=== PATIENT | male | born 1940 | race Caucasian/White ===

== ENCOUNTER 2017-07-16 15:06 | Emergency (ER) | payer MEDICARE, OTHER ==
[2017-07-16 15:23] VITALS: BP 153/72
[2017-07-16] MEDS ORDERED: Sodium Chloride 0.9% 10 ML Syringe FLUSH PRN (15:26)
--- NOTE | 2017-07-16 15:27 | EDM.PDOC ---
ED HPI GENERAL MEDICAL PROBLEM - General Chief Complaint: Cardiovascular Problem Stated Complaint: CONCERNS ABOUT POSS HEART ATTACK Time Seen by Provider: 07/16/17 15:20 Source of Information: Reports: Patient History Limitations: Reports: No Limitations - History of Present Illness INITIAL COMMENTS - FREE TEXT/NARRATIVE: The patient presents with a possible heart attack. He was out pushing snow and he had some epigastric pain and shortness or breath. He had some nausea. He stopped and it got better. He has a history of PA with stents. He has 2-3 stents. He has a history of low sodium. He has no chest pain. He has no fever , chills, cough, congestion, abdominal pain nausea or vomiting. He also had some tingling in his hands. Onset: Sudden Duration: Minutes: Location: Reports: Abdomen Quality: Reports: Other (Discomfort) Severity: Mild Improves with: Reports: None Worsens with: Reports: None Associated Symptoms: Reports: Shortness of Breath. 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 325 mg this morning - Related Data Allergies Allergy/AdvReac Type Severity Reaction Status Date / Time amoxicillin [From Augmentin] Allergy Diarrhea Verified 07/16/17 15:24 clavulanic acid Allergy Diarrhea Verified 07/16/17 15:24 [From Augmentin] hydrochlorothiazide Allergy Other Verified 10/03/16 18:30 tamsulosin [From Flomax] Allergy Difficulty Verified 10/03/16 18:30 Breathing droperidol AdvReac Anxiety Verified 10/04/16 10:36 Home Meds: Home Meds Aspirin [Aspirin EC] 325 mg PO DAILY 01/21/15 [History] Carvedilol [Coreg] 12.5 mg PO BID 01/21/15 [History] FA/Lycopene/Lut/MV,Ca,Iron,Min [Centrum] 1 tab PO DAILY 01/21/15 [History] Furosemide [Lasix] 20 mg PO DAILY 01/21/15 [History] Simvastatin [Zocor] 40 mg PO BEDTIME 01/21/15 [History] Ubidecarenone [COQ-10] 200 mg PO DAILY 01/21/15 [History] amLODIPine/Benazepril [Lotrel 10-20 MG] 10 - 20 mg PO DAILY 01/21/15 [History] Cimetidine [Tagamet Hb] 200 mg PO DAILY 10/03/16 [History] Doxazosin [Cardura] 8 mg PO DAILY 07/16/17 [History] Past Medical History HEENT History: Reports: Other (See Below) Other HEENT History: wears glasses Cardiovascular History: Reports: Hypertension, PA - Infectious Disease History Infectious Disease History: Reports: None - Past Surgical History Cardiovascular Surgical History: Reports: Coronary Artery Stent GI Surgical History: Reports: Hernia Repair/Other, Other (See Below) Musculoskeletal Surgical History: Reports: Hip Replacement, Knee Replacement Social & Family History - Tobacco Use Smoking Status *Q: Never Smoker Years of Tobacco use: 25 Used Tobacco, but Quit: Yes Month Tobacco Last Used: QUIT 34 YRS AGO - Caffeine Use Caffeine Use: Reports: None - Alcohol Use Days Per Week of Alcohol Use: 0 - Recreational Drug Use Recreational Drug Use: No ED ROS GENERAL - Review of Systems Review Of Systems: See Below Constitutional: Reports: No Symptoms HEENT: Reports: No Symptoms Respiratory: Reports: Shortness of Breath Cardiovascular: Reports: No Symptoms Endocrine: Reports: No Symptoms GI/Abdominal: Reports: Abdominal Pain (upset stomach), Nausea : Reports: No Symptoms Musculoskeletal: Reports: No Symptoms ED EXAM, GENERAL - Physical Exam Exam: See Below Exam Limited By: No Limitations General Appearance: Alert, No Apparent Distress Ears: Normal External Exam Nose: Normal Inspection Head: Atraumatic, Normocephalic Neck: Normal Inspection Respiratory/Chest: No Respiratory Distress, Lungs Clear, Normal Breath Sounds Cardiovascular: Regular Rate, Rhythm, No Edema, No Murmur GI/Abdominal: Soft, Non-Tender, No Organomegaly, No Mass Back Exam: Normal Inspection Extremities: Normal Inspection EKG INTERPRETATION EKG Date: 07/16/17 Time: 15:17 Rhythm: NSR Rate (Beats/Min): 60 [place]: Normal P-Wave: Present QRS: Other (Nonspecific interaventricular conduction delay) ST-T: Normal QT: Normal EKG Interpretation Comments: PVC Course - Vital Signs Last Recorded V/S: Last Vital Signs Temp 97.9 F 07/16/17 15:20 Pulse 62 07/16/17 15:20 Resp 11 L 07/16/17 15:20 BP 153/72 H 07/16/17 15:20 Pulse Ox 99 07/16/17 15:20 - Orders/Labs/Meds Orders: Active Orders 24 hr Category Date Time Status Cardiac Monitoring [RC] . DIRECTED Care 07/16/17 15:26 Active EKG Documentation Completion [RC] ASDIRECTED Care 07/16/17 17:29 Active EKG Documentation Completion [RC] STAT Care 07/16/17 15:27 Active Oxygen Therapy [RC] PRN Care 07/16/17 15:26 Active Peripheral IV Care [RC] . DIRECTED Care 07/16/17 15:27 Active Chest 1V Frontal [CR] Stat Exams 07/16/17 15:27 Taken Sodium Chloride 0.9% [Saline Flush] Med 07/16/17 15:26 Active 10 ml FLUSH ASDIRECTED PRN Peripheral IV Insertion Adult [OM.PC] Stat Oth 07/16/17 15:26 Ordered EKG 12 Lead [EK] Stat Ther 07/16/17 17:29 Ordered Medication Orders Sodium Chloride (Saline Flush) 10 ml FLUSH ASDIRECTED PRN PRN Reason: Keep Vein Open Last Admin: 07/16/17 16:24 Dose: 10 ml Labs: Laboratory Tests 07/16/17 07/16/17 07/16/17 Range/Units 15:25 15:25 17:54 WBC 5.17 (4.23-9.07) K/mm3 RBC 4.05 L (4.63-6.08) M/mm3 Hgb 12.9 L (13.7-17.5) gm/L Hct 37.0 L (40.1-51.0) % MCV 91.4 (79.0-92.2) fl MCH 31.9 (25.7-32.2) pg MCHC 34.9 (32.2-35.5) g/dl RDW Std Deviation 38.5 (35.1-43.9) fL Plt Count 255 (163-337) K/mm3 MPV 8.7 L (9.4-12.3) fl Neut % (Auto) 52.6 (34.0-67.9) % Lymph % (Auto) 23.6 (21.8-53.1) % [place] % (Auto) 18.4 H (5.3-12.2) % Eos % (Auto) 3.5 (0.8-7.0) Baso % (Auto) 1.7 H (0.1-1.2) % Neut # (Auto) 2.72 (1.78-5.38) K/mm3 Lymph # (Auto) 1.22 L (1.32-3.57) K/mm3 [place] # (Auto) 0.95 H (0.30-0.82) K/mm3 Eos # (Auto) 0.18 (0.04-0.54) K/mm3 Baso # (Auto) 0.09 H (0.01-0.08) K/mm3 Manual Slide Review Normal smear Sodium 131 L (136-145) mEq/L Potassium 3.8 (3.5-5.1) mEq/L Chloride 98 (98-107) mEq/L Carbon Dioxide 26 (21-32) mEq/L Anion Gap 10.8 (5-15) BUN 15 (7-18) mg/dL Creatinine 1.3 (0.7-1.3) mg/dL Est Cr Clr Drug Dosing 48.35 mL/min Estimated GFR (MDRD) 53 (>60) mL/min BUN/Creatinine Ratio 11.5 L (14-18) Glucose 87 (83-115) mg/dL Calcium 8.7 (8.5-10.1) mg/dL Total Bilirubin 0.5 (0.2-1.0) mg/dL AST 24 (15-37) U/L ALT 24 (16-63) U/L Alkaline Phosphatase 51 (46-116) U/L Troponin I < 0.017 < 0.017 (0.00-0.056) ng/mL Total Protein 6.5 (6.4-8.2) g/dl Albumin 3.6 (3.4-5.0) g/dl Globulin 2.9 gm/dL Albumin/Globulin Ratio 1.2 (1-2) Meds: Medications Generic Name Dose Route Start Last Admin Trade Name Freq PRN Reason Stop Dose Admin Sodium Chloride 10 ml 07/16/17 15:26 07/16/17 16:24 Saline Flush FLUSH 10 ml ASDIRECTED PRN Administration Keep Vein Open - Re-Assessments/Exams Free Text/Narrative Re-Assessment/Exam: 07/16/17 18:44 I ordered an IV saline lock, labs, EKG, CXR. He took aspirin today. His EKG shows a NSR with no acute changes. His CBC is negative. His Na was a little low at 131. His troponin was negative. I did a repeat troponin and it was negative. It does not appear he has a PA. Departure - Departure Time of Disposition: 18:45 Disposition: Home, Self-Care 01 Condition: Good Clinical Impression: Nausea, Shortness of breath Referrals: Heath Rodriguez MD [Primary Care Provider] - 1 Week Forms: ED Department Discharge Additional Instructions: Take your medication as prescribed. Follow up with Dr Rodriguez within 1 week. Please return if you are worse. - My Orders Last 24 Hours: My Active Orders 07/16/17 15:26 Cardiac Monitoring [RC] . DIRECTED Oxygen Therapy [RC] PRN Sodium Chloride 0.9% [Saline Flush] 10 ml FLUSH ASDIRECTED PRN Peripheral IV Insertion Adult [OM.PC] Stat 07/16/17 15:27 EKG Documentation Completion [RC] STAT Peripheral IV Care [RC] . DIRECTED Chest 1V Frontal [CR] Stat 07/16/17 17:29 EKG Documentation Completion [RC] ASDIRECTED EKG 12 Lead [EK] Stat - Assessment/Plan Last 24 Hours: My Active Orders 07/16/17 15:26 Cardiac Monitoring [RC] . DIRECTED Oxygen Therapy [RC] PRN Sodium Chloride 0.9% [Saline Flush] 10 ml FLUSH ASDIRECTED PRN Peripheral IV Insertion Adult [OM.PC] Stat 07/16/17 15:27 EKG Documentation Completion [RC] STAT Peripheral IV Care [RC] . DIRECTED Chest 1V Frontal [CR] Stat 07/16/17 17:29 EKG Documentation Completion [RC] ASDIRECTED EKG 12 Lead [EK] Stat
--- NOTE | 2017-07-17 07:07 | CR ---
Chest: Portable view of the chest is obtained. Comparison: Prior chest x-ray of 10/03/16. Mild areas of linear scarring are seen within the left base. Lungs otherwise are clear but slightly hyperinflated. Heart size and mediastinum are normal. Bony structures are grossly intact. Impression: 1. Slight emphysematous change. 2. Stable scarring within the left lung base. 3. Nothing acute is appreciated on portable chest x-ray. Diagnostic code #2
== END 2017-07-16 19:00 | disposition home or self-care (01) ==
LOC: JD.ED 15:06 → SUPCPDRO 15:06 → JD.ED 19:00
DX: R06.02 Shortness of breath (principal); R11.0 Nausea; R10.13 Epigastric pain; I10 Essential (primary) hypertension; Z79.82 Long term (current) use of aspirin; Z79.899 Other long term (current) drug therapy; Z87.891 Personal history of nicotine dependence; Z88.8 Allergy status to other drugs, medicaments and biological substances; Z88.1 Allergy status to other antibiotic agents
CPT/HCPCS: 36415; 71010; 80053; 84484; 85025; 93005; 99285; J7050; 93010

== ENCOUNTER 2018-08-15 10:55 | Inpatient (IN) | payer MEDICARE, OTHER ==
[2018-08-15] MEDS ORDERED: Sodium Chloride 0.9% 10 ML Syringe FLUSH PRN (11:39)
[2018-08-15] MEDS ORDERED: Sodium Chloride 0.9% 250 ML IV ONE (11:42)
[2018-08-15] MEDS ORDERED: Sodium Chloride 0.9% 1,000 ML IV ONE (13:56)
[2018-08-15] MEDS ORDERED: Iopamidol 755 MG/ML 50 ML Bottle IVPUSH ONE (14:08)
[2018-08-15] MEDS ORDERED: Iopamidol 755 Mg/ML 100 ML Bottle IVPUSH ONE (14:08)
[2018-08-15] MEDS ORDERED: Sodium Chloride 0.9% 10 ML Syringe FLUSH ONE (14:08)
--- NOTE | 2018-08-15 14:09 | EDM.PDOC ---
ED HPI GENERAL MEDICAL PROBLEM - General Chief Complaint: General Stated Complaint: ALL OVER PAIN Time Seen by Provider: 08/15/18 11:20 Source of Information: Reports: Patient History Limitations: Reports: No Limitations - History of Present Illness INITIAL COMMENTS - FREE TEXT/NARRATIVE: 78-year-old male presents for evaluation and treatment of fatigue, malaise, decreased energy and dyspnea on exertion. Patient was seen the end of May. Transfer to [place] for ventricular tachycardia. He had a pacemaker placed on June 26. He has been seeing slag wheeler Dr. Aiken, Dr. Wilson and Dr. Soriano, EP, for his cardiac issues. He has followed up with these providers and has an appointment with EP, Dr. Soriano, on Friday. Patient reports the last 2-3 days he is having issues with abdominal pain, pain in between his shoulder blades, dyspnea on exertion, lightheadedness, decreased energy and malaise. He denies any chest pain, nausea, vomiting or syncope. He is reporting pain generalized throughout his entire abdomen. Primary care provider is Dr. Rodriguez. Patient has a past medical history of hypertension, previous ND, coronary artery stent placements and a pacemaker placed. Generalized Pain Score (Numeric/FACES): 4 - Related Data Allergies Allergy/AdvReac Type Severity Reaction Status Date / Time atorvastatin Allergy Other Verified 08/15/18 20:35 hydrochlorothiazide Allergy Other Verified 08/15/18 20:35 rosuvastatin [From Crestor] Allergy Other Verified 08/15/18 20:35 tamsulosin [From Flomax] Allergy Difficulty Verified 08/15/18 20:35 Breathing amoxicillin [From Augmentin] AdvReac Diarrhea Verified 08/15/18 20:35 clavulanic acid AdvReac Diarrhea Verified 08/15/18 20:35 [From Augmentin] droperidol AdvReac Anxiety Verified 08/15/18 20:35 Home Meds: Home Meds Albuterol [Proventil HFA] 2 puff INH Q6H PRN 06/07/18 [History] Aspirin 325 mg PO DAILY 06/07/18 [History] Brimonidine [Alphagan P 0.15% Ophth Soln] 1 drop OP BID 06/07/18 [History] Carvedilol [Coreg] 6.25 mg PO BID 06/07/18 [History] Doxazosin [Cardura] 2 mg PO DAILY 06/07/18 [History] L Acidophil/B Lactis/B Longum [Florajen3] 1 cap PO ASDIRECTED 06/07/18 [History] Omeprazole 20 mg PO DAILY 06/07/18 [History] Simvastatin [Zocor] 40 mg PO BEDTIME 06/07/18 [History] Ubidecarenone [Coq-10] 200 mg PO DAILY 06/07/18 [History] Umeclidinium Brm/Vilanterol Tr [Anoro Ellipta 62.5-25 MCG] 1 puff IH DAILY 06/07 [History] Vit C/E/Zn/Coppr/Lutein/Zeaxan [Preservision Areds 2 Softgel] 1 cap PO BID 06/07 [History] amLODIPine [Norvasc] 2.5 mg PO DAILY 06/07/18 [History] Amiodarone [Cordarone] 400 mg PO DAILY 08/15/18 [History] Candesartan Cilexetil [Atacand] 8 mg PO DAILY 08/15/18 [History] Furosemide [Lasix] 20 mg PO ASDIRECTED 08/15/18 [History] Furosemide [Lasix] 20 mg PO DAILY 08/15/18 [History] Metoprolol Succinate 75 mg PO BID 08/15/18 [History] Mexiletine [Mexitil] 150 mg PO DAILY 08/15/18 [History] Nitroglycerin [Nitrostat] 0.4 mg SL ASDIRECTED 08/15/18 [History] Umeclidinium [place] [Incruse Ellipta*] 1 puff INH DAILY 08/15/18 [History] Vit C/E/Zn/Coppr/Lutein/Zeaxan [Preservision Areds 2 Softgel] 1 cap PO BID 08/15 [History] Past Medical History HEENT History: Reports: Other (See Below) Other HEENT History: wears glasses Cardiovascular History: Reports: Hypertension, ND, Pacemaker - Infectious Disease History Infectious Disease History: Reports: None - Past Surgical History Cardiovascular Surgical History: Reports: Coronary Artery Stent GI Surgical History: Reports: Hernia Repair/Other, Other (See Below) Musculoskeletal Surgical History: Reports: Hip Replacement, Knee Replacement Social & Family History - Family History Family Medical History: Noncontributory - Tobacco Use Smoking Status *Q: Former Smoker Used Tobacco, but Quit: Yes Month/Year Tobacco Last Used: 1981 - Caffeine Use Caffeine Use: Reports: Coffee, Soda, Tea - Recreational Drug Use Recreational Drug Use: No ED ROS GENERAL - Review of Systems Review Of Systems: See Below Constitutional: Reports: Malaise, Fatigue, Decreased Appetite. Denies: Fever, Chills Respiratory: Denies: Shortness of Breath Cardiovascular: Reports: Dyspnea on Exertion, Lightheadedness. Denies: Chest Pain GI/Abdominal: Reports: Abdominal Pain. Denies: Diarrhea, Nausea, Vomiting Musculoskeletal: Reports: Back Pain (in between shoulder blades) ED EXAM, GENERAL - Physical Exam Exam: See Below Exam Limited By: No Limitations General Appearance: Alert, WD/WN, No Apparent Distress Ears: Normal External Exam Nose: Normal Inspection Throat/Mouth: Normal Inspection, Normal Lips, Normal Voice, No Airway Compromise Respiratory/Chest: No Respiratory Distress, Lungs Clear, Normal Breath Sounds Cardiovascular: Normal Peripheral Pulses, Regular Rate, Rhythm, No Murmur GI/Abdominal: Normal Bowel Sounds, Soft, No Distention, Tender (mild, generalized) Neurological: Alert, Oriented, Normal Cognition Psychiatric: Normal Affect, Normal Mood Skin Exam: Warm, Dry, Normal Color EKG INTERPRETATION EKG Date: 08/15/18 Time: 11:05 Rhythm: Other (paced) Rate (Beats/Min): 66 EKG Interpretation Comments: Paced rhythm at 66 bpm. Prolonged QT interval. with a QTc of 580. Reviewed by myself and Dr. Chavez. Course - Vital Signs Last Recorded V/S: Last Vital Signs Temp 97.2 F 08/15/18 20:28 Pulse 76 08/15/18 21:37 Resp 18 08/15/18 20:28 BP 111/75 08/15/18 21:37 Pulse Ox 96 08/15/18 20:28 - Orders/Labs/Meds Orders: Active Orders 24 hr Category Date Time Status Cardiac Monitoring [RC] . DIRECTED Care 08/15/18 11:39 Active EKG Documentation Completion [RC] ASDIRECTED Care 08/15/18 11:39 Active Sodium Chloride 0.9% [Saline Flush] Med 08/15/18 11:39 Active 10 ml FLUSH ASDIRECTED PRN Peripheral IV Insertion Adult [OM.PC] Routine Oth 08/15/18 11:38 Ordered EKG 12 Lead [EK] Stat Ther 08/15/18 11:39 Ordered Medication Orders Albuterol (Proventil Hfa) 0 gm INH Q6H PRN PRN Reason: Shortness of Breath Amiodarone HCl (Cordarone) 400 mg PO DAILY [facility] Aspirin (Ecotrin) 325 mg PO DAILY [facility] Brimonidine Tartrate (Alphagan 0.2% Ophth Soln) 0 ml EYEBOTH BID [facility] Last Admin: 08/15/18 21:40 Dose: 1 drop Carvedilol (Coreg) 6.25 mg PO BID [facility] Last Admin: 08/15/18 21:37 Dose: 6.25 mg Doxazosin Mesylate (Cardura) 2 mg PO DAILY [facility] Nitroglycerin (Nitrostat) 0.4 mg SL ASDIRECTED PRN PRN Reason: Chest Pain Non-Formulary Medication (Umeclidinium Brm/Vilanterol Tr) 1 puff IH DAILY [facility] Simvastatin (Zocor) 40 mg PO BEDTIME [facility] Last Admin: 08/15/18 21:40 Dose: 40 mg Sodium Chloride (Saline Flush) 10 ml FLUSH ASDIRECTED PRN PRN Reason: Keep Vein Open Last Admin: 08/15/18 12:25 Dose: 10 ml Labs: Laboratory Tests 08/15/18 08/15/18 08/15/18 Range/Units 11:00 11:00 11:00 WBC 4.25 (4.23-9.07) K/mm3 RBC 4.41 L (4.63-6.08) M/mm3 Hgb 13.4 L (13.7-17.5) gm/L Hct 37.2 L (40.1-51.0) % MCV 84.4 (79.0-92.2) fl MCH 30.4 (25.7-32.2) pg MCHC 36.0 H (32.2-35.5) g/dl RDW Std Deviation 37.7 (35.1-43.9) fL Plt Count 256 (163-337) K/mm3 MPV 9.3 L (9.4-12.3) fl Neutrophils % (Manual) 60 (40-60) % Band Neutrophils % 1 (0-10) % Lymphocytes % (Manual) 26 (20-40) % Atypical Lymphs % 0 % Monocytes % (Manual) 9 (2-10) % Eosinophils % (Manual) 4 (0.8-7.0) % Basophils % (Manual) 0 L (0.2-1.2) Platelet Estimate Adequate RBC Morph Comment Normal PT 10.6 (9.5-12.1) SECONDS INR 0.97 APTT 31 (24-31) SECONDS D-Dimer, Quantitative 1.49 H (0.19-0.50) mg/L Sodium 117 L* (136-145) mEq/L Potassium 4.1 (3.5-5.1) mEq/L Chloride 82 L (98-107) mEq/L Carbon Dioxide 28 (21-32) mEq/L Anion Gap 11.1 (5-15) BUN 9 (7-18) mg/dL Creatinine 1.0 (0.7-1.3) mg/dL Est Cr Clr Drug Dosing 61.85 mL/min Estimated GFR (MDRD) > 60 (>60) mL/min BUN/Creatinine Ratio 9.0 L (14-18) Glucose 116 H (83-115) mg/dL Calcium 8.5 (8.5-10.1) mg/dL Magnesium (1.8-2.4) mg/dl Total Bilirubin 0.6 (0.2-1.0) mg/dL AST 78 H (15-37) U/L ALT 79 H (16-63) U/L Alkaline Phosphatase 92 (46-116) U/L CK-MB (CK-2) 1.8 (0-3.6) ng/ml Troponin I < 0.017 (0.00-0.056) ng/mL NT-Pro-B Natriuret Pep (0-450) pg/mL Total Protein 7.0 (6.4-8.2) g/dl Albumin 3.5 (3.4-5.0) g/dl Globulin 3.5 gm/dL Albumin/Globulin Ratio 1.0 (1-2) Lipase 238 (73-393) U/L Urine Color (Yellow) Urine Appearance (Clear) Urine pH (5.0-8.0) Ur Specific [place] (1.005-1.030) Urine Protein (Negative) Urine Glucose (UA) (Negative) Urine Ketones (Negative) Urine Occult Blood (Negative) Urine Nitrite (Negative) Urine Bilirubin (Negative) Urine Urobilinogen (0.2-1.0) Ur Leukocyte Esterase (Negative) Urine RBC (0-5) /hpf Urine WBC (0-5) /hpf Ur Epithelial Cells (0-5) /hpf Urine Bacteria (FEW) /hpf Urine Mucus (FEW) /hpf Mycoplasma pneumon IgM (NEGATIVE) 08/15/18 08/15/18 08/15/18 Range/Units 11:00 11:00 11:00 WBC (4.23-9.07) K/mm3 RBC (4.63-6.08) M/mm3 Hgb (13.7-17.5) gm/L Hct (40.1-51.0) % MCV (79.0-92.2) fl MCH (25.7-32.2) pg MCHC (32.2-35.5) g/dl RDW Std Deviation (35.1-43.9) fL Plt Count (163-337) K/mm3 MPV (9.4-12.3) fl Neutrophils % (Manual) (40-60) % Band Neutrophils % (0-10) % Lymphocytes % (Manual) (20-40) % Atypical Lymphs % % Monocytes % (Manual) (2-10) % Eosinophils % (Manual) (0.8-7.0) % Basophils % (Manual) (0.2-1.2) Platelet Estimate RBC Morph Comment PT (9.5-12.1) SECONDS INR APTT (24-31) SECONDS D-Dimer, Quantitative (0.19-0.50) mg/L Sodium (136-145) mEq/L Potassium (3.5-5.1) mEq/L Chloride (98-107) mEq/L Carbon Dioxide (21-32) mEq/L Anion Gap (5-15) BUN (7-18) mg/dL Creatinine (0.7-1.3) mg/dL Est Cr Clr Drug Dosing mL/min Estimated GFR (MDRD) (>60) mL/min BUN/Creatinine Ratio (14-18) Glucose (83-115) mg/dL Calcium (8.5-10.1) mg/dL Magnesium 2.0 (1.8-2.4) mg/dl Total Bilirubin (0.2-1.0) mg/dL AST (15-37) U/L ALT (16-63) U/L Alkaline Phosphatase (46-116) U/L CK-MB (CK-2) (0-3.6) ng/ml Troponin I (0.00-0.056) ng/mL NT-Pro-B Natriuret Pep 1411 H (0-450) pg/mL Total Protein (6.4-8.2) g/dl Albumin (3.4-5.0) g/dl Globulin gm/dL Albumin/Globulin Ratio (1-2) Lipase (73-393) U/L Urine Color (Yellow) Urine Appearance (Clear) Urine pH (5.0-8.0) Ur Specific [place] (1.005-1.030) Urine Protein (Negative) Urine Glucose (UA) (Negative) Urine Ketones (Negative) Urine Occult Blood (Negative) Urine Nitrite (Negative) Urine Bilirubin (Negative) Urine Urobilinogen (0.2-1.0) Ur Leukocyte Esterase (Negative) Urine RBC (0-5) /hpf Urine WBC (0-5) /hpf Ur Epithelial Cells (0-5) /hpf Urine Bacteria (FEW) /hpf Urine Mucus (FEW) /hpf Mycoplasma pneumon IgM Negative (NEGATIVE) 08/15/18 Range/Units 12:00 WBC (4.23-9.07) K/mm3 RBC (4.63-6.08) M/mm3 Hgb (13.7-17.5) gm/L Hct (40.1-51.0) % MCV (79.0-92.2) fl MCH (25.7-32.2) pg MCHC (32.2-35.5) g/dl RDW Std Deviation (35.1-43.9) fL Plt Count (163-337) K/mm3 MPV (9.4-12.3) fl Neutrophils % (Manual) (40-60) % Band Neutrophils % (0-10) % Lymphocytes % (Manual) (20-40) % Atypical Lymphs % % Monocytes % (Manual) (2-10) % Eosinophils % (Manual) (0.8-7.0) % Basophils % (Manual) (0.2-1.2) Platelet Estimate RBC Morph Comment PT (9.5-12.1) SECONDS INR APTT (24-31) SECONDS D-Dimer, Quantitative (0.19-0.50) mg/L Sodium (136-145) mEq/L Potassium (3.5-5.1) mEq/L Chloride (98-107) mEq/L Carbon Dioxide (21-32) mEq/L Anion Gap (5-15) BUN (7-18) mg/dL Creatinine (0.7-1.3) mg/dL Est Cr Clr Drug Dosing mL/min Estimated GFR (MDRD) (>60) mL/min BUN/Creatinine Ratio (14-18) Glucose (83-115) mg/dL Calcium (8.5-10.1) mg/dL Magnesium (1.8-2.4) mg/dl Total Bilirubin (0.2-1.0) mg/dL AST (15-37) U/L ALT (16-63) U/L Alkaline Phosphatase (46-116) U/L CK-MB (CK-2) (0-3.6) ng/ml Troponin I (0.00-0.056) ng/mL NT-Pro-B Natriuret Pep (0-450) pg/mL Total Protein (6.4-8.2) g/dl Albumin (3.4-5.0) g/dl Globulin gm/dL Albumin/Globulin Ratio (1-2) Lipase (73-393) U/L Urine Color Yellow (Yellow) Urine Appearance Clear (Clear) Urine pH 7.5 (5.0-8.0) Ur Specific [place] 1.020 (1.005-1.030) Urine Protein Negative (Negative) Urine Glucose (UA) Negative (Negative) Urine Ketones Negative (Negative) Urine Occult Blood Negative (Negative) Urine Nitrite Negative (Negative) Urine Bilirubin Negative (Negative) Urine Urobilinogen 0.2 (0.2-1.0) Ur Leukocyte Esterase Negative (Negative) Urine RBC Not seen (0-5) /hpf Urine WBC 0-5 (0-5) /hpf Ur Epithelial Cells Not seen (0-5) /hpf Urine Bacteria Rare (FEW) /hpf Urine Mucus Not seen (FEW) /hpf Mycoplasma pneumon IgM (NEGATIVE) Meds: Medications Generic Name Dose Route Start Last Admin Trade Name Freq PRN Reason Stop Dose Admin Albuterol 0 gm 08/15/18 19:23 Proventil Hfa INH Q6H PRN Shortness of Breath Amiodarone HCl 400 mg 08/16/18 09:00 Cordarone PO DAILY [facility] Aspirin 325 mg 08/16/18 09:00 Ecotrin PO DAILY [facility] Brimonidine Tartrate 0 ml 08/15/18 21:00 08/15/18 21:40 Alphagan 0.2% Ophth Soln EYEBOTH 1 drop BID [facility] Administration Carvedilol 6.25 mg 08/15/18 21:00 08/15/18 21:37 Coreg PO 6.25 mg BID [facility] Administration Doxazosin Mesylate 2 mg 08/16/18 09:00 Cardura PO DAILY [facility] Nitroglycerin 0.4 mg 08/15/18 19:15 Nitrostat SL ASDIRECTED PRN Chest Pain Non-Formulary Medication 1 puff 08/16/18 09:00 Umeclidinium Brm/Vilanterol Tr IH DAILY [facility] Simvastatin 40 mg 08/15/18 21:00 08/15/18 21:40 Zocor PO 40 mg BEDTIME [facility] Administration Sodium Chloride 10 ml 08/15/18 11:39 08/15/18 12:25 Saline Flush FLUSH 10 ml ASDIRECTED PRN Administration Keep Vein Open Discontinued Medications Generic Name Dose Route Start Last Admin Trade Name Freq PRN Reason Stop Dose Admin Sodium Chloride 250 mls @ 999 mls/hr 08/15/18 11:42 08/15/18 12:25 Normal Saline IV 08/15/18 11:57 999 mls/hr ONETIME ONE Administration Sodium Chloride 1,000 mls @ 100 mls/hr 08/15/18 13:56 08/15/18 20:23 Normal Saline IV 08/15/18 23:55 Not Given ONETIME ONE Sodium Chloride 100 mls @ 60 mls/hr 08/15/18 14:15 08/15/18 14:23 Normal Saline IV 60 mls/hr ASDIRECTED ARTHUR Administration Sodium Chloride 500 mls @ 999 mls/hr 08/15/18 15:47 08/15/18 20:23 Normal Saline IV 08/15/18 16:17 Not Given ONETIME ONE Sodium Chloride 1,000 mls @ 125 mls/hr 08/15/18 19:15 Normal Saline IV ASDIRECTED ARTHUR Iopamidol 50 ml 08/15/18 14:08 08/15/18 14:23 Isovue-370 (76%) IVPUSH 08/15/18 14:09 50 ml ONETIME ONE Administration Iopamidol 100 ml 08/15/18 14:08 08/15/18 14:23 Isovue-370 (76%) IVPUSH 08/15/18 14:09 100 ml ONETIME ONE Administration Ondansetron HCl 4 mg 08/15/18 15:18 08/15/18 15:26 Zofran IVPUSH 08/15/18 15:19 4 mg ONETIME ONE Administration Sodium Chloride 10 ml 08/15/18 14:08 08/15/18 14:23 Saline Flush FLUSH 08/15/18 14:09 10 ml ONETIME ONE Administration - Radiology Interpretation Free Text/Narrative:: CT chest Technique: Multiple axial sections were obtained through the chest. Intravenous contrast was utilized. Comparison: Prior chest CT study of 10/16/12 is available. Findings: Pulmonary arteries are well-opacified. No filling defects are seen to indicate pulmonary embolism. Atherosclerotic change is noted within the aorta. Ascending aorta is slightly ectatic at 3.5 cm. No thoracic aortic aneurysm or dissection is seen. No mediastinal mass or adenopathy is seen. No hilar abnormalities are seen. Emphysematous change is noted within both lungs. Lungs show no acute parenchymal change. No pleural effusions are seen. No pneumothorax is seen. Bone window settings were reviewed which shows mild scattered degenerative change within the spine. Previous sternotomy is noted presumably for CABG. Impression: 1. No findings of pulmonary embolism. Ascending aorta is slightly ectatic but no aneurysm is seen. No aortic dissection is seen. 2. Emphysematous change is noted with no acute parenchymal change being seen. 3. Other incidental findings as noted above. CT abdomen and pelvis Technique: Multiple axial sections were obtained from above the dome of the diaphragm inferiorly to the pubic symphysis. Intravenous contrast was utilized. Study initially returned during the arterial phase. Additional axial images were obtained during the venous phase of contrast enhancement. Findings: Aorta shows atherosclerotic change. No aneurysm is seen. Atherosclerotic change is noted at the origin of both renal arteries. No definite hemodynamically significant stenosis is seen within the renal arteries. Symmetric contrast enhancement of both kidneys is noted. Atherosclerotic change is noted at the origin of the superior mesenteric artery. No findings of hemodynamic significant stenosis is seen. Celiac axis also shows atherosclerotic change at its origin. Celiac axis shows no hemodynamic significant stenosis. Inferior mesenteric artery shows atherosclerotic change at its origin. No hemodynamic significant stenosis is seen within the inferior mesenteric artery. Liver contains no focal abnormality. Spleen appears within normal limits. Adrenal glands show no nodule. Kidneys show no hydronephrosis or mass. Pancreas is within normal limits. Previous cholecystectomy is noted. No retroperitoneal adenopathy is seen. No mesenteric abnormalities are seen. Very small sac containing hernia noted within the right anterior abdominal wall slightly above the umbilicus. No pelvic mass or adenopathy is seen. Artifact is noted within the pelvis from bilateral hip prosthesis. Scattered degenerative change is noted within the lumbar spine with minimal scoliosis. No bowel dilatation or bowel wall thickening is seen. Appendix is not definitely visualized. Impression: 1. Atherosclerotic change at the origin of all branch vessels from the aorta. No definite hemodynamic significant stenosis within the branch vessels is seen as described above. Aorta shows no dissection or aneurysm. 2. Other incidental findings as noted above. - Re-Assessments/Exams Free Text/Narrative Re-Assessment/Exam: 08/15/18 15:46 I reviewed the labs, EKG and imaging with the patient and his . He is declining pain medication since being in the ER. He is quite hyponatremic with a sodium of 117. I am recommending admission. reports he has had hyponatremia in the past. I did see him in September 2016 for hyponatremia. Reportedly the cause of his hyponatremia is unknown. When he was seen in May his sodium was 136. Case discussed with Dr. Carrion, hospitalist [employer] wire[employer]. Agrees to the admission and is come to the ED and seen the patient. Asked that we check for influenza and mycoplasm as well. Patient will be admitted observation under Dr. Carrion. Departure - Departure Time of Disposition: 15:50 Disposition: Refer to Observation Condition: Serious Clinical Impression: Hyponatremia - Discharge Information *PRESCRIPTION DRUG MONITORING PROGRAM REVIEWED*: No *COPY OF PRESCRIPTION DRUG MONITORING REPORT IN PATIENT PAN: No - My Orders Last 24 Hours: My Active Orders 08/15/18 11:38 Peripheral IV Insertion Adult [OM.PC] Routine 08/15/18 11:39 Cardiac Monitoring [RC] . DIRECTED EKG Documentation Completion [RC] ASDIRECTED Sodium Chloride 0.9% [Saline Flush] 10 ml FLUSH ASDIRECTED PRN EKG 12 Lead [EK] Stat - Assessment/Plan Last 24 Hours: My Active Orders 08/15/18 11:38 Peripheral IV Insertion Adult [OM.PC] Routine 08/15/18 11:39 Cardiac Monitoring [RC] . DIRECTED EKG Documentation Completion [RC] ASDIRECTED Sodium Chloride 0.9% [Saline Flush] 10 ml FLUSH ASDIRECTED PRN EKG 12 Lead [EK] Stat
[2018-08-15] MEDS ORDERED: Sodium Chloride 0.9% 100 ML IV SCH (14:15)
[2018-08-15] MEDS ORDERED: Ondansetron 4 MG/2 ML SDV IVPUSH ONE (15:18)
--- NOTE | 2018-08-15 15:42 | CT ---
CT chest Technique: Multiple axial sections were obtained through the chest. Intravenous contrast was utilized. Comparison: Prior chest CT study of 10/16/12 is available. Findings: Pulmonary arteries are well-opacified. No filling defects are seen to indicate pulmonary embolism. Atherosclerotic change is noted within the aorta. Ascending aorta is slightly ectatic at 3.5 cm. No thoracic aortic aneurysm or dissection is seen. No mediastinal mass or adenopathy is seen. No hilar abnormalities are seen. Emphysematous change is noted within both lungs. Lungs show no acute parenchymal change. No pleural effusions are seen. No pneumothorax is seen. Bone window settings were reviewed which shows mild scattered degenerative change within the spine. Previous sternotomy is noted presumably for CABG. Impression: 1. No findings of pulmonary embolism. Ascending aorta is slightly ectatic but no aneurysm is seen. No aortic dissection is seen. 2. Emphysematous change is noted with no acute parenchymal change being seen. 3. Other incidental findings as noted above. Diagnostic code #2 CT abdomen and pelvis Technique: Multiple axial sections were obtained from above the dome of the diaphragm inferiorly to the pubic symphysis. Intravenous contrast was utilized. Study initially returned during the arterial phase. Additional axial images were obtained during the venous phase of contrast enhancement. Findings: Aorta shows atherosclerotic change. No aneurysm is seen. Atherosclerotic change is noted at the origin of both renal arteries. No definite hemodynamically significant stenosis is seen within the renal arteries. Symmetric contrast enhancement of both kidneys is noted. Atherosclerotic change is noted at the origin of the superior mesenteric artery. No findings of hemodynamic significant stenosis is seen. Celiac axis also shows atherosclerotic change at its origin. Celiac axis shows no hemodynamic significant stenosis. Inferior mesenteric artery shows atherosclerotic change at its origin. No hemodynamic significant stenosis is seen within the inferior mesenteric artery. Liver contains no focal abnormality. Spleen appears within normal limits. Adrenal glands show no nodule. Kidneys show no hydronephrosis or mass. Pancreas is within normal limits. Previous cholecystectomy is noted. No retroperitoneal adenopathy is seen. No mesenteric abnormalities are seen. Very small sac containing hernia noted within the right anterior abdominal wall slightly above the umbilicus. No pelvic mass or adenopathy is seen. Artifact is noted within the pelvis from bilateral hip prosthesis. Scattered degenerative change is noted within the lumbar spine with minimal scoliosis. No bowel dilatation or bowel wall thickening is seen. Appendix is not definitely visualized. Impression: 1. Atherosclerotic change at the origin of all branch vessels from the aorta. No definite hemodynamic significant stenosis within the branch vessels is seen as described above. Aorta shows no dissection or aneurysm. 2. Other incidental findings as noted above. Diagnostic code #2
[2018-08-15] MEDS ORDERED: Sodium Chloride 0.9% 500 ML IV ONE (15:47)
--- NOTE | 2018-08-15 19:08 | PCM.HP ---
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 He has had malaise, SOB, decreased activity level which began after but before . He denies any recent change in medication, however the medication list multiple duplications in several drug classes. This will be clarified during the hospitalization. He mentioned nausea without vomiting, denies any triggers. 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 Electrolyte correction, abnd hydration for dehydration has been initiated in the ED. The patient will be admitted to [facility]; he is a full code. Onset of Symptoms: Reports: Unknown/Unsure Symptom Onset Date: 08/06/18 Duration of Symptoms: Reports: Day(s):, Getting Worse Location: Reports: Generalized Quality: Reports: Same as Previous Episode Severity: Moderate Improves with: Reports: Medication Worsens with: Reports: None Context: Reports: Sick Contact (unknown) Associated Symptoms: Reports: Loss of Appetite, Malaise, Nausea/Vomiting, Weakness Generalized Pain Score (Numeric/FACES): 4 - Related Data Allergies/Adverse Reactions: Allergies Allergy/AdvReac Type Severity Reaction Status Date / Time atorvastatin Allergy Other Verified 08/15/18 20:35 hydrochlorothiazide Allergy Other Verified 08/15/18 20:35 rosuvastatin [From Crestor] Allergy Other Verified 08/15/18 20:35 tamsulosin [From Flomax] Allergy Difficulty Verified 08/15/18 20:35 Breathing amoxicillin [From Augmentin] AdvReac Diarrhea Verified 08/15/18 20:35 clavulanic acid AdvReac Diarrhea Verified 08/15/18 20:35 [From Augmentin] droperidol AdvReac Anxiety Verified 08/15/18 20:35 Home Medications: Home Meds Albuterol [Proventil HFA] 2 puff INH Q6H PRN 06/07/18 [History] Aspirin 325 mg PO DAILY 06/07/18 [History] Brimonidine [Alphagan P 0.15% Ophth Soln] 1 drop OP BID 06/07/18 [History] Doxazosin [Cardura] 2 mg PO DAILY 06/07/18 [History] L Acidophil/B Lactis/B Longum [Florajen3] 1 cap PO ASDIRECTED 06/07/18 [History] Omeprazole 20 mg PO DAILY 06/07/18 [History] Simvastatin [Zocor] 20 mg PO BEDTIME 06/07/18 [History] Ubidecarenone [Coq-10] 200 mg PO DAILY 06/07/18 [History] Vit C/E/Zn/Coppr/Lutein/Zeaxan [Preservision Areds 2 Softgel] 1 cap PO BID 06/07 [History] Amiodarone [Cordarone] 400 mg PO DAILY 08/15/18 [History] Candesartan Cilexetil [Atacand] 8 mg PO DAILY 08/15/18 [History] Furosemide [Lasix] 20 mg PO ASDIRECTED 08/15/18 [History] Furosemide [Lasix] 20 mg PO DAILY 08/15/18 [History] Metoprolol Succinate 75 mg PO BID 08/15/18 [History] Mexiletine [Mexitil] 150 mg PO TID 08/15/18 [History] Nitroglycerin [Nitrostat] 0.4 mg SL ASDIRECTED 08/15/18 [History] Umeclidinium [place] [Incruse Ellipta*] 1 puff INH DAILY 08/15/18 [History] Vit C/E/Zn/Coppr/Lutein/Zeaxan [Preservision Areds 2 Softgel] 1 cap PO BID 08/15 [History] Past Medical History HEENT History: Reports: Other (See Below) Other HEENT History: wears glasses Cardiovascular History: Reports: Hypertension, [place], Pacemaker - Infectious Disease History Infectious Disease History: Reports: None - Past Surgical History Cardiovascular Surgical History: Reports: Coronary Artery Stent GI Surgical History: Reports: Hernia Repair/Other, Other (See Below) Musculoskeletal Surgical History: Reports: Hip Replacement, Knee Replacement Social & Family History - Family History Family Medical History: Noncontributory - Tobacco Use Smoking Status *Q: Former Smoker Used Tobacco, but Quit: Yes Month/Year Tobacco Last Used: 1981 - Caffeine Use Caffeine Use: Reports: Coffee, Soda, Tea - Recreational Drug Use Recreational Drug Use: No H&P Review of Systems - Review of Systems: Review Of Systems: See Below () General: Reports: Malaise, Weakness, Fatigue HEENT: Reports: No Symptoms Pulmonary: Reports: No Symptoms Cardiovascular: Reports: Lightheadedness Gastrointestinal: Reports: Decreased Appetite Genitourinary: Reports: No Symptoms Musculoskeletal: Reports: No Symptoms Skin: Reports: No Symptoms Psychiatric: Reports: No Symptoms Neurological: Reports: Dizziness Hematologic/Lymphatic: Reports: No Symptoms Immunologic: Reports: No Symptoms Exam - Exam Exam: See Below - Vital Signs Vital Signs: Last Vital Signs Temp 36.8 C 08/15/18 13:00 Pulse 60 08/15/18 18:15 Resp 20 08/15/18 18:15 BP 167/83 H 08/15/18 18:15 Pulse Ox 94 L 08/15/18 18:15 Weight: 81.647 kg - Exam Quality Assessment: Supplemental Oxygen General: Alert, Oriented, Cooperative HEENT: Conjunctiva Clear, EACs Clear, EOMI, Nares Patent, Normal Nasal Septum, Pupils Equal, Pupils Reactive, PERRLA Neck: Trachea Midline Lungs: Normal Respiratory Effort GI/Abdominal Exam: Normal Bowel Sounds, Soft, Non-Tender, No Organomegaly, No Distention (Male) Exam: Deferred Rectal (Males) Exam: Deferred Back Exam: Normal Inspection Extremities: Normal Inspection, Non-Tender, Normal Capillary Refill Skin: Warm Neurological: Cranial Nerves Intact, Normal Speech Neuro Extensive - Mental Status: Alert, Oriented x3, Normal Mood/Affect, Normal Cognition, Memory Intact Neuro Extensive - Motor, Sensory, Reflexes: CN II-XII Intact Psychiatric: Alert, Normal Affect, Normal Mood - Patient Data Lab Results Last 24 hrs: Laboratory Results - last 24 hr 08/15/18 08/15/18 08/15/18 Range/Units 11:00 11:00 11:00 WBC 4.25 (4.23-9.07) K/mm3 RBC 4.41 L (4.63-6.08) M/mm3 Hgb 13.4 L (13.7-17.5) gm/L Hct 37.2 L (40.1-51.0) % MCV 84.4 (79.0-92.2) fl MCH 30.4 (25.7-32.2) pg MCHC 36.0 H (32.2-35.5) g/dl RDW Std Deviation 37.7 (35.1-43.9) fL Plt Count 256 (163-337) K/mm3 MPV 9.3 L (9.4-12.3) fl Neutrophils % (Manual) 60 (40-60) % Band Neutrophils % 1 (0-10) % Lymphocytes % (Manual) 26 (20-40) % Atypical Lymphs % 0 % Monocytes % (Manual) 9 (2-10) % Eosinophils % (Manual) 4 (0.8-7.0) % Basophils % (Manual) 0 L (0.2-1.2) Platelet Estimate Adequate RBC Morph Comment Normal PT 10.6 (9.5-12.1) SECONDS INR 0.97 APTT 31 (24-31) SECONDS D-Dimer, Quantitative 1.49 H (0.19-0.50) mg/L Sodium 117 L* (136-145) mEq/L Potassium 4.1 (3.5-5.1) mEq/L Chloride 82 L (98-107) mEq/L Carbon Dioxide 28 (21-32) mEq/L Anion Gap 11.1 (5-15) BUN 9 (7-18) mg/dL Creatinine 1.0 (0.7-1.3) mg/dL Est Cr Clr Drug Dosing 61.85 mL/min Estimated GFR (MDRD) > 60 (>60) mL/min BUN/Creatinine Ratio 9.0 L (14-18) Glucose 116 H (83-115) mg/dL Calcium 8.5 (8.5-10.1) mg/dL Magnesium (1.8-2.4) mg/dl Total Bilirubin 0.6 (0.2-1.0) mg/dL AST 78 H (15-37) U/L ALT 79 H (16-63) U/L Alkaline Phosphatase 92 (46-116) U/L CK-MB (CK-2) 1.8 (0-3.6) ng/ml Troponin I < 0.017 (0.00-0.056) ng/mL NT-Pro-B Natriuret Pep (0-450) pg/mL Total Protein 7.0 (6.4-8.2) g/dl Albumin 3.5 (3.4-5.0) g/dl Globulin 3.5 gm/dL Albumin/Globulin Ratio 1.0 (1-2) Lipase 238 (73-393) U/L Urine Color (Yellow) Urine Appearance (Clear) Urine pH (5.0-8.0) Ur Specific [place] (1.005-1.030) Urine Protein (Negative) Urine Glucose (UA) (Negative) Urine Ketones (Negative) Urine Occult Blood (Negative) Urine Nitrite (Negative) Urine Bilirubin (Negative) Urine Urobilinogen (0.2-1.0) Ur Leukocyte Esterase (Negative) Urine RBC (0-5) /hpf Urine WBC (0-5) /hpf Ur Epithelial Cells (0-5) /hpf Urine Bacteria (FEW) /hpf Urine Mucus (FEW) /hpf Mycoplasma pneumon IgM (NEGATIVE) 08/15/18 08/15/18 08/15/18 Range/Units 11:00 11:00 11:00 WBC (4.23-9.07) K/mm3 RBC (4.63-6.08) M/mm3 Hgb (13.7-17.5) gm/L Hct (40.1-51.0) % MCV (79.0-92.2) fl MCH (25.7-32.2) pg MCHC (32.2-35.5) g/dl RDW Std Deviation (35.1-43.9) fL Plt Count (163-337) K/mm3 MPV (9.4-12.3) fl Neutrophils % (Manual) (40-60) % Band Neutrophils % (0-10) % Lymphocytes % (Manual) (20-40) % Atypical Lymphs % % Monocytes % (Manual) (2-10) % Eosinophils % (Manual) (0.8-7.0) % Basophils % (Manual) (0.2-1.2) Platelet Estimate RBC Morph Comment PT (9.5-12.1) SECONDS INR APTT (24-31) SECONDS D-Dimer, Quantitative (0.19-0.50) mg/L Sodium (136-145) mEq/L Potassium (3.5-5.1) mEq/L Chloride (98-107) mEq/L Carbon Dioxide (21-32) mEq/L Anion Gap (5-15) BUN (7-18) mg/dL Creatinine (0.7-1.3) mg/dL Est Cr Clr Drug Dosing mL/min Estimated GFR (MDRD) (>60) mL/min BUN/Creatinine Ratio (14-18) Glucose (83-115) mg/dL Calcium (8.5-10.1) mg/dL Magnesium 2.0 (1.8-2.4) mg/dl Total Bilirubin (0.2-1.0) mg/dL AST (15-37) U/L ALT (16-63) U/L Alkaline Phosphatase (46-116) U/L CK-MB (CK-2) (0-3.6) ng/ml Troponin I (0.00-0.056) ng/mL NT-Pro-B Natriuret Pep 1411 H (0-450) pg/mL Total Protein (6.4-8.2) g/dl Albumin (3.4-5.0) g/dl Globulin gm/dL Albumin/Globulin Ratio (1-2) Lipase (73-393) U/L Urine Color (Yellow) Urine Appearance (Clear) Urine pH (5.0-8.0) Ur Specific [place] (1.005-1.030) Urine Protein (Negative) Urine Glucose (UA) (Negative) Urine Ketones (Negative) Urine Occult Blood (Negative) Urine Nitrite (Negative) Urine Bilirubin (Negative) Urine Urobilinogen (0.2-1.0) Ur Leukocyte Esterase (Negative) Urine RBC (0-5) /hpf Urine WBC (0-5) /hpf Ur Epithelial Cells (0-5) /hpf Urine Bacteria (FEW) /hpf Urine Mucus (FEW) /hpf Mycoplasma pneumon IgM Negative (NEGATIVE) 08/15/18 Range/Units 12:00 WBC (4.23-9.07) K/mm3 RBC (4.63-6.08) M/mm3 Hgb (13.7-17.5) gm/L Hct (40.1-51.0) % MCV (79.0-92.2) fl MCH (25.7-32.2) pg MCHC (32.2-35.5) g/dl RDW Std Deviation (35.1-43.9) fL Plt Count (163-337) K/mm3 MPV (9.4-12.3) fl Neutrophils % (Manual) (40-60) % Band Neutrophils % (0-10) % Lymphocytes % (Manual) (20-40) % Atypical Lymphs % % Monocytes % (Manual) (2-10) % Eosinophils % (Manual) (0.8-7.0) % Basophils % (Manual) (0.2-1.2) Platelet Estimate RBC Morph Comment PT (9.5-12.1) SECONDS INR APTT (24-31) SECONDS D-Dimer, Quantitative (0.19-0.50) mg/L Sodium (136-145) mEq/L Potassium (3.5-5.1) mEq/L Chloride (98-107) mEq/L Carbon Dioxide (21-32) mEq/L Anion Gap (5-15) BUN (7-18) mg/dL Creatinine (0.7-1.3) mg/dL Est Cr Clr Drug Dosing mL/min Estimated GFR (MDRD) (>60) mL/min BUN/Creatinine Ratio (14-18) Glucose (83-115) mg/dL Calcium (8.5-10.1) mg/dL Magnesium (1.8-2.4) mg/dl Total Bilirubin (0.2-1.0) mg/dL AST (15-37) U/L ALT (16-63) U/L Alkaline Phosphatase (46-116) U/L CK-MB (CK-2) (0-3.6) ng/ml Troponin I (0.00-0.056) ng/mL NT-Pro-B Natriuret Pep (0-450) pg/mL Total Protein (6.4-8.2) g/dl Albumin (3.4-5.0) g/dl Globulin gm/dL Albumin/Globulin Ratio (1-2) Lipase (73-393) U/L Urine Color Yellow (Yellow) Urine Appearance Clear (Clear) Urine pH 7.5 (5.0-8.0) Ur Specific [place] 1.020 (1.005-1.030) Urine Protein Negative (Negative) Urine Glucose (UA) Negative (Negative) Urine Ketones Negative (Negative) Urine Occult Blood Negative (Negative) Urine Nitrite Negative (Negative) Urine Bilirubin Negative (Negative) Urine Urobilinogen 0.2 (0.2-1.0) Ur Leukocyte Esterase Negative (Negative) Urine RBC Not seen (0-5) /hpf Urine WBC 0-5 (0-5) /hpf Ur Epithelial Cells Not seen (0-5) /hpf Urine Bacteria Rare (FEW) /hpf Urine Mucus Not seen (FEW) /hpf Mycoplasma pneumon IgM (NEGATIVE) Result Diagrams: 08/16/18 04:55 08/16/18 04:55 Bhanu Results Last 24 hrs: Microbiology 08/15/18 16:00 Influenza Type A Antigen Screen - Final Nasopharyngeal Swab NEGATIVE INFLUENZA A VIRUS AG Influenza Type B Antigen Screen - Final NEGATIVE INFLUENZA B VIRUS AG - Problem List (1) Hyponatremia SNOMED Code(s): 07704300 ICD Code: E87.1 - HYPO-OSMOLALITY AND HYPONATREMIA Status: Chronic Current Visit: Yes (2) Nausea SNOMED Code(s): 773296769 ICD Code: R11.0 - NAUSEA Status: Acute Current Visit: No Problem List Initiated/Reviewed/Updated: Yes Orders Last 24hrs: Active Orders 24 hr Category Date Time Status Patient Status [ADT] Routine ADT 08/15/18 17:55 Active Cardiac Monitoring [RC] . DIRECTED Care 08/15/18 11:39 Active EKG Documentation Completion [RC] ASDIRECTED Care 08/15/18 11:39 Active Peripheral IV Care [RC] . DIRECTED Care 08/15/18 11:39 Active Sodium Chloride 0.9% [Normal Saline] 1,000 ml Med 08/15/18 13:56 Active IV ONETIME Sodium Chloride 0.9% [Normal Saline] 100 ml Med 08/15/18 14:15 Active IV ASDIRECTED Sodium Chloride 0.9% [Saline Flush] Med 08/15/18 11:39 Active 10 ml FLUSH ASDIRECTED PRN Peripheral IV Insertion Adult [OM.PC] Routine Oth 08/15/18 11:38 Ordered EKG 12 Lead [EK] Stat Ther 08/15/18 11:39 Ordered Medication Orders Sodium Chloride (Normal Saline) 1,000 mls @ 100 mls/hr IV ONETIME ONE Stop: 08/15/18 23:55 Sodium Chloride (Normal Saline) 100 mls @ 60 mls/hr IV ASDIRECTED ARTHUR Last Admin: 08/15/18 14:23 Dose: 60 mls/hr Sodium Chloride (Saline Flush) 10 ml FLUSH ASDIRECTED PRN PRN Reason: Keep Vein Open Last Admin: 08/15/18 12:25 Dose: 10 ml Assessment/Plan Comment:: Impression: Hyponatremia Query iatrogenic Dehydration Query poly-pharmacy with several BB, etc. Chronic HTN HLD CAD/CABG S/P PPM/AICD Plan: Clarify cardiac meds IVF Correct electrolytes Home meds Daily Labs EMR Consult PT/OT/CM
[2018-08-15] MEDS ORDERED: Nitroglycerin 0.4 MG Tab.SL SL PRN (19:15)
[2018-08-15] MEDS: Carvedilol 6.25 MG Tab PO SCH (21:37)
[2018-08-15] MEDS: Simvastatin 40 MG Tab PO SCH (21:40)
[2018-08-15] MEDS: Brimonidine 0.2% Ophth Soln 5 ML Bottle EYEBOTH SCH (21:40)
[2018-08-15] MEDS: Sodium Chloride 0.9% 1,000 ML IV SCH (22:00)
[2018-08-15] MEDS ORDERED: Metoprolol Succinate 50 MG Tab.ER PO ONE (23:28)
[2018-08-16] MEDS ORDERED: Metoprolol Succinate 50 MG Tab.ER PO ONE (07:00)
[2018-08-16] MEDS: Sodium Chloride 0.9% 1,000 ML IV SCH ×3 (07:09→18:50)
[2018-08-16] MEDS ORDERED: Umeclidinium Brm/Vilanterol Tr 1 PUFF INH SCH (09:00)
[2018-08-16] MEDS ORDERED: Doxazosin 4 MG Tab PO SCH ×2 (09:00→21:00)
[2018-08-16] MEDS: Albuterol 6.7 GM Inhaler INH PRN (09:42)
[2018-08-16] MEDS: Umeclidinium Bromide 1 PUFF INH SCH (09:42)
[2018-08-16] MEDS ORDERED: Metoprolol Succinate 50 MG Tab.ER PO SCH (10:15)
[2018-08-16] MEDS: Amiodarone 200 MG Tab PO SCH (10:16)
[2018-08-16] MEDS: Aspirin 325 MG Tab.EC PO SCH (10:16)
[2018-08-16] MEDS: Sodium Chloride/Potassium Chloride Tab PO SCH ×2 (10:17→20:16)
[2018-08-16] MEDS: Brimonidine 0.2% Ophth Soln 5 ML Bottle EYEBOTH SCH ×2 (10:17→20:14)
[2018-08-16] MEDS: Carvedilol 6.25 MG Tab PO SCH (10:35)
[2018-08-16] MEDS: Metoprolol Succinate 50 MG Tab.ER PO SCH (17:54)
--- NOTE | 2018-08-16 18:15 | PCM.PN ---
- General Info Date of Service: 08/16/18 Functional Status: Reports: Pain Controlled, Tolerating Diet, Ambulating, Urinating - Review of Systems General: Reports: Weakness HEENT: Reports: No Symptoms Pulmonary: Reports: No Symptoms Cardiovascular: Reports: No Symptoms Gastrointestinal: Reports: No Symptoms Genitourinary: Reports: No Symptoms Musculoskeletal: Reports: No Symptoms Skin: Reports: No Symptoms Neurological: Reports: No Symptoms Psychiatric: Reports: No Symptoms - Patient Data Vitals - Most Recent: Last Vital Signs Temp 36.3 C 08/16/18 15:38 Pulse 60 08/16/18 17:54 Resp 18 08/16/18 15:38 BP 126/71 08/16/18 17:54 Pulse Ox 94 L 08/16/18 15:38 Weight - Most Recent: 81.647 kg I&O - Last 24 Hours: Intake & Output 08/16/18 08/16/18 08/16/18 06:59 14:59 22:59 Intake Total 1141 1702 Output Total 800 1100 Balance 341 602 Lab Results Last 24 Hours: Laboratory Results - last 24 hr 08/16/18 08/16/18 08/16/18 Range/Units 04:55 04:55 04:55 WBC 3.26 L (4.23-9.07) K/mm3 RBC 3.85 L (4.63-6.08) M/mm3 Hgb 11.6 L (13.7-17.5) gm/L Hct 33.0 L (40.1-51.0) % MCV 85.7 (79.0-92.2) fl MCH 30.1 (25.7-32.2) pg MCHC 35.2 (32.2-35.5) g/dl RDW Std Deviation 38.1 (35.1-43.9) fL Plt Count 199 (163-337) K/mm3 MPV 8.6 L (9.4-12.3) fl Neut % (Auto) 46.0 (34.0-67.9) % Lymph % (Auto) 27.3 (21.8-53.1) % [place] % (Auto) 21.2 H (5.3-12.2) % Eos % (Auto) 3.1 (0.8-7.0) Baso % (Auto) 1.5 H (0.1-1.2) % Neut # (Auto) 1.50 L (1.78-5.38) K/mm3 Lymph # (Auto) 0.89 L (1.32-3.57) K/mm3 [place] # (Auto) 0.69 (0.30-0.82) K/mm3 Eos # (Auto) 0.10 (0.04-0.54) K/mm3 Baso # (Auto) 0.05 (0.01-0.08) K/mm3 Manual Slide Review Normal smear Sodium 122 L (136-145) mEq/L Potassium 3.8 (3.5-5.1) mEq/L Chloride 89 L (98-107) mEq/L Carbon Dioxide 24 (21-32) mEq/L Anion Gap 12.8 (5-15) BUN 9 (7-18) mg/dL Creatinine 0.9 (0.7-1.3) mg/dL Est Cr Clr Drug Dosing 68.72 mL/min Estimated GFR (MDRD) > 60 (>60) mL/min BUN/Creatinine Ratio 10.0 L (14-18) Glucose 92 (83-115) mg/dL Lactic Acid 0.6 (0.4-2.0) mmol/L Calcium 8.0 L (8.5-10.1) mg/dL Magnesium 2.1 (1.8-2.4) mg/dl C-Reactive Protein 0.3 (<1.0) mg/dL Bhanu Results Last 24 Hours: Microbiology 08/15/18 16:00 Influenza Type A Antigen Screen - Final Nasopharyngeal Swab NEGATIVE INFLUENZA A VIRUS AG Influenza Type B Antigen Screen - Final NEGATIVE INFLUENZA B VIRUS AG Med Orders - Current: Current Medications Albuterol (Proventil Hfa) 0 gm INH Q6H PRN PRN Reason: Shortness of Breath Last Admin: 08/16/18 09:42 Dose: 2 puff Amiodarone HCl (Cordarone) 400 mg PO DAILY [facility] Last Admin: 08/16/18 10:16 Dose: 400 mg Aspirin (Ecotrin) 325 mg PO DAILY [facility] Last Admin: 08/16/18 10:16 Dose: 325 mg Brimonidine Tartrate (Alphagan 0.2% Ophth Soln) 0 ml EYEBOTH BID [facility] Last Admin: 08/16/18 10:17 Dose: 1 drop Doxazosin Mesylate (Cardura) 2 mg PO BEDTIME [facility] Sodium Chloride (Normal Saline) 1,000 mls @ 75 mls/hr IV ASDIRECTED [facility] Metoprolol Succinate (Toprol Xl) 75 mg PO BID@0900,1800 [facility] Last Admin: 08/16/18 17:54 Dose: 75 mg Nitroglycerin (Nitrostat) 0.4 mg SL ASDIRECTED PRN PRN Reason: Chest Pain Oral Electrolytes (Thermotabs) 2 each PO BID [facility] Last Admin: 08/16/18 10:17 Dose: 2 each Umeclidinium [place] (1 Puff) 0 each INH DAILY [facility] Last Admin: 08/16/18 09:42 Dose: 1 each Simvastatin (Zocor) 40 mg PO BEDTIME [facility] Last Admin: 08/15/18 21:40 Dose: 40 mg Sodium Chloride (Saline Flush) 10 ml FLUSH ASDIRECTED PRN PRN Reason: Keep Vein Open Last Admin: 08/15/18 12:25 Dose: 10 ml Discontinued Medications Carvedilol (Coreg) 6.25 mg PO BID [facility] Last Admin: 08/16/18 10:35 Dose: Not Given Doxazosin Mesylate (Cardura) 2 mg PO DAILY [facility] Last Admin: 08/16/18 10:23 Dose: Not Given Sodium Chloride (Normal Saline) 250 mls @ 999 mls/hr IV ONETIME ONE Stop: 08/15/18 11:57 Last Admin: 08/15/18 12:25 Dose: 999 mls/hr Sodium Chloride (Normal Saline) 1,000 mls @ 100 mls/hr IV ONETIME ONE Stop: 08/15/18 23:55 Last Admin: 08/15/18 20:23 Dose: Not Given Sodium Chloride (Normal Saline) 100 mls @ 60 mls/hr IV ASDIRECTED [facility] Last Admin: 08/15/18 14:23 Dose: 60 mls/hr Sodium Chloride (Normal Saline) 500 mls @ 999 mls/hr IV ONETIME ONE Stop: 08/15/18 16:17 Last Admin: 08/15/18 20:23 Dose: Not Given Sodium Chloride (Normal Saline) 1,000 mls @ 125 mls/hr IV ASDIRECTED [facility] Last Admin: 08/16/18 07:09 Dose: 75 mls/hr Iopamidol (Isovue-370 (76%)) 50 ml IVPUSH ONETIME ONE Stop: 08/15/18 14:09 Last Admin: 08/15/18 14:23 Dose: 50 ml Iopamidol (Isovue-370 (76%)) 100 ml IVPUSH ONETIME ONE Stop: 08/15/18 14:09 Last Admin: 08/15/18 14:23 Dose: 100 ml Metoprolol Succinate (Toprol Xl) 75 mg PO ONETIME ONE Stop: 08/15/18 23:29 Last Admin: 08/16/18 06:56 Dose: Not Given Metoprolol Succinate (Toprol Xl) 75 mg PO ONETIME ONE Stop: 08/16/18 07:01 Last Admin: 08/16/18 06:58 Dose: 75 mg Metoprolol Succinate (Toprol Xl) 75 mg PO BID@0900,1800 [facility] Stop: 08/16/18 18:01 Last Admin: 08/16/18 10:36 Dose: Not Given Ondansetron HCl (Zofran) 4 mg IVPUSH ONETIME ONE Stop: 08/15/18 15:19 Last Admin: 08/15/18 15:26 Dose: 4 mg Umeclidinium B[place]/ (Vilanterol Tr 1 Puff) 0 each INH DAILY [facility] Last Admin: 08/16/18 10:35 Dose: Not Given Sodium Chloride (Saline Flush) 10 ml FLUSH ONETIME ONE Stop: 08/15/18 14:09 Last Admin: 08/15/18 14:23 Dose: 10 ml - Exam Quality Assessment: DVT Prophylaxis General: Alert, Oriented, Cooperative, No Acute Distress HEENT: Pupils Equal, Pupils Reactive, EOMI Neck: Trachea Midline, No JVD Lungs: Normal Respiratory Effort Cardiovascular: Regular Rate GI/Abdominal Exam: Normal Bowel Sounds, Soft, Non-Tender, No Organomegaly, No Distention (Male) Exam: Deferred Back Exam: Normal Inspection Extremities: Normal Inspection, Non-Tender, Normal Capillary Refill Skin: Warm, Dry, Intact Neurological: No New Focal Deficit, Normal Speech Psy/Mental Status: Alert, Normal Affect, Normal Mood - Problem List & Annotations (1) Hyponatremia SNOMED Code(s): 46419807 Code(s): E87.1 - HYPO-OSMOLALITY AND HYPONATREMIA Status: Chronic Current Visit: Yes (2) Nausea SNOMED Code(s): 719483384 Code(s): R11.0 - NAUSEA Status: Acute Current Visit: No - Problem List Review Problem List Initiated/Reviewed/Updated: Yes - My Orders Last 24 Hours: My Active Orders 08/15/18 19:15 Nitroglycerin [Nitrostat] 0.4 mg SL ASDIRECTED PRN 08/15/18 19:23 Albuterol [Proventil HFA] 0 gm INH Q6H PRN 08/15/18 21:00 Brimonidine [Alphagan 0.2% Ophth Soln] 0 ml EYEBOTH BID Simvastatin [Zocor] 40 mg PO BEDTIME 08/16/18 06:42 EKG 12 Lead [EK] Stat 08/16/18 07:55 Resuscitation Status Routine 08/16/18 09:00 Amiodarone [Cordarone] 400 mg PO DAILY Aspirin [Ecotrin] 325 mg PO DAILY Sodium Chloride 0.9% [Normal Saline] 1,000 ml IV ASDIRECTED 08/16/18 09:30 Patient's Own Medication [Ptom] 0 each INH DAILY Sodium Chloride/KCl [Thermotabs] 2 each PO BID 08/16/18 18:00 Metoprolol Succinate [Toprol XL] 75 mg PO BID@0900,1800 08/16/18 21:00 Doxazosin [Cardura] 2 mg PO BEDTIME 08/16/18 Lunch Heart Healthy Diet [DIET] 08/17/18 05:00 BMP [BASIC METABOLIC PANEL,BMP] [CHEM] DAILY CBC WITH AUTO DIFF [HEME] DAILY CRP [C-REACTIVE PROTEIN] [CHEM] DAILY LACTIC ACID [CHEM] DAILY MAGNESIUM [CHEM] DAILY 08/17/18 08:00 Consult to Case Management/Plumbing Service Technician [CONS] Routine CXR [Chest 2V] [CR] Routine 08/17/18 09:00 Consult to Occupational Therapy [OT Evaluation and Treatment] [CONS] Routine 08/18/18 05:00 BMP [BASIC METABOLIC PANEL,BMP] [CHEM] DAILY CBC WITH AUTO DIFF [HEME] DAILY CRP [C-REACTIVE PROTEIN] [CHEM] DAILY MAGNESIUM [CHEM] DAILY 08/18/18 09:00 Consult to Physical Therapy [PT Evaluation and Treatment] [CONS] Routine 08/19/18 05:00 BMP [BASIC METABOLIC PANEL,BMP] [CHEM] DAILY CBC WITH AUTO DIFF [HEME] DAILY CRP [C-REACTIVE PROTEIN] [CHEM] DAILY MAGNESIUM [CHEM] DAILY - Plan Plan:: Impression: Hyponatremia--improving Query iatrogenic Dehydration--resolved Query poly-pharmacy with several BB, etc. Chronic HTN HLD CAD/CABG S/P PPM/AICD Plan: Clarify cardiac meds--call card/EP on 08/17/18 regarding Mexitil IVF Correct electrolytes Home meds Daily Labs EMR Consult PT/OT/CM
[2018-08-16] MEDS: Simvastatin 40 MG Tab PO SCH (20:17)
[2018-08-17] MEDS: Sodium Chloride 0.9% 1,000 ML IV SCH ×2 (06:49→20:55)
[2018-08-17] MEDS: Albuterol 6.7 GM Inhaler INH PRN (08:21)
[2018-08-17] MEDS: Umeclidinium Bromide 1 PUFF INH SCH (08:22)
[2018-08-17] MEDS: Metoprolol Succinate 50 MG Tab.ER PO SCH ×2 (08:34→18:58)
[2018-08-17] MEDS: Brimonidine 0.2% Ophth Soln 5 ML Bottle EYEBOTH SCH ×2 (08:35→20:51)
[2018-08-17] MEDS: Aspirin 325 MG Tab.EC PO SCH (08:35)
[2018-08-17] MEDS: Amiodarone 200 MG Tab PO SCH (08:35)
[2018-08-17] MEDS: Sodium Chloride/Potassium Chloride Tab PO SCH ×2 (08:36→20:52)
--- NOTE | 2018-08-17 10:39 | CR ---
Chest: Two views of the chest were obtained. Comparison: Prior CT chest study of 08/15/18 and chest x-ray of 06/07/18. Heart size and mediastinum are normal. Previous sternotomy is noted. AICD is present. Slight scarring is noted within the left base as well as minimal left basilar atelectasis. No acute parenchymal change is seen. Diaphragms are flattened on the lateral view compatible with emphysematous change. Minimal degenerative change is noted within the spine. Previous CABG is noted. Impression: 1. Emphysematous change. Other incidental findings. Nothing acute is appreciated. Diagnostic code #2
[2018-08-17] MEDS: Enoxaparin 40 MG/0.4 ML Syringe SUBCUT SCH (12:33)
[2018-08-17] MEDS: Simvastatin 40 MG Tab PO SCH (20:51)
[2018-08-17] MEDS: Doxazosin 2 MG Tab PO SCH (20:51)
[2018-08-17] MEDS ORDERED: Sodium Chloride 3% 500 ML IV SCH (21:30)
[2018-08-18] MEDS: Aspirin 325 MG Tab.EC PO SCH (08:39)
[2018-08-18] MEDS: Sodium Chloride/Potassium Chloride Tab PO SCH (08:39)
[2018-08-18] MEDS: Enoxaparin 40 MG/0.4 ML Syringe SUBCUT SCH (08:39)
[2018-08-18] MEDS: Brimonidine 0.2% Ophth Soln 5 ML Bottle EYEBOTH SCH ×2 (08:39→21:21)
[2018-08-18] MEDS: Metoprolol Succinate 50 MG Tab.ER PO SCH ×2 (08:40→18:35)
[2018-08-18] MEDS: Amiodarone 200 MG Tab PO SCH (08:40)
[2018-08-18] MEDS: Albuterol 6.7 GM Inhaler INH PRN (08:53)
[2018-08-18] MEDS: Umeclidinium Bromide 1 PUFF INH SCH (08:54)
--- NOTE | 2018-08-18 11:11 | PCM.PN ---
- General Info Date of Service: 08/17/18 Functional Status: Reports: Pain Controlled, Tolerating Diet, Ambulating, Urinating - Review of Systems General: Reports: Weakness HEENT: Reports: No Symptoms Pulmonary: Reports: No Symptoms Cardiovascular: Reports: No Symptoms Gastrointestinal: Reports: No Symptoms Genitourinary: Reports: No Symptoms Musculoskeletal: Reports: No Symptoms Skin: Reports: No Symptoms Neurological: Reports: No Symptoms Psychiatric: Reports: No Symptoms - Patient Data Vitals - Most Recent: Last Vital Signs Temp 36.5 C 08/18/18 08:35 Pulse 66 08/18/18 08:40 Resp 16 08/18/18 08:35 BP 114/80 08/18/18 08:40 Pulse Ox 99 08/18/18 08:54 Weight - Most Recent: 85.593 kg I&O - Last 24 Hours: Intake & Output 08/17/18 08/18/18 08/18/18 22:59 06:59 14:59 Intake Total 1793 1045 300 Output Total 1000 2200 Balance 793 -1155 300 Lab Results Last 24 Hours: Laboratory Results - last 24 hr 08/18/18 08/18/18 08/18/18 Range/Units 05:45 05:45 10:30 WBC 3.65 L (4.23-9.07) K/mm3 RBC 3.62 L (4.63-6.08) M/mm3 Hgb 11.0 L (13.7-17.5) gm/L Hct 31.4 L (40.1-51.0) % MCV 86.7 (79.0-92.2) fl MCH 30.4 (25.7-32.2) pg MCHC 35.0 (32.2-35.5) g/dl RDW Std Deviation 40.5 (35.1-43.9) fL Plt Count 217 (163-337) K/mm3 MPV 8.5 L (9.4-12.3) fl Neut % (Auto) 48.8 (34.0-67.9) % Lymph % (Auto) 21.9 (21.8-53.1) % [place] % (Auto) 21.9 H (5.3-12.2) % Eos % (Auto) 4.9 (0.8-7.0) Baso % (Auto) 1.4 H (0.1-1.2) % Neut # (Auto) 1.78 (1.78-5.38) K/mm3 Lymph # (Auto) 0.80 L (1.32-3.57) K/mm3 [place] # (Auto) 0.80 (0.30-0.82) K/mm3 Eos # (Auto) 0.18 (0.04-0.54) K/mm3 Baso # (Auto) 0.05 (0.01-0.08) K/mm3 Manual Slide Review Abnormal smear Sodium 125 L 126 L (136-145) mEq/L Potassium 4.3 (3.5-5.1) mEq/L Chloride 94 L (98-107) mEq/L Carbon Dioxide 25 (21-32) mEq/L Anion Gap 10.3 (5-15) BUN 9 (7-18) mg/dL Creatinine 0.9 (0.7-1.3) mg/dL Est Cr Clr Drug Dosing 68.72 mL/min Estimated GFR (MDRD) > 60 (>60) mL/min BUN/Creatinine Ratio 10.0 L (14-18) Glucose 86 (83-115) mg/dL Calcium 7.7 L (8.5-10.1) mg/dL Magnesium 2.0 (1.8-2.4) mg/dl C-Reactive Protein < 0.2 (<1.0) mg/dL Med Orders - Current: Current Medications Albuterol (Proventil Hfa) 0 gm INH Q6H PRN PRN Reason: Shortness of Breath Last Admin: 08/18/18 08:53 Dose: 2 puff Amiodarone HCl (Cordarone) 400 mg PO DAILY [facility] Last Admin: 08/18/18 08:40 Dose: 400 mg Aspirin (Ecotrin) 325 mg PO DAILY [facility] Last Admin: 08/18/18 08:39 Dose: 325 mg Brimonidine Tartrate (Alphagan 0.2% Ophth Soln) 0 ml EYEBOTH BID [facility] Last Admin: 08/18/18 08:39 Dose: 1 drop Doxazosin Mesylate (Cardura) 2 mg PO BEDTIME [facility] Last Admin: 08/17/18 20:51 Dose: 2 mg Enoxaparin Sodium (Lovenox) 40 mg SUBCUT DAILY [facility] Last Admin: 08/18/18 08:39 Dose: 40 mg Sodium Chloride (Sodium Chloride 3%) 500 mls @ 18 mls/hr IV ASDIRECTED [facility] Metoprolol Succinate (Toprol Xl) 100 mg PO BID@0900,1800 [facility] Last Admin: 08/18/18 08:40 Dose: 100 mg Nitroglycerin (Nitrostat) 0.4 mg SL ASDIRECTED PRN PRN Reason: Chest Pain Umeclidinium [place] (1 Puff) 0 each INH DAILY [facility] Last Admin: 08/18/18 08:54 Dose: 1 each Simvastatin (Zocor) 40 mg PO BEDTIME [facility] Last Admin: 08/17/18 20:51 Dose: 40 mg Sodium Chloride (Saline Flush) 10 ml FLUSH ASDIRECTED PRN PRN Reason: Keep Vein Open Last Admin: 08/15/18 12:25 Dose: 10 ml Discontinued Medications Carvedilol (Coreg) 6.25 mg PO BID [facility] Last Admin: 08/16/18 10:35 Dose: Not Given Doxazosin Mesylate (Cardura) 2 mg PO DAILY [facility] Last Admin: 08/16/18 10:23 Dose: Not Given Doxazosin Mesylate (Cardura) 2 mg PO BEDTIME [facility] Last Admin: 08/16/18 20:15 Dose: Not Given Sodium Chloride (Normal Saline) 250 mls @ 999 mls/hr IV ONETIME ONE Stop: 08/15/18 11:57 Last Admin: 08/15/18 12:25 Dose: 999 mls/hr Sodium Chloride (Normal Saline) 1,000 mls @ 100 mls/hr IV ONETIME ONE Stop: 08/15/18 23:55 Last Admin: 08/15/18 20:23 Dose: Not Given Sodium Chloride (Normal Saline) 100 mls @ 60 mls/hr IV ASDIRECTED [facility] Last Admin: 08/15/18 14:23 Dose: 60 mls/hr Sodium Chloride (Normal Saline) 500 mls @ 999 mls/hr IV ONETIME ONE Stop: 08/15/18 16:17 Last Admin: 08/15/18 20:23 Dose: Not Given Sodium Chloride (Normal Saline) 1,000 mls @ 125 mls/hr IV ASDIRECTED [facility] Last Admin: 08/16/18 07:09 Dose: 75 mls/hr Sodium Chloride (Normal Saline) 1,000 mls @ 75 mls/hr IV ASDIRECTED [facility] Last Admin: 08/17/18 20:55 Dose: 75 mls/hr Sodium Chloride (Sodium Chloride 3%) 500 mls @ 15 mls/hr IV ASDIRECTED [facility] Stop: 08/18/18 05:30 Last Admin: 08/17/18 22:12 Dose: 15 mls/hr Iopamidol (Isovue-370 (76%)) 50 ml IVPUSH ONETIME ONE Stop: 08/15/18 14:09 Last Admin: 08/15/18 14:23 Dose: 50 ml Iopamidol (Isovue-370 (76%)) 100 ml IVPUSH ONETIME ONE Stop: 08/15/18 14:09 Last Admin: 08/15/18 14:23 Dose: 100 ml Metoprolol Succinate (Toprol Xl) 75 mg PO ONETIME ONE Stop: 08/15/18 23:29 Last Admin: 08/16/18 06:56 Dose: Not Given Metoprolol Succinate (Toprol Xl) 75 mg PO ONETIME ONE Stop: 08/16/18 07:01 Last Admin: 08/16/18 06:58 Dose: 75 mg Metoprolol Succinate (Toprol Xl) 75 mg PO BID@0900,1800 [facility] Stop: 08/16/18 18:01 Last Admin: 08/16/18 10:36 Dose: Not Given Metoprolol Succinate (Toprol Xl) 75 mg PO BID@0900,1800 [facility] Last Admin: 08/17/18 08:34 Dose: 75 mg Ondansetron HCl (Zofran) 4 mg IVPUSH ONETIME ONE Stop: 08/15/18 15:19 Last Admin: 08/15/18 15:26 Dose: 4 mg Oral Electrolytes (Thermotabs) 2 each PO BID [facility] Last Admin: 08/18/18 08:39 Dose: 2 each Umeclidinium Brm/ (Vilanterol Tr 1 Puff) 0 each INH DAILY [facility] Last Admin: 08/16/18 10:35 Dose: Not Given Sodium Chloride (Saline Flush) 10 ml FLUSH ONETIME ONE Stop: 08/15/18 14:09 Last Admin: 08/15/18 14:23 Dose: 10 ml - Exam Quality Assessment: DVT Prophylaxis General: Alert, Oriented, Cooperative, No Acute Distress HEENT: Pupils Equal, Pupils Reactive, EOMI Neck: Trachea Midline, No JVD Lungs: Clear to Auscultation, Normal Respiratory Effort Cardiovascular: Regular Rate, Regular Rhythm GI/Abdominal Exam: Normal Bowel Sounds, Soft, Non-Tender, No Organomegaly, No Distention (Male) Exam: Deferred Back Exam: Normal Inspection Extremities: Normal Inspection, Non-Tender, Normal Capillary Refill Skin: Warm Neurological: No New Focal Deficit Psy/Mental Status: Alert, Normal Affect, Normal Mood - Problem List & Annotations (1) Hyponatremia SNOMED Code(s): 46711105 Code(s): E87.1 - HYPO-OSMOLALITY AND HYPONATREMIA Status: Chronic Current Visit: Yes (2) Nausea SNOMED Code(s): 946402325 Code(s): R11.0 - NAUSEA Status: Acute Current Visit: No (3) Pacemaker ECG pattern SNOMED Code(s): 806354657 Code(s): Z95.0 - PRESENCE OF CARDIAC PACEMAKER Status: Acute Current Visit: Yes (4) Ventricular tachyarrhythmia SNOMED Code(s): 09733633, 10980003 Code(s): I47.2 - VENTRICULAR TACHYCARDIA Status: Acute Current Visit: No - Problem List Review Problem List Initiated/Reviewed/Updated: Yes - My Orders Last 24 Hours: My Active Orders 08/17/18 14:09 Activity as Tolerated [RC] .Routine 08/17/18 18:00 Metoprolol Succinate [Toprol XL] 100 mg PO BID@0900,1800 08/17/18 21:00 Doxazosin [Cardura] 2 mg PO BEDTIME 08/18/18 09:00 Consult to Physical Therapy [PT Evaluation and Treatment] [CONS] Routine 08/18/18 10:10 EKG Documentation Completion [RC] ASDIRECTED EKG 12 Lead [EK] Routine 08/18/18 11:15 Sodium Chloride 3% 500 ml IV ASDIRECTED 08/18/18 18:00 BASIC METABOLIC PANEL,BMP [CHEM] Routine 08/19/18 05:00 BMP [BASIC METABOLIC PANEL,BMP] [CHEM] DAILY CBC WITH AUTO DIFF [HEME] DAILY CRP [C-REACTIVE PROTEIN] [CHEM] DAILY MAGNESIUM [CHEM] DAILY - Plan Plan:: Impression: Hyponatremia--improving Iatrogenic secondary to Lasix has had previous episodes with HCTZ Dehydration--resolved Query poly-pharmacy with several BB, etc. Chronic HTN HLD CAD/CABG S/P PPM/AICD Plan: Clarify cardiac meds--call card/EP Mexitil IVF Correct electrolytes, start 3% NaCl Home meds Daily Labs EMR Consult PT/OT/CM
[2018-08-18] MEDS ORDERED: Sodium Chloride 3% 500 ML IV SCH (11:15)
--- NOTE | 2018-08-18 16:01 | PCM.PN ---
- General Info Date of Service: 08/18/18 Functional Status: Reports: Pain Controlled, Tolerating Diet, Ambulating, Urinating - Review of Systems General: Reports: No Symptoms HEENT: Reports: No Symptoms Pulmonary: Reports: No Symptoms Cardiovascular: Reports: No Symptoms Gastrointestinal: Reports: No Symptoms Genitourinary: Reports: No Symptoms Musculoskeletal: Reports: No Symptoms Skin: Reports: No Symptoms Neurological: Reports: No Symptoms Psychiatric: Reports: No Symptoms - Patient Data Vitals - Most Recent: Last Vital Signs Temp 36.3 C 08/18/18 13:38 Pulse 74 08/18/18 13:38 Resp 15 08/18/18 13:38 BP 113/68 08/18/18 13:38 Pulse Ox 97 08/18/18 13:38 Weight - Most Recent: 85.593 kg I&O - Last 24 Hours: Intake & Output 08/18/18 08/18/18 08/18/18 06:59 14:59 22:59 Intake Total 1045 540 Output Total 2200 Balance -1155 540 Lab Results Last 24 Hours: Laboratory Results - last 24 hr 08/18/18 08/18/18 08/18/18 Range/Units 05:45 05:45 10:30 WBC 3.65 L (4.23-9.07) K/mm3 RBC 3.62 L (4.63-6.08) M/mm3 Hgb 11.0 L (13.7-17.5) gm/L Hct 31.4 L (40.1-51.0) % MCV 86.7 (79.0-92.2) fl MCH 30.4 (25.7-32.2) pg MCHC 35.0 (32.2-35.5) g/dl RDW Std Deviation 40.5 (35.1-43.9) fL Plt Count 217 (163-337) K/mm3 MPV 8.5 L (9.4-12.3) fl Neut % (Auto) 48.8 (34.0-67.9) % Lymph % (Auto) 21.9 (21.8-53.1) % [place] % (Auto) 21.9 H (5.3-12.2) % Eos % (Auto) 4.9 (0.8-7.0) Baso % (Auto) 1.4 H (0.1-1.2) % Neut # (Auto) 1.78 (1.78-5.38) K/mm3 Lymph # (Auto) 0.80 L (1.32-3.57) K/mm3 [place] # (Auto) 0.80 (0.30-0.82) K/mm3 Eos # (Auto) 0.18 (0.04-0.54) K/mm3 Baso # (Auto) 0.05 (0.01-0.08) K/mm3 Manual Slide Review Abnormal smear Sodium 125 L 126 L (136-145) mEq/L Potassium 4.3 (3.5-5.1) mEq/L Chloride 94 L (98-107) mEq/L Carbon Dioxide 25 (21-32) mEq/L Anion Gap 10.3 (5-15) BUN 9 (7-18) mg/dL Creatinine 0.9 (0.7-1.3) mg/dL Est Cr Clr Drug Dosing 68.72 mL/min Estimated GFR (MDRD) > 60 (>60) mL/min BUN/Creatinine Ratio 10.0 L (14-18) Glucose 86 (83-115) mg/dL Calcium 7.7 L (8.5-10.1) mg/dL Magnesium 2.0 (1.8-2.4) mg/dl C-Reactive Protein < 0.2 (<1.0) mg/dL Med Orders - Current: Current Medications Albuterol (Proventil Hfa) 0 gm INH Q6H PRN PRN Reason: Shortness of Breath Last Admin: 08/18/18 08:53 Dose: 2 puff Amiodarone HCl (Cordarone) 400 mg PO DAILY [facility] Last Admin: 08/18/18 08:40 Dose: 400 mg Aspirin (Ecotrin) 325 mg PO DAILY [facility] Last Admin: 08/18/18 08:39 Dose: 325 mg Brimonidine Tartrate (Alphagan 0.2% Ophth Soln) 0 ml EYEBOTH BID [facility] Last Admin: 08/18/18 08:39 Dose: 1 drop Doxazosin Mesylate (Cardura) 2 mg PO BEDTIME [facility] Last Admin: 08/17/18 20:51 Dose: 2 mg Enoxaparin Sodium (Lovenox) 40 mg SUBCUT DAILY [facility] Last Admin: 08/18/18 08:39 Dose: 40 mg Sodium Chloride (Sodium Chloride 3%) 500 mls @ 18 mls/hr IV ASDIRECTED [facility] Stop: 08/18/18 21:15 Last Admin: 08/18/18 11:32 Dose: 18 mls/hr Metoprolol Succinate (Toprol Xl) 100 mg PO BID@0900,1800 [facility] Last Admin: 08/18/18 08:40 Dose: 100 mg Nitroglycerin (Nitrostat) 0.4 mg SL ASDIRECTED PRN PRN Reason: Chest Pain Umeclidinium [place] (1 Puff) 0 each INH DAILY [facility] Last Admin: 08/18/18 08:54 Dose: 1 each Simvastatin (Zocor) 40 mg PO BEDTIME [facility] Last Admin: 08/17/18 20:51 Dose: 40 mg Sodium Chloride (Saline Flush) 10 ml FLUSH ASDIRECTED PRN PRN Reason: Keep Vein Open Last Admin: 08/15/18 12:25 Dose: 10 ml Discontinued Medications Carvedilol (Coreg) 6.25 mg PO BID [facility] Last Admin: 08/16/18 10:35 Dose: Not Given Doxazosin Mesylate (Cardura) 2 mg PO DAILY [facility] Last Admin: 08/16/18 10:23 Dose: Not Given Doxazosin Mesylate (Cardura) 2 mg PO BEDTIME [facility] Last Admin: 08/16/18 20:15 Dose: Not Given Sodium Chloride (Normal Saline) 250 mls @ 999 mls/hr IV ONETIME ONE Stop: 08/15/18 11:57 Last Admin: 08/15/18 12:25 Dose: 999 mls/hr Sodium Chloride (Normal Saline) 1,000 mls @ 100 mls/hr IV ONETIME ONE Stop: 08/15/18 23:55 Last Admin: 08/15/18 20:23 Dose: Not Given Sodium Chloride (Normal Saline) 100 mls @ 60 mls/hr IV ASDIRECTED [facility] Last Admin: 08/15/18 14:23 Dose: 60 mls/hr Sodium Chloride (Normal Saline) 500 mls @ 999 mls/hr IV ONETIME ONE Stop: 08/15/18 16:17 Last Admin: 08/15/18 20:23 Dose: Not Given Sodium Chloride (Normal Saline) 1,000 mls @ 125 mls/hr IV ASDIRECTED [facility] Last Admin: 08/16/18 07:09 Dose: 75 mls/hr Sodium Chloride (Normal Saline) 1,000 mls @ 75 mls/hr IV ASDIRECTED [facility] Last Admin: 08/17/18 20:55 Dose: 75 mls/hr Sodium Chloride (Sodium Chloride 3%) 500 mls @ 15 mls/hr IV ASDIRECTED [facility] Stop: 08/18/18 05:30 Last Admin: 08/17/18 22:12 Dose: 15 mls/hr Iopamidol (Isovue-370 (76%)) 50 ml IVPUSH ONETIME ONE Stop: 08/15/18 14:09 Last Admin: 08/15/18 14:23 Dose: 50 ml Iopamidol (Isovue-370 (76%)) 100 ml IVPUSH ONETIME ONE Stop: 08/15/18 14:09 Last Admin: 08/15/18 14:23 Dose: 100 ml Metoprolol Succinate (Toprol Xl) 75 mg PO ONETIME ONE Stop: 08/15/18 23:29 Last Admin: 08/16/18 06:56 Dose: Not Given Metoprolol Succinate (Toprol Xl) 75 mg PO ONETIME ONE Stop: 08/16/18 07:01 Last Admin: 08/16/18 06:58 Dose: 75 mg Metoprolol Succinate (Toprol Xl) 75 mg PO BID@0900,1800 [facility] Stop: 08/16/18 18:01 Last Admin: 08/16/18 10:36 Dose: Not Given Metoprolol Succinate (Toprol Xl) 75 mg PO BID@0900,1800 [facility] Last Admin: 08/17/18 08:34 Dose: 75 mg Ondansetron HCl (Zofran) 4 mg IVPUSH ONETIME ONE Stop: 08/15/18 15:19 Last Admin: 08/15/18 15:26 Dose: 4 mg Oral Electrolytes (Thermotabs) 2 each PO BID [facility] Last Admin: 08/18/18 08:39 Dose: 2 each Umeclidinium Brm/ (Vilanterol Tr 1 Puff) 0 each INH DAILY [facility] Last Admin: 08/16/18 10:35 Dose: Not Given Sodium Chloride (Saline Flush) 10 ml FLUSH ONETIME ONE Stop: 08/15/18 14:09 Last Admin: 08/15/18 14:23 Dose: 10 ml - Exam Quality Assessment: DVT Prophylaxis General: Alert, Oriented, Cooperative, No Acute Distress HEENT: Pupils Equal, Pupils Reactive, EOMI Neck: Trachea Midline, No JVD Lungs: Normal Respiratory Effort Cardiovascular: Regular Rate, Regular Rhythm GI/Abdominal Exam: Normal Bowel Sounds, Soft, Non-Tender, No Organomegaly, No Distention (Male) Exam: Deferred Back Exam: Normal Inspection Extremities: Normal Inspection, Non-Tender, Normal Capillary Refill Skin: Warm Neurological: No New Focal Deficit, Normal Gait, Normal Speech Psy/Mental Status: Alert, Normal Affect, Normal Mood - Problem List & Annotations (1) Hyponatremia SNOMED Code(s): 93919001 Code(s): E87.1 - HYPO-OSMOLALITY AND HYPONATREMIA Status: Chronic Current Visit: Yes (2) Nausea SNOMED Code(s): 221831992 Code(s): R11.0 - NAUSEA Status: Acute Current Visit: No (3) Pacemaker ECG pattern SNOMED Code(s): 467186759 Code(s): Z95.0 - PRESENCE OF CARDIAC PACEMAKER Status: Chronic Current Visit: Yes (4) Ventricular tachyarrhythmia SNOMED Code(s): 44391091, 36475494 Code(s): I47.2 - VENTRICULAR TACHYCARDIA Status: Chronic Current Visit: No - Problem List Review Problem List Initiated/Reviewed/Updated: Yes - My Orders Last 24 Hours: My Active Orders 08/17/18 18:00 Metoprolol Succinate [Toprol XL] 100 mg PO BID@0900,1800 08/17/18 21:00 Doxazosin [Cardura] 2 mg PO BEDTIME 08/18/18 09:00 Consult to Physical Therapy [PT Evaluation and Treatment] [CONS] Routine 08/18/18 10:10 EKG Documentation Completion [RC] ASDIRECTED EKG 12 Lead [EK] Routine 08/18/18 11:15 Sodium Chloride 3% 500 ml IV ASDIRECTED 08/18/18 18:00 BASIC METABOLIC PANEL,BMP [CHEM] Routine 08/19/18 05:00 BMP [BASIC METABOLIC PANEL,BMP] [CHEM] DAILY CBC WITH AUTO DIFF [HEME] DAILY CRP [C-REACTIVE PROTEIN] [CHEM] DAILY MAGNESIUM [CHEM] DAILY - Plan Plan:: Impression: Hyponatremia--improving very slowly, started 3% NaCl Iatrogenic secondary to Lasix has had previous episodes with HCTZ Dehydration--resolved Resp infection--N/A 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 Clinic will call to reschedule device check Slow VT--PPM/AICD adjusted, interrogation to check settings to be rescheduled. Mexitil reattempt trial after electrolytes corrected. Chronic HTN HLD CAD/CABG S/P PPM/AICD Plan: Cardiac meds have been clarified Mexitil 150 mg TIS, hold for now. Toprol XL 100 mg BID Norvasc 2.5 mg daily [place] 8 mg daily. Lasix 20 mg daily--likely culprit, has a history of HCTZ sensitivity. Correct electrolytes, start 3% NaCl Home meds Daily Labs EMR Consult PT/OT/CM
[2018-08-18] MEDS ORDERED: Simethicone 80 MG Tab.Chew PO ONE (21:14)
[2018-08-18] MEDS: Doxazosin 2 MG Tab PO SCH (21:22)
[2018-08-18] MEDS: Simvastatin 40 MG Tab PO SCH (21:22)
[2018-08-18] MEDS ORDERED: Sodium Chloride 0.9% 1,000 ML IV SCH (23:00)
--- NOTE | 2018-08-19 07:45 | PCM.DCSUM1 ---
Discharge Summary - Hospital Course Free Text/Narrative:: 78 year old male with hx of CAD/CABG, VT recently seen by Cardiology. Has required frequent cardiac medication adjustment for slow VT. Patient has profound loss of sodium with Lasix regimen. An infectious work up was negative. He was treated with sodium chloride (0.9 as well as 3%), the level increased from Na 117 to 128 at DC. He also received Thermotabs cautiously to avoid hyperkalemia. Discussion with his PRINCIPAL WEB DEVELOPER in the Card office occurred to confirm cardiac meds. He has not been able to tolerate Mexilitine, this has been placed on hold by Dr Dominguez/Renetta Samuel, ISABEL. It will be reassessed at a later. His device check was cancelled, it was scheduled for 08/18/18. The patient was still an inpatient at [facility] on 08/18/18. The patient has had ECG which appears to be A paced without ventricle sensing; this will be determined by the card office on follow up. All cardiac meds have been resumed on DC except Mexilitine and Lasix. A BMP has been ordered for 08/20/18, he has a follow up appt with his PCP, Dr Rodriguez. Primary Dx Hyponatremia, severe Lasix sensitivity with marked drop in sodium ECG A paced, query lack of Ventricular sensing, 08/18/18 (ECG faxed to office on 08/18/18) Meds See list Thermotabs 2 tabs BID, #6 Hold Mexilitine Hold Lasix Appt PCP Cardiology--reschedule device check, TBA per office Lab BMP, 08/20/18 HPI Initial Comments: 78 year old male with cardiac history including VT in the setting of CAD/CABG is s/p PPM/AICD. He has had malaise, SOB, decreased activity level which began after Romina but before Years Day. He denies any recent change in medication, however the medication list multiple duplications in several drug classes. This will be clarified during the hospitalization. He mentioned nausea without vomiting, denies any triggers. 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 Electrolyte correction, abnd hydration for dehydration has been initiated in the ED. The patient will be admitted to [facility]; he is a full code. Diagnosis: Stroke: No - Discharge Data Discharge Date: 08/19/18 Discharge Disposition: Home, Self-Care 01 Condition: Good - Discharge Diagnosis/Problem(s) (1) Hyponatremia SNOMED Code(s): 02713874 ICD Code: E87.1 - HYPO-OSMOLALITY AND HYPONATREMIA Status: Chronic Current Visit: Yes (2) Nausea SNOMED Code(s): 770341833 ICD Code: R11.0 - NAUSEA Status: Acute Current Visit: No (3) Pacemaker ECG pattern SNOMED Code(s): 284242431 ICD Code: Z95.0 - PRESENCE OF CARDIAC PACEMAKER Status: Chronic Current Visit: Yes (4) Ventricular tachyarrhythmia SNOMED Code(s): 75376948, 23597239 ICD Code: I47.2 - VENTRICULAR TACHYCARDIA Status: Chronic Current Visit: No - Patient Summary/Data Consults: Consultations 08/17/18 08:00 Consult to Case Management/Wad [employer]ator [CONS] Routine 08/17/18 09:00 Consult to Occupational Therapy [OT Evaluation and Treatment] [CONS] Routine 08/18/18 09:00 Consult to Physical Therapy [PT Evaluation and Treatment] [CONS] Routine - Patient Instructions Diet: Heart Healthy Diet (add salt) Activity: As Tolerated Driving: Do Not Drive Showering/Bathing: May Shower Notify Provider of: Fever, Increased Pain, Nausea and/or Vomiting - Discharge Plan *PRESCRIPTION DRUG MONITORING PROGRAM REVIEWED*: No *COPY OF PRESCRIPTION DRUG MONITORING REPORT IN PATIENT PAN: No Prescriptions/Med Rec: Metoprolol Succinate [Toprol XL 50mg] 100 mg PO BID@0900,1800 #60 tab.er Home Medications: Home Meds Albuterol [Proventil HFA] 2 puff INH Q6H PRN 06/07/18 [History] Aspirin 325 mg PO DAILY 06/07/18 [History] Brimonidine [Alphagan P 0.15% Ophth Soln] 1 drop OP BID 06/07/18 [History] Doxazosin [Cardura] 2 mg PO DAILY 06/07/18 [History] L Acidophil/B Lactis/B Longum [Florajen3] 1 cap PO ASDIRECTED 06/07/18 [History] Omeprazole 20 mg PO DAILY 06/07/18 [History] Simvastatin [Zocor] 20 mg PO BEDTIME 06/07/18 [History] Ubidecarenone [Coq-10] 200 mg PO DAILY 06/07/18 [History] Vit C/E/Zn/Coppr/Lutein/Zeaxan [Preservision Areds 2 Softgel] 1 cap PO BID 06/07 [History] Amiodarone [Cordarone] 400 mg PO DAILY 08/15/18 [History] Candesartan Cilexetil [Atacand] 8 mg PO DAILY 08/15/18 [History] Nitroglycerin [Nitrostat] 0.4 mg SL ASDIRECTED 08/15/18 [History] Umeclidinium Osgood [Incruse Ellipta*] 1 puff INH DAILY 08/15/18 [History] Vit C/E/Zn/Coppr/Lutein/Zeaxan [Preservision Areds 2 Softgel] 1 cap PO BID 08/15 [History] Metoprolol Succinate [Toprol XL 50mg] 100 mg PO BID@0900,1800 #60 tab.er [Rx] Mexiletine [Mexitil] 150 mg PO TID #0 08/19/18 [Rx] Other Amb Orders: BASIC METABOLIC PANEL,BMP [CHEM] Time Frame: 08/20/18, Facility: [facility], Location: [employer] [facility] Patient Handouts: Hyponatremia, [id number] Referrals: Heath Rodriguez MD [Primary Care Provider] - - Discharge Summary/Plan Comment DC Time >30 min.: No Discharge Summary/Plan Comment: Impression: Hyponatremia--improving very slowly, started 3% NaCl Iatrogenic secondary to Lasix has had previous episodes with HCTZ Dehydration--resolved Resp infection--N/A Card meds clarified with EMBEDDED LINUX ENGINEER, Mexitil on hold until electrolytes are restarted, resumption per Cardiology. Clinic will call to reschedule device check Slow VT--PPM/AICD adjusted, interrogation to check settings to be rescheduled. Mexitil reattempt trial after electrolytes corrected. Chronic HTN HLD CAD/CABG S/P PPM/AICD Plan: Cardiac meds have been clarified Mexitil 150 mg TIS, hold for now. Toprol XL 100 mg BID Norvasc 2.5 mg daily Atacand 8 mg daily. Lasix 20 mg daily--likely culprit, has a history of HCTZ sensitivity. Correct electrolytes, start 3% NaCl Home meds Daily Labs EMR Consult PT/OT/CM - General Info Date of Service: 08/15/18 Functional Status: Reports: Pain Controlled, Tolerating Diet, Ambulating, Urinating - Review of Systems General: Reports: No Symptoms HEENT: Reports: No Symptoms Pulmonary: Reports: No Symptoms Cardiovascular: Reports: No Symptoms Gastrointestinal: Reports: No Symptoms Genitourinary: Reports: No Symptoms Musculoskeletal: Reports: No Symptoms Skin: Reports: No Symptoms Neurological: Reports: No Symptoms Psychiatric: Reports: No Symptoms - Patient Data Vitals - Most Recent: Last Vital Signs Temp 36.6 C 08/18/18 23:30 Pulse 62 08/18/18 23:30 Resp 18 08/19/18 02:42 BP 143/77 H 08/19/18 02:42 Pulse Ox 97 08/19/18 02:42 Weight - Most Recent: 85.774 kg I&O - Last 24 hours: Intake & Output 08/18/18 08/19/18 08/19/18 22:59 06:59 14:59 Intake Total 1169 1285 Output Total 1150 1800 Balance 19 -515 Lab Results - Last 24 hrs: Laboratory Results - last 24 hr 08/18/18 08/18/18 08/19/18 Range/Units 10:30 18:19 06:15 WBC 4.18 L (4.23-9.07) K/mm3 RBC 3.62 L (4.63-6.08) M/mm3 Hgb 10.9 L (13.7-17.5) gm/L Hct 31.4 L (40.1-51.0) % MCV 86.7 (79.0-92.2) fl MCH 30.1 (25.7-32.2) pg MCHC 34.7 (32.2-35.5) g/dl RDW Std Deviation 40.8 (35.1-43.9) fL Plt Count 213 (163-337) K/mm3 MPV 8.4 L (9.4-12.3) fl Neut % (Auto) 57.2 (34.0-67.9) % Lymph % (Auto) 17.9 L (21.8-53.1) % [place] % (Auto) 18.2 H (5.3-12.2) % Eos % (Auto) 4.8 (0.8-7.0) Baso % (Auto) 0.7 (0.1-1.2) % Neut # (Auto) 2.39 (1.78-5.38) K/mm3 Lymph # (Auto) 0.75 L (1.32-3.57) K/mm3 [place] # (Auto) 0.76 (0.30-0.82) K/mm3 Eos # (Auto) 0.20 (0.04-0.54) K/mm3 Baso # (Auto) 0.03 (0.01-0.08) K/mm3 Manual Slide Review Normal smear Sodium 126 L 127 L (136-145) mEq/L Potassium 4.3 (3.5-5.1) mEq/L Chloride 95 L (98-107) mEq/L Carbon Dioxide 22 (21-32) mEq/L Anion Gap 14.3 (5-15) BUN 13 (7-18) mg/dL Creatinine 1.1 (0.7-1.3) mg/dL Est Cr Clr Drug Dosing 56.22 mL/min Estimated GFR (MDRD) > 60 (>60) mL/min BUN/Creatinine Ratio 11.8 L (14-18) Glucose 189 H (83-115) mg/dL Calcium 8.1 L (8.5-10.1) mg/dL Magnesium (1.8-2.4) mg/dl C-Reactive Protein (<1.0) mg/dL 08/19/18 Range/Units 06:15 WBC (4.23-9.07) K/mm3 RBC (4.63-6.08) M/mm3 Hgb (13.7-17.5) gm/L Hct (40.1-51.0) % MCV (79.0-92.2) fl MCH (25.7-32.2) pg MCHC (32.2-35.5) g/dl RDW Std Deviation (35.1-43.9) fL Plt Count (163-337) K/mm3 MPV (9.4-12.3) fl Neut % (Auto) (34.0-67.9) % Lymph % (Auto) (21.8-53.1) % [place] % (Auto) (5.3-12.2) % Eos % (Auto) (0.8-7.0) Baso % (Auto) (0.1-1.2) % Neut # (Auto) (1.78-5.38) K/mm3 Lymph # (Auto) (1.32-3.57) K/mm3 [place] # (Auto) (0.30-0.82) K/mm3 Eos # (Auto) (0.04-0.54) K/mm3 Baso # (Auto) (0.01-0.08) K/mm3 Manual Slide Review Sodium 128 L (136-145) mEq/L Potassium 4.1 (3.5-5.1) mEq/L Chloride 96 L (98-107) mEq/L Carbon Dioxide 25 (21-32) mEq/L Anion Gap 11.1 (5-15) BUN 9 (7-18) mg/dL Creatinine 0.9 (0.7-1.3) mg/dL Est Cr Clr Drug Dosing 68.72 mL/min Estimated GFR (MDRD) > 60 (>60) mL/min BUN/Creatinine Ratio 10.0 L (14-18) Glucose 88 (83-115) mg/dL Calcium 7.9 L (8.5-10.1) mg/dL Magnesium 1.8 (1.8-2.4) mg/dl C-Reactive Protein 0.6 (<1.0) mg/dL Med Orders - Current: Current Medications Albuterol (Proventil Hfa) 0 gm INH Q6H PRN PRN Reason: Shortness of Breath Last Admin: 08/18/18 08:53 Dose: 2 puff Amiodarone HCl (Cordarone) 400 mg PO DAILY [facility] Last Admin: 08/18/18 08:40 Dose: 400 mg Aspirin (Ecotrin) 325 mg PO DAILY [facility] Last Admin: 08/18/18 08:39 Dose: 325 mg Brimonidine Tartrate (Alphagan 0.2% Ophth Soln) 0 ml EYEBOTH BID [facility] Last Admin: 08/18/18 21:21 Dose: 1 drop Doxazosin Mesylate (Cardura) 2 mg PO BEDTIME [facility] Last Admin: 08/18/18 21:22 Dose: 2 mg Enoxaparin Sodium (Lovenox) 40 mg SUBCUT DAILY [facility] Last Admin: 08/18/18 08:39 Dose: 40 mg Metoprolol Succinate (Toprol Xl) 100 mg PO BID@0900,1800 [facility] Last Admin: 08/18/18 18:35 Dose: 100 mg Nitroglycerin (Nitrostat) 0.4 mg SL ASDIRECTED PRN PRN Reason: Chest Pain Umeclidinium Osgood (1 Puff) 0 each INH DAILY [facility] Last Admin: 08/18/18 08:54 Dose: 1 each Simvastatin (Zocor) 40 mg PO BEDTIME [facility] Last Admin: 08/18/18 21:22 Dose: 40 mg Sodium Chloride (Saline Flush) 10 ml FLUSH ASDIRECTED PRN PRN Reason: Keep Vein Open Last Admin: 08/15/18 12:25 Dose: 10 ml Discontinued Medications Carvedilol (Coreg) 6.25 mg PO BID [facility] Last Admin: 08/16/18 10:35 Dose: Not Given Doxazosin Mesylate (Cardura) 2 mg PO DAILY [facility] Last Admin: 08/16/18 10:23 Dose: Not Given Doxazosin Mesylate (Cardura) 2 mg PO BEDTIME [facility] Last Admin: 08/16/18 20:15 Dose: Not Given Sodium Chloride (Normal Saline) 250 mls @ 999 mls/hr IV ONETIME ONE Stop: 08/15/18 11:57 Last Admin: 08/15/18 12:25 Dose: 999 mls/hr Sodium Chloride (Normal Saline) 1,000 mls @ 100 mls/hr IV ONETIME ONE Stop: 08/15/18 23:55 Last Admin: 08/15/18 20:23 Dose: Not Given Sodium Chloride (Normal Saline) 100 mls @ 60 mls/hr IV ASDIRECTED [facility] Last Admin: 08/15/18 14:23 Dose: 60 mls/hr Sodium Chloride (Normal Saline) 500 mls @ 999 mls/hr IV ONETIME ONE Stop: 08/15/18 16:17 Last Admin: 08/15/18 20:23 Dose: Not Given Sodium Chloride (Normal Saline) 1,000 mls @ 125 mls/hr IV ASDIRECTED [facility] Last Admin: 08/16/18 07:09 Dose: 75 mls/hr Sodium Chloride (Normal Saline) 1,000 mls @ 75 mls/hr IV ASDIRECTED [facility] Last Admin: 08/17/18 20:55 Dose: 75 mls/hr Sodium Chloride (Sodium Chloride 3%) 500 mls @ 15 mls/hr IV ASDIRECTED [facility] Stop: 08/18/18 05:30 Last Admin: 08/17/18 22:12 Dose: 15 mls/hr Sodium Chloride (Sodium Chloride 3%) 500 mls @ 18 mls/hr IV ASDIRECTED [facility] Stop: 08/18/18 21:15 Last Admin: 08/18/18 11:32 Dose: 18 mls/hr Sodium Chloride (Normal Saline) 1,000 mls @ 100 mls/hr IV ASDIRECTED [facility] Stop: 08/19/18 05:00 Last Admin: 08/18/18 23:28 Dose: 100 mls/hr Iopamidol (Isovue-370 (76%)) 50 ml IVPUSH ONETIME ONE Stop: 08/15/18 14:09 Last Admin: 08/15/18 14:23 Dose: 50 ml Iopamidol (Isovue-370 (76%)) 100 ml IVPUSH ONETIME ONE Stop: 08/15/18 14:09 Last Admin: 08/15/18 14:23 Dose: 100 ml Metoprolol Succinate (Toprol Xl) 75 mg PO ONETIME ONE Stop: 08/15/18 23:29 Last Admin: 08/16/18 06:56 Dose: Not Given Metoprolol Succinate (Toprol Xl) 75 mg PO ONETIME ONE Stop: 08/16/18 07:01 Last Admin: 08/16/18 06:58 Dose: 75 mg Metoprolol Succinate (Toprol Xl) 75 mg PO BID@0900,1800 [facility] Stop: 08/16/18 18:01 Last Admin: 08/16/18 10:36 Dose: Not Given Metoprolol Succinate (Toprol Xl) 75 mg PO BID@0900,1800 [facility] Last Admin: 08/17/18 08:34 Dose: 75 mg Ondansetron HCl (Zofran) 4 mg IVPUSH ONETIME ONE Stop: 08/15/18 15:19 Last Admin: 08/15/18 15:26 Dose: 4 mg Oral Electrolytes (Thermotabs) 2 each PO BID [facility] Last Admin: 08/18/18 08:39 Dose: 2 each Umeclidinium Brm/ (Vilanterol Tr 1 Puff) 0 each INH DAILY [facility] Last Admin: 08/16/18 10:35 Dose: Not Given Simethicone (Simethicone) 80 mg PO ONETIME ONE Stop: 08/18/18 21:15 Last Admin: 08/18/18 21:21 Dose: 80 mg Sodium Chloride (Saline Flush) 10 ml FLUSH ONETIME ONE Stop: 08/15/18 14:09 Last Admin: 08/15/18 14:23 Dose: 10 ml - Exam Quality Assessment: Reports: DVT Prophylaxis General: Reports: Alert, Oriented, Cooperative, Other HEENT: Reports: Pupils Reactive, EOMI Neck: Reports: Trachea Midline, No JVD Lungs: Reports: Clear to Auscultation, Normal Respiratory Effort Cardiovascular: Reports: Regular Rate, Regular Rhythm GI/Abdominal Exam: Normal Bowel Sounds, Soft, Non-Tender, No Organomegaly, No Distention (Male) Exam: Deferred Rectal (Males) Exam: Deferred Back Exam: Reports: Normal Inspection Extremities: Normal Inspection, Non-Tender, Normal Capillary Refill Skin: Reports: Warm, Dry, Intact Neurological: Reports: No New Focal Deficit, Normal Gait, Normal Speech Psy/Mental Status: Reports: Alert, Normal Affect, Normal Mood
[2018-08-19] MEDS: Umeclidinium Bromide 1 PUFF INH SCH (08:11)
[2018-08-19] MEDS: Albuterol 6.7 GM Inhaler INH PRN (08:11)
[2018-08-19] MEDS: Amiodarone 200 MG Tab PO SCH (08:23)
[2018-08-19] MEDS: Aspirin 325 MG Tab.EC PO SCH (08:23)
[2018-08-19] MEDS: Metoprolol Succinate 50 MG Tab.ER PO SCH (08:23)
[2018-08-19] MEDS: Enoxaparin 40 MG/0.4 ML Syringe SUBCUT SCH (08:24)
[2018-08-19] MEDS: Brimonidine 0.2% Ophth Soln 5 ML Bottle EYEBOTH SCH (08:24)
[2018-08-19 09:24] VITALS: BP 114/55
== END 2018-08-19 10:35 | disposition home or self-care (01) | DRG 641 ==
LOC: JD.ED 10:55 → JD.MS 17:49
PROVIDERS: ADMIT Internal Medicine Cardiovascular Disease; ATTEND Internal Medicine Cardiovascular Disease
DX: E87.1 Hypo-osmolality and hyponatremia (principal); I10 Essential (primary) hypertension; I25.2 Old myocardial infarction; E86.0 Dehydration; E78.5 Hyperlipidemia, unspecified; I25.10 Atherosclerotic heart disease of native coronary artery without angina pectoris; T50.1X5A Adverse effect of loop [high-ceiling] diuretics, initial encounter; Z95.5 Presence of coronary angioplasty implant and graft; Z88.8 Allergy status to other drugs, medicaments and biological substances; Z88.1 Allergy status to other antibiotic agents; Z95.0 Presence of cardiac pacemaker; Z79.899 Other long term (current) drug therapy; R53.83 Other fatigue; R53.81 Other malaise; R10.9 Unspecified abdominal pain; R42 Dizziness and giddiness; M54.9 Dorsalgia, unspecified; R06.00 Dyspnea, unspecified; Z79.82 Long term (current) use of aspirin; Z96.649 Presence of unspecified artificial hip joint; Z96.659 Presence of unspecified artificial knee joint; Z87.891 Personal history of nicotine dependence; Z95.1 Presence of aortocoronary bypass graft; I47.2 Ventricular tachycardia; Z95.810 Presence of automatic (implantable) cardiac defibrillator
CPT/HCPCS: 36415; 71260; 74177; 80053; 81001; 82553; 83690; 83735; 83880; 84484; 85007; 85027; 85379; 85610; 85730; 86738; 87804 ×2; 93005; 96361; 96374; 99285; J2405; J7030; J7040; Q9967 ×2; 71046; 71046-26; 80048; 83605; 84295; 85025; 86140; 93010; 94640; 94760; 97161-GP; 97165-GO; 99284; A9270-GY; J1650

== ENCOUNTER 2018-08-29 10:12 | Emergency (ER) | payer MEDICARE, OTHER ==
[2018-08-29 10:25] VITALS: BP 110/77
--- NOTE | 2018-08-29 11:08 | EDM.PDOC ---
ED HPI GENERAL MEDICAL PROBLEM - General Chief Complaint: Gastrointestinal Problem Stated Complaint: CHEST PAIN Time Seen by Provider: 08/29/18 11:00 Source of Information: Reports: Patient History Limitations: Reports: No Limitations - History of Present Illness INITIAL COMMENTS - FREE TEXT/NARRATIVE: Patient is a 78-year-old male with a history of CAD/CABG and pacemaker/AICD in place. He presents to the ED complaining of generalized abdominal discomfort described as an ache with nausea and intermittent dry heaving. He believes it is all related to taking his medications. He states recently he was admitted to the hospital for hyponatremia. Discharge summary was reviewed and his sodium was 117 and upon discharge it was 128. Recent follow-up with PCP 3 days ago indicated sodium was 134. He states with taking the mexiletine he develops this generalized discomfort and nausea. This medication was discontinued at one point and recently restarted. He believes his abdominal discomfort and n/v is related to this medication. There has been no increase in acid reflux. There's been no epigastric discomfort. He's had no dark tarry stools or bloody stools noted. He has no history of peptic ulcer disease. In addition he has also noticed some increased frequency of urination which is abnormal for him. He is on no diuretic at this point. He does have some lower abdomen discomfort with palpation with the sensation he needs to urinate. He does carry a history of BPH and is on doxazosin. He has no history of urinary retention. In addition he does carry a history of COPD and CHF. States he is chronically short of breath and notes no increase as of recent. States with exertion he is extremely short of breath and has to sit down and rest immediately or he will fall. There's been no changes to the other cardiac medications. There has been no increase in weight, no PND, no orthopnea, no increased edema to his lower extremities. He is on no diuretic. Denies any fever, dysuria, chills, recent sick exposure, diarrhea, or any additional complaints. States he does have a history constipation. Last bowel movement was yesterday that did not require any straining. He does not take his medications on empty stomach. He did take Zofran this morning prior to taking the amoxicillin. Yesterday he took mexiletine and states a half hour later became nauseated with generalized abdominal discomfort. He did speak with his primary care provider and was provided prescription for the Zofran which relieved his symptoms yesterday but not today. Upon admission to the ED he really has no complaints at this time. The nausea has subsided. He has some mild discomfort to his lower abdomen with the sensation he needs to urinate. Lower Abdomen Pain Score (Numeric/FACES): 9 - Related Data Allergies Allergy/AdvReac Type Severity Reaction Status Date / Time atorvastatin Allergy Other Verified 08/29/18 10:17 hydrochlorothiazide Allergy Other Verified 08/29/18 10:17 rosuvastatin [From Crestor] Allergy Other Verified 08/29/18 10:17 tamsulosin [From Flomax] Allergy Difficulty Verified 08/29/18 10:17 Breathing amoxicillin [From Augmentin] AdvReac Diarrhea Verified 08/29/18 10:17 clavulanic acid AdvReac Diarrhea Verified 08/29/18 10:17 [From Augmentin] droperidol AdvReac Anxiety Verified 08/29/18 10:17 Home Meds: Home Meds Albuterol [Proventil HFA] 2 puff INH Q6H PRN 06/07/18 [History] Aspirin 325 mg PO DAILY 06/07/18 [History] Brimonidine [Alphagan P 0.15% Ophth Soln] 1 drop OP BID 06/07/18 [History] Doxazosin [Cardura] 2 mg PO DAILY 06/07/18 [History] L Acidophil/B Lactis/B Longum [Florajen3] 1 cap PO ASDIRECTED 06/07/18 [History] Omeprazole 20 mg PO DAILY 06/07/18 [History] Ubidecarenone [Coq-10] 200 mg PO DAILY 06/07/18 [History] Amiodarone [Cordarone] 400 mg PO DAILY 08/15/18 [History] Candesartan Cilexetil [Atacand] 8 mg PO DAILY 08/15/18 [History] Nitroglycerin [Nitrostat] 0.4 mg SL ASDIRECTED 08/15/18 [History] Umeclidinium [place] [Incruse Ellipta*] 1 puff INH DAILY 08/15/18 [History] Vit C/E/Zn/Coppr/Lutein/Zeaxan [Preservision Areds 2 Softgel] 1 cap PO BID 08/15 [History] Mexiletine [Mexitil] 150 mg PO TID #0 08/19/18 [Rx] Sodium Chloride/KCl [Thermotabs] 2 each PO BID #6 tab 08/19/18 [Rx] amLODIPine [Norvasc] 2.5 mg PO DAILY 08/19/18 [History] L Acidophil/B Lactis/B Longum [Florajen3] 460 mg PO DAILY 08/29/18 [History] Metoprolol Succinate [Toprol XL 50mg] 75 mg PO BID@0900,1800 08/29/18 [History] Past Medical History HEENT History: Reports: Other (See Below) Other HEENT History: wears glasses Cardiovascular History: Reports: Hypertension, [place], Pacemaker - Infectious Disease History Infectious Disease History: Reports: None - Past Surgical History Cardiovascular Surgical History: Reports: Coronary Artery Stent GI Surgical History: Reports: Hernia Repair/Other, Other (See Below) Musculoskeletal Surgical History: Reports: Hip Replacement, Knee Replacement Social & Family History - Family History Family Medical History: Noncontributory - Tobacco Use Smoking Status *Q: Never Smoker Second Hand Smoke Exposure: No - Caffeine Use Caffeine Use: Reports: Coffee, Soda, Tea - Recreational Drug Use Recreational Drug Use: No ED ROS GENERAL - Review of Systems Review Of Systems: ROS reveals no pertinent complaints other than HPI. ED EXAM, GI/ABD - Physical Exam Exam: See Below Exam Limited By: No Limitations General Appearance: Alert, WD/WN, No Apparent Distress Ears: Hearing Grossly Normal Nose: Normal Inspection Throat/Mouth: Normal Voice, No Airway Compromise Head: Atraumatic, Normocephalic Neck: Normal Inspection, Supple Respiratory/Chest: No Respiratory Distress, Lungs Clear, Normal Breath Sounds, No Accessory Muscle Use, Chest Non-Tender Cardiovascular: Normal Peripheral Pulses, Regular Rate, Rhythm, No Murmur GI/Abdominal Exam: Normal Bowel Sounds, Soft, No Organomegaly, No Distention, Tender (suprapubic region) Back Exam: Normal Inspection. No: CVA Tenderness (L), CVA Tenderness (R) Extremities: Normal Inspection, Normal Range of Motion, Non-Tender, No Pedal Edema, Normal Capillary Refill Neurological: Alert, Oriented, CN II-XII Intact, Normal Cognition, No Motor/ Sensory Deficits Psychiatric: Normal Affect, Normal Mood Skin Exam: Warm, Dry, Intact, Normal Color, No Rash Course - Vital Signs Last Recorded V/S: Last Vital Signs Temp 95.3 F L 08/29/18 10:18 Pulse 74 08/29/18 10:18 Resp 15 08/29/18 10:18 BP 110/77 08/29/18 10:18 Pulse Ox 97 08/29/18 10:18 - Orders/Labs/Meds Orders: Active Orders 24 hr Category Date Time Status Bladder Scan [RC] ASDIRECTED Care 08/29/18 11:37 Active EKG Documentation Completion [RC] STAT Care 08/29/18 11:16 Active Nash Catheter Insertion [Insert Urinary Catheter] [OM. Care 08/29/18 12:30 Ordered PC] Q24H Peripheral IV Care [RC] . DIRECTED Care 08/29/18 11:42 Active Urinary Catheter Assessment [RC] ASDIRECTED Care 08/29/18 12:26 Active Abdomen Series w Chest 1V [CR] Stat Exams 08/29/18 11:36 Taken Peripheral IV Insertion Adult [OM.PC] Routine Oth 08/29/18 11:41 Ordered Labs: Laboratory Tests 08/29/18 08/29/18 08/29/18 Range/Units 10:39 10:39 10:39 WBC 4.73 (4.23-9.07) K/mm3 RBC 4.29 L (4.63-6.08) M/mm3 Hgb 12.8 L (13.7-17.5) gm/L Hct 37.0 L (40.1-51.0) % MCV 86.2 (79.0-92.2) fl MCH 29.8 (25.7-32.2) pg MCHC 34.6 (32.2-35.5) g/dl RDW Std Deviation 41.0 (35.1-43.9) fL Plt Count 304 (163-337) K/mm3 MPV 8.8 L (9.4-12.3) fl Neutrophils % (Manual) 64 H (40-60) % Band Neutrophils % 0 (0-10) % Lymphocytes % (Manual) 13 L (20-40) % Atypical Lymphs % 0 % Monocytes % (Manual) 20 H (2-10) % Eosinophils % (Manual) 2 (0.8-7.0) % Basophils % (Manual) 1 (0.2-1.2) Platelet Estimate Adequate Plt Morphology Comment Normal RBC Morph Comment Normal Sodium 122 L (136-145) mEq/L Potassium 4.3 (3.5-5.1) mEq/L Chloride 86 L (98-107) mEq/L Carbon Dioxide 29 (21-32) mEq/L Anion Gap 11.3 (5-15) BUN 9 (7-18) mg/dL Creatinine 1.1 (0.7-1.3) mg/dL Est Cr Clr Drug Dosing 54.45 mL/min Estimated GFR (MDRD) > 60 (>60) mL/min BUN/Creatinine Ratio 8.2 L (14-18) Glucose 103 (83-115) mg/dL Lactic Acid (0.4-2.0) mmol/L Calcium 8.7 (8.5-10.1) mg/dL Total Bilirubin 0.7 (0.2-1.0) mg/dL AST 54 H (15-37) U/L ALT 71 H (16-63) U/L Alkaline Phosphatase 85 (46-116) U/L Troponin I < 0.017 (0.00-0.056) ng/mL C-Reactive Protein < 0.2 (<1.0) mg/dL NT-Pro-B Natriuret Pep 1156 H (0-450) pg/mL Total Protein 6.8 (6.4-8.2) g/dl Albumin 3.6 (3.4-5.0) g/dl Globulin 3.2 gm/dL Albumin/Globulin Ratio 1.1 (1-2) Lipase 276 (73-393) U/L Urine Color (Yellow) Urine Appearance (Clear) Urine pH (5.0-8.0) Ur Specific [place] (1.005-1.030) Urine Protein (Negative) Urine Glucose (UA) (Negative) Urine Ketones (Negative) Urine Occult Blood (Negative) Urine Nitrite (Negative) Urine Bilirubin (Negative) Urine Urobilinogen (0.2-1.0) Ur Leukocyte Esterase (Negative) Urine RBC (0-5) /hpf Urine WBC (0-5) /hpf Ur Epithelial Cells Ur Squamous Epith Cells (0-5) /hpf Amorphous Sediment (NOT SEEN) /hpf Urine Bacteria (FEW) /hpf Fine Granular Casts (0-5) /lpf Urine Mucus (FEW) /hpf 08/29/18 08/29/18 Range/Units 11:47 11:55 WBC (4.23-9.07) K/mm3 RBC (4.63-6.08) M/mm3 Hgb (13.7-17.5) gm/L Hct (40.1-51.0) % MCV (79.0-92.2) fl MCH (25.7-32.2) pg MCHC (32.2-35.5) g/dl RDW Std Deviation (35.1-43.9) fL Plt Count (163-337) K/mm3 MPV (9.4-12.3) fl Neutrophils % (Manual) (40-60) % Band Neutrophils % (0-10) % Lymphocytes % (Manual) (20-40) % Atypical Lymphs % % Monocytes % (Manual) (2-10) % Eosinophils % (Manual) (0.8-7.0) % Basophils % (Manual) (0.2-1.2) Platelet Estimate Plt Morphology Comment RBC Morph Comment Sodium (136-145) mEq/L Potassium (3.5-5.1) mEq/L Chloride (98-107) mEq/L Carbon Dioxide (21-32) mEq/L Anion Gap (5-15) BUN (7-18) mg/dL Creatinine (0.7-1.3) mg/dL Est Cr Clr Drug Dosing mL/min Estimated GFR (MDRD) (>60) mL/min BUN/Creatinine Ratio (14-18) Glucose (83-115) mg/dL Lactic Acid 0.8 (0.4-2.0) mmol/L Calcium (8.5-10.1) mg/dL Total Bilirubin (0.2-1.0) mg/dL AST (15-37) U/L ALT (16-63) U/L Alkaline Phosphatase (46-116) U/L Troponin I (0.00-0.056) ng/mL C-Reactive Protein (<1.0) mg/dL NT-Pro-B Natriuret Pep (0-450) pg/mL Total Protein (6.4-8.2) g/dl Albumin (3.4-5.0) g/dl Globulin gm/dL Albumin/Globulin Ratio (1-2) Lipase (73-393) U/L Urine Color Yellow (Yellow) Urine Appearance Clear (Clear) Urine pH 8.0 (5.0-8.0) Ur Specific [place] 1.015 (1.005-1.030) Urine Protein Negative (Negative) Urine Glucose (UA) Negative (Negative) Urine Ketones Negative (Negative) Urine Occult Blood Negative (Negative) Urine Nitrite Negative (Negative) Urine Bilirubin Negative (Negative) Urine Urobilinogen 0.2 (0.2-1.0) Ur Leukocyte Esterase Negative (Negative) Urine RBC 0-5 (0-5) /hpf Urine WBC Not seen (0-5) /hpf Ur Epithelial Cells Not Reportable Ur Squamous Epith Cells Not seen (0-5) /hpf Amorphous Sediment Moderate H (NOT SEEN) /hpf Urine Bacteria Rare (FEW) /hpf Fine Granular Casts 0-5 (0-5) /lpf Urine Mucus Few (FEW) /hpf Meds: Medications Discontinued Medications Generic Name Dose Route Start Last Admin Trade Name Freq PRN Reason Stop Dose Admin Al Hydroxide/Mg Hydroxide 30 0 ml 08/29/18 13:38 08/29/18 13:43 ml/ Lidocaine HCl 15 ml PO 08/29/18 13:39 45 ml ONETIME ONE Administration Sodium Chloride 1,000 mls @ 125 mls/hr 08/29/18 11:45 08/29/18 12:10 Normal Saline IV 125 mls/hr ASDIRECTED ARTHUR Administration Sodium Chloride 10 ml 08/29/18 11:41 08/29/18 12:10 Saline Flush FLUSH 10 ml ASDIRECTED PRN Administration Keep Vein Open - Re-Assessments/Exams Free Text/Narrative Re-Assessment/Exam: Differential diagnosis: Peptic ulcer disease, urinary retention, UTI, adverse side effects of medications, dehydration, constipation, and IBS. IV will be established with ns 125 mL/h. Initial labs and studies will include: CBC, chem 14, lactic acid, lipase, proBNP , troponin, UA, CRP, abdominal series with chest x-ray, EKG, and bladder scan. EKG atrial paced rhythm. Patient per nursing staff urinated 100mls. Bladder scan indicated 460ml residual urine. Nash catheter has been ordered for urinary retention. Patient is on cardura for BPH. Suspect patient hasn't been urinary retention which contributes to some of his abdominal discomfort. In addition with review of his x-rays additional copious amounts of stool within his hemicolon which may be as result of the urinary retention and causing early resect antinausea with taking his medications and eating. With review of the adverse reactions with taking the mexiletine. A reactions included dyspepsia, depression, dyspnea, fatigue to name a few. Chest x-ray impression: Reviewed with Dr. Orta did not reveal any cute findings. AICD in place. Final interpretation is pending Abdominal x-ray impression: few air fluid levels with increased stool pattern throughout the hemicolon. Reviewed with Dr. Orta. Final interpretation is pending. Labs reviewed: Hemoglobin 12.8 increased from previous blood work. Platelet count 304. Sodium 122 decreased 134 over this week. Potassium normal. Chloride low 86, AG 11.3, creatinine 1.1, LFTs slightly elevated AST 54 and ALT of 71, troponin normal, CRP normal, proBNP 1156 decreased from 1411 to 08/15/18, and lipase normal. UA negative. Dx: Hyponatremia, dyspepsia, CHF, elevated LFTs, and urinary retention. [address] Carrion business travel consultant hospitalist. She recommends patient be transferred to [place] for further investigation for hyponatremia, modification of cardiac medications, pacemaker interrogation, evaluation by cardiology, and evaluation by nephrology with history of urinary retention. Patient agrees to be transferred to [place] but will go by POV. [address] Acosta business travel consultant hospitalists at [facility]. He has accepted the patient. Patient will be gone by POV. Patient will have to be admitted through the ER without being evaluated. Room will be provided at that time. Departure - Departure Time of Disposition: 14:16 Disposition: DC/Tfer to Acute Hospital 02 Condition: Good Clinical Impression: Hyponatremia, Urinary retention due to benign prostatic hyperplasia, Dyspepsia Chronic congestive heart failure Qualifiers: Heart failure type: unspecified Qualified Code(s): I50.9 - Heart failure, unspecified CAD (coronary artery disease) Qualifiers: Coronary Disease-Associated Artery/Lesion type: unspecified vessel or lesion type [place] vs. transplanted heart: [place] heart Associated angina: without angina Qualified Code(s): I25.10 - Atherosclerotic heart disease of [place] coronary artery without angina pectoris - Discharge Information Instructions: Indigestion, [id number], Hyponatremia, [id number] Referrals: Heath Rodriguez MD [Primary Care Provider] - Forms: ED Department Discharge Additional Instructions: Go straight to the [facility] ER admission desk to be admitted. Room # will be available at that time. Dr. Acosta is the accepting Hospitalists. - My Orders Last 24 Hours: My Active Orders 08/29/18 11:16 EKG Documentation Completion [RC] STAT 08/29/18 11:36 Abdomen Series w Chest 1V [CR] Stat 08/29/18 11:37 Bladder Scan [RC] ASDIRECTED 08/29/18 11:41 Peripheral IV Insertion Adult [OM.PC] Routine 08/29/18 11:42 Peripheral IV Care [RC] . DIRECTED 08/29/18 12:26 Urinary Catheter Assessment [RC] ASDIRECTED 08/29/18 12:30 Nash Catheter Insertion [Insert Urinary Catheter] [OM.PC] Q24H - Assessment/Plan Last 24 Hours: My Active Orders 08/29/18 11:16 EKG Documentation Completion [RC] STAT 08/29/18 11:36 Abdomen Series w Chest 1V [CR] Stat 08/29/18 11:37 Bladder Scan [RC] ASDIRECTED 08/29/18 11:41 Peripheral IV Insertion Adult [OM.PC] Routine 08/29/18 11:42 Peripheral IV Care [RC] . DIRECTED 08/29/18 12:26 Urinary Catheter Assessment [RC] ASDIRECTED 08/29/18 12:30 Nash Catheter Insertion [Insert Urinary Catheter] [OM.PC] Q24H
[2018-08-29] MEDS ORDERED: Sodium Chloride 0.9% 10 ML Syringe FLUSH PRN (11:41)
[2018-08-29] MEDS ORDERED: Sodium Chloride 0.9% 1,000 ML IV SCH (11:45)
[2018-08-29] MEDS ORDERED: Alum Hydrox/Mag Hydrox/Simeth 30 ML, Lidocaine 2% 15 ML PO ONE ×2 (13:38)
--- NOTE | 2018-08-30 08:24 | CR ---
Abdominal series: Supine and upright views of the abdomen were obtained as well as frontal view of the chest. Comparison: Prior chest x-ray of 08/17/[address] chest, abdomen and pelvis exam of 08/15/18. Heart is slightly enlarged. Upper mediastinum is normal. AICD is noted. Sternotomy wires are seen. Lungs are clear with no acute parenchymal change. Scattered gas within small bowel and colon is seen which appears within normal limits. Bilateral hip prosthesis are seen. Scoliosis is noted within the spine with diffuse degenerative change. Surgical clips are seen from prior cholecystectomy. Impression: 1. Incidental findings as noted above. Nothing acute is definitely appreciated. Diagnostic code #2
== END 2018-08-29 14:37 ==
LOC: JD.ED 10:12
DX: N40.1 Benign prostatic hyperplasia with lower urinary tract symptoms (principal); R33.8 Other retention of urine; E87.1 Hypo-osmolality and hyponatremia; I11.0 Hypertensive heart disease with heart failure; I50.9 Heart failure, unspecified; I25.10 Atherosclerotic heart disease of native coronary artery without angina pectoris; Z79.2 Long term (current) use of antibiotics; Z79.891 Long term (current) use of opiate analgesic; Z79.899 Other long term (current) drug therapy; Z79.82 Long term (current) use of aspirin; Z88.1 Allergy status to other antibiotic agents; Z88.8 Allergy status to other drugs, medicaments and biological substances; Z98.61 Coronary angioplasty status; Z98.890 Other specified postprocedural states
CPT/HCPCS: 36415; 51702; 74022; 80053; 81001; 83605; 83690; 83880; 84484; 85007; 85027; 86140; 93005; 96360; 96361; 99284; A9270; J7040

== ENCOUNTER 2018-10-11 15:35 | Emergency (ER) | payer MEDICARE, OTHER ==
--- NOTE | 2018-10-11 16:07 | EDM.PDOC ---
ED HPI GENERAL MEDICAL PROBLEM - General Chief Complaint: General Stated Complaint: WANT SODIUM CHECKED Time Seen by Provider: 10/11/18 16:07 Source of Information: Reports: Patient History Limitations: Reports: No Limitations - History of Present Illness INITIAL COMMENTS - FREE TEXT/NARRATIVE: 78-year-old male attends the ED with his . Patient states he simply is not feeling well. He states this often occurs when his serum sodium level dips too low which has been a problem for him. He had his pacemaker -defibrillator replaced 10 days ago in the same site --left upper anterior chest. He feels little more short of breath than normal but is able to lie flat to sleep for most of the night. Has diffuse abdominal pain and states he doesn't think he's had a bowel movement since last Friday. He believes this may be pushing up on his diaphragm making him more short of breath. He doesn't feel like he has any appetite or any room for food. No fever or chills. Patient does self catheterize intermittently .States the last time he self catheterized was last night after voiding and there was no urine in his bladder. Has some swelling chronically in his lower extremities and he doesn't believe it is any worse than normal. his gave him a glycerin suppository and prune juice today with no bowel movement ensuing. Patient states she's not taking any pain medication at present. Onset: Gradual (Has not felt well for the last 3-4 days.) Duration: Day(s):, Intermittent, Waxing/Waning Location: Reports: Chest (Feels like his abdomen is bloated with no room for food. No bowel movement for 5 days. Is to sore left upper anterior chest where he had a new defibrillator pacemaker placed 10 days ago.), Abdomen, Other ( Feels a little more short of breath than normal. Wonders if he is retaining fluid.) Quality: Reports: Other (Generalized weakness. Wonders if his sodium is slipped to low again.) Severity: Moderate Improves with: Reports: None Worsens with: Reports: None Context: Reports: Other (Recent surgery with replacement of his defibrillator pacemaker left upper anterior chest 10 days ago). Denies: Activity, Exercise, Lifting, Sick Contact, Trauma - Related Data Allergies Allergy/AdvReac Type Severity Reaction Status Date / Time atorvastatin Allergy Other Verified 10/11/18 15:42 hydrochlorothiazide Allergy Other Verified 10/11/18 15:42 rosuvastatin [From Crestor] Allergy Other Verified 10/11/18 15:42 tamsulosin [From Flomax] Allergy Difficulty Verified 10/11/18 15:42 Breathing amoxicillin [From Augmentin] AdvReac Diarrhea Verified 10/11/18 15:42 clavulanic acid AdvReac Diarrhea Verified 10/11/18 15:42 [From Augmentin] droperidol AdvReac Anxiety Verified 10/11/18 15:42 Home Meds: Home Meds Albuterol [Proventil HFA] 2 puff INH Q6H PRN 06/07/18 [History] Aspirin 325 mg PO DAILY 06/07/18 [History] Brimonidine [Alphagan P 0.15% Ophth Soln] 1 drop OP BID 06/07/18 [History] Doxazosin [Cardura] 2 mg PO DAILY 06/07/18 [History] L Acidophil/B Lactis/B Longum [Florajen3] 1 cap PO ASDIRECTED 06/07/18 [History] Omeprazole 20 mg PO DAILY 06/07/18 [History] Ubidecarenone [Coq-10] 200 mg PO DAILY 06/07/18 [History] Amiodarone [Cordarone] 400 mg PO DAILY 08/15/18 [History] Candesartan Cilexetil [Atacand] 8 mg PO DAILY 08/15/18 [History] Nitroglycerin [Nitrostat] 0.4 mg SL ASDIRECTED 08/15/18 [History] Umeclidinium Nice [Incruse Ellipta*] 1 puff INH DAILY 08/15/18 [History] Vit C/E/Zn/Coppr/Lutein/Zeaxan [Preservision Areds 2 Softgel] 1 cap PO BID 08/15 [History] Mexiletine [Mexitil] 150 mg PO TID #0 08/19/18 [Rx] Sodium Chloride/KCl [Thermotabs] 2 each PO BID #6 tab 08/19/18 [Rx] amLODIPine [Norvasc] 2.5 mg PO DAILY 08/19/18 [History] L Acidophil/B Lactis/B Longum [Florajen3] 460 mg PO DAILY 08/29/18 [History] Metoprolol Succinate [Toprol XL 50mg] 75 mg PO BID@0900,1800 08/29/18 [History] Nitrofurantoin Monohyd/M-Cryst [Macrobid 100 mg Capsule] 100 mg PO BID #14 capsule 10/11/18 [Rx] Past Medical History HEENT History: Reports: Other (See Below) Other HEENT History: wears glasses Cardiovascular History: Reports: Hypertension, [place], Pacemaker - Infectious Disease History Infectious Disease History: Reports: None - Past Surgical History Cardiovascular Surgical History: Reports: Coronary Artery Stent GI Surgical History: Reports: Hernia Repair/Other, Other (See Below) Musculoskeletal Surgical History: Reports: Hip Replacement, Knee Replacement Social & Family History - Family History Family Medical History: Noncontributory - Tobacco Use Smoking Status *Q: Former Smoker Used Tobacco, but Quit: Yes Month/Year Tobacco Last Used: 1982 - Caffeine Use Caffeine Use: Reports: Coffee, Soda, Tea - Recreational Drug Use Recreational Drug Use: No - Living Situation & Occupation Living situation: Reports: Occupation: Retired ED ROS GENERAL - Review of Systems Review Of Systems: See Below Constitutional: Reports: Malaise, Weakness, Fatigue, Decreased Appetite. Denies : Fever, Chills, Weight Loss HEENT: Reports: Glasses, Hearing Loss Respiratory: Reports: Shortness of Breath (Mild hearing loss), Cough, Other ( Occasional PND.). Denies: Wheezing, Pleuritic Chest Pain, Sputum, Hemoptysis ( Occasional nonproductive cough) Cardiovascular: Reports: Chest Pain (Left upper anterior chest is tender where the recently replaced his defibrillator pacemaker.), Blood Pressure Problem, Dyspnea on Exertion (Always has a little edema in his lower extremities. On a clear.), Edema. Denies: Claudication, Orthopnea Endocrine: Reports: Fatigue GI/Abdominal: Reports: Abdominal Pain, Distension (Feels abdominal bloating and pressure discomfort. Hasn't had a bowel movement for 5 days.). Denies: Nausea, Stool Incontinence : Reports: Frequency, Urinary Retention, Other (Has a problem with neurogenic bladder and a big prostate and self catheters himself intermittently to make sure that he empties all the way. States last night when he saw voiding there was no urine at all. Usually there is 50-75 mils.) Musculoskeletal: Reports: Back Pain, Joint Pain Skin: Reports: Bruising (Knees hips and neck at times shoulders as well. Bruising left upper anterior chest.) Neurological: Reports: No Symptoms Psychiatric: Reports: No Symptoms Hematologic/Lymphatic: Reports: No Symptoms Immunologic: Reports: No Symptoms ED EXAM, GENERAL - Physical Exam Exam: See Below Exam Limited By: No Limitations General Appearance: Alert, WD/WN, No Apparent Distress, Other (Vital signs show afebrile. Pulse of 67. Respiratory rate 18.) Throat/Mouth: Normal Inspection, Normal Lips, Normal Oropharynx Head: Atraumatic, Normocephalic Neck: Normal Inspection, Supple, Full Range of Motion, Limited Range of Motion. No: Lymphadenopathy (L), Lymphadenopathy (R) Respiratory/Chest: No Respiratory Distress, Lungs Clear, Normal Breath Sounds, No Accessory Muscle Use, Chest Non-Tender, Other (The site left upper anterior chest at recent placement of defibrillator pacemaker appears to be healing very well. There is the expected amount of subcutaneous ecchymoses.) Cardiovascular: Normal Peripheral Pulses, Regular Rate, Rhythm, No Gallop, No Murmur, No Rub. No: No Edema Peripheral Pulses: 1+: Posterior Tibial (L), Posterior Tibial (R), Dorsalis Pedis (L), Dorsalis Pedis (R) GI/Abdominal: Normal Bowel Sounds, Soft, Non-Tender, No Organomegaly, Distended. No: Guarding (Diffusely distended and tympanitic to percussion upper abdomen. Dull to percussion lower abdomen.), Rigid, Rebound, Tender, Abnormal Bowel Sounds Back Exam: Normal Inspection, Full Range of Motion. No: CVA Tenderness (L), CVA Tenderness (R) Extremities: Pedal Edema Neurological: Alert, Oriented, CN II-XII Intact, Normal Cognition Psychiatric: Normal Affect, Normal Mood Skin Exam: Warm, Dry, Intact, Normal Color, No Rash Course - Vital Signs Last Recorded V/S: Last Vital Signs Temp 37.0 C 10/11/18 15:39 Pulse 67 10/11/18 15:39 Resp 18 10/11/18 15:39 BP Pulse Ox - Orders/Labs/Meds Orders: Active Orders 24 hr Category Date Time Status Enema [RC] ASDIRECTED Care 10/11/18 17:22 Active Abdomen 1V Flat [CR] Stat Exams 10/11/18 16:31 Taken CULTURE URINE [RM] Stat Lab 10/11/18 17:25 Ordered PRO B-TYPE NATRIUR PEPT,BNPPRO [CHEM] Stat Lab 10/11/18 16:35 Received Sodium Chloride 3% 500 ml Med 10/11/18 17:54 Active IV ONETIME cefTRIAXone [Rocephin] 2 gm Med 10/11/18 17:30 Active Sodium Chloride 0.9% [Normal Saline] 100 ml IV Q24H Medication Orders Ceftriaxone Sodium 2 gm/ (Sodium Chloride) 100 mls @ 200 mls/hr IV Q24H ARTHUR Last Admin: 10/11/18 17:42 Dose: 200 mls/hr Sodium Chloride (Sodium Chloride 3%) 500 mls @ 150 mls/hr IV ONETIME ONE Stop: 10/11/18 21:13 Labs: Laboratory Tests 10/11/18 10/11/18 10/11/18 Range/Units 16:30 16:35 16:35 WBC 10.76 H (4.23-9.07) K/mm3 RBC 3.73 L (4.63-6.08) M/mm3 Hgb 11.5 L (13.7-17.5) gm/L Hct 34.3 L (40.1-51.0) % MCV 92.0 (79.0-92.2) fl MCH 30.8 (25.7-32.2) pg MCHC 33.5 (32.2-35.5) g/dl RDW Std Deviation 50.0 H (35.1-43.9) fL Plt Count 230 (163-337) K/mm3 MPV 8.7 L (9.4-12.3) fl Neutrophils % (Manual) 88 H (40-60) % Band Neutrophils % 0 (0-10) % Lymphocytes % (Manual) 2 L (20-40) % Atypical Lymphs % 0 % Monocytes % (Manual) 9 (2-10) % Eosinophils % (Manual) 1 (0.8-7.0) % Basophils % (Manual) 0 L (0.2-1.2) Platelet Estimate Adequate Plt Morphology Comment Normal Anisocytosis 1+ slight RBC Morph Comment Not Reportable Sodium 128 L (136-145) mEq/L Potassium 4.7 (3.5-5.1) mEq/L Chloride 95 L (98-107) mEq/L Carbon Dioxide 25 (21-32) mEq/L Anion Gap 12.7 (5-15) BUN 14 (7-18) mg/dL Creatinine 1.0 (0.7-1.3) mg/dL Est Cr Clr Drug Dosing 71.09 mL/min Estimated GFR (MDRD) > 60 (>60) mL/min BUN/Creatinine Ratio 14.0 (14-18) Glucose 112 (83-115) mg/dL Serum Osmolality (280-300) mosm/kg Calcium 8.5 (8.5-10.1) mg/dL Magnesium 1.7 L (1.8-2.4) mg/dl Total Bilirubin 0.6 (0.2-1.0) mg/dL AST 31 (15-37) U/L ALT 49 (16-63) U/L Alkaline Phosphatase 65 (46-116) U/L C-Reactive Protein 1.3 H* (<1.0) mg/dL Total Protein 6.6 (6.4-8.2) g/dl Albumin 3.3 L (3.4-5.0) g/dl Globulin 3.3 gm/dL Albumin/Globulin Ratio 1.0 (1-2) Urine Color Yellow (Yellow) Urine Appearance Slt cloudy H (Clear) Urine pH 6.5 (5.0-8.0) Ur Specific [place] > or = 1.030 (1.005-1.030) Urine Protein 1+ H (Negative) Urine Glucose (UA) Negative (Negative) Urine Ketones Negative (Negative) Urine Occult Blood 1+ H (Negative) Urine Nitrite Positive H (Negative) Urine Bilirubin Negative (Negative) Urine Urobilinogen 0.2 (0.2-1.0) Ur Leukocyte Esterase 2+ H (Negative) Urine RBC 0-5 (0-5) /hpf Urine WBC 40-50 H (0-5) /hpf Ur Epithelial Cells 0-5 (0-5) /hpf Urine Bacteria Many H (FEW) /hpf Urine Mucus Not seen (FEW) /hpf 10/11/18 Range/Units 16:35 WBC (4.23-9.07) K/mm3 RBC (4.63-6.08) M/mm3 Hgb (13.7-17.5) gm/L Hct (40.1-51.0) % MCV (79.0-92.2) fl MCH (25.7-32.2) pg MCHC (32.2-35.5) g/dl RDW Std Deviation (35.1-43.9) fL Plt Count (163-337) K/mm3 MPV (9.4-12.3) fl Neutrophils % (Manual) (40-60) % Band Neutrophils % (0-10) % Lymphocytes % (Manual) (20-40) % Atypical Lymphs % % Monocytes % (Manual) (2-10) % Eosinophils % (Manual) (0.8-7.0) % Basophils % (Manual) (0.2-1.2) Platelet Estimate Plt Morphology Comment Anisocytosis RBC Morph Comment Sodium (136-145) mEq/L Potassium (3.5-5.1) mEq/L Chloride (98-107) mEq/L Carbon Dioxide (21-32) mEq/L Anion Gap (5-15) BUN (7-18) mg/dL Creatinine (0.7-1.3) mg/dL Est Cr Clr Drug Dosing mL/min Estimated GFR (MDRD) (>60) mL/min BUN/Creatinine Ratio (14-18) Glucose (83-115) mg/dL Serum Osmolality 266 L (280-300) mosm/kg Calcium (8.5-10.1) mg/dL Magnesium (1.8-2.4) mg/dl Total Bilirubin (0.2-1.0) mg/dL AST (15-37) U/L ALT (16-63) U/L Alkaline Phosphatase (46-116) U/L C-Reactive Protein (<1.0) mg/dL Total Protein (6.4-8.2) g/dl Albumin (3.4-5.0) g/dl Globulin gm/dL Albumin/Globulin Ratio (1-2) Urine Color (Yellow) Urine Appearance (Clear) Urine pH (5.0-8.0) Ur Specific [place] (1.005-1.030) Urine Protein (Negative) Urine Glucose (UA) (Negative) Urine Ketones (Negative) Urine Occult Blood (Negative) Urine Nitrite (Negative) Urine Bilirubin (Negative) Urine Urobilinogen (0.2-1.0) Ur Leukocyte Esterase (Negative) Urine RBC (0-5) /hpf Urine WBC (0-5) /hpf Ur Epithelial Cells (0-5) /hpf Urine Bacteria (FEW) /hpf Urine Mucus (FEW) /hpf Meds: Medications Generic Name Dose Route Start Last Admin Trade Name Shelby PRN Reason Stop Dose Admin Ceftriaxone Sodium 2 gm/ 100 mls @ 200 mls/hr 10/11/18 17:30 10/11/18 17:42 Sodium Chloride IV 200 mls/hr Q24H ARTHUR Administration Sodium Chloride 500 mls @ 150 mls/hr 10/11/18 17:54 Sodium Chloride 3% IV 10/11/18 21:13 ONETIME ONE Discontinued Medications Generic Name Dose Route Start Last Admin Trade Name Freq PRN Reason Stop Dose Admin Sodium Chloride 500 mls @ 300 mls/hr 10/11/18 17:30 10/11/18 17:41 Sodium Chloride 3% IV 300 mls/hr ASDIRECTED ARTHUR Administration - Radiology Interpretation Free Text/Narrative:: 78-year-old male presents to the ED for evaluation of generalized weakness and just simply not feeling well. He has a history of recurrent hyponatremia and is wondering if this is not occurring once again. He is 10 days post replacement of his defibrillator pacemaker left upper anterior chest. He feels like he may be retaining some fluid and easily little orthopneic. Feels abdominally bloated and has not had a good bowel movement for at least 5 days. He is currently on no pain medications. Feels at this time he has no appetite and no room for food. On examination his vital signs are for the most part stable. Lungs are completely clear to stage percussion. His surgical wound site looks great with no signs of infection. His abdomen is distended and diffusely tympanitic to percussion upper abdomen dull to percussion lower abdomen. The patient does self catheterize himself intermittently last catheterization was last night with no urine obtained. He has a history of intermittent urinary retention due to partial neurogenic bladder and partially due to enlarged prostate. Therefore he is prone to urinary tract infection. Plan routine labs CBC CMP and serum magnesium and BNP and a urinalysis and one view of the abdomen will be obtained. - Re-Assessments/Exams Free Text/Narrative Re-Assessment/Exam: 10/11/18 17:15 KUB reveals stool in the rectal vault only. The rest of the colon is filled with air as are portions of the small bowel with there is no sign of bowel obstruction. Will be treated with a Fleet enema with mineral oil. 10/11/18 17:25 Lab reveals a slightly elevated white count at 10.76 differential pending. Hemoglobin is slightly low 11.5 with a hematocrit of 34.3. MCV is 92.0. Platelet count is 230,000. Ms. low at 128. Potassium is 4.7. Chloride 95 with a bicarbonate 25. Anion gap is 12.7. BUNs 14 with a running of 1.0. GFR is greater than 60. BUN is 14 with a glucose of 112. Calcium is 8.5 magnesium slightly low at 1.7. Total bilirubin is 0.6 with normal liver function otherwise. C-reactive protein 1.3. Urine shows cloudy appearance 1+ protein 1+ occult blood positive nitrate 2+ leukocyte esterase the micro-is pending. Plan I'm going to give him Rocephin 2 g IV. I will also give him 50 mils of hypertonic 3% saline. 10/11/18 17:56 Differential l is back on the white count is 88% neutrophils and 0% bands suggesting that he does have a developing systemic infection. The micro-shows 0-5 RBCs per power field and 40-50 WBCs per field with many bacteria appreciated. The BNP is not yet back. Urine culture has been ordered. 10/11/18 18:49 patient had pretty good results from the Fleet enema with mineral oil. He is feeling better. He will be finishing up his IV antibiotic and then he will be discharged to home. He'll be placed on Macrobid 100 mg twice daily for the next 7 days to clear up urinary tract infection. Also suggested MiraLAX powder 17 g every day to prevent constipation from occurring. He has follow-up appointment with cardiology on Friday in [place]. 10/11/18 18:54 serum osmolality is low at 266 indicating that his hyponatremia is indeed dilutional. BNP is still pending. Departure - Departure Time of Disposition: 19:10 Disposition: Home, Self-Care 01 Condition: Fair Clinical Impression: Hyponatremia with decreased serum osmolality, Constipation by delayed colonic transit Urinary tract infection associated with catheterization of urinary tract Qualifiers: Indwelling urinary catheter type: cystostomy catheter Encounter type: initial encounter Qualified Code(s): T83.510A - Infection and inflammatory reaction due to cystostomy catheter, initial encounter - Discharge Information *PRESCRIPTION DRUG MONITORING PROGRAM REVIEWED*: Not Applicable *COPY OF PRESCRIPTION DRUG MONITORING REPORT IN PATIENT PAN: Not Applicable Prescriptions: Nitrofurantoin Monohyd/M-Cryst [Macrobid 100 mg Capsule] 100 mg PO BID #14 capsule Instructions: Hyponatremia, [id number], Constipation, Adult, [id number] Referrals: Heath Rodriguez MD [Primary Care Provider] - Forms: ED Department Discharge Additional Instructions: Evaluation the emergency room today in regards to just generally not feeling well. Chief complaint concern was whether or not your sodium was low again. Note to be 128. Given a bit of hypertonic saline or 3% saline with your antibiotic Rocephin. The Rocephin was used for urinary tract infection identified on urinalysis with positive nitrites and many pus cells evident. This is from self-catheterization. The third problem was constipation confined primarily to the rectal vault. This was treated with a Fleet enema with mineral oil to soften the stool plug. Suggest using MiraLAX powder 17 g once daily to prevent constipation reoccurrence. He will have to take antibiotic Macrobid 100 mg twice daily for the next 7 days to clear up urinary tract infection. The sodium should be corrected for at least the next 5 days with medication provided in the ED. Of course watching how much water intake you have versus juice intake is important it should always be a juice alternating with water to try and maintain your serum sodium level above 130. Labs revealed a mildly elevated white blood cell count suggesting that you might be developing some upper urinary tract infection making you feel ill at this time. SY the first dose of antibiotic was given intravenously. Expect marked improvement over the next 36-48 hours. Follow-up with entry level mechanical engineer as planned in 2 days time. - My Orders Last 24 Hours: My Active Orders 10/11/18 16:31 Abdomen 1V Flat [CR] Stat 10/11/18 16:35 PRO B-TYPE NATRIUR PEPT,BNPPRO [CHEM] Stat 10/11/18 17:22 Enema [RC] ASDIRECTED 10/11/18 17:25 CULTURE URINE [RM] Stat 10/11/18 17:30 cefTRIAXone [Rocephin] 2 gm Sodium Chloride 0.9% [Normal Saline] 100 ml IV Q24H 10/11/18 17:54 Sodium Chloride 3% 500 ml IV ONETIME - Assessment/Plan Last 24 Hours: My Active Orders 10/11/18 16:31 Abdomen 1V Flat [CR] Stat 10/11/18 16:35 PRO B-TYPE NATRIUR PEPT,BNPPRO [CHEM] Stat 10/11/18 17:22 Enema [RC] ASDIRECTED 10/11/18 17:25 CULTURE URINE [RM] Stat 10/11/18 17:30 cefTRIAXone [Rocephin] 2 gm Sodium Chloride 0.9% [Normal Saline] 100 ml IV Q24H 10/11/18 17:54 Sodium Chloride 3% 500 ml IV ONETIME
[2018-10-11] MEDS ORDERED: Sodium Chloride 3% 500 ML IV SCH (17:30)
[2018-10-11] MEDS ORDERED: cefTRIAXone 2 GM in Sodium Chloride 0.9% 100 ML IV SCH (17:30)
[2018-10-11] MEDS ORDERED: Sodium Chloride 3% 500 ML IV ONE (17:54)
--- NOTE | 2018-10-11 20:38 | CR ---
Abdomen: Supine view of the abdomen was obtained. Scattered gas within colon is seen which appears unremarkable. Bilateral hip prosthesis are noted. Degenerative change and scoliosis are noted within the spine. Opacities are seen within the right abdomen most likely representing ingested tablets. AICD is present. Slight atelectasis or scarring is seen within the left lung base. Mild arterial calcification is seen as well as phleboliths within the pelvis. No abnormal amounts of stool are seen. Impression: 1. Incidental findings as noted above. Diagnostic code #2
== END 2018-10-11 20:00 | disposition home or self-care (01) ==
LOC: JD.ED 15:35
DX: T83.510A Infection and inflammatory reaction due to cystostomy catheter, initial encounter (principal); E87.1 Hypo-osmolality and hyponatremia; K59.01 Slow transit constipation; I10 Essential (primary) hypertension; I25.2 Old myocardial infarction; Z95.0 Presence of cardiac pacemaker; Z87.891 Personal history of nicotine dependence; Z79.82 Long term (current) use of aspirin; Z79.899 Other long term (current) drug therapy; Z88.8 Allergy status to other drugs, medicaments and biological substances
CPT/HCPCS: 36415; 74018; 80053; 81001; 83735; 83880; 83930; 85007; 85027; 86140; 87086; 87088; 87186; 96365; 96366; 99283; J0696; J7030; J7040; 99284

== ENCOUNTER 2018-10-27 21:08 | Emergency (ER) | payer MEDICARE, OTHER ==
[2018-10-27] MEDS ORDERED: Furosemide 40 MG/4 ML VIAL IVPUSH ONE (21:38)
[2018-10-27] MEDS ORDERED: Sodium Chloride 0.9% 10 ML Syringe FLUSH PRN (21:38)
--- NOTE | 2018-10-27 22:14 | EDM.PDOC ---
ED HPI GENERAL MEDICAL PROBLEM - General Chief Complaint: Respiratory Problem Stated Complaint: SHORT OF BREATH Time Seen by Provider: 10/27/18 21:16 Source of Information: Reports: Patient, Family, RN Notes Reviewed () - History of Present Illness INITIAL COMMENTS - FREE TEXT/NARRATIVE: 78-year-old male comes in with symptoms of shortness of breath, especially with exertion. Does have history of coronary artery disease, chronic CHF. He states he did take his furosemide to in 3 days ago but not this morning and night don' t believe he took it yesterday either according to his account. He states he takes it "as needed when his weight is more than 3 pounds above baseline" when asked what his weight was this morning he states it was 3 or 4 pounds above baseline. He has no current chest pain. He did have a mild upper respiratory infection last week but states the cough is gone and symptoms at the time were relatively mild. He does have peripheral leg and ankle edema that is somewhat worse than usual. - Related Data Allergies Allergy/AdvReac Type Severity Reaction Status Date / Time atorvastatin Allergy Other Verified 10/27/18 21:23 hydrochlorothiazide Allergy Other Verified 10/27/18 21:23 rosuvastatin [From Crestor] Allergy Other Verified 10/27/18 21:23 tamsulosin [From Flomax] Allergy Difficulty Verified 10/27/18 21:23 Breathing amoxicillin [From Augmentin] AdvReac Diarrhea Verified 10/27/18 21:23 clavulanic acid AdvReac Diarrhea Verified 10/27/18 21:23 [From Augmentin] droperidol AdvReac Anxiety Verified 10/27/18 21:23 Home Meds: Home Meds Albuterol [Proventil HFA] 2 puff INH Q6H PRN 06/07/18 [History] Brimonidine [Alphagan P 0.15% Ophth Soln] 1 drop OP BID 06/07/18 [History] Doxazosin [Cardura] 2 mg PO DAILY 06/07/18 [History] Ubidecarenone [Coq-10] 200 mg PO DAILY 06/07/18 [History] Amiodarone [Cordarone] 400 mg PO DAILY 08/15/18 [History] Candesartan Cilexetil [Atacand] 8 mg PO DAILY 08/15/18 [History] Nitroglycerin [Nitrostat] 0.4 mg SL ASDIRECTED 08/15/18 [History] Umeclidinium [place] [Incruse Ellipta*] 1 puff INH DAILY 08/15/18 [History] Vit C/E/Zn/Coppr/Lutein/Zeaxan [Preservision Areds 2 Softgel] 1 cap PO BID 08/15 [History] Sodium Chloride/KCl [Thermotabs] 2 each PO BID #6 tab 08/19/18 [Rx] L Acidophil/B Lactis/B Longum [Florajen3] 460 mg PO DAILY 08/29/18 [History] Metoprolol Succinate [Toprol XL 50mg] 75 mg PO BID@0900,1800 08/29/18 [History] Acetaminophen 650 mg PO Q6H PRN 10/27/18 [History] Aspirin [Halfprin] 81 mg PO DAILY 10/27/18 [History] Finasteride [Proscar] 5 mg PO DAILY 10/27/18 [History] Ranolazine [Ranexa] 500 mg PO BID 10/27/18 [History] Past Medical History HEENT History: Reports: Other (See Below) Other HEENT History: wears glasses Cardiovascular History: Reports: Hypertension, [place], Pacemaker - Infectious Disease History Infectious Disease History: Reports: None - Past Surgical History Cardiovascular Surgical History: Reports: Coronary Artery Stent GI Surgical History: Reports: Hernia Repair/Other, Other (See Below) Musculoskeletal Surgical History: Reports: Hip Replacement, Knee Replacement Social & Family History - Family History Family Medical History: Noncontributory - Tobacco Use Smoking Status *Q: Former Smoker Used Tobacco, but Quit: Yes Month/Year Tobacco Last Used: years - Caffeine Use Caffeine Use: Reports: Coffee, Soda, Tea - Living Situation & Occupation Living situation: Reports: Occupation: Retired ED ROS GENERAL - Review of Systems Review Of Systems: See Below Constitutional: Denies: Fever, Chills, Diaphoresis HEENT: Denies: Rhinitis, Sinus Problem, Throat Pain Respiratory: Reports: Shortness of Breath, Cough (Gone). Denies: Pleuritic Chest Pain Cardiovascular: Reports: Edema. Denies: Chest Pain Endocrine: Reports: Fatigue GI/Abdominal: Denies: Abdominal Pain, Vomiting Musculoskeletal: Reports: Back Pain (Chronic). Denies: Shoulder Pain, Arm Pain , Leg Pain Skin: Denies: Rash Neurological: Reports: Weakness. Denies: Numbness, Tingling, Trouble Speaking ( Generalized) ED EXAM, GENERAL - Physical Exam Exam: See Below General Appearance: Alert, No Apparent Distress Eye Exam: Bilateral Eye: PERRL Throat/Mouth: Normal Inspection, Normal Oropharynx Head: No: Facial Swelling Neck: Supple, Full Range of Motion, Other Respiratory/Chest: No Respiratory Distress (No JVD), Lungs Clear. No: Rales, Rhonchi, Wheezing Cardiovascular: Regular Rate, Rhythm GI/Abdominal: Soft, Non-Tender Back Exam: No: CVA Tenderness (L), CVA Tenderness (R) Extremities: Pedal Edema. No: Leg Pain (Moderate bilateral), Increased Warmth, Redness Neurological: Alert, Oriented, No Motor/Sensory Deficits Skin Exam: Warm, Dry EKG INTERPRETATION EKG Date: 10/27/18 Rhythm: Other (Paced rhythm) Rate (Beats/Min): 60 QRS: Other (Paced rhythm with wide QRS all leads) Course - Vital Signs Last Recorded V/S: Last Vital Signs Temp 97.0 F 10/27/18 21:20 Pulse 60 10/27/18 23:18 Resp 16 10/27/18 23:18 BP 123/74 10/27/18 23:18 Pulse Ox 95 10/27/18 23:18 - Orders/Labs/Meds Orders: Active Orders 24 hr Category Date Time Status EKG 12 Lead [EKG Documentation Completion] [RC] STAT Care 10/27/18 21:37 Active Peripheral IV Care [RC] . DIRECTED Care 10/27/18 21:38 Active RT Aerosol Therapy [RC] ASDIRECTED Care 10/27/18 22:55 Active Chest 1V Frontal [CR] Stat Exams 10/27/18 21:37 Taken Peripheral IV Insertion Adult [OM.PC] Stat Oth 10/27/18 21:38 Ordered Labs: Laboratory Tests 10/27/18 10/27/18 10/27/18 Range/Units 22:00 22:00 22:00 WBC 2.93 L (4.23-9.07) K/mm3 RBC 3.23 L (4.63-6.08) M/mm3 Hgb 10.2 L (13.7-17.5) gm/L Hct 29.7 L (40.1-51.0) % MCV 92.0 (79.0-92.2) fl MCH 31.6 (25.7-32.2) pg MCHC 34.3 (32.2-35.5) g/dl RDW Std Deviation 50.4 H (35.1-43.9) fL Plt Count 247 (163-337) K/mm3 MPV 8.6 L (9.4-12.3) fl Neut % (Auto) 53.6 (34.0-67.9) % Lymph % (Auto) 23.2 (21.8-53.1) % [place] % (Auto) 20.5 H (5.3-12.2) % Eos % (Auto) 1.0 (0.8-7.0) Baso % (Auto) 1.0 (0.1-1.2) % Neut # (Auto) 1.57 L (1.78-5.38) K/mm3 Lymph # (Auto) 0.68 L (1.32-3.57) K/mm3 [place] # (Auto) 0.60 (0.30-0.82) K/mm3 Eos # (Auto) 0.03 L (0.04-0.54) K/mm3 Baso # (Auto) 0.03 (0.01-0.08) K/mm3 Manual Slide Review Abnormal smear Sodium 124 L (136-145) mEq/L Potassium 4.5 (3.5-5.1) mEq/L Chloride 91 L (98-107) mEq/L Carbon Dioxide 28 (21-32) mEq/L Anion Gap 9.5 (5-15) BUN 14 (7-18) mg/dL Creatinine 1.0 (0.7-1.3) mg/dL Est Cr Clr Drug Dosing 59.90 mL/min Estimated GFR (MDRD) > 60 (>60) mL/min BUN/Creatinine Ratio 14.0 (14-18) Glucose 102 (83-115) mg/dL Calcium 8.2 L (8.5-10.1) mg/dL Total Bilirubin 0.4 (0.2-1.0) mg/dL AST 90 H (15-37) U/L ALT 126 H (16-63) U/L Alkaline Phosphatase 74 (46-116) U/L Troponin I < 0.017 (0.00-0.056) ng/mL NT-Pro-B Natriuret Pep 5501 H (0-450) pg/mL Total Protein 5.9 L (6.4-8.2) g/dl Albumin 2.8 L (3.4-5.0) g/dl Globulin 3.1 gm/dL Albumin/Globulin Ratio 0.9 L (1-2) Meds: Medications Discontinued Medications Generic Name Dose Route Start Last Admin Trade Name Freq PRN Reason Stop Dose Admin Albuterol/Ipratropium 3 ml 10/27/18 22:55 10/27/18 23:01 Duoneb 3.0-0.5 Mg/3 Ml NEB 10/27/18 22:56 3 ml ONETIME ONE Administration Furosemide 40 mg 10/27/18 21:38 10/27/18 21:57 Lasix IVPUSH 10/27/18 21:39 40 mg NOW ONE Administration Sodium Chloride 10 ml 10/27/18 21:38 10/27/18 21:57 Saline Flush FLUSH 10 ml ASDIRECTED PRN Administration Keep Vein Open Departure - Departure Time of Disposition: 23:20 Disposition: Home, Self-Care 01 Condition: Fair Clinical Impression: Hyponatremia, Hypoalbuminemia due to protein-calorie malnutrition Dyspnea Qualifiers: Dyspnea type: shortness of breath Qualified Code(s): R06.02 - Shortness of breath Congestive heart failure (CHF) Qualifiers: Heart failure type: combined systolic and diastolic Heart failure chronicity: acute on chronic Qualified Code(s): I50.43 - Acute on chronic combined systolic (congestive) and diastolic (congestive) heart failure - Discharge Information Instructions: Shortness of Breath, Adult, [id number], Hyponatremia, Easy-to- Read, Heart Failure, [id number] Referrals: Heath Rodriguez MD [Primary Care Provider] - Forms: ED Department Discharge Additional Instructions: Your sodium today was moderately low, 124. There are multiple factors affecting your leg edema, fluid retention but part of that is low serum albumin and protein. Consider drinking 1/2-1 can of protein supplement daily such as ensure. Discuss that with Dr. Rodriguez at your clinic visit tomorrow. Continue current medications as prescribed, return to ED as needed if symptoms worsening in any way. - My Orders Last 24 Hours: My Active Orders 03/19/19 21:37 EKG 12 Lead [EKG Documentation Completion] [RC] STAT Chest 1V Frontal [CR] Stat 10/27/18 21:38 Peripheral IV Care [RC] . DIRECTED Peripheral IV Insertion Adult [OM.PC] Stat 10/27/18 22:55 RT Aerosol Therapy [RC] ASDIRECTED - Assessment/Plan Last 24 Hours: My Active Orders 10/27/18 21:37 EKG 12 Lead [EKG Documentation Completion] [RC] STAT Chest 1V Frontal [CR] Stat 10/27/18 21:38 Peripheral IV Care [RC] . DIRECTED Peripheral IV Insertion Adult [OM.PC] Stat 10/27/18 22:55 RT Aerosol Therapy [RC] ASDIRECTED
[2018-10-27] MEDS ORDERED: Albuterol/Ipratropium 3.0-0.5 MG/3 ML Neb Soln NEB ONE (22:55)
[2018-10-27 23:28] VITALS: BP 123/74
--- NOTE | 2018-10-28 07:54 | CR ---
Chest: Portable view of the chest was obtained. Comparison: Prior chest x-ray of 08/17/18 is available. Heart is enlarged. Previous sternotomy is noted. AICD is present. Lungs are clear with no acute parenchymal change. Bony structures are grossly intact. Impression: 1. Cardiomegaly with AICD. 2. Nothing acute is seen on portable chest x-ray. Diagnostic code #1
== END 2018-10-27 23:18 | disposition home or self-care (01) ==
LOC: JD.ED 21:08
DX: I11.0 Hypertensive heart disease with heart failure (principal); I50.43 Acute on chronic combined systolic (congestive) and diastolic (congestive) heart failure; E87.1 Hypo-osmolality and hyponatremia; E88.09 Other disorders of plasma-protein metabolism, not elsewhere classified; I25.2 Old myocardial infarction; Z87.891 Personal history of nicotine dependence; Z79.899 Other long term (current) drug therapy; Z88.8 Allergy status to other drugs, medicaments and biological substances; Z88.1 Allergy status to other antibiotic agents
CPT/HCPCS: 36415; 71045; 80053; 83880; 84484; 85025; 93005; 94640; 96374; 99285; J1940; 93010; 99284; J7620-GY

== ENCOUNTER 2018-10-31 06:55 | Emergency (ER) | payer MEDICARE, OTHER ==
[2018-10-31] MEDS ORDERED: Sodium Chloride 0.9% 10 ML Syringe FLUSH PRN (07:12)
[2018-10-31 07:18] VITALS: BP 139/76
--- NOTE | 2018-10-31 07:35 | EDM.PDOC ---
ED HPI GENERAL MEDICAL PROBLEM - General Chief Complaint: Respiratory Problem Stated Complaint: [facility] Time Seen by Provider: 10/31/18 06:57 Source of Information: Reports: Patient, EMS, Family History Limitations: Reports: No Limitations - History of Present Illness INITIAL COMMENTS - FREE TEXT/NARRATIVE: The patient presents by [facility] for abdominal pain, shortness of breath and not feeling right. He says he got up at 4am to use the bathroom. He sat at the side of the bed and then went to the bathroom. He went back to bed and then he had the mid to lower abdominal pain and he did not feel well. He says he felt like he was not going to make it. He was short of breath. He has a slight cough. He is much better now. He says he just had a pacemaker put in a month ago. He says these episodes have happened a few times. He was told that it could be related to his heart and the pacemaker is doing its job to help pace him out of it. He also has CHF and about 4 days ago he was in for shortness of breath and leg edema. He was told to take his laxis daily and the edema in his legs is better but he does have shortness of breath. He denies fever or chills. He has no abdominal pain now. He has no nausea or vomiting now. He says he never gets chest pain when he has trouble with his heart. He will get pain in his abdomen. Onset: Sudden Duration: Hour(s): (4am) Location: Reports: Abdomen Quality: Reports: Sharp Severity: Moderate Improves with: Reports: None Worsens with: Reports: None Context: Reports: Activity (He got up to go to the bathroom when this started) Associated Symptoms: Reports: Cough, Nausea/Vomiting, Shortness of Breath. Denies: Chest Pain, Fever/Chills, Headaches - Related Data Allergies Allergy/AdvReac Type Severity Reaction Status Date / Time atorvastatin Allergy Other Verified 10/31/18 07:18 hydrochlorothiazide Allergy Other Verified 10/31/18 07:18 rosuvastatin [From Crestor] Allergy Other Verified 10/31/18 07:18 tamsulosin [From Flomax] Allergy Difficulty Verified 10/31/18 07:18 Breathing amoxicillin [From Augmentin] AdvReac Diarrhea Verified 10/31/18 07:18 clavulanic acid AdvReac Diarrhea Verified 10/31/18 07:18 [From Augmentin] droperidol AdvReac Anxiety Verified 10/31/18 07:18 Home Meds: Home Meds Albuterol [Proventil HFA] 2 puff INH Q6H PRN 06/07/18 [History] Brimonidine [Alphagan P 0.15% Ophth Soln] 1 drop OP BID 06/07/18 [History] Doxazosin [Cardura] 2 mg PO DAILY 06/07/18 [History] Ubidecarenone [Coq-10] 200 mg PO DAILY 06/07/18 [History] Amiodarone [Cordarone] 400 mg PO DAILY 08/15/18 [History] Candesartan Cilexetil [Atacand] 8 mg PO DAILY 08/15/18 [History] Nitroglycerin [Nitrostat] 0.4 mg SL ASDIRECTED 08/15/18 [History] Umeclidinium [place] [Incruse Ellipta*] 1 puff INH DAILY 08/15/18 [History] Vit C/E/Zn/Coppr/Lutein/Zeaxan [Preservision Areds 2 Softgel] 1 cap PO BID 08/15 [History] Sodium Chloride/KCl [Thermotabs] 2 each PO BID #6 tab 08/19/18 [Rx] L Acidophil/B Lactis/B Longum [Florajen3] 460 mg PO DAILY 08/29/18 [History] Metoprolol Succinate [Toprol XL 50mg] 75 mg PO BID@0900,1800 08/29/18 [History] Acetaminophen 650 mg PO Q6H PRN 10/27/18 [History] Aspirin [Halfprin] 81 mg PO DAILY 10/27/18 [History] Finasteride [Proscar] 5 mg PO DAILY 10/27/18 [History] Ranolazine [Ranexa] 500 mg PO BID 10/27/18 [History] predniSONE [Prednisone] 40 mg PO DAILY #10 tablet 10/31/18 [Rx] Past Medical History HEENT History: Reports: Other (See Below) Other HEENT History: wears glasses Cardiovascular History: Reports: Hypertension, [place], Pacemaker - Infectious Disease History Infectious Disease History: Reports: None - Past Surgical History Cardiovascular Surgical History: Reports: Coronary Artery Stent GI Surgical History: Reports: Hernia Repair/Other, Other (See Below) Musculoskeletal Surgical History: Reports: Hip Replacement, Knee Replacement Social & Family History - Family History Family Medical History: Noncontributory - Tobacco Use Smoking Status *Q: Never Smoker - Caffeine Use Caffeine Use: Reports: Coffee, Soda, Tea - Recreational Drug Use Recreational Drug Use: No - Living Situation & Occupation Living situation: Reports: Occupation: Retired ED ROS GENERAL - Review of Systems Review Of Systems: See Below Constitutional: Reports: No Symptoms HEENT: Reports: No Symptoms Respiratory: Reports: Shortness of Breath, Cough Cardiovascular: Reports: No Symptoms Endocrine: Reports: No Symptoms GI/Abdominal: Reports: Abdominal Pain, Nausea. Denies: Diarrhea, Vomiting : Reports: No Symptoms ED EXAM, GENERAL - Physical Exam Exam: See Below Exam Limited By: No Limitations General Appearance: Alert, No Apparent Distress Ears: Normal External Exam Nose: Normal Inspection Head: Atraumatic, Normocephalic Neck: Normal Inspection Respiratory/Chest: No Respiratory Distress, Lungs Clear, Normal Breath Sounds Cardiovascular: Regular Rate, Rhythm, No Edema, No Murmur GI/Abdominal: Soft, Non-Tender, No Organomegaly, No Mass Extremities: Normal Inspection EKG INTERPRETATION EKG Date: 10/31/18 Time: 07:16 Rhythm: Other (AV dual-paced rhythm) Rate (Beats/Min): 60 Course - Vital Signs Last Recorded V/S: Last Vital Signs Temp 98.7 F 10/31/18 07:00 Pulse 63 10/31/18 07:00 Resp 35 H 10/31/18 07:00 BP 139/76 10/31/18 07:00 Pulse Ox 93 L 10/31/18 08:33 - Orders/Labs/Meds Orders: Active Orders 24 hr Category Date Time Status Cardiac Monitoring [RC] . DIRECTED Care 10/31/18 07:12 Active EKG Documentation Completion [RC] STAT Care 10/31/18 07:12 Active Oxygen Therapy [RC] PRN Care 10/31/18 07:12 Active Peripheral IV Care [RC] . DIRECTED Care 10/31/18 07:13 Active RT Aerosol Therapy [RC] ASDIRECTED Care 10/31/18 08:33 Active RT Aerosol Therapy [RC] ASDIRECTED Care 10/31/18 10:44 Ordered Chest 1V Frontal [CR] Stat Exams 10/31/18 07:13 Taken Albuterol/Ipratropium [DuoNeb 3.0-0.5 MG/3 ML] Med 10/31/18 10:44 Once 3 ml NEB ONETIME ONE Sodium Chloride 0.9% [Saline Flush] Med 10/31/18 07:12 Active 10 ml FLUSH ASDIRECTED PRN Peripheral IV Insertion Adult [OM.PC] Stat Oth 10/31/18 07:12 Ordered Medication Orders Sodium Chloride (Saline Flush) 10 ml FLUSH ASDIRECTED PRN PRN Reason: Keep Vein Open Last Admin: 10/31/18 08:19 Dose: 10 ml Labs: Laboratory Tests 10/31/18 10/31/18 10/31/18 Range/Units 07:23 07:23 07:23 WBC 3.26 L (4.23-9.07) K/mm3 RBC 3.32 L (4.63-6.08) M/mm3 Hgb 10.5 L (13.7-17.5) gm/L Hct 30.0 L (40.1-51.0) % MCV 90.4 (79.0-92.2) fl MCH 31.6 (25.7-32.2) pg MCHC 35.0 (32.2-35.5) g/dl RDW Std Deviation 48.6 H (35.1-43.9) fL Plt Count 223 (163-337) K/mm3 MPV 8.6 L (9.4-12.3) fl Neut % (Auto) 64.1 (34.0-67.9) % Lymph % (Auto) 16.0 L (21.8-53.1) % [place] % (Auto) 17.8 H (5.3-12.2) % Eos % (Auto) 1.2 (0.8-7.0) Baso % (Auto) 0.3 (0.1-1.2) % Neut # (Auto) 2.09 (1.78-5.38) K/mm3 Lymph # (Auto) 0.52 L (1.32-3.57) K/mm3 [place] # (Auto) 0.58 (0.30-0.82) K/mm3 Eos # (Auto) 0.04 (0.04-0.54) K/mm3 Baso # (Auto) 0.01 (0.01-0.08) K/mm3 Manual Slide Review Normal smear Sodium 125 L (136-145) mEq/L Potassium 3.9 (3.5-5.1) mEq/L Chloride 92 L (98-107) mEq/L Carbon Dioxide 28 (21-32) mEq/L Anion Gap 8.9 (5-15) BUN 15 (7-18) mg/dL Creatinine 1.1 (0.7-1.3) mg/dL Est Cr Clr Drug Dosing TNP Estimated GFR (MDRD) > 60 (>60) mL/min BUN/Creatinine Ratio 13.6 L (14-18) Glucose 103 (83-115) mg/dL Calcium 8.3 L (8.5-10.1) mg/dL Total Bilirubin 0.5 (0.2-1.0) mg/dL AST 111 H (15-37) U/L ALT 162 H (16-63) U/L Alkaline Phosphatase 79 (46-116) U/L Troponin I 0.022 (0.00-0.056) ng/mL NT-Pro-B Natriuret Pep 3506 H (0-450) pg/mL Total Protein 5.7 L (6.4-8.2) g/dl Albumin 2.8 L (3.4-5.0) g/dl Globulin 2.9 gm/dL Albumin/Globulin Ratio 1.0 (1-2) 10/31/18 Range/Units 09:54 WBC (4.23-9.07) K/mm3 RBC (4.63-6.08) M/mm3 Hgb (13.7-17.5) gm/L Hct (40.1-51.0) % MCV (79.0-92.2) fl MCH (25.7-32.2) pg MCHC (32.2-35.5) g/dl RDW Std Deviation (35.1-43.9) fL Plt Count (163-337) K/mm3 MPV (9.4-12.3) fl Neut % (Auto) (34.0-67.9) % Lymph % (Auto) (21.8-53.1) % [place] % (Auto) (5.3-12.2) % Eos % (Auto) (0.8-7.0) Baso % (Auto) (0.1-1.2) % Neut # (Auto) (1.78-5.38) K/mm3 Lymph # (Auto) (1.32-3.57) K/mm3 [place] # (Auto) (0.30-0.82) K/mm3 Eos # (Auto) (0.04-0.54) K/mm3 Baso # (Auto) (0.01-0.08) K/mm3 Manual Slide Review Sodium (136-145) mEq/L Potassium (3.5-5.1) mEq/L Chloride (98-107) mEq/L Carbon Dioxide (21-32) mEq/L Anion Gap (5-15) BUN (7-18) mg/dL Creatinine (0.7-1.3) mg/dL Est Cr Clr Drug Dosing Estimated GFR (MDRD) (>60) mL/min BUN/Creatinine Ratio (14-18) Glucose (83-115) mg/dL Calcium (8.5-10.1) mg/dL Total Bilirubin (0.2-1.0) mg/dL AST (15-37) U/L ALT (16-63) U/L Alkaline Phosphatase (46-116) U/L Troponin I < 0.017 (0.00-0.056) ng/mL NT-Pro-B Natriuret Pep (0-450) pg/mL Total Protein (6.4-8.2) g/dl Albumin (3.4-5.0) g/dl Globulin gm/dL Albumin/Globulin Ratio (1-2) Meds: Medications Generic Name Dose Route Start Last Admin Trade Name Freq PRN Reason Stop Dose Admin Sodium Chloride 10 ml 10/31/18 07:12 10/31/18 08:19 Saline Flush FLUSH 10 ml ASDIRECTED PRN Administration Keep Vein Open Discontinued Medications Generic Name Dose Route Start Last Admin Trade Name Freq PRN Reason Stop Dose Admin Albuterol/Ipratropium 3 ml 10/31/18 08:33 10/31/18 08:44 Duoneb 3.0-0.5 Mg/3 Ml NEB 10/31/18 08:34 3 ml ONETIME ONE Administration Methylprednisolone Sodium Succinate 125 mg 10/31/18 08:34 10/31/18 08:38 Solu-Medrol IVPUSH 10/31/18 08:35 125 mg ONETIME ONE Administration - Re-Assessments/Exams Free Text/Narrative Re-Assessment/Exam: 10/31/18 07:45 I ordered an IV saline lock, O2 PRN, EKG, CXR and labs. 10/31/18 08:17 His EKG shows A-V dual-paced rhythm. His CXR shows cardiomegaly with no acute changes. His WBC is a little low at 3.26. His Hgb is low at 10.5. His Na is low at 125. Four days ago it was 124. His AST is elevated at 111. His ALT was elevated at 162. His troponin was in the normal range. His BNP was elevated at 3,506. That is improved from 4 days ago. 10/31/18 10:29 He has some wheezing now so I ordered solu-medrol 125mg IV and duoneb. I also ordered a repeat troponin. The repeat troponin is negative. He says his breathing is better. He says with exertion he is very winded and he is worried the recent med changes. His ranexa was increased to 1,000 2 times per day and his amiodarone was decreased to once per day. He says after that he started feeling worse. He has COPD and he is wheezing now. The treatment and steroids did help. 10/31/18 10:44 I called BHARTI Davis and his static balancer Dr Dominguez was not on. The patient is starting to wheeze again so I ordered another duoneb. I will get him on some prednisone for 5 days. His is seeing his workgroup leader on Friday Dr Prince. Departure - Departure Time of Disposition: 10:45 Disposition: Home, Self-Care 01 Condition: Good Clinical Impression: COPD exacerbation, Hyponatremia, Exertional dyspnea, Shortness of breath CAD (coronary artery disease) Qualifiers: Coronary Disease-Associated Artery/Lesion type: unspecified vessel or lesion type [place] vs. transplanted heart: platinum heart Associated angina: without angina Qualified Code(s): I25.10 - Atherosclerotic heart disease of platinum coronary artery without angina pectoris - Discharge Information *PRESCRIPTION DRUG MONITORING PROGRAM REVIEWED*: Not Applicable *COPY OF PRESCRIPTION DRUG MONITORING REPORT IN PATIENT PAN: Not Applicable Prescriptions: predniSONE [Prednisone] 40 mg PO DAILY #10 tablet Referrals: Heath Rodriguez MD [Primary Care Provider] - Forms: ED Department Discharge Additional Instructions: Take your medication as prescribed until you talk to your static balancer next week. Take the prednisone 40mg daily for 5 days. Continue using your inhalers. Please return if you are worse. - My Orders Last 24 Hours: My Active Orders 10/31/18 07:12 Cardiac Monitoring [RC] . DIRECTED EKG Documentation Completion [RC] STAT Oxygen Therapy [RC] PRN Sodium Chloride 0.9% [Saline Flush] 10 ml FLUSH ASDIRECTED PRN Peripheral IV Insertion Adult [OM.PC] Stat 10/31/18 07:13 Peripheral IV Care [RC] . DIRECTED Chest 1V Frontal [CR] Stat 10/31/18 08:33 RT Aerosol Therapy [RC] ASDIRECTED 10/31/18 10:44 RT Aerosol Therapy [RC] ASDIRECTED Albuterol/Ipratropium [DuoNeb 3.0-0.5 MG/3 ML] 3 ml NEB ONETIME ONE - Assessment/Plan Last 24 Hours: My Active Orders 10/31/18 07:12 Cardiac Monitoring [RC] . DIRECTED EKG Documentation Completion [RC] STAT Oxygen Therapy [RC] PRN Sodium Chloride 0.9% [Saline Flush] 10 ml FLUSH ASDIRECTED PRN Peripheral IV Insertion Adult [OM.PC] Stat 10/31/18 07:13 Peripheral IV Care [RC] . DIRECTED Chest 1V Frontal [CR] Stat 10/31/18 08:33 RT Aerosol Therapy [RC] ASDIRECTED 10/31/18 10:44 RT Aerosol Therapy [RC] ASDIRECTED Albuterol/Ipratropium [DuoNeb 3.0-0.5 MG/3 ML] 3 ml NEB ONETIME ONE
[2018-10-31] MEDS ORDERED: Albuterol/Ipratropium 3.0-0.5 MG/3 ML Neb Soln NEB ONE ×2 (08:33→10:44)
[2018-10-31] MEDS ORDERED: methylPREDNISolone Sodium Succinate 125 MG/2 ML SDV IVPUSH ONE (08:34)
--- NOTE | 2018-10-31 16:26 | CR ---
Chest: Frontal view of the chest was obtained. Study obtained utilizing portable technique. Comparison: Prior chest x-ray of 10/27/18. Heart is slightly enlarged. 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 AICD is present. Lungs are clear with no acute parenchymal change. Bony structures are grossly intact. Impression: 1. Stable findings as noted above. Nothing acute is seen. Diagnostic code #2
== END 2018-10-31 11:10 | disposition home or self-care (01) ==
LOC: JD.ED 06:55
DX: J44.1 Chronic obstructive pulmonary disease with (acute) exacerbation (principal); I25.10 Atherosclerotic heart disease of native coronary artery without angina pectoris; E87.1 Hypo-osmolality and hyponatremia; I25.2 Old myocardial infarction; I10 Essential (primary) hypertension; Z88.8 Allergy status to other drugs, medicaments and biological substances; Z79.899 Other long term (current) drug therapy; Z79.82 Long term (current) use of aspirin
CPT/HCPCS: 36415; 71045; 80053; 83880; 84484; 85025; 93005; 94640; 96374; 99285; J2930; 93010; 99284; J7620-GY

== ENCOUNTER 2018-11-06 14:11 | Emergency (ER) | payer MEDICARE, OTHER ==
[2018-11-06 14:25] VITALS: BP 115/82
[2018-11-06] MEDS ORDERED: Ondansetron 4 MG Tab.DIS PO ONE (14:37)
[2018-11-06] MEDS ORDERED: Sodium Chloride/Potassium Chloride Tab PO STA (15:39)
[2018-11-06] MEDS ORDERED: Sodium Chloride 0.9% 1,000 ML IV SCH (15:45)
--- NOTE | 2018-11-06 16:51 | EDM.PDOC ---
ED HPI GENERAL MEDICAL PROBLEM - General Chief Complaint: General Stated Complaint: SOB Time Seen by Provider: 11/06/18 14:24 Source of Information: Reports: Patient, Significant Other History Limitations: Reports: No Limitations - History of Present Illness INITIAL COMMENTS - FREE TEXT/NARRATIVE: Pt is 78 yo M comes in today because "felt horrible" this AM and had nausea, dizziness, difficulty walking. He states he sometimes feels this way after taking his medications in the morning. He realized today that he has forgotten to take his Lasix the past 2 days. He states he has not been drinking too much water. Has difficulty urinating and has to cath himself at home, was able to cath himself this morning around 9am with urine looking "dark". Currently on antibiotic for UTI. He also has h/o Bypass with pacemaker, which was just checked on per . Last saw medical lab technologist on 10/13/18 and will be following up on 11/26/18. He is also going to [facility] in [place] to see Dr. Pickett for "multiple tests" next week. He denies F/C, N/V/D, chest pain, abdominal pain, other GI/ complaints. He does c/o of chronic SOB and cough (h/ o COPD), decreased appetite. No other concerns at this time. PCP is Dr. Rodriguez. Mica Machine Operator is Dr. Sousa at [facility]. CT surgeon was Dr. Dominguez at [facility]. - Related Data Allergies Allergy/AdvReac Type Severity Reaction Status Date / Time atorvastatin Allergy Other Verified 11/06/18 14:24 hydrochlorothiazide Allergy Other Verified 11/06/18 14:24 rosuvastatin [From Crestor] Allergy Other Verified 11/06/18 14:24 tamsulosin [From Flomax] Allergy Difficulty Verified 11/06/18 14:24 Breathing amoxicillin [From Augmentin] AdvReac Diarrhea Verified 11/06/18 14:24 clavulanic acid AdvReac Diarrhea Verified 11/06/18 14:24 [From Augmentin] droperidol AdvReac Anxiety Verified 11/06/18 14:24 Home Meds: Home Meds Albuterol [Proventil HFA] 2 puff INH Q6H PRN 06/07/18 [History] Brimonidine [Alphagan P 0.15% Ophth Soln] 1 drop OP BID 06/07/18 [History] Doxazosin [Cardura] 2 mg PO DAILY 06/07/18 [History] Ubidecarenone [Coq-10] 200 mg PO DAILY 06/07/18 [History] Amiodarone [Cordarone] 400 mg PO DAILY 08/15/18 [History] Candesartan Cilexetil [Atacand] 8 mg PO DAILY 08/15/18 [History] Nitroglycerin [Nitrostat] 0.4 mg SL ASDIRECTED 08/15/18 [History] Umeclidinium [place] [Incruse Ellipta*] 1 puff INH DAILY 08/15/18 [History] Vit C/E/Zn/Coppr/Lutein/Zeaxan [Preservision Areds 2 Softgel] 1 cap PO BID 08/15 [History] Sodium Chloride/KCl [Thermotabs] 2 each PO BID #6 tab 08/19/18 [Rx] L Acidophil/B Lactis/B Longum [Florajen3] 460 mg PO DAILY 08/29/18 [History] Metoprolol Succinate [Toprol XL 50mg] 75 mg PO BID@0900,1800 08/29/18 [History] Acetaminophen 650 mg PO Q6H PRN 10/27/18 [History] Aspirin [Halfprin] 81 mg PO DAILY 10/27/18 [History] Finasteride [Proscar] 5 mg PO DAILY 10/27/18 [History] Ranolazine [Ranexa] 500 mg PO BID 10/27/18 [History] predniSONE [Prednisone] 40 mg PO DAILY #10 tablet 10/31/18 [Rx] predniSONE [Prednisone] 40 mg PO DAILY #10 tablet 10/31/18 [Rx] Past Medical History HEENT History: Reports: Other (See Below) Other HEENT History: wears glasses Cardiovascular History: Reports: Hypertension, [place], Pacemaker - Infectious Disease History Infectious Disease History: Reports: None - Past Surgical History Cardiovascular Surgical History: Reports: Coronary Artery Stent GI Surgical History: Reports: Hernia Repair/Other, Other (See Below) Musculoskeletal Surgical History: Reports: Hip Replacement, Knee Replacement Social & Family History - Family History Family Medical History: Noncontributory - Tobacco Use Smoking Status *Q: Former Smoker Used Tobacco, but Quit: Yes Month/Year Tobacco Last Used: 1981 - Caffeine Use Caffeine Use: Reports: Coffee - Recreational Drug Use Recreational Drug Use: No - Living Situation & Occupation Living situation: Reports: Occupation: Retired ED ROS GENERAL - Review of Systems Review Of Systems: See Below Constitutional: Reports: Decreased Appetite. Denies: Fever, Chills HEENT: Reports: Glasses Respiratory: Reports: Shortness of Breath (chronic), Cough (chronic) Cardiovascular: Reports: No Symptoms. Denies: Chest Pain Endocrine: Reports: No Symptoms GI/Abdominal: Reports: Decreased Appetite. Denies: Abdominal Pain, Diarrhea, Nausea, Vomiting : Reports: Urinary Retention (chronic; uses cath at home) Musculoskeletal: Reports: No Symptoms Skin: Reports: No Symptoms Neurological: Reports: Dizziness, Difficulty Walking. Denies: Headache, Numbness, Pre-Existing Deficit, Tingling, Weakness, Change in Speech Psychiatric: Reports: No Symptoms Hematologic/Lymphatic: Reports: No Symptoms Immunologic: Reports: No Symptoms ED EXAM, GENERAL - Physical Exam Exam: See Below Exam Limited By: No Limitations General Appearance: Alert, WD/WN, No Apparent Distress Eye Exam: Bilateral Eye: EOMI, Normal Inspection, PERRL Ears: Normal External Exam, Hearing Grossly Normal Nose: Normal Inspection Throat/Mouth: Normal Inspection, Normal Lips, Normal Teeth, Normal Gums, Normal Oropharynx, Normal Voice, No Airway Compromise Neck: Normal Inspection, Supple, Non-Tender, Full Range of Motion Respiratory/Chest: No Respiratory Distress, Lungs Clear, Normal Breath Sounds, No Accessory Muscle Use, Chest Non-Tender Cardiovascular: Normal Peripheral Pulses, Regular Rate, Rhythm, No Edema, No Gallop, No JVD, No Murmur, No Rub Peripheral Pulses: 2+: Posterior Tibial (L), Posterior Tibial (R), Dorsalis Pedis (L), Dorsalis Pedis (R) GI/Abdominal: Normal Bowel Sounds, Soft, Non-Tender, No Organomegaly, No Distention, No Abnormal Bruit, No Mass Back Exam: Normal Inspection Extremities: Normal Inspection, Normal Range of Motion, Non-Tender, Normal Capillary Refill, Pedal Edema (2+ pitting edema bilaterally) Psychiatric: Normal Affect, Normal Mood Skin Exam: Warm, Dry, Intact, Normal Color, No Rash Course - Vital Signs Last Recorded V/S: Last Vital Signs Temp 97.3 F 11/06/18 14:22 Pulse 61 11/06/18 14:22 Resp 16 11/06/18 14:22 BP 115/82 11/06/18 14:22 Pulse Ox 98 11/06/18 14:22 - Orders/Labs/Meds Orders: Active Orders 24 hr Category Date Time Status EKG Documentation Completion [RC] ASDIRECTED Care 11/06/18 15:07 Active Sodium Chloride 0.9% [Normal Saline] 1,000 ml Med 11/06/18 15:45 Active IV ASDIRECTED EKG 12 Lead [EK] Stat Ther 11/06/18 15:07 Ordered Medication Orders Sodium Chloride (Normal Saline) 1,000 mls @ 999 mls/hr IV ASDIRECTED ARTHUR Last Admin: 11/06/18 16:28 Dose: 999 mls/hr Labs: Laboratory Tests 11/06/18 11/06/18 11/06/18 Range/Units 14:50 14:50 14:50 WBC 6.50 (4.23-9.07) K/mm3 RBC 3.42 L (4.63-6.08) M/mm3 Hgb 10.5 L (13.7-17.5) gm/L Hct 30.7 L (40.1-51.0) % MCV 89.8 (79.0-92.2) fl MCH 30.7 (25.7-32.2) pg MCHC 34.2 (32.2-35.5) g/dl RDW Std Deviation 47.8 H (35.1-43.9) fL Plt Count 306 (163-337) K/mm3 MPV 8.5 L (9.4-12.3) fl Neut % (Auto) 73.2 H (34.0-67.9) % Lymph % (Auto) 12.0 L (21.8-53.1) % [place] % (Auto) 12.5 H (5.3-12.2) % Eos % (Auto) 0.5 L (0.8-7.0) Baso % (Auto) 0.0 L (0.1-1.2) % Neut # (Auto) 4.76 (1.78-5.38) K/mm3 Lymph # (Auto) 0.78 L (1.32-3.57) K/mm3 [place] # (Auto) 0.81 (0.30-0.82) K/mm3 Eos # (Auto) 0.03 L (0.04-0.54) K/mm3 Baso # (Auto) 0.00 L (0.01-0.08) K/mm3 Manual Slide Review Abnormal smear Sodium 122 L (136-145) mEq/L Potassium 3.9 (3.5-5.1) mEq/L Chloride 88 L (98-107) mEq/L Carbon Dioxide 26 (21-32) mEq/L Anion Gap 11.9 (5-15) BUN 19 H (7-18) mg/dL Creatinine 1.1 (0.7-1.3) mg/dL Est Cr Clr Drug Dosing 54.45 mL/min Estimated GFR (MDRD) > 60 (>60) mL/min BUN/Creatinine Ratio 17.3 (14-18) Glucose 109 (83-115) mg/dL Serum Osmolality 253 L (280-300) mosm/kg Calcium 7.7 L (8.5-10.1) mg/dL Total Bilirubin 0.6 (0.2-1.0) mg/dL AST 30 (15-37) U/L ALT 102 H (16-63) U/L Alkaline Phosphatase 62 (46-116) U/L C-Reactive Protein 0.2 (<1.0) mg/dL Total Protein 5.6 L (6.4-8.2) g/dl Albumin 2.8 L (3.4-5.0) g/dl Globulin 2.8 gm/dL Albumin/Globulin Ratio 1.0 (1-2) Meds: Medications Generic Name Dose Route Start Last Admin Trade Name Freq PRN Reason Stop Dose Admin Sodium Chloride 1,000 mls @ 999 mls/hr 11/06/18 15:45 11/06/18 16:28 Normal Saline IV 999 mls/hr ASDIRECTED ARTHUR Administration Discontinued Medications Generic Name Dose Route Start Last Admin Trade Name Freq PRN Reason Stop Dose Admin Ondansetron HCl 4 mg 11/06/18 14:37 11/06/18 16:33 Zofran Odt PO 11/06/18 14:38 Not Given ONETIME ONE Oral Electrolytes 2 each 11/06/18 15:39 11/06/18 16:34 Thermotabs PO 11/06/18 15:40 2 each NOW STA Administration - Re-Assessments/Exams Free Text/Narrative Re-Assessment/Exam: 11/06/18 14:37 Ordered Zofran, CBC, CMP, CRP, Serum Osmolality, EKG 11/06/[address] Orta and myself- shows paced rhythm, nothing acute. 11/06/18 16:54 CBC Hgb 10.5; similar to last 2 visits so likely chronic CMP shows Na low at 122, Cl 88, ALT 102 Serum osmolality 253; suggests that he has diluted the sodium 11/06/18 17:06 1L Bolus IV NS and 2 thermotabs ordered; pt states he did take 1 thermotab this AM Departure - Departure Time of Disposition: 17:16 Disposition: Home, Self-Care 01 Condition: Fair Clinical Impression: Hyponatremia - Discharge Information *PRESCRIPTION DRUG MONITORING PROGRAM REVIEWED*: Not Applicable *COPY OF PRESCRIPTION DRUG MONITORING REPORT IN PATIENT PAN: Not Applicable Instructions: Hyponatremia, [id number] Referrals: Heath Rodriguez MD [Primary Care Provider] - Forms: ED Department Discharge Additional Instructions: You were seen in the ED today for "feeling horrible" this morning with nausea and dizziness. Your workup here was not impressive for infection or cardiac cause, but it was found that you have low sodium. You had sodium replacement here today and it is recommended you do not drink water for the next 2 days and instead use Gatorade, Juice, Pedialyte when thirsty. Continue taking your thermotabs at home. Continue previously prescribed antibiotic for UTI. Recommend close follow up with your primary care provider within the next couple of days to recheck your electrolytes. Recommend follow up with cardiology. Please return to ED if new or worsening symptoms. - My Orders Last 24 Hours: My Active Orders 11/06/18 15:07 EKG Documentation Completion [RC] ASDIRECTED EKG 12 Lead [EK] Stat 11/06/18 15:45 Sodium Chloride 0.9% [Normal Saline] 1,000 ml IV ASDIRECTED - Assessment/Plan Last 24 Hours: My Active Orders 11/06/18 15:07 EKG Documentation Completion [RC] ASDIRECTED EKG 12 Lead [EK] Stat 11/06/18 15:45 Sodium Chloride 0.9% [Normal Saline] 1,000 ml IV ASDIRECTED
== END 2018-11-06 17:36 | disposition home or self-care (01) ==
LOC: JD.ED 14:11
DX: E87.1 Hypo-osmolality and hyponatremia (principal); I10 Essential (primary) hypertension; I25.2 Old myocardial infarction; Z79.899 Other long term (current) drug therapy; Z88.1 Allergy status to other antibiotic agents; Z87.891 Personal history of nicotine dependence; Z88.8 Allergy status to other drugs, medicaments and biological substances
CPT/HCPCS: 36415; 80053; 83930; 85025; 86140; 93005; 96360; 99284; A9270; J7040

== ENCOUNTER 2018-11-07 22:29 | Emergency (ER) | payer MEDICARE, OTHER ==
[2018-11-07 22:44] VITALS: BP 117/86
--- NOTE | 2018-11-08 00:32 | EDM.PDOC ---
ED HPI GENERAL MEDICAL PROBLEM - General Chief Complaint: General Stated Complaint: [facility] Time Seen by Provider: 11/07/18 23:57 Source of Information: Reports: Patient, Family (), RN Notes Reviewed History Limitations: Reports: No Limitations - History of Present Illness INITIAL COMMENTS - FREE TEXT/NARRATIVE: The patient states that he felt weak around 20:00 tonight. He states that he was able to stand, but could then not initiate movement to walk. He states that he has had multiple similar episodes, ever since he suffered a [place] in May 2018. The typical duration is only seconds, and it usually involves some shortness of breath, although he did not have dyspnea tonight. His episodes do not typically involve chest pain or palpitations, and he did not have those symptoms tonight, either. The patient has an appointment to see the [employer] Interleafer Dr. Pickett at [facility] in [place], [place] on 11/18/2018, to see if the etiology can be figured out. 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 He also has congestive heart failure and a history of ventricular tachycardia, status post an AICD in June 2018, which apparently failed, and was replaced about 5 weeks ago. The patient states that he weighs himself daily, and has instructions to take Lasix for any weight gain above 3 pounds. He states that his weight was up by 5 pounds this morning, therefore he took Lasix this morning. He is instructed to limit his fluid intake to 3 pints per day, which his says he does "for the most part". The patient also has a history of hyponatremia, etiology unclear, but thought likely related to his use of Lasix. Reviewing prior medical records, the patient 's sodium has been as low as 117 on 2 prior occasions, and as high as 128. The patient takes OTC Thermotabs = NaCl + KCl supplement. The patient also has a history of urinary retention secondary to BPH, requiring self-catheterization. The patient is currently finishing a prescription for an antibiotic for a UTI - he states that he has one day left. Medical records indicate that the patient was seen in this ED for symptoms of nausea, dizziness, and difficulty walking, just yesterday, 11/06/2018. Workup included a CBC, CMP, serum osmolality, CRP, and ECG. His CMP found his sodium to be 122, with a serum osmolality of 253. His ECG showed a ventricularly paced rhythm. The patient was given 1 L of NS and 2 Thermotabs before being discharged home. The patient's PCP is Dr. Heath Rodriguez. His [employer] Paper Interleafer is Dr. Aung Sousa. His EP [employer] Paper Interleafer is Dr. Inocente Dominguez. His Bed Rubber is Dr. Nilam Nam. - Related Data Allergies Allergy/AdvReac Type Severity Reaction Status Date / Time atorvastatin Allergy Other Verified 11/06/18 14:24 hydrochlorothiazide Allergy Other Verified 11/06/18 14:24 rosuvastatin [From Crestor] Allergy Other Verified 11/06/18 14:24 tamsulosin [From Flomax] Allergy Difficulty Verified 11/06/18 14:24 Breathing amoxicillin [From Augmentin] AdvReac Diarrhea Verified 11/06/18 14:24 clavulanic acid AdvReac Diarrhea Verified 11/06/18 14:24 [From Augmentin] droperidol AdvReac Anxiety Verified 11/06/18 14:24 Home Meds: Home Meds Albuterol [Proventil HFA] 2 puff INH Q6H PRN 06/07/18 [History] Brimonidine [Alphagan P 0.15% Ophth Soln] 1 drop OP BID 06/07/18 [History] Doxazosin [Cardura] 2 mg PO DAILY 06/07/18 [History] Ubidecarenone [Coq-10] 200 mg PO DAILY 06/07/18 [History] Amiodarone [Cordarone] 400 mg PO DAILY 08/15/18 [History] Candesartan Cilexetil [Atacand] 8 mg PO DAILY 08/15/18 [History] Nitroglycerin [Nitrostat] 0.4 mg SL ASDIRECTED 08/15/18 [History] Umeclidinium [place] [Incruse Ellipta*] 1 puff INH DAILY 08/15/18 [History] Vit C/E/Zn/Coppr/Lutein/Zeaxan [Preservision Areds 2 Softgel] 1 cap PO BID 08/15 [History] Sodium Chloride/KCl [Thermotabs] 2 each PO BID #6 tab 08/19/18 [Rx] L Acidophil/B Lactis/B Longum [Florajen3] 460 mg PO DAILY 08/29/18 [History] Metoprolol Succinate [Toprol XL 50mg] 75 mg PO BID@0900,1800 08/29/18 [History] Acetaminophen 650 mg PO Q6H PRN 10/27/18 [History] Aspirin [Halfprin] 81 mg PO DAILY 10/27/18 [History] Finasteride [Proscar] 5 mg PO DAILY 10/27/18 [History] Ranolazine [Ranexa] 500 mg PO BID 10/27/18 [History] predniSONE [Prednisone] 40 mg PO DAILY #10 tablet 10/31/18 [Rx] predniSONE [Prednisone] 40 mg PO DAILY #10 tablet 10/31/18 [Rx] Past Medical History HEENT History: Reports: Other (See Below) Other HEENT History: wears glasses Cardiovascular History: Reports: Arrhythmia (VT), Heart Failure, High Cholesterol, Hypertension, [place] (1981, May 2018) Respiratory History: Reports: COPD Genitourinary History: Reports: BPH, Retention, Urinary (self-catheterizes) Musculoskeletal History: Reports: Arthritis - Infectious Disease History Infectious Disease History: Reports: Chicken Pox, Measles, Mumps - Past Surgical History Cardiovascular Surgical History: Reports: AICD (Jun 2018, replaced early October 2018), Coronary Artery Bypass (x 4 vessel, October 2017), Coronary Artery Stent ( x 1) GI Surgical History: Reports: Cholecystectomy (2016), Hernia, Abdominal ( incisional), Other (See Below) (to relieve gastric outlet obstruction) Musculoskeletal Surgical History: Reports: Hip Replacement (bilateral), Knee Replacement (bilateral) Social & Family History - Family History Family Medical History: Noncontributory - Tobacco Use Smoking Status *Q: Former Smoker Years of Tobacco use: 24 Packs/Tins Daily: 1 Month/Year Tobacco Last Used: Quit 1979 - Caffeine Use Caffeine Use: Reports: Coffee - Alcohol Use Alcohol Use History: No - Recreational Drug Use Recreational Drug Use: No - Living Situation & Occupation Living situation: Reports: , with Spouse Occupation: Retired ED ROS GENERAL - Review of Systems Review Of Systems: ROS reveals no pertinent complaints other than HPI. ED EXAM, GENERAL - Physical Exam Exam: See Below Exam Limited By: No Limitations General Appearance: Alert, WD/WN, No Apparent Distress Eye Exam: Bilateral Eye: EOMI, Normal Inspection Ears: Normal External Exam, Hearing Loss Nose: Normal Inspection Throat/Mouth: Normal Inspection, Normal Lips, Normal Voice, No Airway Compromise Head: Atraumatic, Normocephalic Neck: Normal Inspection, Full Range of Motion Respiratory/Chest: No Respiratory Distress, Lungs Clear, Normal Breath Sounds, No Accessory Muscle Use. No: Decreased Breath Sounds, Crackles, Rhonchi, Wheezing, Prolonged Expiration Cardiovascular: Normal Peripheral Pulses, Regular Rate, Rhythm, No Gallop, No JVD, No Murmur, No Rub Peripheral Pulses: 4+: Radial (L), Radial (R) GI/Abdominal: Normal Bowel Sounds, Soft, Non-Tender, No Organomegaly, No Distention, No Abnormal Bruit, No Mass, Other (Obese) (Male) Exam: Deferred Rectal (Males) Exam: Deferred Extremities: Normal Inspection, Normal Range of Motion, Normal Capillary Refill , Other (2+ pitting pretibial edema bilaterally. Bilateral knee-high TEDS hose on.) Neurological: Alert, Oriented, Normal Cognition, No Motor/Sensory Deficits Psychiatric: Normal Affect Skin Exam: Warm, Dry, Intact, Normal Color, No Rash Course - Vital Signs Last Recorded V/S: Last Vital Signs Temp 35.9 C 11/07/18 22:38 Pulse 64 11/07/18 22:38 Resp 20 11/07/18 22:38 BP 117/86 11/07/18 22:38 Pulse Ox 95 11/07/18 22:38 - Orders/Labs/Meds Labs: Laboratory Tests 11/07/18 11/07/18 11/08/18 Range/Units 23:03 23:03 00:48 WBC 6.58 (4.23-9.07) K/mm3 RBC 3.56 L (4.63-6.08) M/mm3 Hgb 11.0 L (13.7-17.5) gm/L Hct 32.0 L (40.1-51.0) % MCV 89.9 (79.0-92.2) fl MCH 30.9 (25.7-32.2) pg MCHC 34.4 (32.2-35.5) g/dl RDW Std Deviation 47.7 H (35.1-43.9) fL Plt Count 327 (163-337) K/mm3 MPV 8.6 L (9.4-12.3) fl Neutrophils % (Manual) 70 H (40-60) % Band Neutrophils % 0 (0-10) % Lymphocytes % (Manual) 14 L (20-40) % Atypical Lymphs % 0 % Monocytes % (Manual) 13 H (2-10) % Eosinophils % (Manual) 1 (0.8-7.0) % Basophils % (Manual) 0 L (0.2-1.2) Myelocytes % 2 Hypersegmented Neuts Few Platelet Estimate Adequate Plt Morphology Comment Normal RBC Morph Comment Normal Sodium 125 L (136-145) mEq/L Potassium 4.1 (3.5-5.1) mEq/L Chloride 92 L (98-107) mEq/L Carbon Dioxide 28 (21-32) mEq/L Anion Gap 9.1 (5-15) BUN 17 (7-18) mg/dL Creatinine 1.2 (0.7-1.3) mg/dL Est Cr Clr Drug Dosing 49.92 mL/min Estimated GFR (MDRD) 58 (>60) mL/min BUN/Creatinine Ratio 14.2 (14-18) Glucose 108 (83-115) mg/dL Calcium 8.1 L (8.5-10.1) mg/dL Total Bilirubin 0.5 (0.2-1.0) mg/dL AST 23 (15-37) U/L ALT 82 H (16-63) U/L Alkaline Phosphatase 63 (46-116) U/L Total Protein 5.5 L (6.4-8.2) g/dl Albumin 2.7 L (3.4-5.0) g/dl Globulin 2.8 gm/dL Albumin/Globulin Ratio 1.0 (1-2) Urine Color [place] H (Yellow) Urine Appearance Clear (Clear) Urine pH 7.0 (5.0-8.0) Ur Specific [place] 1.020 (1.005-1.030) Urine Protein Trace H (Negative) Urine Glucose (UA) Negative (Negative) Urine Ketones Negative (Negative) Urine Occult Blood Negative (Negative) Urine Nitrite Negative (Negative) Urine Bilirubin Negative (Negative) Urine Urobilinogen 1.0 (0.2-1.0) Ur Leukocyte Esterase Negative (Negative) Urine RBC Not seen (0-5) /hpf Urine WBC Not seen (0-5) /hpf Ur Epithelial Cells Not seen (0-5) /hpf Amorphous Sediment Few H (NOT SEEN) /hpf Urine Bacteria Few (FEW) /hpf Hyaline Casts 0-5 (0-5) /lpf Urine Mucus Few (FEW) /hpf - Re-Assessments/Exams Free Text/Narrative Re-Assessment/Exam: 11/08/18 00:30 The patient's CBC tonight is unremarkable, and his sodium, while low at 125, is well within his baseline. The patient self-catheterizes due to urinary retention secondary to BPH. He is currently on an antibiotic for treatment of a UTI, but I want to make sure that the antibiotic was effective, therefore I have asked Ramona GARCIA to obtain a urine sample by quick catheterization. In addition, I would like her to get the patient up and see if he can ambulate. 11/08/18 01:34 The patient's urinalysis is unremarkable. 11/08/18 01:52 Informed by Ramona GARCIA that the patient was able to ambulate. 11/08/18 01:57 Test results discussed with the patient and his . I will discharge the patient home, with no new recommendations for medications. He should continue to restrict his fluid intake to 3 pints per day. Departure - Departure Time of Disposition: 01:57 Disposition: Home, Self-Care 01 Condition: Good Clinical Impression: Generalized weakness - Discharge Information *PRESCRIPTION DRUG MONITORING PROGRAM REVIEWED*: Not Applicable *COPY OF PRESCRIPTION DRUG MONITORING REPORT IN PATIENT PAN: Not Applicable Instructions: Weakness Referrals: PCP,None [Primary Care Provider] - Heath Rodriguez MD [Physician] - Aung Sousa DO [Ordering Only Provider] - Inocente Dominguez [Ordering Only Provider] - Nilam Nam Om, MD [Ordering Only Provider] - Forms: ED Department Discharge Additional Instructions: You were seen in the emergency room for an episode of being unable to move after standing up. Workup in the ER included blood work and a urinalysis. Your sodium was found to be low at 125, however, this is within your normal baseline. The remainder of your workup was unremarkable. Your urinate tract infection appears to have been adequately treated. The cause of your symptoms is unclear. We recommend that you continue to take your usual medications as prescribed, and continue to limit your fluid intake to 3 pints a day. Follow-up with the [employer] Paper Interleafer Dr. Pickett at [place] at your previously scheduled appointment on 11/18/2018. If any other problems, please do not hesitate to return to the ER.
== END 2018-11-08 02:20 | disposition home or self-care (01) ==
LOC: JD.ED 22:29
DX: R53.1 Weakness (principal); I11.0 Hypertensive heart disease with heart failure; I50.9 Heart failure, unspecified; J44.9 Chronic obstructive pulmonary disease, unspecified; Z79.899 Other long term (current) drug therapy; Z87.891 Personal history of nicotine dependence; Z88.1 Allergy status to other antibiotic agents
CPT/HCPCS: 36415; 80053; 81001; 85007; 85027; 99283; 99284

== ENCOUNTER 2018-11-09 20:55 | Inpatient (IN) | payer MEDICARE, OTHER ==
[2018-11-09] MEDS ORDERED: Sodium Chloride 0.9% 500 ML IV SCH (21:30)
[2018-11-09] MEDS ORDERED: Sodium Chloride 0.9% 10 ML Syringe FLUSH PRN (21:30)
--- NOTE | 2018-11-09 22:02 | EDM.PDOC ---
ED HPI GENERAL MEDICAL PROBLEM - General Chief Complaint: Neurological Problem Stated Complaint: NO BALANCE Time Seen by Provider: 11/09/18 21:12 Source of Information: Reports: Patient, Family History Limitations: Reports: No Limitations - History of Present Illness INITIAL COMMENTS - FREE TEXT/NARRATIVE: The patient presents with generalized weakness and dizziness. This has been an ongoing problem and it has gotten worse over the past week. He has been here 6 times since October 11. He was seen her 2 days ago and last night. His sodium is always low. It is usually at 125. There was no real reason found for the dizziness and weakness. He also has seen his doctor and his car salter a few weeks ago. He said he fell tonight and he hit his head. He said he leaned over to pick something up and he kept going. He did not hurt his hips or wrists. He has no headache, neck pain, chest pain, abdominal pain, nausea or vomiting. He is short of breath but he is always short of breath. He has COPD and CHF. He says he lost balance. He says he has had many of these episodes since having an IN in May 2018. He has an appointment to see a spring intern Dr Pickett at the [facility] on 11/18/18. 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 He had stent and he had 4 vessel by pass in October 2017. He also has a history of CHF and V-tach with an AICD that was inserted June 2018. That failed and another AICD was placed 5 weeks ago. He weighs himself daily and if his weight if up 3 pounds then he needs to take his lasix. He has a history of urinary retention secondary to BPH. He self caths at times. He was being treated for a UTI. His last dose was today. Last night his urine did not show a UTI. He is not on any blood thinners. Onset: Gradual Duration: Week(s): Severity: Moderate Improves with: Reports: Immobilization Worsens with: Reports: Movement Context: Reports: Trauma (He fell tonight because he was dizzy) Associated Symptoms: Reports: Shortness of Breath. Denies: Chest Pain, Fever/ Chills, Headaches, Nausea/Vomiting - Related Data Allergies Allergy/AdvReac Type Severity Reaction Status Date / Time atorvastatin Allergy Other Verified 11/06/18 14:24 hydrochlorothiazide Allergy Other Verified 11/06/18 14:24 rosuvastatin [From Crestor] Allergy Other Verified 11/06/18 14:24 tamsulosin [From Flomax] Allergy Difficulty Verified 11/06/18 14:24 Breathing amoxicillin [From Augmentin] AdvReac Diarrhea Verified 11/06/18 14:24 clavulanic acid AdvReac Diarrhea Verified 11/06/18 14:24 [From Augmentin] droperidol AdvReac Anxiety Verified 11/06/18 14:24 Home Meds: Home Meds Albuterol [Proventil HFA] 2 puff INH Q6H PRN 06/07/18 [History] Brimonidine [Alphagan P 0.15% Ophth Soln] 1 drop OP BID 06/07/18 [History] Doxazosin [Cardura] 2 mg PO DAILY 06/07/18 [History] Ubidecarenone [Coq-10] 200 mg PO DAILY 06/07/18 [History] Amiodarone [Cordarone] 400 mg PO DAILY 08/15/18 [History] Candesartan Cilexetil [Atacand] 8 mg PO DAILY 08/15/18 [History] Nitroglycerin [Nitrostat] 0.4 mg SL ASDIRECTED 08/15/18 [History] Umeclidinium Oley [Incruse Ellipta*] 1 puff INH DAILY 08/15/18 [History] Vit C/E/Zn/Coppr/Lutein/Zeaxan [Preservision Areds 2 Softgel] 1 cap PO BID 08/15 [History] Sodium Chloride/KCl [Thermotabs] 2 each PO BID #6 tab 08/19/18 [Rx] L Acidophil/B Lactis/B Longum [Florajen3] 460 mg PO DAILY 08/29/18 [History] Metoprolol Succinate [Toprol XL 50mg] 75 mg PO BID@0900,1800 08/29/18 [History] Acetaminophen 650 mg PO Q6H PRN 10/27/18 [History] Aspirin [Halfprin] 81 mg PO DAILY 10/27/18 [History] Finasteride [Proscar] 5 mg PO DAILY 10/27/18 [History] Ranolazine [Ranexa] 500 mg PO BID 10/27/18 [History] predniSONE [Prednisone] 40 mg PO DAILY #10 tablet 10/31/18 [Rx] predniSONE [Prednisone] 40 mg PO DAILY #10 tablet 10/31/18 [Rx] Past Medical History HEENT History: Reports: Other (See Below) Other HEENT History: wears glasses Cardiovascular History: Reports: Arrhythmia, Heart Failure, High Cholesterol, Hypertension, IN Respiratory History: Reports: COPD Other Respiratory History: emphysema Genitourinary History: Reports: BPH, Retention, Urinary Other Genitourinary History: selft caths Musculoskeletal History: Reports: Arthritis - Infectious Disease History Infectious Disease History: Reports: Chicken Pox, Measles, Mumps - Past Surgical History Cardiovascular Surgical History: Reports: AICD, Coronary Artery Bypass, Coronary Artery Stent GI Surgical History: Reports: Cholecystectomy, Hernia, Abdominal, Other (See Below) Musculoskeletal Surgical History: Reports: Hip Replacement, Knee Replacement Social & Family History - Family History Family Medical History: Noncontributory - Tobacco Use Smoking Status *Q: Unknown Ever Smoked - Caffeine Use Caffeine Use: Reports: Coffee - Living Situation & Occupation Living situation: Reports: , with Spouse Occupation: Retired ED ROS GENERAL - Review of Systems Review Of Systems: See Below Constitutional: Reports: Weakness HEENT: Reports: No Symptoms Respiratory: Reports: Shortness of Breath. Denies: Cough Cardiovascular: Reports: Lightheadedness. Denies: Chest Pain Endocrine: Reports: No Symptoms GI/Abdominal: Reports: No Symptoms : Reports: No Symptoms Musculoskeletal: Reports: No Symptoms Skin: Reports: No Symptoms Neurological: Reports: Dizziness, Weakness (Generalized). Denies: Headache, Numbness, Tingling ED EXAM, NEURO - Physical Exam Exam: See Below Exam Limited By: No Limitations General Appearance: Alert, No Apparent Distress Ears: Normal External Exam Nose: Normal Inspection Head Exam: Atraumatic, Normocephalic Neck: Normal Inspection, Supple, Non-Tender Respiratory/Chest: No Respiratory Distress, Decreased Breath Sounds. No: Rales , Rhonchi, Wheezing Cardiovascular: Regular Rate, Rhythm, No Edema, No Murmur GI/Abdominal: Soft, Non-Tender, No Organomegaly, No Mass Neurological: Alert, No Motor/Sensory Deficits, Oriented x 3 EKG INTERPRETATION EKG Date: 11/09/18 Time: 21:41 Rhythm: Other (atrial-ventricular dual-paced complexes) Rate (Beats/Min): 60 Course - Vital Signs Last Recorded V/S: Last Vital Signs Temp 96.9 F 11/09/18 21:17 Pulse 62 11/09/18 21:17 Resp 18 11/09/18 21:17 BP 116/82 11/09/18 21:17 Pulse Ox 98 11/09/18 21:17 Orthostatic Blood Pressure [ 113/74 Standing] Orthostatic Blood Pressure [ 135/79 Sitting] Orthostatic Blood Pressure [ 138/78 Supine] - Orders/Labs/Meds Orders: Active Orders 24 hr Category Date Time Status Cardiac Monitoring [RC] . DIRECTED Care 11/09/18 21:30 Active EKG Documentation Completion [RC] STAT Care 11/09/18 21:31 Active Peripheral IV Care [RC] . DIRECTED Care 11/09/18 21:31 Active Chest 1V Frontal [CR] Stat Exams 11/09/18 21:32 Ordered Head wo Cont [CT] Stat Exams 11/09/18 21:32 Ordered Sodium Chloride 0.9% [Normal Saline] 500 ml Med 11/09/18 21:30 Active IV .BOLUS Sodium Chloride 0.9% [Saline Flush] Med 11/09/18 21:30 Active 10 ml FLUSH ASDIRECTED PRN Peripheral IV Insertion Adult [OM.PC] Stat Oth 11/09/18 21:30 Ordered Medication Orders Sodium Chloride (Normal Saline) 500 mls @ 1,000 mls/hr IV .BOLUS ARTHUR Last Admin: 11/09/18 21:48 Dose: 1,000 mls/hr Sodium Chloride (Saline Flush) 10 ml FLUSH ASDIRECTED PRN PRN Reason: Keep Vein Open Last Admin: 11/09/18 21:48 Dose: 10 ml Labs: Laboratory Tests 11/09/18 11/09/18 Range/Units 21:40 21:40 WBC 6.66 (4.23-9.07) K/mm3 RBC 3.65 L (4.63-6.08) M/mm3 Hgb 11.5 L (13.7-17.5) gm/L Hct 33.3 L (40.1-51.0) % MCV 91.2 (79.0-92.2) fl MCH 31.5 (25.7-32.2) pg MCHC 34.5 (32.2-35.5) g/dl RDW Std Deviation 50.5 H (35.1-43.9) fL Plt Count 315 (163-337) K/mm3 MPV 8.6 L (9.4-12.3) fl Neut % (Auto) 71.8 H (34.0-67.9) % Lymph % (Auto) 10.5 L (21.8-53.1) % Elbert % (Auto) 15.0 H (5.3-12.2) % Eos % (Auto) 1.1 (0.8-7.0) Baso % (Auto) 0.2 (0.1-1.2) % Neut # (Auto) 4.79 (1.78-5.38) K/mm3 Lymph # (Auto) 0.70 L (1.32-3.57) K/mm3 Elbert # (Auto) 1.00 H (0.30-0.82) K/mm3 Eos # (Auto) 0.07 (0.04-0.54) K/mm3 Baso # (Auto) 0.01 (0.01-0.08) K/mm3 Sodium 126 L (136-145) mEq/L Potassium 4.0 (3.5-5.1) mEq/L Chloride 93 L (98-107) mEq/L Carbon Dioxide 28 (21-32) mEq/L Anion Gap 9.0 (5-15) BUN 16 (7-18) mg/dL Creatinine 1.2 (0.7-1.3) mg/dL Est Cr Clr Drug Dosing 49.92 mL/min Estimated GFR (MDRD) 58 (>60) mL/min BUN/Creatinine Ratio 13.3 L (14-18) Glucose 91 (83-115) mg/dL Calcium 8.4 L (8.5-10.1) mg/dL Magnesium 1.9 (1.8-2.4) mg/dl Total Bilirubin 0.7 (0.2-1.0) mg/dL AST 28 (15-37) U/L ALT 74 H (16-63) U/L Alkaline Phosphatase 63 (46-116) U/L Troponin I < 0.017 (0.00-0.056) ng/mL Total Protein 6.0 L (6.4-8.2) g/dl Albumin 3.1 L (3.4-5.0) g/dl Globulin 2.9 gm/dL Albumin/Globulin Ratio 1.1 (1-2) Meds: Medications Generic Name Dose Route Start Last Admin Trade Name Shelby PRN Reason Stop Dose Admin Sodium Chloride 500 mls @ 1,000 mls/hr 11/09/18 21:30 11/09/18 21:48 Normal Saline IV 1,000 mls/hr .BOLUS ARTHUR Administration Sodium Chloride 10 ml 11/09/18 21:30 11/09/18 21:48 Saline Flush FLUSH 10 ml ASDIRECTED PRN Administration Keep Vein Open - Re-Assessments/Exams Free Text/Narrative Re-Assessment/Exam: 11/09/18 22:15 My nurse did orthostatic BPs with him and his BP did drop over 20 systolic. I ordered an IV NS 500ml bolus, labs, EKG, CXR, and a CT of his head. His EKG shows a paced rhythm. 11/10/18 00:24 His CXR shows minimal platelike atelectasis in the left base. His Hgb is low at 11.5 but about the same as before. His Na is up 1 point to 126. His ALT is slightly elevated at 74. His troponin is negative. I do not feel it is safe to send him home like this. I called Dr Carrion and she agreed to admit him but he will be an observation admission to start with. Departure - Departure Time of Disposition: 00:30 Disposition: Refer to Observation Condition: Fair Clinical Impression: Dizziness, Lightheaded, Shortness of breath, Hyponatremia Fall Qualifiers: Encounter type: initial encounter Qualified Code(s): W19.XXXA - Unspecified fall, initial encounter - Discharge Information Referrals: Heath Rodriguez MD [Primary Care Provider] - Forms: ED Department Discharge - My Orders Last 24 Hours: My Active Orders 11/09/18 21:30 Cardiac Monitoring [RC] . DIRECTED Sodium Chloride 0.9% [Normal Saline] 500 ml IV .BOLUS Sodium Chloride 0.9% [Saline Flush] 10 ml FLUSH ASDIRECTED PRN Peripheral IV Insertion Adult [OM.PC] Stat 11/09/18 21:31 EKG Documentation Completion [RC] STAT Peripheral IV Care [RC] . DIRECTED 11/09/18 21:32 Chest 1V Frontal [CR] Stat Head wo Cont [CT] Stat - Assessment/Plan Last 24 Hours: My Active Orders 11/09/18 21:30 Cardiac Monitoring [RC] . DIRECTED Sodium Chloride 0.9% [Normal Saline] 500 ml IV .BOLUS Sodium Chloride 0.9% [Saline Flush] 10 ml FLUSH ASDIRECTED PRN Peripheral IV Insertion Adult [OM.PC] Stat 11/09/18 21:31 EKG Documentation Completion [RC] STAT Peripheral IV Care [RC] . DIRECTED 11/09/18 21:32 Chest 1V Frontal [CR] Stat Head wo Cont [CT] Stat
--- NOTE | 2018-11-10 07:02 | CR ---
Chest: Frontal view of the chest was obtained. Comparison: Prior chest x-ray of 10/31/18. Heart is enlarged. Sternotomy wires noted. AICD is seen. Lungs are clear with no acute parenchymal change. Impression: 1. Stable cardiomegaly and other stable findings. 2. Nothing acute is appreciated. Diagnostic code #2
--- NOTE | 2018-11-10 07:17 | CT ---
Head CT Technique: Multiple axial sections through the brain were obtained. Intravenous contrast was not utilized. Comparison: Prior head CT exam of 09/30/18. Findings: Ventricles along with basal cisterns and sulci over the convexities are within normal limits for the patient's age. No abnormal parenchymal densities are seen. No evidence of intracranial hemorrhage. No midline shift or mass effect is seen. Mild atherosclerotic calcifications seen within the vertebral vessels and within the carotid siphon. Visualized sinuses are clear. No acute calvarial abnormality is seen. Impression: 1. Nothing acute is appreciated on noncontrast head CT exam. No significant change from previous head CT is seen. Diagnostic code #1 I agree with preliminary report from [facility], finalized on 11/10/18, 12:04 AM Central Time
--- NOTE | 2018-11-10 07:20 | PCM.HP ---
<Harjit Linn - Last Filed: 11/10/18 15:27> H&P History of Present Illness - General Date of Service: 11/10/18 Admit Problem/Dx: Admission Diagnosis/Problem Admission Diagnosis/Problem Weakness Source of Information: Patient, Old Records, Provider, RN, RN Notes Reviewed History Limitations: Reports: No Limitations - History of Present Illness Initial Comments - Free Text/Narative: Alejandro Ni is a 78 -year-old male who is well-known to this service who presents to our ED on 11/09/18 with generalized weakness and dizziness. Reports been ongoing problems gotten worse over the past week. Old records showed his been to our ED 6 times since October 11 and had been seen at [facility] days ago and the night before arrival. He has chronic hyponatremia with a baseline of 125. Reports he saw his eye care provider and non clinical advisor a few weeks ago. Reports prior to arrival he fell and hit his head after tending to lean over to get something up. Denies any hip or wrist pain, headache, neck pain, chest pain , abdominal pain, nausea, vomiting. Has chronic shortness of breath from his COPD and CHF. Reports he's had multiple episodes of symptoms since having an ME in May 2018. Has appointment to see [facility] orth[facility]ics teacher, Dr. Pickett, on 11/18/18. 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 A stent placed and 4 vessel bypass in October 2017. Has history of CHF and V. tach with an AICD that was inserted June 2018. It is reported that one failed and another one was placed 5 weeks ago. Reports he weighs himself daily and he notes that his weight is up 3 pounds or more he will take his Lasix. Has history of urinary retention secondary to BPH and does self catheter at times. He was being treated for UTI and his last dose was 11/09/18. Urine checked in the ED the day before did not show UTI. He is not any blood thinners. In the ED temp was 96.9 Fahrenheit. Pulse 62. Respirations 18. Blood pressure 116/82. Pulse ox 98% on room air. Twelve-lead EKG was obtained showing atrioventricular dual paced complexes. He is not orthostatic. Laboratory workup shows WBC 6.66. Hemoglobin 11.5. Hematocrit 33.3. He is normocytic. Platelets are good at 315,000. Neutrophils are elevated at 71.8%. Sodium is low at 126. Potassium 4.0. Carbon Dr. 28. Anion gap 9.0. BUN is 16. Creatinine 1.2. GFR is 58. Glucose is 91. Magnesium 1.9. Bilirubin 0.7. AST is 28, ALT 74, alkaline phosphatase 63. Troponin is negative at less than 0.017. Protein is low at 6.0. Albumin is low at 3.1. He's given a 500 and fluid bolus. Head CT is obtained showing nothing acute. There is no significant change from previous head CT. Chest x-ray is obtained showing stable cardiomegaly and other incidental findings. Nothing acute. He carries a history of: Arrhythmias, CHF, HLD, hypertension, ME, COPD, emphysema, BPH, urinary retention with straight catheter, arthritis. His PCP is Dr. Rodriguez. He is a full code. - Related Data Allergies/Adverse Reactions: Allergies Allergy/AdvReac Type Severity Reaction Status Date / Time atorvastatin Allergy Other Verified 11/10/18 00:31 hydrochlorothiazide Allergy Other Verified 11/10/18 00:31 rosuvastatin [From Crestor] Allergy Other Verified 11/10/18 00:31 tamsulosin [From Flomax] Allergy Difficulty Verified 11/10/18 00:31 Breathing amoxicillin [From Augmentin] AdvReac Diarrhea Verified 11/10/18 00:31 clavulanic acid AdvReac Diarrhea Verified 11/10/18 00:31 [From Augmentin] droperidol AdvReac Anxiety Verified 11/10/18 00:31 Home Medications: Home Meds Albuterol [Proventil HFA] 2 puff INH Q6H PRN 06/07/18 [History] Doxazosin [Cardura] 2 mg PO BEDTIME 06/07/18 [History] Ubidecarenone [Coq-10] 200 mg PO 1200 06/07/18 [History] Amiodarone [Cordarone] 400 mg PO 1800 08/15/18 [History] Candesartan Cilexetil [Atacand] 8 mg PO 1200 08/15/18 [History] Nitroglycerin [Nitrostat] 0.4 mg SL ASDIRECTED 08/15/18 [History] Vit C/E/Zn/Coppr/Lutein/Zeaxan [Preservision Areds 2 Softgel] 1 cap PO 1200, 1800 08/15/18 [History] L Acidophil/B Lactis/B Longum [Florajen3] 460 mg PO Q48H 08/29/18 [History] Metoprolol Succinate [Toprol XL 50mg] 50 mg PO BID@0900,1800 08/29/18 [History] Acetaminophen 650 mg PO Q6H PRN 10/27/18 [History] Aspirin [Halfprin] 81 mg PO 1200 10/27/18 [History] Finasteride [Proscar] 5 mg PO DAILY 10/27/18 [History] Ranolazine [Ranexa] 1,000 mg PO 1200,1800 10/27/18 [History] Brimonidine [Alphagan 0.2% Ophth Soln] 1 drop EYEBOTH BID 11/10/18 [History] Fluticasone/Umeclidin/Vilanter [Trelegy Ellipta 100-62.5-25 MCG] 1 puff INH DAILY 11/10/18 [History] Furosemide 40 mg PO DAILY 11/10/18 [History] Sodium Chloride/KCl [Thermotabs] 1 gm PO 1200,1800 11/10/18 [History] predniSONE [Prednisone] 40 mg PO DAILY PRN 11/10/18 [History] Past Medical History HEENT History: Reports: Other (See Below) Other HEENT History: wears glasses Cardiovascular History: Reports: Arrhythmia, Heart Failure, High Cholesterol, Hypertension, ME Respiratory History: Reports: COPD Other Respiratory History: emphysema Genitourinary History: Reports: BPH, Retention, Urinary Other Genitourinary History: selft caths Musculoskeletal History: Reports: Arthritis - Infectious Disease History Infectious Disease History: Reports: Chicken Pox, Measles, Mumps - Past Surgical History Cardiovascular Surgical History: Reports: AICD, Coronary Artery Bypass, Coronary Artery Stent GI Surgical History: Reports: Cholecystectomy, Hernia, Abdominal, Other (See Below) Musculoskeletal Surgical History: Reports: Hip Replacement, Knee Replacement Social & Family History - Family History Family Medical History: Noncontributory - Tobacco Use Smoking Status *Q: Never Smoker Second Hand Smoke Exposure: No - Caffeine Use Caffeine Use: Reports: Coffee - Recreational Drug Use Recreational Drug Use: No - Living Situation & Occupation Living situation: Reports: , with Spouse Occupation: Retired H&P Review of Systems - Review of Systems: Review Of Systems: See Below General: Reports: Weakness. Denies: Fever, Chills, Malaise, Fatigue HEENT: Reports: No Symptoms. Denies: Headaches, Sore Throat Pulmonary: Reports: Shortness of Breath. Denies: Wheezing, Cough, Sputum Cardiovascular: Reports: Dyspnea on Exertion, Orthopnea, Edema. Denies: Chest Pain, Palpitations Gastrointestinal: Reports: No Symptoms. Denies: Abdominal Pain, Constipation, Diarrhea, Nausea, Vomiting Genitourinary: Reports: Retention Musculoskeletal: Reports: No Symptoms Skin: Reports: No Symptoms. Denies: Cyanosis Psychiatric: Reports: No Symptoms Neurological: Reports: Dizziness, Weakness. Denies: Numbness, Paresthesia, Tremors, Trouble Speaking, Difficulty Walking, Gait Disturbance Hematologic/Lymphatic: Reports: No Symptoms Immunologic: Reports: No Symptoms Exam - Exam Exam: See Below - Vital Signs Vital Signs: Last Vital Signs Temp 97.7 F 11/10/18 03:03 Pulse 61 11/10/18 03:03 Resp 20 11/10/18 03:03 BP 126/74 11/10/18 03:03 Pulse Ox 95 11/10/18 03:03 Orthostatic Blood Pressure [ 113/74 Standing] Orthostatic Blood Pressure [ 135/79 Sitting] Orthostatic Blood Pressure [ 138/78 Supine] Weight: 85.139 kg - Exam Quality Assessment: DVT Prophylaxis General: Alert, Oriented, Cooperative HEENT: Conjunctiva Clear, EACs Clear, EOMI, Hearing Intact, Mucosa Moist & [place] , Nares Patent, Normal Nasal Septum, Posterior Pharynx Clear, PERRLA Neck: Supple, Trachea Midline Lungs: Normal Respiratory Effort, Decreased Breath Sounds. No: Rhonchi, Wheezing Cardiovascular: Regular Rate, Regular Rhythm GI/Abdominal Exam: Normal Bowel Sounds, Soft, Non-Tender, No Organomegaly, No Distention (Male) Exam: Deferred Rectal (Males) Exam: Deferred Back Exam: Normal Inspection, Full Range of Motion Extremities: Normal Inspection, Normal Range of Motion, Non-Tender, Normal Capillary Refill, Pedal Edema (1+) Peripheral Pulses: 1+: Posterior Tibial (L), Posterior Tibial (R), 2+: Radial (L ), Radial (R) Skin: Warm, Dry, Intact Neurological: Cranial Nerves Intact (grossly ) Neuro Extensive - Mental Status: Alert, Oriented x3, Normal Mood/Affect, Normal Cognition - Patient Data Lab Results Last 24 hrs: Laboratory Results - last 24 hr 11/09/18 11/09/18 11/10/18 Range/Units 21:40 21:40 05:15 WBC 6.66 (4.23-9.07) K/mm3 RBC 3.65 L (4.63-6.08) M/mm3 Hgb 11.5 L (13.7-17.5) gm/L Hct 33.3 L (40.1-51.0) % MCV 91.2 (79.0-92.2) fl MCH 31.5 (25.7-32.2) pg MCHC 34.5 (32.2-35.5) g/dl RDW Std Deviation 50.5 H (35.1-43.9) fL Plt Count 315 (163-337) K/mm3 MPV 8.6 L (9.4-12.3) fl Neut % (Auto) 71.8 H (34.0-67.9) % Lymph % (Auto) 10.5 L (21.8-53.1) % [place] % (Auto) 15.0 H (5.3-12.2) % Eos % (Auto) 1.1 (0.8-7.0) Baso % (Auto) 0.2 (0.1-1.2) % Neut # (Auto) 4.79 (1.78-5.38) K/mm3 Lymph # (Auto) 0.70 L (1.32-3.57) K/mm3 [place] # (Auto) 1.00 H (0.30-0.82) K/mm3 Eos # (Auto) 0.07 (0.04-0.54) K/mm3 Baso # (Auto) 0.01 (0.01-0.08) K/mm3 Sodium 126 L 126 L (136-145) mEq/L Potassium 4.0 4.1 (3.5-5.1) mEq/L Chloride 93 L 94 L (98-107) mEq/L Carbon Dioxide 28 26 (21-32) mEq/L Anion Gap 9.0 10.1 (5-15) BUN 16 13 (7-18) mg/dL Creatinine 1.2 1.0 (0.7-1.3) mg/dL Est Cr Clr Drug Dosing 49.92 59.90 mL/min Estimated GFR (MDRD) 58 > 60 (>60) mL/min BUN/Creatinine Ratio 13.3 L 13.0 L (14-18) Glucose 91 83 (83-115) mg/dL Calcium 8.4 L 7.8 L (8.5-10.1) mg/dL Magnesium 1.9 1.7 L (1.8-2.4) mg/dl Total Bilirubin 0.7 (0.2-1.0) mg/dL AST 28 (15-37) U/L ALT 74 H (16-63) U/L Alkaline Phosphatase 63 (46-116) U/L Troponin I < 0.017 (0.00-0.056) ng/mL Total Protein 6.0 L (6.4-8.2) g/dl Albumin 3.1 L (3.4-5.0) g/dl Globulin 2.9 gm/dL Albumin/Globulin Ratio 1.1 (1-2) Result Diagrams: 11/09/18 21:40 11/10/18 05:15 - Problem List (1) Acute exacerbation of CHF (congestive heart failure) SNOMED Code(s): 72514238 ICD Code: I50.9 - HEART FAILURE, UNSPECIFIED Status: Acute Priority: High Current Visit: Yes Qualifiers: Heart failure type: unspecified Qualified Code(s): I50.9 - Heart failure, unspecified (2) Dizziness SNOMED Code(s): 787664760, 668826737 ICD Code: R42 - DIZZINESS AND GIDDINESS Status: Acute Priority: High Current Visit: Yes (3) Fall SNOMED Code(s): 6432703, 367673125 ICD Code: W19.XXXA - UNSPECIFIED FALL, INITIAL ENCOUNTER Status: Acute Priority: High Current Visit: Yes Qualifiers: Encounter type: initial encounter Qualified Code(s): W19.XXXA - Unspecified fall, initial encounter (4) Lightheaded SNOMED Code(s): 303215013 ICD Code: R42 - DIZZINESS AND GIDDINESS Status: Acute Priority: High Current Visit: Yes (5) Shortness of breath SNOMED Code(s): 489414526 ICD Code: R06.02 - SHORTNESS OF BREATH Status: Acute Priority: High Current Visit: Yes (6) Hyponatremia SNOMED Code(s): 36923189 ICD Code: E87.1 - HYPO-OSMOLALITY AND HYPONATREMIA Status: Chronic Priority: Medium Current Visit: Yes (7) CAD (coronary artery disease) SNOMED Code(s): 84837108 ICD Code: I25.10 - ATHSCL HEART DISEASE OF [place] CORONARY ARTERY W/O ANG PCTRS Status: Chronic Priority: Medium Current Visit: No Qualifiers: Coronary Disease-Associated Artery/Lesion type: unspecified vessel or lesion type [place] vs. transplanted heart: [place] heart Associated angina: without angina Qualified Code(s): I25.10 - Atherosclerotic heart disease of [place] coronary artery without angina pectoris (8) Pacemaker ECG pattern SNOMED Code(s): 675274546 ICD Code: Z95.0 - PRESENCE OF CARDIAC PACEMAKER Status: Chronic Priority : Medium Current Visit: No Problem List Initiated/Reviewed/Updated: Yes Orders Last 24hrs: Active Orders 24 hr Category Date Time Status Patient Status [ADT] Routine ADT 11/10/18 01:54 Active Consult to Case Management/Welt Rougher [CONS] Cons 11/10/18 03:19 Active Routine Consult to Physical Therapy [PT Evaluation and Cons 11/10/18 03:20 Active Treatment] [CONS] Routine OT Evaluation and Treatment [CONS] Routine Cons 11/10/18 03:20 Active Clear Liquid Diet [DIET] Diet 11/10/18 Breakfast Active PRO B-TYPE NATRIUR PEPT,BNPPRO [CHEM] Routine Lab 11/10/18 05:15 Received Enoxaparin [Lovenox] Med 11/10/18 09:00 Active 40 mg SUBCUT DAILY Sodium Chloride 0.9% [Normal Saline] 500 ml Med 11/09/18 21:30 Active IV .BOLUS Sodium Chloride 0.9% [Saline Flush] Med 11/09/18 21:30 Active 10 ml FLUSH ASDIRECTED PRN Peripheral IV Insertion Adult [OM.PC] Stat Oth 11/09/18 21:30 Ordered Medication Orders Enoxaparin Sodium (Lovenox) 40 mg SUBCUT DAILY ARTHUR Sodium Chloride (Normal Saline) 500 mls @ 1,000 mls/hr IV .BOLUS ARTHUR Last Admin: 11/09/18 21:48 Dose: 1,000 mls/hr Sodium Chloride (Saline Flush) 10 ml FLUSH ASDIRECTED PRN PRN Reason: Keep Vein Open Last Admin: 11/09/18 21:48 Dose: 10 ml Assessment/Plan Comment:: I/P: CHF exacerbation -Longstanding cardiac history ME in May 2018 -Reportedly [facility] for cardiology -Reports shortness of breath, orthopnea, edema, variable weight -Stable cardiomegaly noted on CXR -Lasix drip started -Nash catheter placed -Monitor daily weights as well as I&Os. -Fluid restriction -Security Solutions Engineer consult -Monitor renal function -Echo ordered -BNP 4619 Weakness/frequent falls -Likely 2/2 above -Reports went to lean over and kept going -6 ED visits since 10/11/18 -Droplet precautions -VRP ordered -Mycoplasma negative -Strep pneumo ordered -UA negative from day prior -CXR shows nothing acute -PT/OT -CM/SW consult Dizziness -May be 2/2 above -Consider CTA of vertebral arteries -Consider PT vestibular exam -Will monitor Chronic hyponatremia -Sodium 126 -Baseline sodium 125 -Continue home thermotabs -Monitor Chronic: Arrhythmias Heart failure Pacemaker/AICD HLD HTN ME May 2018 CABG/Stent placement COPD Emphysema BPH Urinary retention - self caths at times Arthritis Hyponatremia Plan: Admit to medical floor on telemetry Other orders as indicated above Routine AM labs PT/OT CM/SW Home medications as ordered DVT prophylaxis: Lovenox Code status: Full Code; PCP: Dr. Rodriguez <Jennifer Carrion - Last Filed: 11/10/18 17:31> H&P History of Present Illness - General Admit Problem/Dx: Admission Diagnosis/Problem Admission Diagnosis/Problem Weakness Exam - Vital Signs Vital Signs: Last Vital Signs Temp 36.4 C 11/10/18 12:15 Pulse 62 11/10/18 12:15 Resp 18 11/10/18 12:15 BP 137/74 11/10/18 12:15 Pulse Ox 97 11/10/18 12:15 Orthostatic Blood Pressure [ 113/74 Standing] Orthostatic Blood Pressure [ 135/79 Sitting] Orthostatic Blood Pressure [ 138/78 Supine] - Patient Data Lab Results Last 24 hrs: Laboratory Results - last 24 hr 11/09/18 11/09/18 11/09/18 Range/Units 21:40 21:40 21:40 WBC 6.66 (4.23-9.07) K/mm3 RBC 3.65 L (4.63-6.08) M/mm3 Hgb 11.5 L (13.7-17.5) gm/L Hct 33.3 L (40.1-51.0) % MCV 91.2 (79.0-92.2) fl MCH 31.5 (25.7-32.2) pg MCHC 34.5 (32.2-35.5) g/dl RDW Std Deviation 50.5 H (35.1-43.9) fL Plt Count 315 (163-337) K/mm3 MPV 8.6 L (9.4-12.3) fl Neut % (Auto) 71.8 H (34.0-67.9) % Lymph % (Auto) 10.5 L (21.8-53.1) % [place] % (Auto) 15.0 H (5.3-12.2) % Eos % (Auto) 1.1 (0.8-7.0) Baso % (Auto) 0.2 (0.1-1.2) % Neut # (Auto) 4.79 (1.78-5.38) K/mm3 Lymph # (Auto) 0.70 L (1.32-3.57) K/mm3 [place] # (Auto) 1.00 H (0.30-0.82) K/mm3 Eos # (Auto) 0.07 (0.04-0.54) K/mm3 Baso # (Auto) 0.01 (0.01-0.08) K/mm3 Sodium 126 L (136-145) mEq/L Potassium 4.0 (3.5-5.1) mEq/L Chloride 93 L (98-107) mEq/L Carbon Dioxide 28 (21-32) mEq/L Anion Gap 9.0 (5-15) BUN 16 (7-18) mg/dL Creatinine 1.2 (0.7-1.3) mg/dL Est Cr Clr Drug Dosing 49.92 mL/min Estimated GFR (MDRD) 58 (>60) mL/min BUN/Creatinine Ratio 13.3 L (14-18) Glucose 91 (83-115) mg/dL Calcium 8.4 L (8.5-10.1) mg/dL Magnesium 1.9 (1.8-2.4) mg/dl Total Bilirubin 0.7 (0.2-1.0) mg/dL AST 28 (15-37) U/L ALT 74 H (16-63) U/L Alkaline Phosphatase 63 (46-116) U/L Troponin I < 0.017 (0.00-0.056) ng/mL NT-Pro-B Natriuret Pep (0-450) pg/mL Total Protein 6.0 L (6.4-8.2) g/dl Albumin 3.1 L (3.4-5.0) g/dl Globulin 2.9 gm/dL Albumin/Globulin Ratio 1.1 (1-2) Mycoplasma pneumon IgM Negative (NEGATIVE) 11/10/18 11/10/18 Range/Units 05:15 05:15 WBC (4.23-9.07) K/mm3 RBC (4.63-6.08) M/mm3 Hgb (13.7-17.5) gm/L Hct (40.1-51.0) % MCV (79.0-92.2) fl MCH (25.7-32.2) pg MCHC (32.2-35.5) g/dl RDW Std Deviation (35.1-43.9) fL Plt Count (163-337) K/mm3 MPV (9.4-12.3) fl Neut % (Auto) (34.0-67.9) % Lymph % (Auto) (21.8-53.1) % [place] % (Auto) (5.3-12.2) % Eos % (Auto) (0.8-7.0) Baso % (Auto) (0.1-1.2) % Neut # (Auto) (1.78-5.38) K/mm3 Lymph # (Auto) (1.32-3.57) K/mm3 [place] # (Auto) (0.30-0.82) K/mm3 Eos # (Auto) (0.04-0.54) K/mm3 Baso # (Auto) (0.01-0.08) K/mm3 Sodium 126 L (136-145) mEq/L Potassium 4.1 (3.5-5.1) mEq/L Chloride 94 L (98-107) mEq/L Carbon Dioxide 26 (21-32) mEq/L Anion Gap 10.1 (5-15) BUN 13 (7-18) mg/dL Creatinine 1.0 (0.7-1.3) mg/dL Est Cr Clr Drug Dosing 59.90 mL/min Estimated GFR (MDRD) > 60 (>60) mL/min BUN/Creatinine Ratio 13.0 L (14-18) Glucose 83 (83-115) mg/dL Calcium 7.8 L (8.5-10.1) mg/dL Magnesium 1.7 L (1.8-2.4) mg/dl Total Bilirubin (0.2-1.0) mg/dL AST (15-37) U/L ALT (16-63) U/L Alkaline Phosphatase (46-116) U/L Troponin I (0.00-0.056) ng/mL NT-Pro-B Natriuret Pep 4619 H (0-450) pg/mL Total Protein (6.4-8.2) g/dl Albumin (3.4-5.0) g/dl Globulin gm/dL Albumin/Globulin Ratio (1-2) Mycoplasma pneumon IgM (NEGATIVE) Result Diagrams: 11/09/18 21:40 11/10/18 05:15 Orders Last 24hrs: Active Orders 24 hr Category Date Time Status Patient Status [ADT] Routine ADT 11/10/18 09:43 Active Cardiac Monitoring [RC] CONTINUOUS Care 11/10/18 09:47 Active Height and Weight [RC] DAILY Care 11/10/18 09:46 Active Insert Nash Catheter [Insert Urinary Catheter] [OM.PC] Care 11/10/18 09:45 Ordered Q24H Intake and Output [RC] QSHIFT Care 11/10/18 09:47 Active Oxygen Therapy [RC] PRN Care 11/10/18 09:46 Active Pulse Oximetry [RC] ASDIRECTED Care 11/10/18 09:47 Active RT Aerosol Therapy [RC] ASDIRECTED Care 11/10/18 09:48 Active Up With Assistance [RC] ASDIRECTED Care 11/10/18 09:46 Active Urinary Catheter Assessment [RC] ASDIRECTED Care 11/10/18 09:45 Active VTE/DVT Education [RC] DAILY Care 11/10/18 09:46 Active Vital Signs [RC] Q4H Care 11/10/18 09:46 Active Consult to Case Management/Welt Rougher [CONS] Cons 11/10/18 03:19 Active Routine Consult to Security Solutions Engineer [CONS] Routine Cons 11/10/18 09:46 Active Consult to Physical Therapy [PT Evaluation and Cons 11/10/18 03:20 Active Treatment] [CONS] Routine Consult to Spiritual Care [CONS] Routine Cons 11/10/18 09:46 Active OT Evaluation and Treatment [CONS] Routine Cons 11/10/18 03:20 Active Respiratory Care Assess and Treatment [CONS] Routine Cons 11/10/18 09:46 Active Fluid Restriction [DIET] Diet 11/10/18 Lunch Active Heart Healthy Diet [DIET] Diet 11/10/18 Breakfast Active BASIC METABOLIC PANEL,BMP [CHEM] AM Lab 11/11/18 05:11 Ordered BASIC METABOLIC PANEL,BMP [CHEM] AM Lab 11/12/18 05:11 Ordered BASIC METABOLIC PANEL,BMP [CHEM] AM Lab 11/13/18 05:11 Ordered BASIC METABOLIC PANEL,BMP [CHEM] AM Lab 11/14/18 05:11 Ordered CBC WITH AUTO DIFF [HEME] AM Lab 11/11/18 05:11 Ordered CBC WITH AUTO DIFF [HEME] AM Lab 11/12/18 05:11 Ordered CBC WITH AUTO DIFF [HEME] AM Lab 11/13/18 05:11 Ordered CBC WITH AUTO DIFF [HEME] AM Lab 11/14/18 05:11 Ordered MAGNESIUM [CHEM] AM Lab 11/11/18 05:11 Ordered MAGNESIUM [CHEM] AM Lab 11/12/18 05:11 Ordered MAGNESIUM [CHEM] AM Lab 11/13/18 05:11 Ordered MAGNESIUM [CHEM] AM Lab 11/14/18 05:11 Ordered PRO B-TYPE NATRIUR PEPT,BNPPRO [CHEM] DAILY Lab 11/11/18 05:11 Ordered PRO B-TYPE NATRIUR PEPT,BNPPRO [CHEM] DAILY Lab 11/12/18 05:11 Ordered PRO B-TYPE NATRIUR PEPT,BNPPRO [CHEM] DAILY Lab 11/13/18 05:11 Ordered PRO B-TYPE NATRIUR PEPT,BNPPRO [CHEM] DAILY Lab 11/14/18 05:11 Ordered RESPIRATORY PANEL Routine Lab 11/10/18 14:24 Received STREP PNEUMONIAE ANTIGEN [MREF] Routine Lab 11/10/18 13:40 Ordered Acetaminophen [Tylenol] Med 11/10/18 09:46 Active 650 mg PO Q4H PRN Albuterol/Ipratropium [DuoNeb 3.0-0.5 MG/3 ML] Med 11/10/18 09:46 Active 3 ml NEB Q4H PRN Amiodarone [Cordarone] Med 11/10/18 18:00 Active 400 mg PO 1800 Aspirin [Halfprin] Med 11/11/18 12:00 Active 81 mg PO 1200 Bisacodyl [Dulcolax] Med 11/10/18 09:46 Active 5 mg PO DAILY PRN Docusate Sodium [Colace] Med 11/10/18 09:46 Active 100 mg PO BID PRN Docusate Sodium/Sennosides [Senna Plus] Med 11/10/18 09:46 Active 1 tab PO BID PRN Doxazosin [Cardura] Med 11/10/18 21:00 Active 2 mg PO BEDTIME Enoxaparin [Lovenox] Med 11/10/18 09:00 Active 40 mg SUBCUT DAILY Finasteride [Proscar] Med 11/11/18 09:00 Active 5 mg PO DAILY Furosemide [Lasix] 100 mg Med 11/10/18 10:00 Active Sodium Chloride 0.9% [Normal Saline] 90 ml IV TITRATE Magnesium Hydroxide [Milk of Magnesia] Med 11/10/18 10:16 Active 30 ml PO Q6H PRN Metoprolol Succinate [Toprol XL] Med 11/10/18 18:00 Active 25 mg PO BID@0900,1800 Nitroglycerin [Nitrostat] Med 11/10/18 12:45 Active 0.4 mg SL ASDIRECTED PRN Ondansetron [Zofran] Med 11/10/18 09:46 Active 4 mg IV Q6H PRN Patient's Own Medication [Ptom] Med 11/10/18 15:02 Active 0 each INH DAILY Patient's Own Medication [Ptom] Med 11/10/18 21:00 Active 1 each EYEBOTH BID Polyethylene Glycol 3350 [MiraLAX] Med 11/10/18 09:46 Active 17 gm PO DAILY PRN Ranolazine [Ranexa] Med 11/10/18 18:00 Active 1,000 mg PO 1200,1800 Sodium Chloride 0.9% [Saline Flush] Med 11/09/18 21:30 Active 10 ml FLUSH ASDIRECTED PRN Sodium Chloride/KCl [Thermotabs] Med 11/10/18 18:00 Active 1 each PO 1200,1800 Peripheral IV Insertion Adult [OM.PC] Stat Oth 11/09/18 21:30 Ordered Resuscitation Status Routine Resus Stat 11/10/18 08:04 Ordered Medication Orders Acetaminophen (Tylenol) 650 mg PO Q4H PRN PRN Reason: Pain (Mild 1-3)/fever Albuterol/Ipratropium (Duoneb 3.0-0.5 Mg/3 Ml) 3 ml NEB Q4H PRN PRN Reason: Shortness Of Breath/wheezing Amiodarone HCl (Cordarone) 400 mg PO 1800 [facility] Aspirin (Halfprin) 81 mg PO 1200 [facility] Bisacodyl (Dulcolax) 5 mg PO DAILY PRN PRN Reason: Constipation Docusate Sodium (Colace) 100 mg PO BID PRN PRN Reason: Constipation Doxazosin Mesylate (Cardura) 2 mg PO BEDTIME [facility] Enoxaparin Sodium (Lovenox) 40 mg SUBCUT DAILY [facility] Last Admin: 11/10/18 09:30 Dose: 40 mg Finasteride (Proscar) 5 mg PO DAILY [facility] Furosemide 100 mg/ Sodium (Chloride) 100 mls @ 4 mls/hr IV TITRATE ARTHUR; Protocol Last Admin: 11/10/18 14:15 Dose: 4 mg/hr, 4 mls/hr Magnesium Hydroxide (Milk Of Magnesia) 30 ml PO Q6H PRN PRN Reason: Constipation Last Admin: 11/10/18 14:14 Dose: 30 ml Metoprolol Succinate (Toprol Xl) 25 mg PO BID@0900,1800 [facility] Nitroglycerin (Nitrostat) 0.4 mg SL ASDIRECTED PRN PRN Reason: CHEST PAIN Ondansetron HCl (Zofran) 4 mg IV Q6H PRN PRN Reason: Nausea/Vomiting Oral Electrolytes (Thermotabs) 1 each PO 1200,1800 [facility] Brimonidine 0.2% Eye (Drop Ptom) 1 each EYEBOTH BID [facility] Fluticasone/Umeclidin/Vilanter * *Ptom 0 each INH DAILY [facility] Polyethylene Glycol (Miralax) 17 gm PO DAILY PRN PRN Reason: Constipation Ranolazine (Ranexa) 1,000 mg PO 1200,1800 [facility] Senna/Docusate Sodium (Senna Plus) 1 tab PO BID PRN PRN Reason: Constipation Last Admin: 11/10/18 14:14 Dose: 1 tab Sodium Chloride (Saline Flush) 10 ml FLUSH ASDIRECTED PRN PRN Reason: Keep Vein Open Last Admin: 11/09/18 21:48 Dose: 10 ml Assessment/Plan Comment:: ICMP, CHF/HFrEF NYHA functional class III, stage C Diurese 24-48, follow electrolytes. Resume BB full dose at DC. Need Lasix scheduled dose at DC.
[2018-11-10] MEDS ORDERED: Magnesium Sulfate/Water 2 GM in Premix Bag 1 BAG IV ONE (07:21)
[2018-11-10] MEDS: Enoxaparin 40 MG/0.4 ML Syringe SUBCUT SCH (09:30)
[2018-11-10] MEDS ORDERED: Polyethylene Glycol 3350 Powder 17 GM Packet PO PRN (09:46)
[2018-11-10] MEDS ORDERED: Acetaminophen 325 MG Tab PO PRN (09:46)
[2018-11-10] MEDS ORDERED: Ondansetron 4 MG/2 ML SDV IV PRN (09:46)
[2018-11-10] MEDS ORDERED: Docusate Sodium 100 MG Cap PO PRN (09:46)
[2018-11-10] MEDS ORDERED: Albuterol/Ipratropium 3.0-0.5 MG/3 ML Neb Soln NEB PRN (09:46)
[2018-11-10] MEDS ORDERED: Bisacodyl 5 MG Tab PO PRN (09:46)
[2018-11-10] MEDS ORDERED: Furosemide 100 MG in Sodium Chloride 0.9% 90 ML IV SCH (10:00)
[2018-11-10] MEDS ORDERED: Metoprolol Succinate 25 MG Tab.ER PO ONE (12:38)
[2018-11-10] MEDS ORDERED: Nitroglycerin 0.4 MG Tab.SL SL PRN (12:45)
[2018-11-10] MEDS ORDERED: UMECLIDIN INH SCH (12:45)
[2018-11-10] MEDS ORDERED: FLUTICASONE INH SCH (12:45)
[2018-11-10] MEDS ORDERED: VILANTER INH SCH (12:45)
[2018-11-10] MEDS: Magnesium Hydroxide 400 MG/5 ML Susp 30 ML Cup PO PRN (14:14)
[2018-11-10] MEDS: Sodium Chloride/Potassium Chloride Tab PO SCH (17:31)
[2018-11-10] MEDS: Amiodarone 200 MG Tab PO SCH (17:31)
[2018-11-10] MEDS: Metoprolol Succinate 25 MG Tab.ER PO SCH (17:32)
[2018-11-10] MEDS ORDERED: Metoprolol Succinate 50 MG Tab.ER PO SCH (18:00)
[2018-11-10] MEDS: Doxazosin 2 MG Tab PO SCH (21:00)
[2018-11-10] MEDS: EYE EYEBOTH SCH (21:01)
[2018-11-10] MEDS: BRIMONIDINE 0.2% EYEBOTH SCH (21:01)
[2018-11-11] MEDS: VILANTER INH SCH (08:10)
[2018-11-11] MEDS: UMECLIDIN INH SCH (08:10)
[2018-11-11] MEDS: FLUTICASONE INH SCH (08:10)
[2018-11-11] MEDS: Enoxaparin 40 MG/0.4 ML Syringe SUBCUT SCH (08:14)
[2018-11-11] MEDS: Metoprolol Succinate 25 MG Tab.ER PO SCH ×2 (08:14→17:51)
[2018-11-11] MEDS: Finasteride 5 MG Tab PO SCH (08:15)
[2018-11-11] MEDS: BRIMONIDINE 0.2% EYEBOTH SCH ×2 (08:16→20:15)
[2018-11-11] MEDS: EYE EYEBOTH SCH ×2 (08:16→20:15)
--- NOTE | 2018-11-11 08:41 | PCM.SN ---
- Free Text/Narrative Note: Suggested additional meds at DC Aldactone 25 mg daily Lasix 20 mg daily Repeat Labs next 11/16/18 BNP BMP Mg
--- NOTE | 2018-11-11 09:05 | PCM.PN ---
- General Info Date of Service: 11/11/18 Admission Dx/Problem (Free Text): Admission Diagnosis/Problem Admission Diagnosis/Problem Weakness Subjective Update: In to see Alejandro. Nursing reported that he did have an episode of "tension today and Lasix drip was therefore stopped. He had a 10 pound weight loss at this point. He also reported some dizziness and a headache. He was moved to the bed and placed in a supine position. Blood pressure than responded well. No new complaints and he was able to ambulate fine thereafter. We will remove the Nash catheter this afternoon now that his Lasix drip was stopped. He does straight catheter at home so we may be required to straight catheter while he is here. We will start 25 mg spironolactone in the evening and 20 mg Lasix daily tomorrow. Kidney function continues to be stable. No patient or nursing concerns. Functional Status: Reports: Pain Controlled, Tolerating Diet, Ambulating, Urinating. Denies: New Symptoms - Review of Systems General: Reports: No Symptoms. Denies: Fever, Weakness, Fatigue, Malaise, Chills HEENT: Reports: No Symptoms. Denies: Headaches, Sore Throat Pulmonary: Reports: No Symptoms. Denies: Shortness of Breath, Pleuritic Chest Pain, Cough, Sputum, Wheezing Cardiovascular: Reports: No Symptoms. Denies: Chest Pain, Palpitations, Dyspnea on Exertion, Edema Gastrointestinal: Reports: No Symptoms. Denies: Abdominal Pain, Constipation, Diarrhea, Nausea, Vomiting Genitourinary: Reports: No Symptoms. Denies: Pain Musculoskeletal: Reports: No Symptoms Skin: Reports: No Symptoms. Denies: Cyanosis Neurological: Reports: No Symptoms. Denies: Confusion, Numbness, Pre-Existing Deficit, Tingling, Trouble Speaking, Difficulty Walking, Weakness, Change in Speech, Gait Disturbance Psychiatric: Reports: No Symptoms - Patient Data Vitals - Most Recent: Last Vital Signs Temp 97.0 F 11/11/18 07:18 Pulse 61 11/11/18 08:15 Resp 20 11/11/18 07:18 BP 126/76 11/11/18 08:14 Pulse Ox 96 11/11/18 08:42 Orthostatic Blood Pressure [ 113/74 Standing] Orthostatic Blood Pressure [ 135/79 Sitting] Orthostatic Blood Pressure [ 138/78 Supine] Weight - Most Recent: 177 lb 14.4 oz I&O - Last 24 Hours: Intake & Output 11/10/18 11/11/18 11/11/18 22:59 06:59 14:59 Intake Total 805 39 Output Total 3258 8318 Balance -2320 -7968 Lab Results Last 24 Hours: Laboratory Results - last 24 hr 11/09/18 11/11/18 11/11/18 Range/Units 21:40 05:57 05:57 WBC 4.81 (4.23-9.07) K/mm3 RBC 3.62 L (4.63-6.08) M/mm3 Hgb 11.0 L (13.7-17.5) gm/L Hct 32.8 L (40.1-51.0) % MCV 90.6 (79.0-92.2) fl MCH 30.4 (25.7-32.2) pg MCHC 33.5 (32.2-35.5) g/dl RDW Std Deviation 50.2 H (35.1-43.9) fL Plt Count 298 (163-337) K/mm3 MPV 9.0 L (9.4-12.3) fl Neut % (Auto) 62.3 (34.0-67.9) % Lymph % (Auto) 19.1 L (21.8-53.1) % Clay % (Auto) 14.8 H (5.3-12.2) % Eos % (Auto) 1.7 (0.8-7.0) Baso % (Auto) 0.6 (0.1-1.2) % Neut # (Auto) 3.00 (1.78-5.38) K/mm3 Lymph # (Auto) 0.92 L (1.32-3.57) K/mm3 Clay # (Auto) 0.71 (0.30-0.82) K/mm3 Eos # (Auto) 0.08 (0.04-0.54) K/mm3 Baso # (Auto) 0.03 (0.01-0.08) K/mm3 Sodium 126 L (136-145) mEq/L Potassium 4.0 (3.5-5.1) mEq/L Chloride 91 L (98-107) mEq/L Carbon Dioxide 29 (21-32) mEq/L Anion Gap 10.0 (5-15) BUN 13 (7-18) mg/dL Creatinine 1.1 (0.7-1.3) mg/dL Est Cr Clr Drug Dosing 54.27 mL/min Estimated GFR (MDRD) > 60 (>60) mL/min BUN/Creatinine Ratio 11.8 L (14-18) Glucose 95 (83-115) mg/dL Calcium 8.1 L (8.5-10.1) mg/dL Magnesium 1.9 (1.8-2.4) mg/dl NT-Pro-B Natriuret Pep (0-450) pg/mL Mycoplasma pneumon IgM Negative (NEGATIVE) 11/11/18 Range/Units 05:57 WBC (4.23-9.07) K/mm3 RBC (4.63-6.08) M/mm3 Hgb (13.7-17.5) gm/L Hct (40.1-51.0) % MCV (79.0-92.2) fl MCH (25.7-32.2) pg MCHC (32.2-35.5) g/dl RDW Std Deviation (35.1-43.9) fL Plt Count (163-337) K/mm3 MPV (9.4-12.3) fl Neut % (Auto) (34.0-67.9) % Lymph % (Auto) (21.8-53.1) % Clay % (Auto) (5.3-12.2) % Eos % (Auto) (0.8-7.0) Baso % (Auto) (0.1-1.2) % Neut # (Auto) (1.78-5.38) K/mm3 Lymph # (Auto) (1.32-3.57) K/mm3 Clay # (Auto) (0.30-0.82) K/mm3 Eos # (Auto) (0.04-0.54) K/mm3 Baso # (Auto) (0.01-0.08) K/mm3 Sodium (136-145) mEq/L Potassium (3.5-5.1) mEq/L Chloride (98-107) mEq/L Carbon Dioxide (21-32) mEq/L Anion Gap (5-15) BUN (7-18) mg/dL Creatinine (0.7-1.3) mg/dL Est Cr Clr Drug Dosing mL/min Estimated GFR (MDRD) (>60) mL/min BUN/Creatinine Ratio (14-18) Glucose (83-115) mg/dL Calcium (8.5-10.1) mg/dL Magnesium (1.8-2.4) mg/dl NT-Pro-B Natriuret Pep 5139 H (0-450) pg/mL Mycoplasma pneumon IgM (NEGATIVE) Med Orders - Current: Current Medications Acetaminophen (Tylenol) 650 mg PO Q4H PRN PRN Reason: Pain (Mild 1-3)/fever Albuterol/Ipratropium (Duoneb 3.0-0.5 Mg/3 Ml) 3 ml NEB Q4H PRN PRN Reason: Shortness Of Breath/wheezing Amiodarone HCl (Cordarone) 400 mg PO 1800 [facility] Last Admin: 11/10/18 17:31 Dose: 400 mg Aspirin (Halfprin) 81 mg PO 1200 [facility] Bisacodyl (Dulcolax) 5 mg PO DAILY PRN PRN Reason: Constipation Docusate Sodium (Colace) 100 mg PO BID PRN PRN Reason: Constipation Last Admin: 11/11/18 06:07 Dose: 100 mg Doxazosin Mesylate (Cardura) 2 mg PO BEDTIME [facility] Last Admin: 11/10/18 21:00 Dose: 2 mg Enoxaparin Sodium (Lovenox) 40 mg SUBCUT DAILY [facility] Last Admin: 11/11/18 08:14 Dose: 40 mg Finasteride (Proscar) 5 mg PO DAILY [facility] Last Admin: 11/11/18 08:15 Dose: 5 mg Furosemide 100 mg/ Sodium (Chloride) 100 mls @ 4 mls/hr IV TITRATE [facility]; Protocol Last Admin: 11/10/18 14:15 Dose: 4 mg/hr, 4 mls/hr Magnesium Hydroxide (Milk Of Magnesia) 30 ml PO Q6H PRN PRN Reason: Constipation Last Admin: 11/10/18 14:14 Dose: 30 ml Metoprolol Succinate (Toprol Xl) 25 mg PO BID@0900,1800 [facility] Last Admin: 11/11/18 08:14 Dose: 25 mg Nitroglycerin (Nitrostat) 0.4 mg SL ASDIRECTED PRN PRN Reason: CHEST PAIN Ondansetron HCl (Zofran) 4 mg IV Q6H PRN PRN Reason: Nausea/Vomiting Oral Electrolytes (Thermotabs) 1 each PO 1200,1800 [facility] Last Admin: 11/10/18 17:31 Dose: 1 each Brimonidine 0.2% Eye (Drop Ptom) 1 each EYEBOTH BID [facility] Last Admin: 11/11/18 08:16 Dose: 1 each Fluticasone/Umeclidin/Vilanter * *Ptom 0 each INH DAILY [facility] Last Admin: 11/11/18 08:10 Dose: 1 each Polyethylene Glycol (Miralax) 17 gm PO DAILY PRN PRN Reason: Constipation Ranolazine (Ranexa) 1,000 mg PO 1200,1800 [facility] Last Admin: 11/10/18 17:31 Dose: 1,000 mg Senna/Docusate Sodium (Senna Plus) 1 tab PO BID PRN PRN Reason: Constipation Last Admin: 11/11/18 06:07 Dose: 1 tab Sodium Chloride (Saline Flush) 10 ml FLUSH ASDIRECTED PRN PRN Reason: Keep Vein Open Last Admin: 11/09/18 21:48 Dose: 10 ml Discontinued Medications Sodium Chloride (Normal Saline) 500 mls @ 1,000 mls/hr IV .BOLUS [facility] Last Admin: 11/09/18 21:48 Dose: 1,000 mls/hr Magnesium Sulfate 2 gm/ Premix 50 mls @ 25 mls/hr IV ONETIME ONE Stop: 11/10/18 09:20 Last Admin: 11/10/18 09:32 Dose: 25 mls/hr Metoprolol Succinate (Toprol Xl) 50 mg PO BID@0900,1800 [facility] Metoprolol Succinate (Toprol Xl) 25 mg PO ONETIME ONE Stop: 11/10/18 12:39 Last Admin: 11/10/18 14:28 Dose: Not Given Fluticasone/Umeclidin/Vilanter * *Ptom 1 each INH DAILY [facility] Last Admin: 11/10/18 16:57 Dose: Not Given Ranolazine (Ranexa) 1,000 mg PO 1200,1800 [facility] Last Admin: 11/10/18 19:57 Dose: Not Given - Exam Quality Assessment: DVT Prophylaxis General: Alert, Oriented, Cooperative, No Acute Distress HEENT: Pupils Equal, Pupils Reactive, EOMI, Mucous Membr. Moist/[place] Neck: Supple, Trachea Midline, No JVD Lungs: Clear to Auscultation, Normal Respiratory Effort Cardiovascular: Regular Rate, Regular Rhythm GI/Abdominal Exam: Normal Bowel Sounds, Soft, Non-Tender, No Distention, No Abnormal Bruit (Male) Exam: Deferred Back Exam: Normal Inspection, Full Range of Motion Extremities: Normal Inspection, Normal Range of Motion, Non-Tender, No Pedal Edema, Normal Capillary Refill Peripheral Pulses: 2+: Radial (L), Radial (R), Dorsalis Pedis (L), Dorsalis Pedis (R) Skin: Warm, Dry, Intact Neurological: No New Focal Deficit Psy/Mental Status: Alert, Normal Affect, Normal Mood - Problem List & Annotations (1) Acute exacerbation of CHF (congestive heart failure) SNOMED Code(s): 44263525 Code(s): I50.9 - HEART FAILURE, UNSPECIFIED Status: Acute Priority: High Current Visit: Yes Qualifiers: Heart failure type: unspecified Qualified Code(s): I50.9 - Heart failure, unspecified (2) Dizziness SNOMED Code(s): 141876034, 953307703 Code(s): R42 - DIZZINESS AND GIDDINESS Status: Acute Priority: High Current Visit: Yes (3) Fall SNOMED Code(s): 2691819, 896806941 Code(s): W19.XXXA - UNSPECIFIED FALL, INITIAL ENCOUNTER Status: Acute Priority: High Current Visit: Yes Qualifiers: Encounter type: initial encounter Qualified Code(s): W19.XXXA - Unspecified fall, initial encounter (4) Lightheaded SNOMED Code(s): 986797521 Code(s): R42 - DIZZINESS AND GIDDINESS Status: Acute Priority: High Current Visit: Yes (5) Shortness of breath SNOMED Code(s): 888596197 Code(s): R06.02 - SHORTNESS OF BREATH Status: Acute Priority: High Current Visit: Yes (6) Hyponatremia SNOMED Code(s): 05004872 Code(s): E87.1 - HYPO-OSMOLALITY AND HYPONATREMIA Status: Chronic Priority: Medium Current Visit: Yes (7) CAD (coronary artery disease) SNOMED Code(s): 17948883 Code(s): I25.10 - ATHSCL HEART DISEASE OF [place] CORONARY ARTERY W/O ANG PCTRS Status: Chronic Priority: Medium Current Visit: No Qualifiers: Coronary Disease-Associated Artery/Lesion type: unspecified vessel or lesion type [place] vs. transplanted heart: [place] heart Associated angina: without angina Qualified Code(s): I25.10 - Atherosclerotic heart disease of [place] coronary artery without angina pectoris (8) Pacemaker ECG pattern SNOMED Code(s): 765252463 Code(s): Z95.0 - PRESENCE OF CARDIAC PACEMAKER Status: Chronic Priority: Medium Current Visit: No - Problem List Review Problem List Initiated/Reviewed/Updated: Yes - My Orders Last 24 Hours: My Active Orders 11/10/18 09:43 Patient Status [ADT] Routine 11/10/18 09:45 Insert Nash Catheter [Insert Urinary Catheter] [OM.PC] Q24H Urinary Catheter Assessment [RC] 11/10/18 09:46 Height and Weight [RC] 04 Oxygen Therapy [RC] PRN Up With Assistance [RC] ASDIRECTED VTE/DVT Education [RC] DAILY Vital Signs [RC] Q4H Consult to Handbag Parts Cutter [CONS] Routine Consult to Spiritual Care [CONS] Routine Respiratory Care Assess and Treatment [CONS] Routine Acetaminophen [Tylenol] 650 mg PO Q4H PRN Albuterol/Ipratropium [DuoNeb 3.0-0.5 MG/3 ML] 3 ml NEB Q4H PRN Bisacodyl [Dulcolax] 5 mg PO DAILY PRN Docusate Sodium [Colace] 100 mg PO BID PRN Docusate Sodium/Sennosides [Senna Plus] 1 tab PO BID PRN Ondansetron [Zofran] 4 mg IV Q6H PRN Polyethylene Glycol 3350 [MiraLAX] 17 gm PO DAILY PRN 11/10/18 09:47 Intake and Output [RC] Q2HR Pulse Oximetry [RC] ASDIRECTED 11/10/18 09:48 RT Aerosol Therapy [RC] ASDIRECTED 11/10/18 10:00 Furosemide [Lasix] 100 mg Sodium Chloride 0.9% [Normal Saline] 90 ml IV TITRATE 11/10/18 12:45 Nitroglycerin [Nitrostat] 0.4 mg SL ASDIRECTED PRN 11/10/18 13:40 STREP PNEUMONIAE ANTIGEN [MREF] Routine 11/10/18 14:24 RESPIRATORY PANEL Routine 11/10/18 15:02 Patient's Own Medication [Ptom] 0 each INH DAILY 11/10/18 18:00 Amiodarone [Cordarone] 400 mg PO 1800 Metoprolol Succinate [Toprol XL] 25 mg PO BID@0900,1800 Ranolazine [Ranexa] 1,000 mg PO 1200,1800 Sodium Chloride/KCl [Thermotabs] 1 each PO 1200,1800 11/10/18 21:00 Doxazosin [Cardura] 2 mg PO BEDTIME Patient's Own Medication [Ptom] 1 each EYEBOTH BID 11/10/18 Lunch Fluid Restriction [DIET] 11/11/18 09:00 Finasteride [Proscar] 5 mg PO DAILY 11/11/18 12:00 Aspirin [Halfprin] 81 mg PO 1200 11/12/18 05:11 BASIC METABOLIC PANEL,BMP [CHEM] AM CBC WITH AUTO DIFF [HEME] AM MAGNESIUM [CHEM] AM PRO B-TYPE NATRIUR PEPT,BNPPRO [CHEM] DAILY 11/13/18 05:11 BASIC METABOLIC PANEL,BMP [CHEM] AM CBC WITH AUTO DIFF [HEME] AM MAGNESIUM [CHEM] AM PRO B-TYPE NATRIUR PEPT,BNPPRO [CHEM] DAILY 11/14/18 05:11 BASIC METABOLIC PANEL,BMP [CHEM] AM CBC WITH AUTO DIFF [HEME] AM MAGNESIUM [CHEM] AM PRO B-TYPE NATRIUR PEPT,BNPPRO [CHEM] DAILY - Plan Plan:: I/P: CHF exacerbation -ICMP, CHF/HFrEF NYHA functional class III, stage C -Longstanding cardiac history with OR in May 2018 -Reportedly has appointment at [facility] next week for cardiology -Reports shortness of breath, orthopnea, edema, variable weight, Bendopnea -Stable cardiomegaly noted on CXR -Lasix drip started - discontinued this AM -Nash catheter placed - Discontinue tonight -Monitor daily weights as well as I&Os. -Fluid restriction -Handbag Parts Cutter consult -Monitor renal function -Prior Echo from -BNP 4619-->5139 -Down almost 10lbs today -Half dose BB -> resume full dosing at discharge -Start spironolactone 25 mg in the evening and 20 mg lasix daily on 11/12/18 Chronic hyponatremia, Stable -Sodium 126-->126 -Baseline sodium 125 -Continue home thermotabs -Monitor Resolved: S/P Weakness/frequent falls -Likely 2/2 above -Reports went to [facility] and kept going -6 ED visits since 10/11/18 -Droplet precautions -VRP ordered -Mycoplasma negative -Strep pneumo negative -UA negative from day prior -CXR shows nothing acute -PT/OT -CM/SW consult S/P Dizziness -May be 2/2 above -Consider CTA of vertebral arteries -Consider PT vestibular exam -Will monitor Chronic: Arrhythmias Heart failure Pacemaker/AICD HLD HTN OR May 2018 CABG/Stent placement COPD Emphysema BPH Urinary retention - self caths at times Arthritis Hyponatremia Plan: Admit to medical floor on telemetry Other orders as indicated above Routine AM labs PT/OT CM/SW Home medications as ordered DVT prophylaxis: Lovenox Code status: Full Code; PCP: Dr. Rodriguez
[2018-11-11] MEDS: Magnesium Hydroxide 400 MG/5 ML Susp 30 ML Cup PO PRN (09:20)
[2018-11-11] MEDS: Aspirin 81 MG Tab.EC PO SCH (11:39)
[2018-11-11] MEDS: Sodium Chloride/Potassium Chloride Tab PO SCH ×2 (11:39→17:51)
[2018-11-11] MEDS: Amiodarone 200 MG Tab PO SCH (17:53)
[2018-11-11] MEDS: Doxazosin 2 MG Tab PO SCH (20:15)
[2018-11-11] MEDS ORDERED: Brimonidine 0.2% Ophth Soln 5 ML Bottle EYEBOTH SCH (21:00)
[2018-11-12] MEDS: VILANTER INH SCH (08:10)
[2018-11-12] MEDS: FLUTICASONE INH SCH (08:10)
[2018-11-12] MEDS: UMECLIDIN INH SCH (08:10)
[2018-11-12] MEDS: Metoprolol Succinate 25 MG Tab.ER PO SCH (08:49)
[2018-11-12] MEDS: Finasteride 5 MG Tab PO SCH (08:49)
[2018-11-12] MEDS: EYE EYEBOTH SCH (08:50)
[2018-11-12] MEDS: Enoxaparin 40 MG/0.4 ML Syringe SUBCUT SCH (08:50)
[2018-11-12] MEDS: BRIMONIDINE 0.2% EYEBOTH SCH (08:50)
[2018-11-12] MEDS ORDERED: Furosemide 20 MG Tab PO SCH (09:00)
--- NOTE | 2018-11-12 09:36 | PCM.DCSUM1 ---
Discharge Summary - Hospital Course HPI Initial Comments: Alejandro Ni is a 78 -year-old male who is well-known to this service who presents to our ED on 11/09/18 with generalized weakness and dizziness. Reports been ongoing problems gotten worse over the past week. Old records showed his been to our ED 6 times since October 11 and had been seen at [facility] days ago and the night before arrival. He has chronic hyponatremia with a baseline of 125. Reports he saw his eye care provider and feather maker a few weeks ago. Reports prior to arrival he fell and hit his head after tending to lean over to get something up. Denies any hip or wrist pain, headache, neck pain, chest pain , abdominal pain, nausea, vomiting. Has chronic shortness of breath from his COPD and CHF. Reports he's had multiple episodes of symptoms since having an WY in May 2018. Has appointment to see a [facility] farm general manager, Dr. Pickett, on 11/18/18. Has history of [place] in 1982 in May 2018. A stent placed and 4 vessel bypass in October 2017. Has history of CHF and V. tach with an AICD that was inserted June 2018. It is reported that one failed and another one was placed 5 weeks ago. Reports he weighs himself daily and he notes that his weight is up 3 pounds or more he will take his Lasix. Has history of urinary retention secondary to BPH and does self catheter at times. He was being treated for UTI and his last dose was 11/09/18. Urine checked in the ED the day before did not show UTI. He is not any blood thinners. In the ED temp was 96.9 Fahrenheit. Pulse 62. Respirations 18. Blood pressure 116/82. Pulse ox 98% on room air. Twelve-lead EKG was obtained showing atrioventricular dual paced complexes. He is not orthostatic. Laboratory workup shows WBC 6.66. Hemoglobin 11.5. Hematocrit 33.3. He is normocytic. Platelets are good at 315,000. Neutrophils are elevated at 71.8%. Sodium is low at 126. Potassium 4.0. Carbon Dr. 28. Anion gap 9.0. BUN is 16. Creatinine 1.2. GFR is 58. Glucose is 91. Magnesium 1.9. Bilirubin 0.7. AST is 28, ALT 74, alkaline phosphatase 63. Troponin is negative at less than 0.017. Protein is low at 6.0. Albumin is low at 3.1. He's given a [address] and fluid bolus. Head CT is obtained showing nothing acute. There is no significant change from previous head CT. Chest x-ray is obtained showing stable cardiomegaly and other incidental findings. Nothing acute. He carries a history of: Arrhythmias, CHF, HLD, hypertension, W[place], COPD, emphysema, BPH, urinary retention with straight catheter, arthritis. His PCP is Dr. Rodriguez. He is a full code. Diagnosis: Stroke: No - Discharge Data Discharge Date: 11/12/18 (Admit date: 11/10/18) Discharge Disposition: Home, Self-Care 01 Condition: Good - Discharge Diagnosis/Problem(s) (1) Acute exacerbation of CHF (congestive heart failure) SNOMED Code(s): 59448997 ICD Code: I50.9 - HEART FAILURE, UNSPECIFIED Status: Acute Priority: High Current Visit: Yes Qualifiers: Heart failure type: unspecified Qualified Code(s): I50.9 - Heart failure, unspecified (2) Dizziness SNOMED Code(s): 705513111, 514112025 ICD Code: R42 - DIZZINESS AND GIDDINESS Status: Acute Priority: High Current Visit: Yes (3) Fall SNOMED Code(s): 0349620, 532440282 ICD Code: W19.XXXA - UNSPECIFIED FALL, INITIAL ENCOUNTER Status: Acute Priority: High Current Visit: Yes Qualifiers: Encounter type: initial encounter Qualified Code(s): W19.XXXA - Unspecified fall, initial encounter (4) Lightheaded SNOMED Code(s): 463582418 ICD Code: R42 - DIZZINESS AND GIDDINESS Status: Acute Priority: High Current Visit: Yes (5) Shortness of breath SNOMED Code(s): 087059124 ICD Code: R06.02 - SHORTNESS OF BREATH Status: Acute Priority: High Current Visit: Yes (6) Hyponatremia SNOMED Code(s): 38844094 ICD Code: E87.1 - HYPO-OSMOLALITY AND HYPONATREMIA Status: Chronic Priority: Medium Current Visit: Yes (7) CAD (coronary artery disease) SNOMED Code(s): 16970613 ICD Code: I25.10 - ATHSCL HEART DISEASE OF [place] CORONARY ARTERY W/O ANG PCTRS Status: Chronic Priority: Medium Current Visit: No Qualifiers: Coronary Disease-Associated Artery/Lesion type: unspecified vessel or lesion type [place] vs. transplanted heart: [place] heart Associated angina: without angina Qualified Code(s): I25.10 - Atherosclerotic heart disease of [place] coronary artery without angina pectoris (8) Pacemaker ECG pattern SNOMED Code(s): 876925636 ICD Code: Z95.0 - PRESENCE OF CARDIAC PACEMAKER Status: Chronic Priority : Medium Current Visit: No (9) Influenza A (H1N1) SNOMED Code(s): 583244316 ICD Code: J10.1 - FLU DUE TO OTH IDENT INFLUENZA VIRUS W OTH RESP MANIFEST Status: Acute Priority: High Current Visit: Yes - Patient Summary/Data Consults: Consultations 11/10/18 03:19 Consult to Case Management/Commercial Title Examiner [CONS] Routine 11/10/18 03:20 Consult to Physical Therapy [PT Evaluation and Treatment] [CONS] Routine OT Evaluation and Treatment [CONS] Routine 11/10/18 09:46 Consult to Drug Safety Coordinator [CONS] Routine Consult to Spiritual Care [CONS] Routine Respiratory Care Assess and Treatment [CONS] Routine Labs Pending at D/C: None Recommended Follow-up Testing/Procedures: Follow-up with PCP within 7-10 days of discharge Follow-up with [facility] as scheduled Hospital Course: I/P: CHF exacerbation -ICMP, CHF/HFrEF NYHA functional class III, stage C -Longstanding cardiac history with WY in May 2018 -Reportedly has appointment at [facility] next week for cardiology -Reports shortness of breath, orthopnea, edema, variable weight, Bendopnea -Stable cardiomegaly noted on CXR -Lasix drip started - discontinued this AM -Nash catheter placed - Discontinued yesterday -Hx/o retention and self straight caths -Monitor daily weights as well as I&Os. -Fluid restriction -Drug Safety Coordinator consult -Monitor renal function -Prior Echo from 09/25/18 * 1. LVEF, by visual estimation, is 30% * 2. Akinesis of the inferior, inferoseptal, and basal inferior left ventricular wall(s) * 3. Severe hypokinesis of the septal left ventricular wall(s) * 4. Left ventricular internal cavity size is moderately increased * 5. Right ventricular size is mildly enlarged * 6. Moderately dilated left atrium * 7. Moderately dilated right atrium * 8. There is moderate aortic valve sclerosis * 9. Moderate mitral valve regurgitation * 10. Trace aortic valve regurgitation * 11. Moderate tricuspid valve regurgitation * 12. Minimal dilation of the aortic root -BNP 4619-->5139-->2911 -Down almost 10lbs with lasix drip -Half dose BB -> resume full dosing at discharge -Start spironolactone 25 mg in the evening and 20 mg lasix daily on 11/12/18 Chronic hyponatremia, Stable -Sodium 126-->126 -Baseline sodium 125 -Continue home thermotabs -Monitor Influenza A (H1N1) -Outside of treatment window -Droplet isolation -Supportive care Resolved: S/P Weakness/frequent falls -Likely 2/2 above -Reports went to lean over and kept going -6 ED visits since 10/11/18 -Droplet precautions -VRP POSITIVE for H1N1 -Mycoplasma negative -Strep pneumo negative -UA negative from day prior -CXR shows nothing acute -PT/OT -CM/SW consult S/P Dizziness -May be 2/2 above -Consider CTA of vertebral arteries -Consider PT vestibular exam -Will monitor Chronic: Arrhythmias Heart failure Pacemaker/AICD HLD HTN [place] May 2018 CABG/Stent placement COPD Emphysema BPH Urinary retention - self caths at times Arthritis Hyponatremia Plan: Admit to medical floor on telemetry Other orders as indicated above Routine AM labs PT/OT CM/SW Home medications as ordered DVT prophylaxis: Lovenox Code status: Full Code; PCP: 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 As noted he has been in the ED 6 times since 10/14/18. His BNP was elevated and he was found to be having an exacerbation of CHF. He was placed on Lasix drip for nearly 24 hours and a Nash was placed with excellent output. He does have a history of urinary retention and does self catheter at home. He was down nearly 10 pounds. Lasix drip was discontinued due to an episode of hypotension. This resolved without any further intervention. Nursing did bladder scan him on several occasions and did have to straight catheter him occasionally. This is not a concern as he does straight catheter at home occasionally. Echo was located from 09/25/18 with results as above showing significant heart failure and cardiomyopathy. Because of the weakness infectious workup was initiated. UA, chest x-ray, Mycoplasma, strep pneumo were all negative. Viral panel did report positive H1N1 influenza A. 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 He is outside of treatment window and reports he is feeling pretty good so suspect he is on the downward slide of this viral infection. Dr. Colby did review his home meds. Due to concerns over the possibility of hypotension parameters were placed on a few of his home meds including Atacand, Cardura, and metoprolol. He was instructed to take his blood pressure prior to taking his medications and hold the Atacand and metoprolol as blood pressures less than 100/60. He should also hold his metoprolol if heart rate is less than 60. He was instructed to hold his Cardura if the pressures less than 90/ 60. He was prescribed 40 mg oral furosemide 1 tab daily on Friday. He should also hold this if his blood pressure is at or below 100/60. He was instructed to take 2 tabs per son shortness of breath or increased edema and contact his PCP if this occurs. He is also prescribed spironolactone 25 mg daily on Friday. He should hold this if his blood pressure is at or below 100/60 as well. These 2 meds will be alternated with metolazone 2.5 mg oral at 7 AM on Friday and Friday. He should also hold this if blood pressures at or below 100/60. He otherwise reports he feels pretty good. He has been up working with therapies and they are recommending outpatient physical therapy and a home safety evaluation. His was at bedside throughout his stay and is involved in his care. He does have an appointment with [facility] next week and was instructed to bring all paperwork we give him to that appointment. Appointment was made for Dr. Rodriguez after he returns from [place]. He was instructed to contact his PCP, walk-in clinic, or the emergency room should symptoms return or worsen. - Patient Instructions Diet: Heart Healthy Diet, Fluid Restriction Fluid Restriction: 2000 mL Activity: As Tolerated Notify Provider of: Fever, Increased Pain, Swelling and Redness, Nausea and/or Vomiting Other/Special Instructions: Follow-up with PCP within 7-10 days of discharge. Follow-up with [facility] at appointment already scheduled. Take your BP before taking your morning and evening meds. Folow parameters as directed. Record your BP and HR in a journal. Take this with to all medical appointments. Take your weight daily. Record this in a journal and take it with to all medical appointments. Continue to utilize your self catheters as you were prior. Follow your fluid restriction - 2000mL (2L per day). You have H1N1 influenza. Avoid contact with children or immunosupressed individuals (patients on chemotherapy, other sick individuals, etc) until symptoms completely resolve. Should symptoms return or worsen contact your primary care provider, a walk in clinic, or return to the ED. - Discharge Plan *PRESCRIPTION DRUG MONITORING PROGRAM REVIEWED*: No *COPY OF PRESCRIPTION DRUG MONITORING REPORT IN PATIENT PAN: No Prescriptions/Med Rec: metOLazone [Zaroxolyn] 2.5 mg PO ASDIRECTED #12 tab Spironolactone [Aldactone] 25 mg PO ASDIRECTED #30 tablet Home Medications: Home Meds Albuterol [Proventil HFA] 2 puff INH Q6H PRN 06/07/18 [History] Ubidecarenone [Coq-10] 200 mg PO 1200 06/07/18 [History] Amiodarone [Cordarone] 400 mg PO 1800 08/15/18 [History] Nitroglycerin [Nitrostat] 0.4 mg SL ASDIRECTED 08/15/18 [History] Vit C/E/Zn/Coppr/Lutein/Zeaxan [Preservision Areds 2 Softgel] 1 cap PO 1200, 1800 08/15/18 [History] Acetaminophen 650 mg PO Q6H PRN 10/27/18 [History] Aspirin [Halfprin] 81 mg PO 1200 10/27/18 [History] Finasteride [Proscar] 5 mg PO DAILY 10/27/18 [History] Ranolazine [Ranexa] 1,000 mg PO 1200,1800 10/27/18 [History] Brimonidine [Alphagan 0.2% Ophth Soln] 1 drop EYEBOTH BID 11/10/18 [History] Fluticasone/Umeclidin/Vilanter [Trelegy Ellipta 100-62.5-25 MCG] 1 puff INH DAILY 11/10/18 [History] Sodium Chloride/KCl [Thermotabs] 1 gm PO 1200,1800 11/10/18 [History] Candesartan Cilexetil [Atacand] 8 mg PO 1200 #0 11/12/18 [Rx] Doxazosin [Cardura] 2 mg PO BEDTIME #0 11/12/18 [Rx] Furosemide 40 mg PO ASDIRECTED #30 11/12/18 [Rx] Metoprolol Succinate [Toprol XL 50mg] 50 mg PO BID@0900,1800 #0 11/12/18 [Rx] Spironolactone [Aldactone] 25 mg PO ASDIRECTED #30 tablet 11/12/18 [Rx] metOLazone [Zaroxolyn] 2.5 mg PO ASDIRECTED #12 tab 11/12/18 [Rx] Oxygen Therapy Mode: Room Air Patient Handouts: Influenza, Adult, [id number], Fluid Restriction, Heart Failure, [id number] Referrals: Heath Rodriguez MD [Primary Care Provider] - 11/23/18 1:00 pm (Please follow-up with your primary care doctor, Dr. Rodriguez, on FridayNovember 23 at 1:00pm. ) - Discharge Summary/Plan Comment DC Time >30 min.: Yes (45 minutes ) - General Info Date of Service: 11/12/18 Admission Dx/Problem (Free Text: Admission Diagnosis/Problem Admission Diagnosis/Problem Weakness Subjective Update: Into see Alejandro. His is at bedside. We discussed plan of care for discharge and follow up at [facility]. We went over his new home medications as Dr. Colby has put parameters on several and also started him on a few new ones. Discussed how he is H1 N1 positive and should avoid contact with certain individuals. Otherwise he reports he feels pretty good. No patient or nursing concerns at this time. He'll be discharged today. Functional Status: Reports: Pain Controlled, Tolerating Diet, Ambulating, Urinating. Denies: New Symptoms - Review of Systems General: Reports: Weakness (improving ). Denies: Fever, Fatigue, Malaise, Chills HEENT: Reports: No Symptoms. Denies: Headaches, Sore Throat Pulmonary: Reports: No Symptoms. Denies: Shortness of Breath, Pleuritic Chest Pain, Cough, Sputum, Wheezing Cardiovascular: Reports: No Symptoms. Denies: Chest Pain, Palpitations, Dyspnea on Exertion, Edema, Lightheadedness Gastrointestinal: Reports: No Symptoms. Denies: Abdominal Pain, Constipation, Decreased Appetite, Diarrhea, Nausea, Vomiting Genitourinary: Reports: Retention. Denies: Pain Musculoskeletal: Reports: No Symptoms Skin: Reports: No Symptoms. Denies: Cyanosis Neurological: Reports: No Symptoms. Denies: Confusion, Numbness, Pre-Existing Deficit, Seizure, Tingling, Trouble Speaking, Difficulty Walking, Gait Disturbance Psychiatric: Reports: No Symptoms - Patient Data Vitals - Most Recent: Last Vital Signs Temp 98.4 F 11/11/18 16:08 Pulse 59 L 11/12/18 08:49 Resp 16 11/11/18 20:10 BP 119/65 11/12/18 08:49 Pulse Ox 99 11/12/18 08:10 Orthostatic Blood Pressure [ 113/74 Standing] Orthostatic Blood Pressure [ 135/79 Sitting] Orthostatic Blood Pressure [ 138/78 Supine] Weight - Most Recent: 178 lb 9.6 oz I&O - Last 24 hours: Intake & Output 11/11/18 11/12/18 11/12/18 22:59 06:59 14:59 Intake Total 544 200 Output Total 75 650 Balance 469 -450 Lab Results - Last 24 hrs: Laboratory Results - last 24 hr 11/10/18 11/12/18 11/12/18 Range/Units 14:24 06:01 06:01 WBC 4.93 (4.23-9.07) K/mm3 RBC 3.70 L (4.63-6.08) M/mm3 Hgb 11.5 L (13.7-17.5) gm/L Hct 33.8 L (40.1-51.0) % MCV 91.4 (79.0-92.2) fl MCH 31.1 (25.7-32.2) pg MCHC 34.0 (32.2-35.5) g/dl RDW Std Deviation 50.2 H (35.1-43.9) fL Plt Count 258 (163-337) K/mm3 MPV 8.9 L (9.4-12.3) fl Neut % (Auto) 66.0 (34.0-67.9) % Lymph % (Auto) 16.2 L (21.8-53.1) % [place] % (Auto) 15.6 H (5.3-12.2) % Eos % (Auto) 1.2 (0.8-7.0) Baso % (Auto) 0.4 (0.1-1.2) % Neut # (Auto) 3.25 (1.78-5.38) K/mm3 Lymph # (Auto) 0.80 L (1.32-3.57) K/mm3 [place] # (Auto) 0.77 (0.30-0.82) K/mm3 Eos # (Auto) 0.06 (0.04-0.54) K/mm3 Baso # (Auto) 0.02 (0.01-0.08) K/mm3 Manual Slide Review Abnormal smear Sodium 126 L (136-145) mEq/L Potassium 4.0 (3.5-5.1) mEq/L Chloride 92 L (98-107) mEq/L Carbon Dioxide 28 (21-32) mEq/L Anion Gap 10.0 (5-15) BUN 15 (7-18) mg/dL Creatinine 1.0 (0.7-1.3) mg/dL Est Cr Clr Drug Dosing 59.70 mL/min Estimated GFR (MDRD) > 60 (>60) mL/min BUN/Creatinine Ratio 15.0 (14-18) Glucose 91 (83-115) mg/dL Calcium 8.4 L (8.5-10.1) mg/dL Magnesium 2.1 (1.8-2.4) mg/dl NT-Pro-B Natriuret Pep (0-450) pg/mL Adenovirus (PCR) Not detected (Not Detected) B. pertussis DNA (PCR) Not detected (Not Detected) B.parapertussis DNA PCR Not detected (Not Detected) C. pneumoniae DNA (PCR) Not detected (Not Detected) Coronavirus (PCR) Not detected (Not Detected) Human Metapneumovir PCR Not detected (Not Detected) Influenza A (RT-PCR) Not detected (Not Detected) Influ A (H1N1/09) PCR Detected H (Not Detected) Influenza B (RT-PCR) Not detected (Not Detected) M. pneumoniae (PCR) Not detected (Not Detected) Parainfluen 1,2,3,4 PCR Not detected (Not Detected) RSV (PCR) Not detected (Not Detected) Entero/Rhino (PCR) Not detected (Not Detected) 04/04/19 Range/Units 06:01 WBC (4.23-9.07) K/mm3 RBC (4.63-6.08) M/mm3 Hgb (13.7-17.5) gm/L Hct (40.1-51.0) % MCV (79.0-92.2) fl MCH (25.7-32.2) pg MCHC (32.2-35.5) g/dl RDW Std Deviation (35.1-43.9) fL Plt Count (163-337) K/mm3 MPV (9.4-12.3) fl Neut % (Auto) (34.0-67.9) % Lymph % (Auto) (21.8-53.1) % [place] % (Auto) (5.3-12.2) % Eos % (Auto) (0.8-7.0) Baso % (Auto) (0.1-1.2) % Neut # (Auto) (1.78-5.38) K/mm3 Lymph # (Auto) (1.32-3.57) K/mm3 [place] # (Auto) (0.30-0.82) K/mm3 Eos # (Auto) (0.04-0.54) K/mm3 Baso # (Auto) (0.01-0.08) K/mm3 Manual Slide Review Sodium (136-145) mEq/L Potassium (3.5-5.1) mEq/L Chloride (98-107) mEq/L Carbon Dioxide (21-32) mEq/L Anion Gap (5-15) BUN (7-18) mg/dL Creatinine (0.7-1.3) mg/dL Est Cr Clr Drug Dosing mL/min Estimated GFR (MDRD) (>60) mL/min BUN/Creatinine Ratio (14-18) Glucose (83-115) mg/dL Calcium (8.5-10.1) mg/dL Magnesium (1.8-2.4) mg/dl NT-Pro-B Natriuret Pep 2911 H (0-450) pg/mL Adenovirus (PCR) (Not Detected) B. pertussis DNA (PCR) (Not Detected) B.parapertussis DNA PCR (Not Detected) C. pneumoniae DNA (PCR) (Not Detected) Coronavirus (PCR) (Not Detected) Human Metapneumovir PCR (Not Detected) Influenza A (RT-PCR) (Not Detected) Influ A (H1N1/09) PCR (Not Detected) Influenza B (RT-PCR) (Not Detected) M. pneumoniae (PCR) (Not Detected) Parainfluen 1,2,3,4 PCR (Not Detected) RSV (PCR) (Not Detected) Entero/Rhino (PCR) (Not Detected) ALEYDA Results - Last 24 hrs: Microbiology 11/10/18 13:40 Streptococcus pneumoniae Antigen (M - Final Urine Med Orders - Current: Current Medications Acetaminophen (Tylenol) 650 mg PO Q4H PRN PRN Reason: Pain (Mild 1-3)/fever Albuterol/Ipratropium (Duoneb 3.0-0.5 Mg/3 Ml) 3 ml NEB Q4H PRN PRN Reason: Shortness Of Breath/wheezing Amiodarone HCl (Cordarone) 400 mg PO 1800 [facility] Last Admin: 11/11/18 17:53 Dose: 400 mg Aspirin (Halfprin) 81 mg PO 1200 [facility] Last Admin: 11/11/18 11:39 Dose: 81 mg Bisacodyl (Dulcolax) 5 mg PO DAILY PRN PRN Reason: Constipation Docusate Sodium (Colace) 100 mg PO BID PRN PRN Reason: Constipation Last Admin: 11/11/18 06:07 Dose: 100 mg Doxazosin Mesylate (Cardura) 2 mg PO BEDTIME [facility] Last Admin: 11/11/18 20:15 Dose: 2 mg Enoxaparin Sodium (Lovenox) 40 mg SUBCUT DAILY [facility] Last Admin: 11/12/18 08:50 Dose: 40 mg Finasteride (Proscar) 5 mg PO DAILY [facility] Last Admin: 11/12/18 08:49 Dose: 5 mg Furosemide (Lasix) 20 mg PO DAILY [facility] Last Admin: 11/12/18 08:50 Dose: 20 mg Magnesium Hydroxide (Milk Of Magnesia) 30 ml PO Q6H PRN PRN Reason: Constipation Last Admin: 11/11/18 09:20 Dose: 30 ml Magnesium Sulfate (Pharmacy To Dose - Magnesium Replacement) 0 dose .XX ASDIRECTED PRN PRN Reason: RX TO WATCH MAG Metoprolol Succinate (Toprol Xl) 25 mg PO BID@0900,1800 [facility] Last Admin: 11/12/18 08:49 Dose: 25 mg Nitroglycerin (Nitrostat) 0.4 mg SL ASDIRECTED PRN PRN Reason: CHEST PAIN Ondansetron HCl (Zofran) 4 mg IV Q6H PRN PRN Reason: Nausea/Vomiting Oral Electrolytes (Thermotabs) 1 each PO 1200,1800 [facility] Last Admin: 11/11/18 17:51 Dose: 1 each Brimonidine 0.2% Eye (Drop Ptom) 1 each EYEBOTH BID [facility] Last Admin: 11/12/18 08:50 Dose: 1 each Fluticasone/Umeclidin/Vilanter * *Ptom 0 each INH DAILY [facility] Last Admin: 11/12/18 08:10 Dose: 1 each Polyethylene Glycol (Miralax) 17 gm PO DAILY PRN PRN Reason: Constipation Potassium Chloride (Pharmacy To Dose - Potassium Replacement) 0 dose .XX ASDIRECTED PRN PRN Reason: RX TO WATCH K Ranolazine (Ranexa) 1,000 mg PO 1200,1800 [facility] Last Admin: 11/11/18 17:51 Dose: 1,000 mg Senna/Docusate Sodium (Senna Plus) 1 tab PO BID PRN PRN Reason: Constipation Last Admin: 11/11/18 06:07 Dose: 1 tab Sodium Chloride (Saline Flush) 10 ml FLUSH ASDIRECTED PRN PRN Reason: Keep Vein Open Last Admin: 11/09/18 21:48 Dose: 10 ml Spironolactone (Aldactone) 25 mg PO DAILY [facility] Discontinued Medications Brimonidine Tartrate (Alphagan 0.2% [facility] Soln) 0 ml EYEBOTH BID [facility] Sodium Chloride (Normal Saline) 500 mls @ 1,000 mls/hr IV .BOLUS [facility] Last Admin: 11/09/18 21:48 Dose: 1,000 mls/hr Magnesium Sulfate 2 gm/ Premix 50 mls @ 25 mls/hr IV ONETIME ONE Stop: 11/10/18 09:20 Last Admin: 11/10/18 09:32 Dose: 25 mls/hr Furosemide 100 mg/ Sodium (Chloride) 100 mls @ 4 mls/hr IV TITRATE [facility]; Protocol Last Admin: 11/10/18 14:15 Dose: 4 mg/hr, 4 mls/hr Metoprolol Succinate (Toprol Xl) 50 mg PO BID@0900,1800 [facility] Metoprolol Succinate (Toprol Xl) 25 mg PO ONETIME ONE Stop: 11/10/18 12:39 Last Admin: 11/10/18 14:28 Dose: Not Given Fluticasone/Umeclidin/Vilanter * *Ptom 1 each INH DAILY [facility] Last Admin: 11/10/18 16:57 Dose: Not Given Ranolazine (Ranexa) 1,000 mg PO 1200,1800 [facility] Last Admin: 11/10/18 19:57 Dose: Not Given - Exam Quality Assessment: Reports: DVT Prophylaxis General: Reports: Alert, Oriented, Cooperative, No Acute Distress HEENT: Reports: Pupils Equal, Pupils Reactive, EOMI, Mucous Membr. Moist/[place] Neck: Reports: Supple, Trachea Midline Lungs: Reports: Normal Respiratory Effort, Decreased Breath Sounds Cardiovascular: Reports: Regular Rate, Regular Rhythm, Other (100% paced rhythm) GI/Abdominal Exam: Normal Bowel Sounds, Soft, Non-Tender, No Organomegaly, No Distention (Male) Exam: Deferred Rectal (Males) Exam: Deferred Back Exam: Reports: Normal Inspection, Full Range of Motion Extremities: Normal Inspection, Normal Range of Motion, Non-Tender, Normal Capillary Refill, Pedal Edema (Trace ) Skin: Reports: Warm, Dry Neurological: Reports: No New Focal Deficit
[2018-11-12] MEDS: Aspirin 81 MG Tab.EC PO SCH (12:15)
[2018-11-12] MEDS: Sodium Chloride/Potassium Chloride Tab PO SCH (12:15)
[2018-11-12 12:47] VITALS: BP 103/53
[2018-11-12] MEDS ORDERED: Spironolactone 25 MG Tab PO SCH (19:00)
== END 2018-11-12 14:05 | disposition home or self-care (01) | DRG 292 ==
LOC: JD.ED 20:55 → JD.MS 11-10 01:54 → OBSVTOIN 11-10 09:43
PROVIDERS: ADMIT Internal Medicine Cardiovascular Disease; ATTEND Internal Medicine Cardiovascular Disease
DX: I50.23 Acute on chronic systolic (congestive) heart failure (principal); I50.9 Heart failure, unspecified; E87.1 Hypo-osmolality and hyponatremia; J10.1 Influenza due to other identified influenza virus with other respiratory manifestations; N40.1 Benign prostatic hyperplasia with lower urinary tract symptoms; I25.10 Atherosclerotic heart disease of native coronary artery without angina pectoris; I25.5 Ischemic cardiomyopathy; I95.9 Hypotension, unspecified; R33.8 Other retention of urine; E78.00 Pure hypercholesterolemia, unspecified; J43.9 Emphysema, unspecified; M19.90 Unspecified osteoarthritis, unspecified site; W18.30XA Fall on same level, unspecified, initial encounter; I25.2 Old myocardial infarction; Z95.5 Presence of coronary angioplasty implant and graft; Z95.1 Presence of aortocoronary bypass graft; Z95.810 Presence of automatic (implantable) cardiac defibrillator; Z88.1 Allergy status to other antibiotic agents; Z88.8 Allergy status to other drugs, medicaments and biological substances; R06.02 Shortness of breath; R42 Dizziness and giddiness; R53.1 Weakness; Z79.899 Other long term (current) drug therapy; Z79.82 Long term (current) use of aspirin; Z79.52 Long term (current) use of systemic steroids; Z96.649 Presence of unspecified artificial hip joint; Z96.659 Presence of unspecified artificial knee joint; Z90.49 Acquired absence of other specified parts of digestive tract
CPT/HCPCS: 36415 ×2; 51701; 70450; 71045; 80048; 80053; 83735 ×2; 83880; 84484; 85025; 86738; 93005; 96360; 97162; 99285; J1650; J3475; J7040; 51702; 51798; 87486; 87581; 87632; 87798; 87899; 93010; 94640; 94760; 97110-GP; 97112-GP; 97116-GP; 97166-GO; 97530-GO; A9270-GY; J1940; J7030

== ENCOUNTER 2019-01-03 14:05 | Emergency (ER) | payer MEDICARE, OTHER ==
[2019-01-03 14:13] VITALS: BP 144/80
--- NOTE | 2019-01-03 14:37 | EDM.PDOC ---
ED HPI GENERAL MEDICAL PROBLEM - General Chief Complaint: Genitourinary Problem Stated Complaint: GENITOURINARY PROBLEM Time Seen by Provider: 01/03/19 14:22 Source of Information: Reports: Patient History Limitations: Reports: No Limitations - History of Present Illness INITIAL COMMENTS - FREE TEXT/NARRATIVE: 78 y/o male resents to ER with cc right scrotal pain. He reports the pain started this morning and has progressively gotten worse. His pain is 3/10. He reports that he had similar pain in the past and was told he had Escherichia coli. He denies any fever or chills or back pain. He does have a history of CHF and cardiac disease. He is by his . Onset Date: 01/03/19 Onset Time: 09:00 Duration: Getting Worse Location: Reports: Other (right scrotum) Severity: Mild Improves with: Reports: None Worsens with: Reports: Movement Associated Symptoms: Denies: Fever/Chills, Nausea/Vomiting, Weakness Scrotum Pain Score (Numeric/FACES): 3 - Related Data Allergies Allergy/AdvReac Type Severity Reaction Status Date / Time atorvastatin Allergy Other Verified 01/03/19 14:14 hydrochlorothiazide Allergy Other Verified 01/03/19 14:14 rosuvastatin [From Crestor] Allergy Other Verified 01/03/19 14:14 tamsulosin [From Flomax] Allergy Difficulty Verified 01/03/19 14:14 Breathing amoxicillin [From Augmentin] AdvReac Diarrhea Verified 01/03/19 14:14 clavulanic acid AdvReac Diarrhea Verified 01/03/19 14:14 [From Augmentin] droperidol AdvReac Anxiety Verified 01/03/19 14:14 Home Meds: Home Meds Albuterol [Proventil HFA] 2 puff INH Q6H PRN 06/07/18 [History] Ubidecarenone [Coq-10] 200 mg PO 1200 06/07/18 [History] Amiodarone [Cordarone] 400 mg PO 1800 08/15/18 [History] Nitroglycerin [Nitrostat] 0.4 mg SL ASDIRECTED 08/15/18 [History] Vit C/E/Zn/Coppr/Lutein/Zeaxan [Preservision Areds 2 Softgel] 1 cap PO 1200, 1800 08/15/18 [History] Acetaminophen 650 mg PO Q6H PRN 10/27/18 [History] Aspirin [Halfprin] 81 mg PO 1200 10/27/18 [History] Finasteride [Proscar] 5 mg PO DAILY 10/27/18 [History] Ranolazine [Ranexa] 1,000 mg PO 1200,1800 10/27/18 [History] Brimonidine [Alphagan 0.2% Ophth Soln] 1 drop EYEBOTH BID 11/10/18 [History] Fluticasone/Umeclidin/Vilanter [Trelegy Ellipta 100-62.5-25 MCG] 1 puff INH DAILY 11/10/18 [History] Sodium Chloride/KCl [Thermotabs] 1 gm PO 1200,1800 11/10/18 [History] Candesartan Cilexetil [Atacand] 8 mg PO 1200 #0 11/12/18 [Rx] Doxazosin [Cardura] 2 mg PO BEDTIME #0 11/12/18 [Rx] Furosemide 40 mg PO ASDIRECTED #30 11/12/18 [Rx] Metoprolol Succinate [Toprol XL 50mg] 50 mg PO BID@0900,1800 #0 11/12/18 [Rx] Spironolactone [Aldactone] 25 mg PO ASDIRECTED #30 tablet 11/12/18 [Rx] metOLazone [Zaroxolyn] 2.5 mg PO ASDIRECTED #12 tab 11/12/18 [Rx] Doxycycline [Vibramycin] 100 mg PO BID 10 Days #20 cap 01/03/19 [Rx] Past Medical History HEENT History: Reports: Other (See Below) Other HEENT History: wears glasses Cardiovascular History: Reports: Arrhythmia, Heart Failure, High Cholesterol, Hypertension, [place] Respiratory History: Reports: COPD Other Respiratory History: emphysema Genitourinary History: Reports: BPH, Retention, Urinary Other Genitourinary History: selft caths Musculoskeletal History: Reports: Arthritis - Infectious Disease History Infectious Disease History: Reports: Chicken Pox, Measles, Mumps - Past Surgical History Cardiovascular Surgical History: Reports: AICD, Coronary Artery Bypass, Coronary Artery Stent GI Surgical History: Reports: Cholecystectomy, Hernia, Abdominal, Other (See Below) Musculoskeletal Surgical History: Reports: Hip Replacement, Knee Replacement Social & Family History - Family History Family Medical History: Noncontributory - Tobacco Use Smoking Status *Q: Never Smoker - Caffeine Use Caffeine Use: Reports: Coffee - Recreational Drug Use Recreational Drug Use: No - Living Situation & Occupation Living situation: Reports: , with Spouse Occupation: Retired ED ROS GENERAL - Review of Systems Review Of Systems: See Below Constitutional: Denies: Fever, Chills HEENT: Reports: Glasses Respiratory: Reports: Shortness of Breath Cardiovascular: Denies: Chest Pain Endocrine: Denies: Fatigue GI/Abdominal: Denies: Abdominal Pain, Nausea, Vomiting : Reports: Other (right scrotal pain and swelling ). Denies: Dysuria, Flank Pain, Incontinence, Urgency Musculoskeletal: Denies: Back Pain Skin: Reports: No Symptoms Neurological: Reports: No Symptoms Psychiatric: Reports: No Symptoms Hematologic/Lymphatic: Reports: No Symptoms ED EXAM, GI/ABD - Physical Exam Exam: See Below Exam Limited By: No Limitations General Appearance: Alert, WD/WN, No Apparent Distress Respiratory/Chest: No Respiratory Distress, Lungs Clear, Normal Breath Sounds, No Accessory Muscle Use, Chest Non-Tender Cardiovascular: Normal Peripheral Pulses, Regular Rate, Rhythm, No JVD, No Murmur, No Rub GI/Abdominal Exam: Normal Bowel Sounds, Soft, Non-Tender, No Organomegaly, No Distention, No Abnormal Bruit, No Mass, Pelvis Stable (Male) Exam: Scrotal Swelling, Scrotum Tenderness (R), Testicular Tenderness (R). No: Penile Lesions, Urethral Discharge Back Exam: Normal Inspection, Full Range of Motion Extremities: Normal Inspection, Normal Range of Motion, Non-Tender, No Pedal Edema, Normal Capillary Refill Neurological: Alert, Oriented, CN II-XII Intact Psychiatric: Normal Affect, Normal Mood Skin Exam: Warm, Dry, Intact, Normal Color, No Rash Lymphatic: No Adenopathy Course - Vital Signs Last Recorded V/S: Last Vital Signs Temp 98.0 F 01/03/19 14:10 Pulse 89 01/03/19 14:10 Resp 20 01/03/19 14:10 BP 144/80 H 01/03/19 14:10 Pulse Ox 100 01/03/19 14:10 - Orders/Labs/Meds Orders: Active Orders 24 hr Category Date Time Status Scrotum and Contents [US] Stat Exams 01/03/19 14:30 Taken Doxycycline [Vibramycin] Med 01/03/19 17:08 Once 100 mg PO ONETIME ONE Medication Orders Doxycycline Hyclate (Vibramycin) 100 mg PO ONETIME ONE Stop: 01/03/19 17:09 Labs: Laboratory Tests 01/03/19 Range/Units 14:33 Urine Color Yellow (Yellow) Urine Appearance Slt cloudy H (Clear) Urine pH 6.0 (5.0-8.0) Ur Specific Fabens 1.025 (1.005-1.030) Urine Protein Negative (Negative) Urine Glucose (UA) Negative (Negative) Urine Ketones Negative (Negative) Urine Occult Blood Negative (Negative) Urine Nitrite Positive H (Negative) Urine Bilirubin Negative (Negative) Urine Urobilinogen 1.0 (0.2-1.0) Ur Leukocyte Esterase Trace H (Negative) Urine RBC 0-5 (0-5) /hpf Urine WBC 20-30 H (0-5) /hpf Ur Squamous Epith Cells 0-5 (0-5) /hpf Urine Bacteria Many H (FEW) /hpf Urine Mucus Not seen (FEW) /hpf Meds: Medications Generic Name Dose Route Start Last Admin Trade Name Freq PRN Reason Stop Dose Admin Doxycycline Hyclate 100 mg 01/03/19 17:08 Vibramycin PO 01/03/19 17:09 ONETIME ONE - Re-Assessments/Exams Free Text/Narrative Re-Assessment/Exam: 01/03/19 16:53 Urinalysis is positive for nitrates and trace leuko esterase WBCs are 20-30 bacteria are many this is consistent with a UTI. Patient reports that he has taken Keflex in the past for his UTIs. Scrotal ultrasound is still pending. 01/03/19 17:09 Scrotal ultrasound reveals constellation of findings most in keep with right epididymitis, with an enlarged, hypervascular right epididymis, with an internal area of heterogeneous hypo-echogenicity. Moderate bilateral hydrocele , which contains internal septations on the right side. I will discharge home with doxycycline for outpatient antibiotic therapy. Instructed to follow-up with his PCP. Instructed to return to the emergency room for any new or acutely worsening symptoms. Departure - Departure Time of Disposition: 17:12 Disposition: Home, Self-Care 01 Condition: Good Clinical Impression: UTI, Urinary tract infectious disease, Epididymitis - Discharge Information Prescriptions: Doxycycline [Vibramycin] 100 mg PO BID 10 Days #20 cap Instructions: Urinary Tract Infection, Adult, [id number], Epididymitis Referrals: Heath Rodriguez MD [Primary Care Provider] - Forms: ED Department Discharge Additional Instructions: You have been diagnosed with a urinary tract infection and epididymitis. Take the doxycycline as prescribed. Follow up with her PCP. Return to pursue for any new or acutely worsening symptoms. - My Orders Last 24 Hours: My Active Orders 01/03/19 14:30 Scrotum and Contents [US] Stat 01/03/19 17:08 Doxycycline [Vibramycin] 100 mg PO ONETIME ONE - Assessment/Plan Last 24 Hours: My Active Orders 01/03/19 14:30 Scrotum and Contents [US] Stat 01/03/19 17:08 Doxycycline [Vibramycin] 100 mg PO ONETIME ONE
[2019-01-03] MEDS ORDERED: Doxycycline 100 MG Cap PO ONE (17:08)
--- NOTE | 2019-01-05 10:18 | US ---
Testicular ultrasound: Multiple real-time images were obtained. Comparison: No prior testicular imaging. Findings: Bilateral hydroceles are seen. Both testicles have a homogeneous ultrasound appearance. Both arterial and venous blood flow are seen within both testicles. Small cyst is noted within the left testicle measuring 4 mm. No other intraparenchymal abnormality is seen within the testicles. Slight increased Doppler vascularity is noted within the right epididymis presumably due to epididymitis. Small left epididymal cyst is seen measuring 4 mm. Measurements: Right testicle: 2.9 x 2.8 x 2.6 cm Left testicle: 3.3 x 2.3 x 3.5 cm Impression: 1. Right-sided epididymitis. 2. Bilateral hydroceles. 3. Other incidental findings. Diagnostic code #3 I agree with preliminary report from [facility], finalized on 01/03/19, 5:54 PM Central Time
== END 2019-01-03 17:30 | disposition home or self-care (01) ==
LOC: JD.ED 14:05
DX: N45.1 Epididymitis (principal); N39.0 Urinary tract infection, site not specified; I10 Essential (primary) hypertension; I50.9 Heart failure, unspecified; E78.00 Pure hypercholesterolemia, unspecified; J44.9 Chronic obstructive pulmonary disease, unspecified; Z88.8 Allergy status to other drugs, medicaments and biological substances; Z88.1 Allergy status to other antibiotic agents; Z79.899 Other long term (current) drug therapy
CPT/HCPCS: 76870; 81001; 93975; 99284; A9270; 99283

== ENCOUNTER 2019-01-26 21:00 | Emergency (ER) | payer MEDICARE, OTHER ==
[2019-01-26 21:10] VITALS: BP 119/81
--- NOTE | 2019-01-26 21:29 | EDM.PDOC ---
ED HPI GENERAL MEDICAL PROBLEM - General Chief Complaint: Genitourinary Problem Stated Complaint: POSS UTI Time Seen by Provider: 01/26/19 21:19 - History of Present Illness INITIAL COMMENTS - FREE TEXT/NARRATIVE: 78-year-old male presents emergency room with weakness. He's done this a couple times in the past didn't seem to been a bladder infection or his electrolytes were all messed up patient has congestive heart failure he takes amiodarone has a defibrillator in place. He has shortness of breath this really isn't much worse than normal. He has some lightheadedness when he stands up it usually gets better but sometimes it does not. It is hard to assess him for bladder symptoms as he chronically self catheters. He denies chest pain chest pressure or palpitations. - Related Data Allergies Allergy/AdvReac Type Severity Reaction Status Date / Time atorvastatin Allergy Other Verified 01/26/19 21:07 hydrochlorothiazide Allergy Other Verified 01/26/19 21:07 rosuvastatin [From Crestor] Allergy Other Verified 01/26/19 21:07 tamsulosin [From Flomax] Allergy Difficulty Verified 01/26/19 21:07 Breathing amoxicillin [From Augmentin] AdvReac Diarrhea Verified 01/26/19 21:07 clavulanic acid AdvReac Diarrhea Verified 01/26/19 21:07 [From Augmentin] droperidol AdvReac Anxiety Verified 01/26/19 21:07 Home Meds: Home Meds Albuterol [Proventil HFA] 2 puff INH Q6H PRN 06/07/18 [History] Ubidecarenone [Coq-10] 200 mg PO 1200 06/07/18 [History] Amiodarone [Cordarone] 400 mg PO 1800 08/15/18 [History] Nitroglycerin [Nitrostat] 0.4 mg SL ASDIRECTED PRN 08/15/18 [History] Vit C/E/Zn/Coppr/Lutein/Zeaxan [Preservision Areds 2 Softgel] 1 cap PO 1200, 1800 08/15/18 [History] Acetaminophen 650 mg PO Q6H PRN 10/27/18 [History] Aspirin [Halfprin] 81 mg PO 1200 10/27/18 [History] Finasteride [Proscar] 5 mg PO DAILY 10/27/18 [History] Ranolazine [Ranexa] 500 mg PO 1200,1800 10/27/18 [History] Brimonidine [Alphagan 0.2% Ophth Soln] 1 drop EYEBOTH BID 11/10/18 [History] Fluticasone/Umeclidin/Vilanter [Trelegy Ellipta 100-62.5-25 MCG] 1 puff INH DAILY 11/10/18 [History] Sodium Chloride/KCl [Thermotabs] 1 gm PO 1200,1800 11/10/18 [History] Candesartan Cilexetil [Atacand] 8 mg PO 1200 #0 11/12/18 [Rx] Furosemide 40 mg PO ASDIRECTED #30 11/12/18 [Rx] Spironolactone [Aldactone] 25 mg PO ASDIRECTED #30 tablet 11/12/18 [Rx] metOLazone [Zaroxolyn] 2.5 mg PO ASDIRECTED #12 tab 11/12/18 [Rx] Doxycycline [Vibramycin] 100 mg PO BID 10 Days #20 cap 01/03/19 [Rx] Docusate Sodium 100 mg PO BID 01/26/19 [History] Doxazosin [Cardura] 1 mg PO 2100 01/26/19 [History] Losartan [Cozaar] 12.5 mg PO BID 01/26/19 [History] Metoprolol Succinate [Toprol XL 50mg] 25 mg PO BID 01/26/19 [History] Nystatin [Mycostatin] 5 ml PO QID 01/26/19 [History] Ranitidine [Zantac] 150 mg PO DAILY 01/26/19 [History] Nitrofurantoin Monohyd/M-Cryst [Macrobid 100 mg Capsule] 100 mg PO Q12H #14 capsule 01/27/19 [Rx] Past Medical History HEENT History: Reports: Other (See Below) Other HEENT History: wears glasses Cardiovascular History: Reports: Arrhythmia, Heart Failure, High Cholesterol, Hypertension, [place] Respiratory History: Reports: COPD Other Respiratory History: emphysema Genitourinary History: Reports: BPH, Retention, Urinary Other Genitourinary History: selft caths Musculoskeletal History: Reports: Arthritis - Infectious Disease History Infectious Disease History: Reports: Chicken Pox, Measles, Mumps - Past Surgical History Cardiovascular Surgical History: Reports: AICD, Coronary Artery Bypass, Coronary Artery Stent GI Surgical History: Reports: Cholecystectomy, Hernia, Abdominal, Other (See Below) Musculoskeletal Surgical History: Reports: Hip Replacement, Knee Replacement Social & Family History - Family History Family Medical History: Noncontributory - Tobacco Use Smoking Status *Q: Former Smoker Used Tobacco, but Quit: Yes Month/Year Tobacco Last Used: 1982 - Caffeine Use Caffeine Use: Reports: Coffee - Recreational Drug Use Recreational Drug Use: No - Living Situation & Occupation Living situation: Reports: , with Spouse Occupation: Retired ED ROS GENERAL - Review of Systems Review Of Systems: See Below Constitutional: Reports: No Symptoms HEENT: Reports: No Symptoms Respiratory: Reports: No Symptoms Cardiovascular: Reports: No Symptoms Endocrine: Reports: No Symptoms GI/Abdominal: Reports: No Symptoms : Reports: No Symptoms Neurological: Reports: No Symptoms ED EXAM, RENAL/ - Physical Exam Exam: See Below Exam Limited By: No Limitations General Appearance: Alert, No Apparent Distress, Other Head: Atraumatic, Normocephalic Neck: Normal Inspection, Supple, Non-Tender, Full Range of Motion Respiratory/Chest: No Respiratory Distress, Lungs Clear, Normal Breath Sounds Cardiovascular: Regular Rate, Rhythm, No Edema, No Murmur GI/Abdominal: Normal Bowel Sounds, Soft, Non-Tender Back Exam: Normal Inspection. No: CVA Tenderness (L), CVA Tenderness (R) Extremities: Normal Inspection, Non-Tender, Other (Report is in place left lower extremity has 1+ pitting edema) Neurological: Alert, Oriented, Normal Cognition Psychiatric: Normal Affect, Normal Mood Skin Exam: Warm, Dry, Intact Course - Vital Signs Last Recorded V/S: Last Vital Signs Temp 35.7 C 01/26/19 21:08 Pulse 63 01/26/19 21:08 Resp 18 01/26/19 21:08 BP 119/81 01/26/19 21:08 Pulse Ox 100 01/26/19 21:08 - Orders/Labs/Meds Orders: Active Orders 24 hr Category Date Time Status EKG Documentation Completion [RC] STAT Care 01/26/19 21:37 Active Chest 1V Frontal [CR] Stat Exams 01/26/19 21:38 Taken CULTURE URINE [RM] Stat Lab 01/27/19 00:04 Ordered Labs: Laboratory Tests 01/26/19 01/26/19 01/26/19 Range/Units 22:01 22:01 22:18 WBC 5.36 (4.23-9.07) K/mm3 RBC 3.54 L (4.63-6.08) M/mm3 Hgb 11.2 L (13.7-17.5) gm/L Hct 33.0 L (40.1-51.0) % MCV 93.2 H (79.0-92.2) fl MCH 31.6 (25.7-32.2) pg MCHC 33.9 (32.2-35.5) g/dl RDW Std Deviation 53.3 H (35.1-43.9) fL Plt Count 208 (163-337) K/mm3 MPV 9.2 L (9.4-12.3) fl Neutrophils % (Manual) 83 H (40-60) % Band Neutrophils % 0 (0-10) % Lymphocytes % (Manual) 14 L (20-40) % Atypical Lymphs % 0 % Monocytes % (Manual) 3 (2-10) % Eosinophils % (Manual) 0 L (0.8-7.0) % Basophils % (Manual) 0 L (0.2-1.2) Platelet Estimate Adequate RBC Morph Comment Normal Sodium 125 L (136-145) mEq/L Potassium 4.8 (3.5-5.1) mEq/L Chloride 90 L (98-107) mEq/L Carbon Dioxide 26 (21-32) mEq/L Anion Gap 13.8 (5-15) BUN 16 (7-18) mg/dL Creatinine 1.1 (0.7-1.3) mg/dL Est Cr Clr Drug Dosing TNP Estimated GFR (MDRD) > 60 (>60) mL/min BUN/Creatinine Ratio 14.5 (14-18) Glucose 132 H (83-115) mg/dL Calcium 8.9 (8.5-10.1) mg/dL Magnesium 1.9 (1.8-2.4) mg/dl Troponin I 0.027 (0.00-0.056) ng/mL Urine Color Dark yellow (Yellow) Urine Appearance Clear (Clear) Urine pH 6.5 (5.0-8.0) Ur Specific Richardson 1.025 (1.005-1.030) Urine Protein 1+ H (Negative) Urine Glucose (UA) Negative (Negative) Urine Ketones Negative (Negative) Urine Occult Blood Negative (Negative) Urine Nitrite Negative (Negative) Urine Bilirubin Negative (Negative) Urine Urobilinogen 2.0 H (0.2-1.0) Ur Leukocyte Esterase Trace H (Negative) Urine RBC 0-5 (0-5) /hpf Urine WBC 5-10 H (0-5) /hpf Ur Epithelial Cells 0-5 (0-5) /hpf Urine Bacteria Moderate H (FEW) /hpf Urine Mucus Few (FEW) /hpf Meds: Medications Discontinued Medications Generic Name Dose Route Start Last Admin Trade Name Freq PRN Reason Stop Dose Admin Nitrofurantoin Macrocrystals 100 mg 01/27/19 00:04 Macrobid PO 01/27/19 00:05 ONETIME ONE - Re-Assessments/Exams Free Text/Narrative Re-Assessment/Exam: 01/27/19 00:05 Urinalysis is moderately suggestive of an early UTI however I cannot exclude colonization as he does self catheter. The patient has had multiple episodes like this in the past 3 gets better with treatment so we'll go ahead and start him on some Macrobid and arrange a culture on his urine. Patient agrees to follow-up with his regular physician couple of days. Departure - Departure Time of Disposition: 00:06 Disposition: Home, Self-Care 01 Clinical Impression: Urinary tract infection - Discharge Information Prescriptions: Nitrofurantoin Monohyd/M-Cryst [Macrobid 100 mg Capsule] 100 mg PO Q12H #14 capsule Referrals: Heath Rodriguez MD [Primary Care Provider] - Forms: ED Department Discharge Additional Instructions: Return to the emergency room with any questions problems worsening symptoms. Take the Macrobid as directed one twice daily until all gone. Follow-up with your regular physician on . - My Orders Last 24 Hours: My Active Orders 01/26/19 21:37 EKG Documentation Completion [RC] STAT 01/26/19 21:38 Chest 1V Frontal [CR] Stat 01/27/19 00:04 CULTURE URINE [RM] Stat - Assessment/Plan Last 24 Hours: My Active Orders 01/26/19 21:37 EKG Documentation Completion [RC] STAT 01/26/19 21:38 Chest 1V Frontal [CR] Stat 01/27/19 00:04 CULTURE URINE [RM] Stat
[2019-01-27] MEDS ORDERED: Nitrofurantoin Monohydrate/Macrocrystalline 100 MG Cap PO ONE (00:04)
--- NOTE | 2019-01-27 08:58 | CR ---
Chest: Portable view of the chest was obtained. Comparison: Prior chest x-ray of 11/09/18. Heart is enlarged. AICD is present with sternotomy. Mild scarring noted within the left base. Lungs otherwise are clear with no acute parenchymal change. Bony structures are grossly intact. Impression: 1. Findings as noted above. Nothing acute is seen. Diagnostic code #2
== END 2019-01-27 00:22 | disposition home or self-care (01) ==
LOC: JD.ED 21:00
DX: N39.0 Urinary tract infection, site not specified (principal); I11.0 Hypertensive heart disease with heart failure; I50.9 Heart failure, unspecified; J44.9 Chronic obstructive pulmonary disease, unspecified; Z87.891 Personal history of nicotine dependence; Z88.8 Allergy status to other drugs, medicaments and biological substances
CPT/HCPCS: 36415; 71045; 80048; 81001; 83735; 84484; 85007; 85027; 87086; 87088; 87186; 93005; 99283; A9270; 93010

== ENCOUNTER 2019-02-06 20:26 | Observation (INO) | payer MEDICARE, OTHER ==
--- NOTE | 2019-02-06 21:04 | EDM.PDOC ---
ED HPI GENERAL MEDICAL PROBLEM - General Chief Complaint: Cardiovascular Problem Stated Complaint: WEAK POSS MEDICATION Time Seen by Provider: 02/06/19 20:29 Source of Information: Reports: Patient, Family History Limitations: Reports: No Limitations - History of Present Illness INITIAL COMMENTS - FREE TEXT/NARRATIVE: This is a 78-year-old male. He comes in today because he is more forgetful than usual according to the . He also has been very weak and he fell today hitting the back of his head though there was no loss of consciousness and the had to call someone to the house in order to get him back up because she could not get him back up. He does have a history of peripheral edema and he is on 40 of Lasix daily when he went to see his family doctor on and he increase the Lasix to 80 mg a day. The patient states he does not take potassium supplement but I noticed he is on spironolactone as well. Yesterday and today has been having problems with his balance. He denies any significant shortness of breath he's had no orthopnea. He just complains of increased swelling in his lower extremities. He's had no fever no chills. He apparently has a neurogenic bladder and requires self catheter several times a day. No cough no congestion no abdominal pain. - Related Data Allergies Allergy/AdvReac Type Severity Reaction Status Date / Time atorvastatin Allergy Other Verified 02/06/19 20:33 hydrochlorothiazide Allergy Other Verified 02/06/19 20:33 rosuvastatin [From Crestor] Allergy Other Verified 02/06/19 20:33 tamsulosin [From Flomax] Allergy Difficulty Verified 02/06/19 20:33 Breathing amoxicillin [From Augmentin] AdvReac Diarrhea Verified 02/06/19 20:33 clavulanic acid AdvReac Diarrhea Verified 02/06/19 20:33 [From Augmentin] droperidol AdvReac Anxiety Verified 02/06/19 20:33 Home Meds: Home Meds Albuterol [Proventil HFA] 2 puff INH Q6H PRN 06/07/18 [History] Ubidecarenone [Coq-10] 200 mg PO DAILY 06/07/18 [History] Amiodarone [Cordarone] 200 mg PO BID 08/15/18 [History] Nitroglycerin [Nitrostat] 0.4 mg SL ASDIRECTED PRN 08/15/18 [History] Vit C/E/Zn/Coppr/Lutein/Zeaxan [Preservision Areds 2 Softgel] 1 cap PO BID 08/15 [History] Acetaminophen 650 mg PO Q6H PRN 10/27/18 [History] Aspirin [Halfprin] 81 mg PO 1200 10/27/18 [History] Finasteride [Proscar] 5 mg PO DAILY 10/27/18 [History] Ranolazine [Ranexa] 500 mg PO BID 10/27/18 [History] Brimonidine [Alphagan 0.2% Ophth Soln] 1 drop EYEBOTH BID 11/10/18 [History] Fluticasone/Umeclidin/Vilanter [Trelegy Ellipta 100-62.5-25 MCG] 1 puff INH DAILY 11/10/18 [History] Sodium Chloride/KCl [Thermotabs] 1 gm PO BID 11/10/18 [History] Docusate Sodium 100 mg PO DAILY 01/26/19 [History] Doxazosin [Cardura] 1 mg PO DAILY 01/26/19 [History] Losartan [Cozaar] 12.5 mg PO BID 01/26/19 [History] Metoprolol Succinate [Toprol XL 50mg] 25 mg PO BID 01/26/19 [History] Ranitidine [Zantac] 150 mg PO DAILY 01/26/19 [History] Furosemide 80 mg PO DAILY 02/06/19 [History] Polyethylene Glycol 3350 [MiraLAX] 17 gm PO DAILY PRN 02/06/19 [History] Sulfamethoxazole/Trimethoprim [Septra DS] 1 tab PO BID 02/06/19 [History] Past Medical History HEENT History: Reports: Other (See Below) Other HEENT History: wears glasses Cardiovascular History: Reports: Arrhythmia, Heart Failure, High Cholesterol, Hypertension, [place] Respiratory History: Reports: COPD Other Respiratory History: emphysema Genitourinary History: Reports: BPH, Retention, Urinary Other Genitourinary History: selft caths Musculoskeletal History: Reports: Arthritis - Infectious Disease History Infectious Disease History: Reports: Chicken Pox, Measles, Mumps - Past Surgical History Cardiovascular Surgical History: Reports: AICD, Coronary Artery Bypass, Coronary Artery Stent GI Surgical History: Reports: Cholecystectomy, Hernia, Abdominal, Other (See Below) Musculoskeletal Surgical History: Reports: Hip Replacement, Knee Replacement Social & Family History - Family History Family Medical History: Noncontributory - Tobacco Use Smoking Status *Q: Unknown Ever Smoked - Caffeine Use Caffeine Use: Reports: Coffee - Living Situation & Occupation Living situation: Reports: , with Spouse Occupation: Retired ED ROS GENERAL - Review of Systems Review Of Systems: See Below Constitutional: Reports: Weakness. Denies: Fever, Chills HEENT: Reports: No Symptoms Respiratory: Denies: Shortness of Breath, Wheezing, Cough Cardiovascular: Reports: Edema. Denies: Chest Pain Endocrine: Reports: No Symptoms GI/Abdominal: Denies: Abdominal Pain, Diarrhea, Nausea, Vomiting : Reports: Other (Self catheter) Musculoskeletal: Reports: Other (Peripheral edema lower extremities) Skin: Reports: Other (As above) Neurological: Reports: Other ( states he is more forgetful and not really confused) Psychiatric: Reports: No Symptoms ED EXAM, GENERAL - Physical Exam Exam: See Below Exam Limited By: No Limitations General Appearance: Alert, WD/WN, No Apparent Distress Eye Exam: Bilateral Eye: Normal Inspection Ears: Normal External Exam Nose: Normal Inspection Throat/Mouth: Normal Inspection, Normal Lips, Normal Voice, No Airway Compromise Head: Normocephalic, Other (Checking the back of his head he does not have any abrasion or hematoma of the scalp noted where he says he hit his head) Neck: Supple, Non-Tender, Other (There is no cervical tenderness or midline tenderness noted on palpation) Respiratory/Chest: No Respiratory Distress, Lungs Clear, Normal Breath Sounds, Other (He has a pacemaker in the left anterior chest). No: Crackles, Rales, Rhonchi Cardiovascular: Regular Rate, Rhythm, No Murmur. No: No Edema GI/Abdominal: Soft, Non-Tender, Other (No edema in the lower abdomen noted) Back Exam: Decreased Range of Motion Extremities: Pedal Edema, Other (He is wearing Jobst stockings up to his knees and he has 2-3+ pitting edema in his feet and lower legs and it goes up the lateral thigh about fci to [address] up the lateral thigh bilaterally) Neurological: Alert, Oriented Psychiatric: Normal Affect, Normal Mood Skin Exam: Warm, Dry EKG INTERPRETATION EKG Date: 02/06/19 Time: 22:05 EKG Interpretation Comments: EKG shows a dual paced morphology from her pacemaker, rate of 62, there is no change from an EKG on 01/26/2019. Due to the paced rhythm you cannot tell about ST or T-wave changes or any ischemia changes. Course - Vital Signs Last Recorded V/S: Last Vital Signs Temp 97.3 F 02/06/19 20:33 Pulse 63 02/06/19 20:33 Resp 19 02/06/19 20:33 BP 116/81 02/06/19 20:33 Pulse Ox 98 02/06/19 20:33 - Orders/Labs/Meds Orders: Active Orders 24 hr Category Date Time Status EKG 12 Lead [EKG Documentation Completion] [RC] STAT Care 02/06/19 22:00 Active Chest 2V [CR] Stat Exams 02/06/19 21:05 Taken Labs: Laboratory Tests 02/06/19 02/06/19 02/06/19 Range/Units 21:05 21:05 21:05 WBC (4.23-9.07) K/mm3 RBC (4.63-6.08) M/mm3 Hgb (13.7-17.5) gm/L Hct (40.1-51.0) % MCV (79.0-92.2) fl MCH (25.7-32.2) pg MCHC (32.2-35.5) g/dl RDW Std Deviation (35.1-43.9) fL Plt Count (163-337) K/mm3 MPV (9.4-12.3) fl Neut % (Auto) (34.0-67.9) % Lymph % (Auto) (21.8-53.1) % Wilkin % (Auto) (5.3-12.2) % Eos % (Auto) (0.8-7.0) Baso % (Auto) (0.1-1.2) % Neut # (Auto) (1.78-5.38) K/mm3 Lymph # (Auto) (1.32-3.57) K/mm3 Wilkin # (Auto) (0.30-0.82) K/mm3 Eos # (Auto) (0.04-0.54) K/mm3 Baso # (Auto) (0.01-0.08) K/mm3 Sodium 120 L (136-145) mEq/L Potassium 3.9 (3.5-5.1) mEq/L Chloride 87 L (98-107) mEq/L Carbon Dioxide 25 (21-32) mEq/L Anion Gap 11.9 (5-15) BUN 13 (7-18) mg/dL Creatinine 1.2 (0.7-1.3) mg/dL Est Cr Clr Drug Dosing 51.54 mL/min Estimated GFR (MDRD) 58 (>60) mL/min BUN/Creatinine Ratio 10.8 L (14-18) Glucose 137 H (83-115) mg/dL Calcium 8.3 L (8.5-10.1) mg/dL Total Bilirubin 0.5 (0.2-1.0) mg/dL AST 23 (15-37) U/L ALT 29 (16-63) U/L Alkaline Phosphatase 74 (46-116) U/L Troponin I < 0.017 (0.00-0.056) ng/mL NT-Pro-B Natriuret Pep 7508 H (0-450) pg/mL Total Protein 5.6 L (6.4-8.2) g/dl Albumin 3.0 L (3.4-5.0) g/dl Globulin 2.6 gm/dL Albumin/Globulin Ratio 1.2 (1-2) 02/06/19 Range/Units 21:15 WBC 4.75 (4.23-9.07) K/mm3 RBC 3.30 L (4.63-6.08) M/mm3 Hgb 10.5 L (13.7-17.5) gm/L Hct 29.8 L (40.1-51.0) % MCV 90.3 (79.0-92.2) fl MCH 31.8 (25.7-32.2) pg MCHC 35.2 (32.2-35.5) g/dl RDW Std Deviation 51.3 H (35.1-43.9) fL Plt Count 289 D (163-337) K/mm3 MPV 9.8 (9.4-12.3) fl Neut % (Auto) 68.8 H (34.0-67.9) % Lymph % (Auto) 13.7 L (21.8-53.1) % Wilkin % (Auto) 13.3 H (5.3-12.2) % Eos % (Auto) 2.3 (0.8-7.0) Baso % (Auto) 0.8 (0.1-1.2) % Neut # (Auto) 3.27 (1.78-5.38) K/mm3 Lymph # (Auto) 0.65 L (1.32-3.57) K/mm3 Wilkin # (Auto) 0.63 (0.30-0.82) K/mm3 Eos # (Auto) 0.11 (0.04-0.54) K/mm3 Baso # (Auto) 0.04 (0.01-0.08) K/mm3 Sodium (136-145) mEq/L Potassium (3.5-5.1) mEq/L Chloride (98-107) mEq/L Carbon Dioxide (21-32) mEq/L Anion Gap (5-15) BUN (7-18) mg/dL Creatinine (0.7-1.3) mg/dL Est Cr Clr Drug Dosing mL/min Estimated GFR (MDRD) (>60) mL/min BUN/Creatinine Ratio (14-18) Glucose (83-115) mg/dL Calcium (8.5-10.1) mg/dL Total Bilirubin (0.2-1.0) mg/dL AST (15-37) U/L ALT (16-63) U/L Alkaline Phosphatase (46-116) U/L Troponin I (0.00-0.056) ng/mL NT-Pro-B Natriuret Pep (0-450) pg/mL Total Protein (6.4-8.2) g/dl Albumin (3.4-5.0) g/dl Globulin gm/dL Albumin/Globulin Ratio (1-2) - Radiology Interpretation Free Text/Narrative:: Chest x-ray does not show any acute congestive heart failure, there is a pacemaker in the left anterior chest with wires to the heart that appeared to be in place - Re-Assessments/Exams Free Text/Narrative Re-Assessment/Exam: 02/06/19 22:14 Looking at his past medical history his sodium usually runs in the high 120s but once he gets down about 120 or lower when he starts having problems with balance and weakness. 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 The patient is resting comfortably in bed lying down almost flat with no shortness of breath noted. He denies to me any chest discomfort recently and no significant shortness of breath. 02/06/19 23:[address] Bennett and he'll admit the patient for further evaluation and treatment. I spoke to the patient and the regarding the admission. I talked to them about the low sodium in the low calcium in the low total protein and albumin. They will determine what needs to be done with the patient is far as getting his sodium back to normal and trying to get the fluid out of his legs but he is not in congestive heart failure at this time. 02/06/19 23:58 I again spoke to them about him falling and hitting his head and the possibility of a CAT scan of his head and they both state that he doesn't need a CAT scan and he doesn't want a CAT scan and he's been acting normal. Departure - Departure Time of Disposition: 23:56 Disposition: Admitted As Inpatient 65 Condition: Fair Clinical Impression: Hyponatremia, Weakness, Imbalance, Hypocalcemia, Hypoalbuminemia, Peripheral edema Fall Qualifiers: Encounter type: initial encounter Qualified Code(s): W19.XXXA - Unspecified fall, initial encounter Scalp contusion Qualifiers: Encounter type: initial encounter Qualified Code(s): S00.03XA - Contusion of scalp, initial encounter ED Communication - ED Communication Date/Time Date: 02/07/19 Time Called: 00:01 - Discussed Case With (1) Discussed Case With (1): Admitting Provider Person/s Notified (1): Stu Escalona (He will admit for further evaluation and treatment) - My Orders Last 24 Hours: My Active Orders 02/06/19 21:05 Chest 2V [CR] Stat 02/06/19 22:00 EKG 12 Lead [EKG Documentation Completion] [RC] STAT - Assessment/Plan Last 24 Hours: My Active Orders 02/06/19 21:05 Chest 2V [CR] Stat 02/06/19 22:00 EKG 12 Lead [EKG Documentation Completion] [RC] STAT
[2019-02-07] MEDS ORDERED: Sodium Chloride 0.9% 1,000 ML IV SCH ×2 (00:30→08:40)
[2019-02-07] MEDS ORDERED: Furosemide 40 MG/4 ML VIAL IVPUSH ONE (06:00)
[2019-02-07] MEDS ORDERED: Furosemide 20 MG/2 ML VIAL IVPUSH ONE (06:00)
[2019-02-07] MEDS ORDERED: Acetaminophen 325 MG Tab PO PRN (09:42)
[2019-02-07] MEDS ORDERED: Polyethylene Glycol 3350 Powder 17 GM Packet PO PRN (09:42)
[2019-02-07] MEDS ORDERED: Nitroglycerin 0.4 MG Tab.SL SL PRN (09:42)
[2019-02-07] MEDS: Amiodarone 200 MG Tab PO SCH ×2 (10:46→20:01)
[2019-02-07] MEDS: Metoprolol Succinate 50 MG Tab.ER PO SCH ×2 (10:46→20:02)
[2019-02-07] MEDS: Losartan 25 MG Tab PO SCH ×2 (10:46→20:03)
[2019-02-07] MEDS: Brimonidine 0.2% Ophth Soln 5 ML Bottle EYEBOTH SCH ×2 (11:28→20:04)
[2019-02-07] MEDS: Docusate Sodium 100 MG Cap PO SCH (11:28)
[2019-02-07] MEDS: Aspirin 81 MG Tab.EC PO SCH (11:29)
--- NOTE | 2019-02-07 11:51 | PCM.HP ---
H&P History of Present Illness - General Date of Service: 02/07/19 Admit Problem/Dx: Admission Diagnosis/Problem Admission Diagnosis/Problem Hyponatremia - History of Present Illness Initial Comments - Free Text/Narative: 78-year-old male presented to the emergency room secondary to fall. Patient states he has been dizzy and has had loss of balance that worsened over the last couple of days. Patient was started 3 days ago on Septra and he had an increase in his Lasix from 40 mg to 80 mg secondary to peripheral edema. Patient has a long and significant history of heart disease. Patient also states he gets frequent bladder infections and he was recently started on the Septra for a UTI. This was switched from Macrobid. He states he has an ejection fraction approximately 29%. Today when he fell he did hit the back of his head. There was no loss of consciousness. When he arrived in the emergency room CT scan was done which was negative and an EKG was done which showed dual paced pacemaker with a rate of 62 bpm. Blood pressure was 116/81, pulse 63, temperature 97.3, pulse ox 98%, respiratory rate of 19. Sodium was 120 with a BNP of 7508. Troponin was less than 0.017. Patient was placed on normal saline 125 mg an hour and transferred to the floor. Bridge orders were written by Dr. De Leon. Patient has a history of chronic hyponatremia with his baseline sodium between 125 and 128. - Related Data Allergies/Adverse Reactions: Allergies Allergy/AdvReac Type Severity Reaction Status Date / Time atorvastatin Allergy Other Verified 02/07/19 01:55 hydrochlorothiazide Allergy Other Verified 02/07/19 01:55 rosuvastatin [From Crestor] Allergy Other Verified 02/07/19 01:55 tamsulosin [From Flomax] Allergy Difficulty Verified 02/07/19 01:55 Breathing amoxicillin [From Augmentin] AdvReac Diarrhea Verified 02/07/19 01:55 clavulanic acid AdvReac Diarrhea Verified 02/07/19 01:55 [From Augmentin] droperidol AdvReac Anxiety Verified 02/07/19 01:55 Home Medications: Home Meds Albuterol [Proventil HFA] 2 puff INH Q6H PRN 06/07/18 [History] Ubidecarenone [Coq-10] 200 mg PO DAILY 06/07/18 [History] Amiodarone [Cordarone] 200 mg PO BID 08/15/18 [History] Nitroglycerin [Nitrostat] 0.4 mg SL ASDIRECTED PRN 08/15/18 [History] Vit C/E/Zn/Coppr/Lutein/Zeaxan [Preservision Areds 2 Softgel] 1 cap PO DAILY 12/27 [History] Acetaminophen 650 mg PO Q6H PRN 10/27/18 [History] Aspirin [Halfprin] 81 mg PO 1200 10/27/18 [History] Finasteride [Proscar] 5 mg PO DAILY 10/27/18 [History] Ranolazine [Ranexa] 500 mg PO BID 10/27/18 [History] Brimonidine [Alphagan 0.2% Ophth Soln] 1 drop EYEBOTH BID 11/10/18 [History] Fluticasone/Umeclidin/Vilanter [Trelegy Ellipta 100-62.5-25 MCG] 1 puff INH DAILY 11/10/18 [History] Sodium Chloride/KCl [Thermotabs] 1 gm PO DAILY 11/10/18 [History] Docusate Sodium 100 mg PO DAILY 01/26/19 [History] Doxazosin [Cardura] 1 mg PO DAILY 01/26/19 [History] Losartan [Cozaar] 12.5 mg PO BID 01/26/19 [History] Metoprolol Succinate [Toprol XL 50mg] 25 mg PO BID 01/26/19 [History] Ranitidine [Zantac] 150 mg PO DAILY 01/26/19 [History] Furosemide 80 mg PO DAILY 02/06/19 [History] Polyethylene Glycol 3350 [MiraLAX] 17 gm PO DAILY PRN 02/06/19 [History] Sulfamethoxazole/Trimethoprim [Septra DS] 1 tab PO BID 02/06/19 [History] Clotrimazole [Mycelex] 10 mg PO 5XDAY 02/07/19 [History] Past Medical History HEENT History: Reports: Macular Degeneration, Other (See Below) Other HEENT History: wears glasses Cardiovascular History: Reports: Arrhythmia, Automatic Implantable Cardioverter Defibrillators, Heart Failure, High Cholesterol, Hypertension, SC, Pacemaker Respiratory History: Reports: COPD Other Respiratory History: emphysema Gastrointestinal History: Reports: GERD Genitourinary History: Reports: BPH, Retention, Urinary Other Genitourinary History: selft caths Musculoskeletal History: Reports: Arthritis - Infectious Disease History Infectious Disease History: Reports: Chicken Pox, Measles, Mumps - Past Surgical History HEENT Surgical History: Reports: Tonsillectomy Cardiovascular Surgical History: Reports: AICD, Coronary Artery Bypass, Coronary Artery Stent GI Surgical History: Reports: Cholecystectomy, Hernia, Abdominal Male Surgical History: Reports: None Musculoskeletal Surgical History: Reports: Hip Replacement, Knee Replacement Social & Family History - Family History Family Medical History: Noncontributory Cardiac: Reports: SC Endocrine/Metabolic: Reports: Diabetes, type II - Tobacco Use Smoking Status *Q: Former Smoker Used Tobacco, but Quit: Yes Month/Year Tobacco Last Used: 08/1981 Second Hand Smoke Exposure: No - Caffeine Use Caffeine Use: Reports: Coffee, Soda Caffeine Use Comment: 1 cup of coffee QAM, irregular pepsi use- 1/wk - Recreational Drug Use Recreational Drug Use: No - Living Situation & Occupation Living situation: Reports: , with Spouse Occupation: Retired H&P Review of Systems - Review of Systems: Review Of Systems: ROS reveals no pertinent complaints other than HPI. Exam - Exam Exam: See Below - Vital Signs Vital Signs: Last Vital Signs Temp 98.1 F 02/07/19 04:00 Pulse 60 02/07/19 10:46 Resp 18 02/07/19 04:00 BP 102/68 02/07/19 10:46 Pulse Ox 94 L 02/07/19 04:00 Weight: 180 lb 4.8 oz - Exam Quality Assessment: No: Supplemental Oxygen General: Alert, Oriented HEENT: Conjunctiva Clear, Mucosa Moist & [place] Neck: Supple, Trachea Midline Lungs: Clear to Auscultation, Normal Respiratory Effort Cardiovascular: Regular Rate, Regular Rhythm GI/Abdominal Exam: Normal Bowel Sounds, Soft, Non-Tender, No Organomegaly, No Distention Back Exam: Normal Inspection Extremities: Pedal Edema. No: Non-Tender Skin: Warm, Dry, Intact Neurological: Cranial Nerves Intact Neuro Extensive - Mental Status: Alert, Oriented x3 Neuro Extensive - Motor, Sensory, Reflexes: CN II-XII Intact Psychiatric: Alert, Normal Affect, Normal Mood - Patient Data Lab Results Last 24 hrs: Laboratory Results - last 24 hr 02/06/19 02/06/19 02/06/19 Range/Units 21:05 21:05 21:05 WBC (4.23-9.07) K/mm3 RBC (4.63-6.08) M/mm3 Hgb (13.7-17.5) gm/L Hct (40.1-51.0) % MCV (79.0-92.2) fl MCH (25.7-32.2) pg MCHC (32.2-35.5) g/dl RDW Std Deviation (35.1-43.9) fL Plt Count (163-337) K/mm3 MPV (9.4-12.3) fl Neut % (Auto) (34.0-67.9) % Lymph % (Auto) (21.8-53.1) % [place] % (Auto) (5.3-12.2) % Eos % (Auto) (0.8-7.0) Baso % (Auto) (0.1-1.2) % Neut # (Auto) (1.78-5.38) K/mm3 Lymph # (Auto) (1.32-3.57) K/mm3 [place] # (Auto) (0.30-0.82) K/mm3 Eos # (Auto) (0.04-0.54) K/mm3 Baso # (Auto) (0.01-0.08) K/mm3 Sodium 120 L (136-145) mEq/L Potassium 3.9 (3.5-5.1) mEq/L Chloride 87 L (98-107) mEq/L Carbon Dioxide 25 (21-32) mEq/L Anion Gap 11.9 (5-15) BUN 13 (7-18) mg/dL Creatinine 1.2 (0.7-1.3) mg/dL Est Cr Clr Drug Dosing 51.54 mL/min Estimated GFR (MDRD) 58 (>60) mL/min BUN/Creatinine Ratio 10.8 L (14-18) Glucose 137 H (83-115) mg/dL Calcium 8.3 L (8.5-10.1) mg/dL Total Bilirubin 0.5 (0.2-1.0) mg/dL AST 23 (15-37) U/L ALT 29 (16-63) U/L Alkaline Phosphatase 74 (46-116) U/L Troponin I < 0.017 (0.00-0.056) ng/mL NT-Pro-B Natriuret Pep 7508 H (0-450) pg/mL Total Protein 5.6 L (6.4-8.2) g/dl Albumin 3.0 L (3.4-5.0) g/dl Globulin 2.6 gm/dL Albumin/Globulin Ratio 1.2 (1-2) Urine Color (Yellow) Urine Appearance (Clear) Urine pH (5.0-8.0) Ur Specific Goff (1.005-1.030) Urine Protein (Negative) Urine Glucose (UA) (Negative) Urine Ketones (Negative) Urine Occult Blood (Negative) Urine Nitrite (Negative) Urine Bilirubin (Negative) Urine Urobilinogen (0.2-1.0) Ur Leukocyte Esterase (Negative) Urine RBC (0-5) /hpf Urine WBC (0-5) /hpf Ur Squamous Epith Cells (0-5) /hpf Urine Bacteria (FEW) /hpf Urine Mucus (FEW) /hpf 02/06/19 02/07/19 02/07/19 Range/Units 21:15 05:24 08:40 WBC 4.75 (4.23-9.07) K/mm3 RBC 3.30 L (4.63-6.08) M/mm3 Hgb 10.5 L (13.7-17.5) gm/L Hct 29.8 L (40.1-51.0) % MCV 90.3 (79.0-92.2) fl MCH 31.8 (25.7-32.2) pg MCHC 35.2 (32.2-35.5) g/dl RDW Std Deviation 51.3 H (35.1-43.9) fL Plt Count 289 D (163-337) K/mm3 MPV 9.8 (9.4-12.3) fl Neut % (Auto) 68.8 H (34.0-67.9) % Lymph % (Auto) 13.7 L (21.8-53.1) % [place] % (Auto) 13.3 H (5.3-12.2) % Eos % (Auto) 2.3 (0.8-7.0) Baso % (Auto) 0.8 (0.1-1.2) % Neut # (Auto) 3.27 (1.78-5.38) K/mm3 Lymph # (Auto) 0.65 L (1.32-3.57) K/mm3 [place] # (Auto) 0.63 (0.30-0.82) K/mm3 Eos # (Auto) 0.11 (0.04-0.54) K/mm3 Baso # (Auto) 0.04 (0.01-0.08) K/mm3 Sodium 122 L (136-145) mEq/L Potassium 3.7 (3.5-5.1) mEq/L Chloride 88 L (98-107) mEq/L Carbon Dioxide 25 (21-32) mEq/L Anion Gap 12.7 (5-15) BUN 11 (7-18) mg/dL Creatinine 1.0 (0.7-1.3) mg/dL Est Cr Clr Drug Dosing 61.85 mL/min Estimated GFR (MDRD) > 60 (>60) mL/min BUN/Creatinine Ratio 11.0 L (14-18) Glucose 82 L (83-115) mg/dL Calcium 8.2 L (8.5-10.1) mg/dL Total Bilirubin 0.7 (0.2-1.0) mg/dL AST 24 (15-37) U/L ALT 28 (16-63) U/L Alkaline Phosphatase 70 (46-116) U/L Troponin I (0.00-0.056) ng/mL NT-Pro-B Natriuret Pep (0-450) pg/mL Total Protein 5.4 L (6.4-8.2) g/dl Albumin 2.7 L (3.4-5.0) g/dl Globulin 2.7 gm/dL Albumin/Globulin Ratio 1.0 (1-2) Urine Color Light yellow (Yellow) Urine Appearance Clear (Clear) Urine pH 7.5 (5.0-8.0) Ur Specific Goff 1.020 (1.005-1.030) Urine Protein Negative (Negative) Urine Glucose (UA) Negative (Negative) Urine Ketones Negative (Negative) Urine Occult Blood Negative (Negative) Urine Nitrite Negative (Negative) Urine Bilirubin Negative (Negative) Urine Urobilinogen 0.2 (0.2-1.0) Ur Leukocyte Esterase Negative (Negative) Urine RBC Not seen (0-5) /hpf Urine WBC 0-5 (0-5) /hpf Ur Squamous Epith Cells 0-5 (0-5) /hpf Urine Bacteria Not seen (FEW) /hpf Urine Mucus Not seen (FEW) /hpf Result Diagrams: 02/06/19 21:15 02/07/19 05:24 Imaging Impressions Last 24 hrs: Chest x-ray shows no significant vascular congestion or infiltrate. - Problem List (1) Fall SNOMED Code(s): 8068427, 313026602 ICD Code: W19.XXXA - UNSPECIFIED FALL, INITIAL ENCOUNTER Status: Acute Priority: High Current Visit: Yes Qualifiers: Encounter type: initial encounter Qualified Code(s): W19.XXXA - Unspecified fall, initial encounter (2) Hyponatremia SNOMED Code(s): 78340326 ICD Code: E87.1 - HYPO-OSMOLALITY AND HYPONATREMIA Status: Chronic Priority: Medium Current Visit: Yes (3) Chronic congestive heart failure SNOMED Code(s): 63377446 ICD Code: I50.9 - HEART FAILURE, UNSPECIFIED Status: Acute Current Visit : No Qualifiers: Heart failure type: unspecified Qualified Code(s): I50.9 - Heart failure, unspecified (4) Dizziness SNOMED Code(s): 180059285, 385356375 ICD Code: R42 - DIZZINESS AND GIDDINESS Status: Acute Priority: High Current Visit: No Problem List Initiated/Reviewed/Updated: Yes Orders Last 24hrs: Active Orders 24 hr Category Date Time Status Patient Status [ADT] Routine ADT 02/07/19 00:00 Active EKG 12 Lead [EKG Documentation Completion] [RC] STAT Care 02/06/19 22:00 Active Nash Catheter Insertion [Insert Urinary Catheter] [OM. Care 02/07/19 09:45 Ordered PC] Q24H Intake and Output Strict [RC] ASDIRECTED Care 02/07/19 09:40 Active Peripheral IV Care [RC] Q2HR Care 02/07/19 00:15 Active Up ad Pamela [RC] ASDIRECTED Care 02/07/19 00:41 Active Urinary Catheter Assessment [RC] 0145 Care 02/07/19 01:44 Active Regular Diet [DIET] Diet 02/07/19 Breakfast Active Chest 2V [CR] Stat Exams 02/06/19 21:05 Taken Acetaminophen [Tylenol] Med 02/07/19 09:42 Active 650 mg PO Q6H PRN Albuterol [Proventil HFA] Med 02/07/19 09:42 Active 0 gm INH Q6H PRN Amiodarone [Cordarone] Med 02/07/19 09:45 Active 200 mg PO BID Aspirin [Halfprin] Med 02/07/19 12:00 Active 81 mg PO 1200 Brimonidine [Alphagan 0.2% Ophth Soln] Med 02/07/19 09:45 Active 0 ml EYEBOTH BID Docusate Sodium [Colace] Med 02/07/19 09:45 Active 100 mg PO DAILY Doxazosin [Cardura] Med 02/07/19 21:00 Active 1 mg PO BEDTIME Famotidine [Pepcid] Med 02/07/19 21:00 Active 20 mg PO BEDTIME Finasteride [Proscar] Med 02/08/19 09:00 Active 5 mg PO DAILY Fluticasone/Umeclidin/Vilanter Med 02/07/19 10:00 Pending 1 puff INH DAILY Losartan [Cozaar] Med 02/07/19 10:00 Active 12.5 mg PO BID@0800,2000 Metoprolol Succinate [Toprol XL] Med 02/07/19 10:00 Active 25 mg PO BID@0800,2100 Nitroglycerin [Nitrostat] Med 02/07/19 09:42 Active 0.4 mg SL ASDIRECTED PRN Polyethylene Glycol 3350 [MiraLAX] Med 02/07/19 09:42 Active 17 gm PO DAILY PRN Ranolazine [Ranexa] Med 02/07/19 18:00 Active 500 mg PO Q12H Sodium Chloride 0.9% [Normal Saline] 1,000 ml Med 02/07/19 08:40 Active IV ASDIRECTED Peripheral IV Insertion Adult [OM.PC] Routine Oth 02/07/19 00:15 Ordered Peripheral IV Insertion Adult [OM.PC] Routine Oth 02/07/19 00:42 Ordered Code Status [Resuscitation Status] Routine Resus Stat 02/07/19 00:23 Ordered Medication Orders Acetaminophen (Tylenol) 650 mg PO Q6H PRN PRN Reason: Pain Albuterol (Proventil Hfa) 0 gm INH Q6H PRN PRN Reason: Shortness of Breath Amiodarone HCl (Cordarone) 200 mg PO BID [facility] Last Admin: 02/07/19 10:46 Dose: 200 mg Aspirin (Halfprin) 81 mg PO 1200 [facility] Last Admin: 02/07/19 11:29 Dose: 81 mg Brimonidine Tartrate (Alphagan 0.2% Ophth Soln) 0 ml EYEBOTH BID [facility] Last Admin: 02/07/19 11:28 Dose: Docusate Sodium (Colace) 100 mg PO DAILY [facility] Last Admin: 02/07/19 11:28 Dose: Not Given Doxazosin Mesylate (Cardura) 1 mg PO BEDTIME [facility] Famotidine (Pepcid) 20 mg PO BEDTIME [facility] Finasteride (Proscar) 5 mg PO DAILY [facility] Sodium Chloride (Normal Saline) 1,000 mls @ 75 mls/hr IV ASDIRECTED [facility] Losartan Potassium (Cozaar) 12.5 mg PO BID@0800,2000 [facility] Last Admin: 02/07/19 10:46 Dose: 12.5 mg Metoprolol Succinate (Toprol Xl) 25 mg PO BID@0800,2100 [facility] Last Admin: 02/07/19 10:46 Dose: 25 mg Nitroglycerin (Nitrostat) 0.4 mg SL ASDIRECTED PRN PRN Reason: chest pain Fluticasone/Umeclidin/Vilanter [ Trelegy Ellipta] 100 /62.5/25 1 puff INH DAILY [facility] Polyethylene Glycol (Miralax) 17 gm PO DAILY PRN PRN Reason: Constipation Ranolazine (Ranexa) 500 mg PO Q12H [facility] Assessment/Plan Comment:: Assessment * 78-year-old male with history of chronic hyponatremia is admitted to the hospital with acute on chronic hyponatremia with a sodium of 120 * History of UTI secondary to self catheterizations. with normal UA on admission. * Recently on Septra and increased dose of Lasix, both could be causing worsening of his hyponatremia. * BNP 7500 - chest x-ray shows no significant vascular congestion and lungs are clear. BNP is a bit over baseline, but he is not short of breath and chest x- ray looks good. * Past medical history significant for CHF, COPD, urinary retention and self catheters with recurrent urinary tract infections, chronic hyponatremia, dual- chamber pacemaker, ventricular tachyarrhythmias, hypertension, coronary artery disease with history of SC, Plan * Place patient on the floor in observation status * Patient was put on IV fluids overnight, normal saline 125 mL per hour. Decrease IV fluids to 75 mL per hour for the next 4 hours and then DC * Patient given Lasix 40 mg IV in the emergency room. Continue home dose of Lasix 40 mg daily. * Stop Septra * Thermotabs 2 tabs 3 times a day * Free water restriction of 2000 mL per day * Recheck sodium with a mag level at 1600 * VTE prophylaxis with Lovenox * Continue home meds. * If sodium is above 125 in the morning he can DC home.
[2019-02-07] MEDS: Clotrimazole 10 MG Troche PO SCH ×2 (17:10→21:15)
[2019-02-07] MEDS: Famotidine 20 MG Tab PO SCH (20:01)
[2019-02-07] MEDS ORDERED: Doxazosin 2 MG Tab PO SCH (21:00)
[2019-02-08] MEDS: Clotrimazole 10 MG Troche PO SCH ×6 (05:00→21:01)
[2019-02-08] MEDS ORDERED: Magnesium Sulfate/Water 2 GM in Premix Bag 1 BAG IV ONE (07:30)
--- NOTE | 2019-02-08 08:02 | CR ---
Chest: Two views of the chest were obtained. Comparison: Prior chest x-ray of 01/26/19. Heart is mildly enlarged. AICD is present. Mild scarring is noted within the left lung base. Lungs show no acute parenchymal change. Bony structures are unremarkable for the patient's age. Diaphragms are flattened on the lateral view compatible with emphysematous change. Impression: 1. Cardiomegaly with other incidental findings. 2. Emphysematous changes. 3. Nothing acute is appreciated. Diagnostic code #2
[2019-02-08] MEDS: VILANTER INH SCH ×2 (08:51→09:02)
[2019-02-08] MEDS: UMECLIDIN INH SCH ×2 (08:51→09:02)
[2019-02-08] MEDS: FLUTICASONE INH SCH ×2 (08:51→09:02)
[2019-02-08] MEDS: Sodium Chloride/Potassium Chloride Tab PO SCH ×3 (08:53→20:33)
[2019-02-08] MEDS: Metoprolol Succinate 50 MG Tab.ER PO SCH ×2 (08:54→20:33)
[2019-02-08] MEDS: Amiodarone 200 MG Tab PO SCH ×2 (08:54→20:33)
[2019-02-08] MEDS: Docusate Sodium 100 MG Cap PO SCH (08:54)
[2019-02-08] MEDS: Losartan 25 MG Tab PO SCH ×2 (08:54→20:34)
[2019-02-08] MEDS: Finasteride 5 MG Tab PO SCH (08:54)
[2019-02-08] MEDS: Enoxaparin 40 MG/0.4 ML Syringe SUBCUT SCH (08:55)
[2019-02-08] MEDS: Brimonidine 0.2% Ophth Soln 5 ML Bottle EYEBOTH SCH ×2 (08:55→20:35)
[2019-02-08] MEDS: Albuterol 6.7 GM Inhaler INH PRN ×2 (09:01→20:06)
[2019-02-08] MEDS: Furosemide 40 MG Tab PO SCH (11:41)
[2019-02-08] MEDS: Aspirin 81 MG Tab.EC PO SCH (11:41)
--- NOTE | 2019-02-08 12:32 | PCM.PN ---
- General Info Date of Service: 02/08/19 Admission Dx/Problem (Free Text): Admission Diagnosis/Problem Admission Diagnosis/Problem Hyponatremia Subjective Update: patient is doing better. He don't longer has dizziness or weakness. His sodium increased to 125 yesterday afternoon, but has decreased back to 123. Functional Status: Reports: Pain Controlled - Review of Systems General: Reports: No Symptoms HEENT: Reports: No Symptoms Pulmonary: Reports: Shortness of Breath (baseline shortness of breath) Cardiovascular: Reports: No Symptoms Gastrointestinal: Reports: No Symptoms - Patient Data Vitals - Most Recent: Last Vital Signs Temp 98.1 F 02/08/19 08:39 Pulse 55 L 02/08/19 08:54 Resp 20 02/08/19 08:39 BP 123/63 02/08/19 08:54 Pulse Ox 97 02/08/19 09:03 Weight - Most Recent: 178 lb 3.2 oz I&O - Last 24 Hours: Intake & Output 02/07/19 02/08/19 02/08/19 22:59 06:59 14:59 Intake Total 675 100 250 Output Total 325 295 138 Balance 350 -195 112 Lab Results Last 24 Hours: Laboratory Results - last 24 hr 02/07/19 02/08/19 02/08/19 Range/Units 16:20 04:50 04:50 WBC 3.85 L (4.23-9.07) K/mm3 RBC 3.25 L (4.63-6.08) M/mm3 Hgb 10.0 L (13.7-17.5) gm/L Hct 29.4 L (40.1-51.0) % MCV 90.5 (79.0-92.2) fl MCH 30.8 (25.7-32.2) pg MCHC 34.0 (32.2-35.5) g/dl RDW Std Deviation 52.1 H (35.1-43.9) fL Plt Count 204 D (163-337) K/mm3 MPV 9.6 (9.4-12.3) fl Neut % (Auto) 63.4 (34.0-67.9) % Lymph % (Auto) 17.9 L (21.8-53.1) % [place] % (Auto) 15.6 H (5.3-12.2) % Eos % (Auto) 1.3 (0.8-7.0) Baso % (Auto) 1.0 (0.1-1.2) % Neut # (Auto) 2.44 (1.78-5.38) K/mm3 Lymph # (Auto) 0.69 L (1.32-3.57) K/mm3 [place] # (Auto) 0.60 (0.30-0.82) K/mm3 Eos # (Auto) 0.05 (0.04-0.54) K/mm3 Baso # (Auto) 0.04 (0.01-0.08) K/mm3 Manual Slide Review Normal smear Sodium 125 L 123 L (136-145) mEq/L Potassium 4.0 (3.5-5.1) mEq/L Chloride 92 L (98-107) mEq/L Carbon Dioxide 25 (21-32) mEq/L Anion Gap 10.0 (5-15) BUN 14 (7-18) mg/dL Creatinine 1.1 (0.7-1.3) mg/dL Est Cr Clr Drug Dosing 56.22 mL/min Estimated GFR (MDRD) > 60 (>60) mL/min BUN/Creatinine Ratio 12.7 L (14-18) Glucose 87 (83-115) mg/dL Calcium 8.1 L (8.5-10.1) mg/dL Magnesium 1.8 1.7 L (1.8-2.4) mg/dl NT-Pro-B Natriuret Pep (0-450) pg/mL 02/08/19 Range/Units 04:55 WBC (4.23-9.07) K/mm3 RBC (4.63-6.08) M/mm3 Hgb (13.7-17.5) gm/L Hct (40.1-51.0) % MCV (79.0-92.2) fl MCH (25.7-32.2) pg MCHC (32.2-35.5) g/dl RDW Std Deviation (35.1-43.9) fL Plt Count (163-337) K/mm3 MPV (9.4-12.3) fl Neut % (Auto) (34.0-67.9) % Lymph % (Auto) (21.8-53.1) % [place] % (Auto) (5.3-12.2) % Eos % (Auto) (0.8-7.0) Baso % (Auto) (0.1-1.2) % Neut # (Auto) (1.78-5.38) K/mm3 Lymph # (Auto) (1.32-3.57) K/mm3 [place] # (Auto) (0.30-0.82) K/mm3 Eos # (Auto) (0.04-0.54) K/mm3 Baso # (Auto) (0.01-0.08) K/mm3 Manual Slide Review Sodium (136-145) mEq/L Potassium (3.5-5.1) mEq/L Chloride (98-107) mEq/L Carbon Dioxide (21-32) mEq/L Anion Gap (5-15) BUN (7-18) mg/dL Creatinine (0.7-1.3) mg/dL Est Cr Clr Drug Dosing mL/min Estimated GFR (MDRD) (>60) mL/min BUN/Creatinine Ratio (14-18) Glucose (83-115) mg/dL Calcium (8.5-10.1) mg/dL Magnesium (1.8-2.4) mg/dl NT-Pro-B Natriuret Pep 7540 H (0-450) pg/mL Med Orders - Current: Current Medications Acetaminophen (Tylenol) 650 mg PO Q6H PRN PRN Reason: Pain Albuterol (Proventil Hfa) 0 gm INH Q6H PRN PRN Reason: Shortness of Breath Last Admin: 02/08/19 09:01 Dose: 2 puff Amiodarone HCl (Cordarone) 200 mg PO BID [facility] Last Admin: 02/08/19 08:54 Dose: 200 mg Aspirin (Halfprin) 81 mg PO 1200 [facility] Last Admin: 02/08/19 11:41 Dose: 81 mg Brimonidine Tartrate (Alphagan 0.2% Ophth Soln) 0 ml EYEBOTH BID [facility] Last Admin: 02/08/19 08:55 Dose: 1 drop Clotrimazole (Mycelex) 10 mg PO 5XDAY [facility] Last Admin: 02/08/19 09:21 Dose: Not Given Docusate Sodium (Colace) 100 mg PO DAILY [facility] Last Admin: 02/08/19 08:54 Dose: 100 mg Enoxaparin Sodium (Lovenox) 40 mg SUBCUT DAILY [facility] Last Admin: 02/08/19 08:55 Dose: 40 mg Famotidine (Pepcid) 20 mg PO BEDTIME [facility] Last Admin: 02/07/19 20:01 Dose: 20 mg Finasteride (Proscar) 5 mg PO DAILY [facility] Last Admin: 02/08/19 08:54 Dose: 5 mg Furosemide (Lasix) 40 mg PO DAILY [facility] Last Admin: 02/08/19 11:41 Dose: 40 mg Losartan Potassium (Cozaar) 12.5 mg PO BID@0800,1999 [facility] Last Admin: 02/08/19 08:54 Dose: 12.5 mg Metoprolol Succinate (Toprol Xl) 25 mg PO BID@0800,2099 [facility] Last Admin: 02/08/19 08:54 Dose: 25 mg Nitroglycerin (Nitrostat) 0.4 mg SL ASDIRECTED PRN PRN Reason: chest pain Oral Electrolytes (Thermotabs) 2 each PO TID [facility] Last Admin: 02/08/19 08:53 Dose: 2 each Fluticasone/Umeclidin/Vilanter [ Trelegy Ellipta] 100 /62.5/25 0 each INH DAILY [facility] Last Admin: 02/08/19 09:02 Dose: 1 each Polyethylene Glycol (Miralax) 17 gm PO DAILY PRN PRN Reason: Constipation Ranolazine (Ranexa) 500 mg PO Q12H [facility] Last Admin: 02/08/19 05:04 Dose: 500 mg Discontinued Medications Doxazosin Mesylate (Cardura) 1 mg PO BEDTIME [facility] Furosemide (Lasix) 40 mg IVPUSH ONETIME ONE Stop: 02/07/19 06:01 Last Admin: 02/07/19 06:54 Dose: 40 mg Sodium Chloride (Normal Saline) 1,000 mls @ 125 mls/hr IV ASDIRECTED [facility] Stop: 02/07/19 08:40 Last Infusion: 02/07/19 08:40 Dose: 75 mls/hr Sodium Chloride (Normal Saline) 1,000 mls @ 75 mls/hr IV ASDIRECTED [facility] Magnesium Sulfate 2 gm/ Premix 50 mls @ 25 mls/hr IV ONETIME ONE Stop: 02/08/19 09:29 Last Admin: 02/08/19 08:53 Dose: 25 mls/hr - Exam Quality Assessment: No: Supplemental Oxygen General: Alert, Oriented HEENT: Pupils Equal Neck: Supple Lungs: Clear to Auscultation, Normal Respiratory Effort Cardiovascular: Regular Rate, Regular Rhythm GI/Abdominal Exam: Normal Bowel Sounds, Soft, Non-Tender, No Distention Extremities: Normal Inspection, Normal Range of Motion, Non-Tender, No Pedal Edema Skin: Warm Neurological: No New Focal Deficit Psy/Mental Status: Alert, Normal Affect, Normal Mood - Problem List & Annotations (1) Fall SNOMED Code(s): 7422162, 316699591 Code(s): W19.XXXA - UNSPECIFIED FALL, INITIAL ENCOUNTER Status: Acute Priority: High Current Visit: Yes Qualifiers: Encounter type: initial encounter Qualified Code(s): W19.XXXA - Unspecified fall, initial encounter (2) Hyponatremia SNOMED Code(s): 97682538 Code(s): E87.1 - HYPO-OSMOLALITY AND HYPONATREMIA Status: Chronic Priority: Medium Current Visit: Yes (3) Chronic congestive heart failure SNOMED Code(s): 17595692 Code(s): I50.9 - HEART FAILURE, UNSPECIFIED Status: Acute Current Visit: No Qualifiers: Heart failure type: unspecified Qualified Code(s): I50.9 - Heart failure, unspecified (4) Dizziness SNOMED Code(s): 458869384, 319052725 Code(s): R42 - DIZZINESS AND GIDDINESS Status: Acute Priority: High Current Visit: No - Problem List Review Problem List Initiated/Reviewed/Updated: Yes - My Orders Last 24 Hours: My Active Orders 02/07/19 12:00 Aspirin [Halfprin] 81 mg PO 1200 02/07/19 13:48 Patient Status [ADT] Routine 02/07/19 18:00 Clotrimazole [Mycelex] 10 mg PO 5XDAY Ranolazine [Ranexa] 500 mg PO Q12H 02/07/19 21:00 Famotidine [Pepcid] 20 mg PO BEDTIME 02/08/19 09:00 Enoxaparin [Lovenox] 40 mg SUBCUT DAILY Finasteride [Proscar] 5 mg PO DAILY Sodium Chloride/KCl [Thermotabs] 2 each PO TID 07/01/19 11:30 Furosemide [Lasix] 40 mg PO DAILY - Plan Plan:: Assessment * 78-year-old male with history of chronic hyponatremia is admitted to the hospital with acute on chronic hyponatremia with a sodium of 120 on admission and now 123 * History of UTI secondary to self catheterizations. with normal UA on admission. * Recently on Septra and increased dose of Lasix, both could be causing worsening of his hyponatremia. * BNP: 7508; now 7540 - chest x-ray shows no significant vascular congestion and lungs are clear. BNP is a bit over baseline, but he is not short of breath and chest x-ray looks good. * Past medical history significant for CHF, COPD, urinary retention and self catheters with recurrent urinary tract infections, chronic hyponatremia, dual- chamber pacemaker, ventricular tachyarrhythmias, hypertension, coronary artery disease with history of MO, Plan * Place patient on the floor in observation status * Patient was put on IV fluids overnight, normal saline 125 mL per hour. Decrease IV fluids to 75 mL per hour for the next 4 hours and then DC * Patient given Lasix 40 mg IV in the emergency room. Continue home dose of Lasix 40 mg daily. * Stop Septra * Thermotabs 2 tabs 3 times a day * Free water restriction of 2000 mL per day * recheck BMP in the morning * VTE prophylaxis with Lovenox * Continue home meds. * If sodium is above 125 in the morning he can DC home.
[2019-02-08] MEDS: Famotidine 20 MG Tab PO SCH (20:33)
[2019-02-09] MEDS: Clotrimazole 10 MG Troche PO SCH ×4 (05:29→14:20)
[2019-02-09] MEDS: Albuterol 6.7 GM Inhaler INH PRN (07:57)
[2019-02-09] MEDS: FLUTICASONE INH SCH (07:59)
[2019-02-09] MEDS: UMECLIDIN INH SCH (07:59)
[2019-02-09] MEDS: VILANTER INH SCH (07:59)
[2019-02-09] MEDS: Brimonidine 0.2% Ophth Soln 5 ML Bottle EYEBOTH SCH (08:13)
[2019-02-09] MEDS: Sodium Chloride/Potassium Chloride Tab PO SCH ×2 (08:13→14:20)
[2019-02-09] MEDS: Furosemide 40 MG Tab PO SCH (08:14)
[2019-02-09] MEDS: Docusate Sodium 100 MG Cap PO SCH (08:14)
[2019-02-09] MEDS: Enoxaparin 40 MG/0.4 ML Syringe SUBCUT SCH (08:14)
[2019-02-09] MEDS: Finasteride 5 MG Tab PO SCH (08:14)
[2019-02-09] MEDS: Amiodarone 200 MG Tab PO SCH (08:15)
[2019-02-09] MEDS: Metoprolol Succinate 50 MG Tab.ER PO SCH (08:22)
[2019-02-09] MEDS: Losartan 25 MG Tab PO SCH (08:23)
--- NOTE | 2019-02-09 09:38 | PCM.SN ---
- Free Text/Narrative Note: Received notification from utilization review nurse in regards to patient level of care. Dr. Corrales and I reviewed the patient medical record and recommended outpatient services as the appropriate level of care. I contacted Dr. Grimaldo and discussed with him our recommendations Dr. Grimaldo is in agreement with level of care recommendations outpatient services. Utilization review nurse notified to proceed with patient notification as outlined in our code 44 policy
[2019-02-09] MEDS: Aspirin 81 MG Tab.EC PO SCH (12:04)
[2019-02-09 13:36] VITALS: BP 118/65
--- NOTE | 2019-02-09 14:43 | PCM.DCSUM1 ---
Discharge Summary - Hospital Course Free Text/Narrative:: admitted for weakness and fall and low sodium on increased diuretic dose with features of increased a.g. and hypochloremic vol. contraction . anemia and low protein chronically . no acute chf findings on admission treated with holding lasix and now much better and ready for dc. code 44 explained to patient and he is aware of those issues . dicussed dc with dr maher and will need repeat na and labs and recheck in one week . resume self cath 3-6 x dily as before. nutrition con vinicio voiced and he states he is eating well boh HPI Initial Comments: see admit note Brief History: no signs of neuro or cv event whilke in hosp or before - Discharge Data Discharge Date: 02/09/19 Discharge Disposition: Home, Self-Care 01 Condition: Fair - Discharge Diagnosis/Problem(s) (1) Fall SNOMED Code(s): 2875579, 588491575 ICD Code: W19.XXXA - UNSPECIFIED FALL, INITIAL ENCOUNTER Status: Acute Priority: High Current Visit: Yes Onset Date: 02/07/19 Problem Details: high risk for recurrance given medical conditions Qualifiers: Encounter type: initial encounter Qualified Code(s): W19.XXXA - Unspecified fall, initial encounter (2) Generalized weakness SNOMED Code(s): 23159490 ICD Code: R53.1 - WEAKNESS Status: Acute Priority: Medium Current Visit : Yes Onset Date: 02/07/19 Problem Details: no focal findings (3) Hypoalbuminemia SNOMED Code(s): 019564748 ICD Code: E88.09 - OTH DISORDERS OF PLASMA-PROTEIN METABOLISM, NEC Status: Acute Priority: Medium Current Visit: Yes Onset Date: 02/07/19 (4) Hypocalcemia SNOMED Code(s): 4204914 ICD Code: E83.51 - HYPOCALCEMIA Status: Acute Priority: Low Current Visit: Yes Onset Date: 02/07/19 Problem Details: corrected for protien is wnl / still on diuretics and need to monitor (5) Imbalance SNOMED Code(s): 366677425 ICD Code: R26.89 - OTHER ABNORMALITIES OF GAIT AND MOBILITY Status: Acute Priority: Medium Current Visit: Yes Onset Date: 02/07/19 Problem Details : recovered from weakness and rehydrated na increased 120 to 126 (6) Peripheral edema SNOMED Code(s): 061341849 ICD Code: R60.9 - EDEMA, UNSPECIFIED Status: Acute Priority: Low Current Visit: Yes Onset Date: 02/09/19 (7) Hyponatremia SNOMED Code(s): 87751747 ICD Code: E87.1 - HYPO-OSMOLALITY AND HYPONATREMIA Status: Chronic Priority: Medium Current Visit: Yes Onset Date: 02/07/19 Problem Details: acute flucuation but chronic condition with signs of dehydrationa nd hypochloremic alk. on labs (8) Scalp contusion SNOMED Code(s): 63581933 ICD Code: S00.03XA - CONTUSION OF SCALP, INITIAL ENCOUNTER Status: Acute Priority: Low Current Visit: Yes Onset Date: 02/09/19 Problem Details: no signs of sig. intracranial damage Qualifiers: Encounter type: initial encounter Qualified Code(s): S00.03XA - Contusion of scalp, initial encounter - Patient Instructions Diet: Heart Healthy Diet, Low Sodium Diet, Other: 2000 cc /day Feeding Instructions: restart lower dose lasix Driving: Do Not Drive Showering/Bathing: May Shower Notify Provider of: Fever, Nausea and/or Vomiting - Discharge Plan *PRESCRIPTION DRUG MONITORING PROGRAM REVIEWED*: Not Applicable *COPY OF PRESCRIPTION DRUG MONITORING REPORT IN PATIENT PAN: Not Applicable Home Medications: Home Meds Albuterol [Proventil HFA] 2 puff INH Q6H PRN 06/07/18 [History] Ubidecarenone [Coq-10] 200 mg PO DAILY 06/07/18 [History] Amiodarone [Cordarone] 200 mg PO BID 08/15/18 [History] Nitroglycerin [Nitrostat] 0.4 mg SL ASDIRECTED PRN 08/15/18 [History] Vit C/E/Zn/Coppr/Lutein/Zeaxan [Preservision Areds 2 Softgel] 1 cap PO DAILY 12/27 [History] Acetaminophen 650 mg PO Q6H PRN 10/27/18 [History] Aspirin [Halfprin] 81 mg PO 1200 10/27/18 [History] Finasteride [Proscar] 5 mg PO DAILY 10/27/18 [History] Ranolazine [Ranexa] 500 mg PO BID 10/27/18 [History] Brimonidine [Alphagan 0.2% Ophth Soln] 1 drop EYEBOTH BID 11/10/18 [History] Fluticasone/Umeclidin/Vilanter [Trelegy Ellipta 100-62.5-25 MCG] 1 puff INH DAILY 11/10/18 [History] Sodium Chloride/KCl [Thermotabs] 1 gm PO DAILY 11/10/18 [History] Docusate Sodium 100 mg PO DAILY 01/26/19 [History] Doxazosin [Cardura] 1 mg PO DAILY 01/26/19 [History] Losartan [Cozaar] 12.5 mg PO BID 01/26/19 [History] Metoprolol Succinate [Toprol XL 50mg] 25 mg PO BID 01/26/19 [History] Ranitidine [Zantac] 150 mg PO DAILY 01/26/19 [History] Furosemide 80 mg PO DAILY 02/06/19 [History] Polyethylene Glycol 3350 [MiraLAX] 17 gm PO DAILY PRN 02/06/19 [History] Sulfamethoxazole/Trimethoprim [Septra DS] 1 tab PO BID 02/06/19 [History] Clotrimazole [Mycelex] 10 mg PO 5XDAY 02/07/19 [History] Oxygen Therapy Mode: Room Air Referrals: Heath Maher MD [Primary Care Provider] - - Discharge Summary/Plan Comment DC Time >30 min.: Yes Discharge Summary/Plan Comment: cont to monitor symptoms /daily weight /salt intake and f/u DROLin with repeat lab - General Info Date of Service: 02/09/19 Admission Dx/Problem (Free Text: Admission Diagnosis/Problem Admission Diagnosis/Problem Hyponatremia/ urinary retention admitted with mild hyponatremia and this is improved na 123 to 126 . patient given i . v fluid and b.p stable no king /sob / nausea / headache and denies weakness and walked well this am . uses walker prn at home . garcia placed and now removed and able to restart straight cath which he does mostly tid. patient strongly desires to go home today stating he feels 100 % better than when he came in 02/07. chf stable and no changes in meds other than stopped bactrum the purported culprit worsening his symptoms mild anemia and renal status unchanged and no fever and or signs of infection on reculture Subjective Update: patient is doing better. He don't longer has dizziness or weakness. His sodium increased to 125 yesterday afternoon, but has decreased back to 123. now 126 patient eating well and wants to go home . decreasing lasix dose and switched lisonopril to lower dose losartin . cont other meds as restarted . no added salt recommended / will need bmp probnp and cbc in one week - Patient Data Vitals - Most Recent: Last Vital Signs Temp 36.6 C 02/09/19 13:20 Pulse 59 L 02/09/19 13:20 Resp 20 02/09/19 13:20 BP 118/65 02/09/19 13:20 Pulse Ox 97 02/09/19 13:20 Weight - Most Recent: 80.824 kg I&O - Last 24 hours: Intake & Output 02/08/19 02/09/19 02/09/19 22:59 06:59 14:59 Intake Total 550 50 345 Output Total 1462 330 400 Balance -912 -280 -55 Lab Results - Last 24 hrs: Laboratory Results - last 24 hr 02/09/19 Range/Units 04:58 Sodium 126 L (136-145) mEq/L Potassium 4.1 (3.5-5.1) mEq/L Chloride 93 L (98-107) mEq/L Carbon Dioxide 25 (21-32) mEq/L Anion Gap 12.1 (5-15) BUN 16 (7-18) mg/dL Creatinine 1.1 (0.7-1.3) mg/dL Est Cr Clr Drug Dosing 56.22 mL/min Estimated GFR (MDRD) > 60 (>60) mL/min BUN/Creatinine Ratio 14.5 (14-18) Glucose 95 (83-115) mg/dL Calcium 8.2 L (8.5-10.1) mg/dL Med Orders - Current: Current Medications Acetaminophen (Tylenol) 650 mg PO Q6H PRN PRN Reason: Pain Albuterol (Proventil Hfa) 0 gm INH Q6H PRN PRN Reason: Shortness of Breath Last Admin: 02/09/19 07:57 Dose: 2 puff Amiodarone HCl (Cordarone) 200 mg PO BID [facility] Last Admin: 02/09/19 08:15 Dose: 200 mg Aspirin (Halfprin) 81 mg PO 1200 [facility] Last Admin: 02/09/19 12:04 Dose: 81 mg Brimonidine Tartrate (Alphagan 0.2% Ophth Soln) 0 ml EYEBOTH BID [facility] Last Admin: 02/09/19 08:13 Dose: 1 drop Clotrimazole (Mycelex) 10 mg PO 5XDAY [facility] Last Admin: 02/09/19 14:20 Dose: 10 mg Docusate Sodium (Colace) 100 mg PO DAILY [facility] Last Admin: 02/09/19 08:14 Dose: 100 mg Enoxaparin Sodium (Lovenox) 40 mg SUBCUT DAILY [facility] Last Admin: 02/09/19 08:14 Dose: 40 mg Famotidine (Pepcid) 20 mg PO BEDTIME [facility] Last Admin: 02/08/19 20:33 Dose: 20 mg Finasteride (Proscar) 5 mg PO DAILY [facility] Last Admin: 02/09/19 08:14 Dose: 5 mg Furosemide (Lasix) 40 mg PO DAILY [facility] Last Admin: 02/09/19 08:14 Dose: 40 mg Losartan Potassium (Cozaar) 12.5 mg PO BID@0800,2000 [facility] Last Admin: 02/09/19 08:23 Dose: 12.5 mg Metoprolol Succinate (Toprol Xl) 25 mg PO BID@0800,2100 [facility] Last Admin: 02/09/19 08:22 Dose: 25 mg Nitroglycerin (Nitrostat) 0.4 mg SL ASDIRECTED PRN PRN Reason: chest pain Oral Electrolytes (Thermotabs) 2 each PO TID [facility] Last Admin: 02/09/19 14:20 Dose: 2 each Fluticasone/Umeclidin/Vilanter [ Trelegy Ellipta] 100 /62.5/25 0 each INH DAILY [facility] Last Admin: 02/09/19 07:59 Dose: 1 each Polyethylene Glycol (Miralax) 17 gm PO DAILY PRN PRN Reason: Constipation Ranolazine (Ranexa) 500 mg PO Q12H [facility] Last Admin: 02/09/19 05:29 Dose: 500 mg Discontinued Medications Doxazosin Mesylate (Cardura) 1 mg PO BEDTIME [facility] Furosemide (Lasix) 40 mg IVPUSH ONETIME ONE Stop: 02/07/19 06:01 Last Admin: 02/07/19 06:54 Dose: 40 mg Sodium Chloride (Normal Saline) 1,000 mls @ 125 mls/hr IV ASDIRECTED [facility] Stop: 02/07/19 08:40 Last Infusion: 02/07/19 08:40 Dose: 75 mls/hr Sodium Chloride (Normal Saline) 1,000 mls @ 75 mls/hr IV ASDIRECTED [facility] Magnesium Sulfate 2 gm/ Premix 50 mls @ 25 mls/hr IV ONETIME ONE Stop: 02/08/19 09:29 Last Admin: 02/08/19 08:53 Dose: 25 mls/hr - Exam General: Reports: Alert, Oriented HEENT: Reports: Pupils Equal, Pupils Reactive, EOMI, Mucous Membr. Moist/[place] Neck: Reports: Supple Lungs: Reports: Clear to Auscultation, Normal Respiratory Effort Cardiovascular: Reports: Regular Rate, Regular Rhythm GI/Abdominal Exam: Normal Bowel Sounds, Soft, Non-Tender, No Organomegaly, No Distention, No Abnormal Bruit, No Mass, Pelvis Stable (Male) Exam: No Hernia, Normal Inspection, Normal Prostate, Circumcised Rectal (Males) Exam: Normal Exam, Normal Rectal Tone, Prostate Normal Back Exam: Reports: Normal Inspection, Full Range of Motion Extremities: Normal Inspection, Normal Range of Motion, Non-Tender, No Pedal Edema, Normal Capillary Refill Skin: Reports: Warm, Dry, Intact Wound/Incisions: Reports: Healing Well Neurological: Reports: No New Focal Deficit Psy/Mental Status: Reports: Alert, Normal Affect, Normal Mood
== END 2019-02-09 15:55 | disposition home or self-care (01) ==
LOC: JD.ED 20:26 → INTOOBSV 02-07 00:09 → JD.MS 02-07 00:09
PROVIDERS: ADMIT Family Medicine; ATTEND Family Medicine
DX: E87.1 Hypo-osmolality and hyponatremia (principal); E83.51 Hypocalcemia; S00.03XA Contusion of scalp, initial encounter; R53.1 Weakness; E88.09 Other disorders of plasma-protein metabolism, not elsewhere classified; R26.89 Other abnormalities of gait and mobility; R60.9 Edema, unspecified; Z79.82 Long term (current) use of aspirin; Z79.899 Other long term (current) drug therapy; Z88.0 Allergy status to penicillin; Z88.8 Allergy status to other drugs, medicaments and biological substances; Z95.1 Presence of aortocoronary bypass graft; Z95.5 Presence of coronary angioplasty implant and graft; Z95.810 Presence of automatic (implantable) cardiac defibrillator; Z87.891 Personal history of nicotine dependence; W19.XXXA Unspecified fall, initial encounter
CPT/HCPCS: 36415; 51701; 51702; 71046; 80048; 80053; 81001; 83735; 83880; 84295; 84484; 85025; 93005; 94640; 94760; 94761; 99285; A9270; J1650; J1940; J3475; J7040; 93010; 96361; 96365; 96366; 96372; 96375; G0378

== ENCOUNTER 2019-06-13 10:08 | Emergency (ER) | payer MEDICARE, OTHER ==
[2019-06-13 10:34] VITALS: BP 122/75; PULSE 68
[2019-06-13] MEDS ORDERED: cefTRIAXone 1 GM in Sodium Chloride 0.9% 100 ML IV ONE (11:45)
--- NOTE | 2019-06-13 12:47 | EDM.PDOC ---
ED HPI GENERAL MEDICAL PROBLEM - General Chief Complaint: Genitourinary Problem Stated Complaint: DARK URINE Time Seen by Provider: 06/13/19 10:41 Source of Information: Reports: Patient, RN Notes Reviewed - History of Present Illness INITIAL COMMENTS - FREE TEXT/NARRATIVE: 78-year-old male comes in with concern for UTI. States that he does do self- catheterization morning and evening due to urinary retention. A day he is able to void okay this morning his urine has been dark and continues to be a dark "tea-colored". No voiding dysuria, urgency or frequency. No fever, chills nausea or vomiting. - Related Data Allergies Allergy/AdvReac Type Severity Reaction Status Date / Time atorvastatin Allergy Other Verified 03/12/19 22:43 hydrochlorothiazide Allergy Other Verified 03/12/19 22:43 rosuvastatin [From Crestor] Allergy Other Verified 03/12/19 22:43 tamsulosin [From Flomax] Allergy Difficulty Verified 03/12/19 22:43 Breathing amoxicillin [From Augmentin] AdvReac Diarrhea Verified 03/12/19 22:43 clavulanic acid AdvReac Diarrhea Verified 03/12/19 22:43 [From Augmentin] droperidol AdvReac Anxiety Verified 03/12/19 22:43 Home Meds: Home Meds Albuterol [Proventil HFA] 2 puff INH Q6H PRN 06/07/18 [History] Ubidecarenone [Coq-10] 200 mg PO DAILY 06/07/18 [History] Amiodarone [Cordarone] 200 mg PO DAILY 08/15/18 [History] Nitroglycerin [Nitrostat] 0.4 mg SL ASDIRECTED PRN 08/15/18 [History] Vit C/E/Zn/Coppr/Lutein/Zeaxan [Preservision Areds 2 Softgel] 1 cap PO DAILY 12/27 [History] Acetaminophen 650 mg PO Q6H PRN 10/27/18 [History] Aspirin [Halfprin] 81 mg PO 1200 10/27/18 [History] Finasteride [Proscar] 5 mg PO DAILY 10/27/18 [History] Ranolazine [Ranexa] 500 mg PO BID 10/27/18 [History] Brimonidine [Alphagan 0.2% Ophth Soln] 1 drop EYEBOTH BID 11/10/18 [History] Fluticasone/Umeclidin/Vilanter [Trelegy Ellipta 100-62.5-25 MCG] 1 puff INH DAILY 11/10/18 [History] Sodium Chloride/KCl [Thermotabs] 1 gm PO BID 11/10/18 [History] Losartan [Cozaar] 12.5 mg PO BID 01/26/19 [History] Metoprolol Succinate [Toprol XL 50mg] 25 mg PO BID 01/26/19 [History] Ranitidine [Zantac] 150 mg PO DAILY 01/26/19 [History] Polyethylene Glycol 3350 [MiraLAX] 17 gm PO DAILY PRN 02/06/19 [History] Clotrimazole [Mycelex] 10 mg PO 5XDAY 02/07/19 [History] Acetaminophen [Tylenol] 650 mg PO Q6H PRN 03/12/19 [History] Bumetanide [Bumex] 1.5 mg PO DAILY 03/12/19 [History] Clotrimazole [Mycelex] 10 mg PO QID 03/12/19 [History] Docusate Sodium 100 mg PO DAILY 03/12/19 [History] Cephalexin [Keflex] 500 mg PO Q6HR #30 capsule 06/13/19 [Rx] Past Medical History HEENT History: Reports: Macular Degeneration Other HEENT History: wears glasses Cardiovascular History: Reports: Arrhythmia, CAD, Heart Failure, High Cholesterol, Hypertension, [place] Respiratory History: Reports: COPD Other Respiratory History: emphysema Gastrointestinal History: Reports: GERD Genitourinary History: Reports: BPH, Retention, Urinary Other Genitourinary History: selft caths Musculoskeletal History: Reports: Arthritis - Infectious Disease History Infectious Disease History: Reports: Chicken Pox, Measles, Mumps - Past Surgical History Cardiovascular Surgical History: Reports: AICD, Coronary Artery Bypass, Coronary Artery Stent GI Surgical History: Reports: Cholecystectomy, Hernia, Abdominal, Other (See Below) Musculoskeletal Surgical History: Reports: Hip Replacement, Knee Replacement Social & Family History - Family History Family Medical History: Noncontributory Cardiac: Reports: [place] Endocrine/Metabolic: Reports: Diabetes, type II - Tobacco Use Smoking Status *Q: Unknown Ever Smoked - Caffeine Use Caffeine Use: Reports: Coffee, Soda Caffeine Use Comment: 1 cup of coffee QAM, irregular pepsi use- 1/wk - Living Situation & Occupation Living situation: Reports: , with Spouse Occupation: Retired ED ROS GENERAL - Review of Systems Review Of Systems: See Below Constitutional: Denies: Fever, Chills HEENT: Denies: Throat Pain Respiratory: Denies: Shortness of Breath, Cough Cardiovascular: Denies: Chest Pain GI/Abdominal: Denies: Abdominal Pain, Nausea, Vomiting : Reports: Other (urine is really dark today) Musculoskeletal: Denies: Back Pain, Leg Pain Skin: Denies: Rash Neurological: Reports: No Symptoms ED EXAM, RENAL/ - Physical Exam Exam: See Below General Appearance: Alert, No Apparent Distress Eye Exam: Bilateral Eye: PERRL Throat/Mouth: Normal Inspection, Normal Oropharynx Head: Atraumatic. No: Facial Swelling Neck: Supple Respiratory/Chest: No Respiratory Distress, Lungs Clear, Normal Breath Sounds Cardiovascular: Regular Rate, Rhythm GI/Abdominal: Soft, Non-Tender Back Exam: No: CVA Tenderness (L), CVA Tenderness (R), Paraspinal Tenderness Extremities: Normal Inspection, No Pedal Edema. No: Leg Pain, Redness Skin Exam: Warm, Dry, Normal Color Course - Vital Signs Last Recorded V/S: Last Vital Signs Temp 98.5 F 06/13/19 10:26 Pulse 68 06/13/19 10:26 Resp 16 06/13/19 10:26 BP 122/75 06/13/19 10:26 Pulse Ox 95 06/13/19 10:26 - Orders/Labs/Meds Orders: Active Orders 24 hr Category Date Time Status CULTURE URINE [RM] Stat Lab 06/13/19 10:00 Results Labs: Laboratory Tests 06/13/19 Range/Units 10:00 Urine Color Brown H (Yellow) Urine Appearance Cloudy H (Clear) Urine pH 5.5 (5.0-8.0) Ur Specific [place] > or = 1.030 (1.005-1.030) Urine Protein 2+ H (Negative) Urine Glucose (UA) Negative (Negative) Urine Ketones Trace H (Negative) Urine Occult Blood 2+ H (Negative) Urine Nitrite Negative (Negative) Urine Bilirubin 1+ H (Negative) Urine Urobilinogen 1.0 (0.2-1.0) Ur Leukocyte Esterase 1+ H (Negative) Urine RBC 20-30 H (0-5) /hpf Urine WBC >100 H (0-5) /hpf Ur Epithelial Cells 0-5 (0-5) /hpf Urine Bacteria Many H (FEW) /hpf Urine Mucus Not seen (FEW) /hpf Meds: Medications Discontinued Medications Generic Name Dose Route Start Last Admin Trade Name Shelby PRN Reason Stop Dose Admin Ceftriaxone Sodium 1 gm/ 100 mls @ 200 mls/hr 06/13/19 11:45 06/13/19 12:06 Sodium Chloride IV 06/13/19 12:14 200 mls/hr ONETIME ONE Administration - Re-Assessments/Exams Free Text/Narrative Re-Assessment/Exam: 06/14/19 10:19 UA strongly positve for UTI, he otherwise is not clinically ill. Urine culture ordered. Have give rocephin 1 gram IV. Have prescribed keflex 500 mg qid which has worked for him in the past. Discharge instr. as documented. Departure - Departure Time of Disposition: 12:43 Disposition: Home, Self-Care 01 Condition: Fair Clinical Impression: UTI (urinary tract infection) - Discharge Information Prescriptions: Cephalexin [Keflex] 500 mg PO Q6HR #30 capsule Instructions: Urinary Tract Infection, Adult, [id number] Referrals: Heath Rodriguez MD [Primary Care Provider] - Forms: ED Department Discharge Additional Instructions: Drink plenty of water to maintain hydration, you have been given Rocephin 1 g IV while here in the ED. Start Keflex 500 mg 4 times daily and take that for 7 days or until gone. That has been sent electronically to [facility]. Take your first dose later this afternoon and then a second dose at bedtime. 5 follow-up with your regular medical provider in about 2 days for recheck. Urine culture has been ordered. Will take one to 2 days to grow out. In the ED as needed if symptoms worsening in any way. - My Orders Last 24 Hours: My Active Orders 06/13/19 10:00 CULTURE URINE [RM] Stat - Assessment/Plan Last 24 Hours: My Active Orders 06/13/19 10:00 CULTURE URINE [RM] Stat
== END 2019-06-13 12:55 | disposition home or self-care (01) ==
LOC: JD.ED 10:08
DX: N39.0 Urinary tract infection, site not specified (principal); I25.10 Atherosclerotic heart disease of native coronary artery without angina pectoris; I11.0 Hypertensive heart disease with heart failure; I50.9 Heart failure, unspecified; J43.9 Emphysema, unspecified; N40.0 Benign prostatic hyperplasia without lower urinary tract symptoms; I25.2 Old myocardial infarction; Z88.8 Allergy status to other drugs, medicaments and biological substances; Z88.1 Allergy status to other antibiotic agents; Z79.82 Long term (current) use of aspirin; Z79.51 Long term (current) use of inhaled steroids; Z79.899 Other long term (current) drug therapy
CPT/HCPCS: 81001; 87086; 87088; 87186; 96365; 99283; J0696; J7030

== ENCOUNTER 2019-10-24 14:13 | Emergency (ER) | payer MEDICARE, OTHER ==
[2019-10-24 14:25] VITALS: BP 154/80; PULSE 64
[2019-10-24] MEDS ORDERED: cefTRIAXone 2 GM in Sodium Chloride 0.9% 100 ML IV ONE ×2 (15:03→15:10)
--- NOTE | 2019-10-24 15:04 | EDM.PDOC ---
ED HPI GENERAL MEDICAL PROBLEM - General Chief Complaint: Genitourinary Problem Stated Complaint: POSS UTI Time Seen by Provider: 10/24/19 14:24 Source of Information: Reports: Patient History Limitations: Reports: No Limitations - History of Present Illness INITIAL COMMENTS - FREE TEXT/NARRATIVE: Patient is an 79-year-old male who presents with complaints of mild suprapubic pain that started this morning. Patient has a history of recurrent urinary tract infections as he self catheterizes twice a day for urinary retention. He does still void on his own as well. He has not noted noticed any blood in his urine, however states that at the end of his catheterization the urine was quite cloudy. He denies any back pain, fever, or chills. - Related Data Allergies Allergy/AdvReac Type Severity Reaction Status Date / Time atorvastatin Allergy Other Verified 03/12/19 22:43 hydrochlorothiazide Allergy Other Verified 03/12/19 22:43 rosuvastatin [From Crestor] Allergy Other Verified 03/12/19 22:43 tamsulosin [From Flomax] Allergy Difficulty Verified 03/12/19 22:43 Breathing amoxicillin [From Augmentin] AdvReac Diarrhea Verified 03/12/19 22:43 clavulanic acid AdvReac Diarrhea Verified 03/12/19 22:43 [From Augmentin] droperidol AdvReac Anxiety Verified 03/12/19 22:43 Home Meds: Home Meds Albuterol [Proventil HFA] 2 puff INH Q6H PRN 06/07/18 [History] Ubidecarenone [Coq-10] 200 mg PO DAILY 06/07/18 [History] Amiodarone [Cordarone] 200 mg PO DAILY 08/15/18 [History] Nitroglycerin [Nitrostat] 0.4 mg SL ASDIRECTED PRN 08/15/18 [History] Vit C/E/Zn/Coppr/Lutein/Zeaxan [Preservision Areds 2 Softgel] 1 cap PO DAILY 12/27 [History] Acetaminophen 650 mg PO Q6H PRN 10/27/18 [History] Aspirin [Halfprin] 81 mg PO 1200 10/27/18 [History] Finasteride [Proscar] 5 mg PO DAILY 10/27/18 [History] Ranolazine [Ranexa] 500 mg PO BID 10/27/18 [History] Brimonidine [Alphagan 0.2% Ophth Soln] 1 drop EYEBOTH BID 11/10/18 [History] Fluticasone/Umeclidin/Vilanter [Trelegy Ellipta 100-62.5-25 MCG] 1 puff INH DAILY 11/10/18 [History] Sodium Chloride/KCl [Thermotabs] 1 gm PO BID 11/10/18 [History] Losartan [Cozaar] 12.5 mg PO BID 01/26/19 [History] Metoprolol Succinate [Toprol XL 50mg] 25 mg PO BID 01/26/19 [History] Ranitidine [Zantac] 150 mg PO DAILY 01/26/19 [History] polyethylene glycoL 3350 [MiraLAX] 17 gm PO DAILY PRN 02/06/19 [History] Acetaminophen [Tylenol] 650 mg PO Q6H PRN 03/12/19 [History] Bumetanide [Bumex] 1.5 mg PO DAILY 03/12/19 [History] Clotrimazole [Mycelex] 10 mg PO QID 03/12/19 [History] Docusate Sodium 100 mg PO DAILY 03/12/19 [History] cephALEXin [Keflex] 500 mg PO Q6H 7 Days #28 cap 10/24/19 [Rx] Past Medical History HEENT History: Reports: Macular Degeneration Other HEENT History: wears glasses Cardiovascular History: Reports: Arrhythmia, CAD, Heart Failure, High Cholesterol, Hypertension, [place] Respiratory History: Reports: COPD Other Respiratory History: emphysema Gastrointestinal History: Reports: GERD Genitourinary History: Reports: BPH, Retention, Urinary Other Genitourinary History: selft caths Musculoskeletal History: Reports: Arthritis - Infectious Disease History Infectious Disease History: Reports: Chicken Pox, Measles, Mumps - Past Surgical History Cardiovascular Surgical History: Reports: AICD, Coronary Artery Bypass, Coronary Artery Stent GI Surgical History: Reports: Cholecystectomy, Hernia, Abdominal, Other (See Below) Musculoskeletal Surgical History: Reports: Hip Replacement, Knee Replacement Social & Family History - Family History Family Medical History: Noncontributory Cardiac: Reports: [place] Endocrine/Metabolic: Reports: Diabetes, type II - Tobacco Use Smoking Status *Q: Never Smoker - Caffeine Use Caffeine Use: Reports: Coffee, Soda, Tea Caffeine Use Comment: 1 cup of coffee QAM, irregular pepsi use- 1/wk - Recreational Drug Use Recreational Drug Use: No - Living Situation & Occupation Living situation: Reports: , with Spouse Occupation: Retired ED ROS GENERAL - Review of Systems Review Of Systems: Comprehensive ROS is negative, except as noted in HPI. ED EXAM, RENAL/ - Physical Exam Exam: See Below Exam Limited By: No Limitations General Appearance: Alert, WD/WN, No Apparent Distress Respiratory/Chest: No Respiratory Distress, Lungs Clear, Normal Breath Sounds, No Accessory Muscle Use, Chest Non-Tender Cardiovascular: Normal Peripheral Pulses, Regular Rate, Rhythm, No Edema, No Gallop, No JVD, No Murmur, No Rub GI/Abdominal: Normal Bowel Sounds, Soft, No Organomegaly, No Distention, No Abnormal Bruit, No Mass, Tender (Mild suprapubic tenderness) Neurological: Alert, Oriented, CN II-XII Intact, Normal Cognition, Normal Gait, Normal Reflexes, No Motor/Sensory Deficits Psychiatric: Normal Affect, Normal Mood Skin Exam: Warm, Dry, Intact, Normal Color, No Rash Course - Vital Signs Last Recorded V/S: Last Vital Signs Temp 96.9 F 10/24/19 14:23 Pulse 64 10/24/19 14:23 Resp 20 10/24/19 14:23 BP 154/80 H 10/24/19 14:23 Pulse Ox 95 10/24/19 14:23 - Orders/Labs/Meds Labs: Laboratory Tests 10/24/19 10/24/19 10/24/19 Range/Units 14:35 15:17 15:17 WBC 4.24 (4.23-9.07) K/mm3 RBC 3.62 L (4.63-6.08) M/mm3 Hgb 11.3 L (13.7-17.5) gm/dl Hct 35.4 L (40.1-51.0) % MCV 97.8 H D (79.0-92.2) fl MCH 31.2 (25.7-32.2) pg MCHC 31.9 L (32.2-35.5) g/dl RDW Std Deviation 43.0 (35.1-43.9) fL Plt Count 253 D (163-337) K/mm3 MPV 9.1 L (9.4-12.3) fl Neut % (Auto) 53.6 (34.0-67.9) % Lymph % (Auto) 23.3 (21.8-53.1) % [place] % (Auto) 15.6 H (5.3-12.2) % Eos % (Auto) 5.4 (0.8-7.0) Baso % (Auto) 1.9 H (0.1-1.2) % Neut # (Auto) 2.27 (1.78-5.38) K/mm3 Lymph # (Auto) 0.99 L (1.32-3.57) K/mm3 [place] # (Auto) 0.66 (0.30-0.82) K/mm3 Eos # (Auto) 0.23 (0.04-0.54) K/mm3 Baso # (Auto) 0.08 (0.01-0.08) K/mm3 Manual Slide Review Abnormal smear Sodium 140 D (136-145) mEq/L Potassium 4.5 (3.5-5.1) mEq/L Chloride 102 D (98-107) mEq/L Carbon Dioxide 28 (21-32) mEq/L Anion Gap 14.5 (5-15) BUN 23 H (7-18) mg/dL Creatinine 1.3 (0.7-1.3) mg/dL Est Cr Clr Drug Dosing 45.32 mL/min Estimated GFR (MDRD) 53 (>60) mL/min BUN/Creatinine Ratio 17.7 (14-18) Glucose 96 (83-115) mg/dL Calcium 8.6 (8.5-10.1) mg/dL Total Bilirubin 0.4 (0.2-1.0) mg/dL AST 19 (15-37) U/L ALT 18 (16-63) U/L Alkaline Phosphatase 69 (46-116) U/L Total Protein 7.0 (6.4-8.2) g/dl Albumin 3.9 (3.4-5.0) g/dl Globulin 3.1 gm/dL Albumin/Globulin Ratio 1.3 (1-2) Urine Color Light yellow (Yellow) Urine Appearance Clear (Clear) Urine pH 5.5 (5.0-8.0) Ur Specific [place] 1.015 (1.005-1.030) Urine Protein Negative (Negative) Urine Glucose (UA) Negative (Negative) Urine Ketones Negative (Negative) Urine Occult Blood 2+ H (Negative) Urine Nitrite Negative (Negative) Urine Bilirubin Negative (Negative) Urine Urobilinogen 0.2 (0.2-1.0) Ur Leukocyte Esterase Trace H (Negative) Urine RBC 75-100 H (0-5) /hpf Urine WBC 5-10 H (0-5) /hpf Ur Squamous Epith Cells 0-5 (0-5) /hpf Urine Bacteria Moderate H (FEW) /hpf Urine Mucus Not seen (FEW) /hpf Meds: Medications Discontinued Medications Generic Name Dose Route Start Last Admin Trade Name Freq PRN Reason Stop Dose Admin Ceftriaxone Sodium 2 gm/ 100 mls @ 200 mls/hr 10/24/19 15:03 10/24/19 15:14 Sodium Chloride IV 10/24/19 15:32 Not Given ONETIME ONE Ceftriaxone Sodium 2 gm/ 100 mls @ 200 mls/hr 10/24/19 15:10 10/24/19 15:17 Sodium Chloride IV 10/24/19 15:39 200 mls/hr STAT ONE Administration - Re-Assessments/Exams Free Text/Narrative Re-Assessment/Exam: 10/24/19 15:01 Patient is an 79-year-old male who presents with complaints of mild suprapubic pain and cloudy urine with self-catheterization today. Patient has a history of urinary tract infections. States the symptoms today are somewhat mild in comparison to his past urinary tract infections, however he came in early because his has an upcoming surgery and he did not want to chance letting it go. Urinalysis is positive for the start of a urinary tract infection evidenced by trace leukocyte esterase, 5-10 WBCs, and moderate bacteria. We will give him a dose of IV Rocephin in the ER today. I will also check basic labs to include a CBC and CMP. Plan will be to discharge him home on oral Keflex as this has worked well for him in the past. Urine culture will be sent. 10/24/19 15:58 Patient's hematology was grossly unremarkable. We will discharge him home with a prescription for Keflex to start tomorrow. Discharge instructions as documented. Departure - Departure Time of Disposition: 15:59 Disposition: Home, Self-Care 01 Condition: Good Clinical Impression: Urinary tract infection associated with catheterization of urinary tract Qualifiers: Indwelling urinary catheter type: cystostomy catheter Encounter type: initial encounter Qualified Code(s): T83.510A - Infection and inflammatory reaction due to cystostomy catheter, initial encounter - Discharge Information *PRESCRIPTION DRUG MONITORING PROGRAM REVIEWED*: No *COPY OF PRESCRIPTION DRUG MONITORING REPORT IN PATIENT PAN: No Prescriptions: cephALEXin [Keflex] 500 mg PO Q6H 7 Days #28 cap Instructions: Urinary Tract Infection, Adult, Urine Culture and Sensitivity Testing Referrals: Heath Rodriguez MD [Primary Care Provider] - Forms: ED Department Discharge Additional Instructions: You were seen in the emergency department today for lower pelvic pain and cloudy urine with with catheterization. Urinalysis did show the start of a urinary tract infection. While in the ER you received a dose of IV Rocephin which is an antibiotic. A prescription for Keflex has been sent electronically to [facility]. Take this medication as prescribed starting tomorrow. If you should experience any new or worsening symptoms of concern, please do not hesitate to return to the emergency department. Sepsis Event Note - Evaluation Sepsis Screening Result: No Definite Risk - Focused Exam Vital Signs: Vital Signs Temp Pulse Resp BP Pulse Ox 10/24/19 14:23 96.9 F 64 20 154/80 H 95 Date Exam was Performed: 10/24/19 Time Exam was Performed: 15:58
== END 2019-10-24 16:18 | disposition home or self-care (01) ==
LOC: JD.ED 14:13
DX: T83.510A Infection and inflammatory reaction due to cystostomy catheter, initial encounter (principal); I11.0 Hypertensive heart disease with heart failure; I50.9 Heart failure, unspecified; I25.10 Atherosclerotic heart disease of native coronary artery without angina pectoris; J44.9 Chronic obstructive pulmonary disease, unspecified; Z79.82 Long term (current) use of aspirin; Z79.899 Other long term (current) drug therapy; Z88.8 Allergy status to other drugs, medicaments and biological substances; Z88.1 Allergy status to other antibiotic agents
CPT/HCPCS: 36415; 80053; 81001; 85025; 87086; 87088; 87186; 96365; 99284; J0696; J7050

== ENCOUNTER 2021-08-27 03:49 | Emergency (ER) | payer MEDICARE, BC ==
[2021-08-27 04:02] VITALS: BP 113/77; PULSE 61
[2021-08-27 04:46] LABS: CORONAVIRUS COVID-19 NAA NEGATIVE (NEGATIVE)
[2021-08-27] MEDS ORDERED: Iopamidol 755 Mg/ML 100 ML Bottle IVPUSH ONE (05:55)
[2021-08-27] MEDS ORDERED: Sodium Chloride 0.9% 10 ML SDV FLUSH ONE (05:55)
[2021-08-27] MEDS ORDERED: Sodium Chloride 0.9% 100 ML IV SCH (06:00)
== END 2021-08-27 07:38 | disposition home or self-care (01) ==
LOC: JD.ED 03:49
DX: R06.00 Dyspnea, unspecified (principal); R05.9 Cough, unspecified; R79.89 Other specified abnormal findings of blood chemistry; J44.9 Chronic obstructive pulmonary disease, unspecified; K21.9 Gastro-esophageal reflux disease without esophagitis; Z87.891 Personal history of nicotine dependence; Z88.0 Allergy status to penicillin; Z88.5 Allergy status to narcotic agent; Z88.8 Allergy status to other drugs, medicaments and biological substances; Z79.82 Long term (current) use of aspirin; Z79.899 Other long term (current) drug therapy; Z20.822 Contact with and (suspected) exposure to COVID-19
CPT/HCPCS: 0240U; 36415; 71045; 71275; 80053; 83880; 84484; 85007; 85027; 85379; 86140; 93005; 99285; Q9967

== ENCOUNTER 2021-08-30 08:05 | Emergency (ER) | payer MEDICARE, BC ==
[2021-08-30] MEDS ORDERED: Sodium Chloride 0.9% 10 ML Syringe FLUSH PRN (08:32)
[2021-08-30 09:39] LABS: CORONAVIRUS COVID-19 NAA NEGATIVE (NEGATIVE)
[2021-08-30] MEDS ORDERED: Bumetanide 1 MG Tab PO ONE (10:00)
[2021-08-30] MEDS ORDERED: cefTRIAXone 1 GM in Sodium Chloride 0.9% 100 ML IV ONE (10:47)
[2021-08-30] MEDS ORDERED: Azithromycin 500 MG in Sodium Chloride 0.9% 250 ML IV ONE (10:48)
[2021-08-30 11:34] VITALS: BP 133/98; PULSE 60
== END 2021-08-30 11:30 ==
LOC: JD.ED 08:05
DX: J18.9 Pneumonia, unspecified organism (principal); E87.1 Hypo-osmolality and hyponatremia; I11.0 Hypertensive heart disease with heart failure; I50.9 Heart failure, unspecified; I25.10 Atherosclerotic heart disease of native coronary artery without angina pectoris; E78.00 Pure hypercholesterolemia, unspecified; I25.2 Old myocardial infarction; N40.0 Benign prostatic hyperplasia without lower urinary tract symptoms; M19.90 Unspecified osteoarthritis, unspecified site; Z88.0 Allergy status to penicillin; Z88.8 Allergy status to other drugs, medicaments and biological substances; Z88.5 Allergy status to narcotic agent; Z20.822 Contact with and (suspected) exposure to COVID-19
CPT/HCPCS: 0241U; 36415; 51702; 71045; 80053; 83880; 84484; 85025; 86140; 87040; 93005; 96374; 96375; 99285; J0456; J0696; J7050